=== PATIENT | male | born 1960 | race Caucasian/White ===

== ENCOUNTER 2016-06-03 12:21 | Inpatient (IN) | payer MEDICAID ==
[~2016-06-03] VITALS: Ht 144.8 cm; Wt 62.1 kg
[~2016-06-03 12:21] MED LIST: MIRALAX *UNIT DOSE* 17GM PACKET PO PRN; MOM 30ML SUSPENSION UDC PO PRN
[2016-06-03 13:00] VITALS: BP 161/86
[2016-06-03] MEDS ORDERED: ACET-654 PO (13:48)
[2016-06-03] MEDS ORDERED: TRAZ50TA4 PO (13:48)
[2016-06-03] MEDS ORDERED: ATOR1TAB18 PO (13:48)
[2016-06-03] MEDS ORDERED: [UNRECOGNIZED DRUG - CODE] IV (13:48)
[2016-06-03] MEDS ORDERED: PANT40TA2 PO (13:48)
[2016-06-03] MEDS ORDERED: LISI-538 PO (13:48)
[2016-06-03] MEDS ORDERED: CLOP75TA2 PO (13:48)
[2016-06-03] MEDS ORDERED: CEFE2INJ IV (13:48)
[2016-06-03] MEDS ORDERED: ASPI81CH PO (13:48)
[2016-06-03] MEDS ORDERED: THIA100T PO (13:48)
[2016-06-03] MEDS ORDERED: AMLO10TA2 PO (13:48)
--- NOTE | 2016-06-03 14:11 | HPEPDOC ---
Seed Specialist Note ADMISSION H&P + ELENA DATE OF ADMISSION: 06/03/2016 DATE OF SERVICE: 06/03/2016 IDENTIFICATION STATEMENT: Patient is a 55-year-old man cardioembolic stroke and left hemiparesis, left neglect, decreased cognition admitted for comprehensive integrated inpatient rehabilitation. HISTORY OF PRESENT ILLNESS: Patient is a 55-year-old right hand dominant man with a history of heavy tobacco use who was admitted to local hospital on 2016 with gait abnormality. Systolic blood pressure was noted to be over 200mmHg and CT of the head showed a hypodensity in the parietal occipital area. He was transferred to [facility] for higher level of care. He was diagnosed with acute infarct involving the right PICKLING TANK OPERATOR distribution. He was started on high dose of statin. While at [facility] he experienced a new embolic infarct in the right MCA territory. He was found to have filamentous structure in the mitral valve and a PFO for which infectious disease was consulted. He was empirically treated for endocarditis (vancomycin and cefepime) and evaluated by cardiothoracic surgery service. He was started on dual antiplatelet therapy. He also underwent a hypercoagulable workup where she was found to have an elevated factor VIII. Recommendation was for repeat factor VIII level in 6-8 weeks. Due to decline in the patients baseline functional status recommendation was for acute rehabilitation. On 06/03/2016 the patient was deemed stable for discharge to [facility] inpatient rehabilitation unit. PAST MEDICAL HISTORY: Hypertension Hyperlipidemia Tobacco use PAST SURGICAL HISTORY: Negative ALLERGIES: No known drug allergies MEDICATIONS: Vancomycins 750 mg every 12 hours Cefepime 2 g IV every 8 hours Amlodipine 10 mg by mouth daily Aspirin 81 mg by mouth daily Plavix 75 mg by mouth daily Lipitor 80 mg by mouth daily Lisinopril 20 mg by mouth daily Protonix 40 mg by mouth daily Thiamine 100 mg daily Trazodone 50 mg daily Acetaminophen 650 mg every 6 hours as needed FAMILY HISTORY: Patient unaware if family history of medical issues SOCIAL HISTORY: Patient states he lives with his girlfriend in a one-story home , there are no steps to manage. He reports smoking 1-2 packs a day for 40 years. He reports drinking daily siting a couple of beers. He denies any illicit drug use, past or present. Review of Systems: General: no chills, +fatigue, no weight changes. Eyes: denies change in vision. Ears, Nose & Throat: no sore throat, decreased hearing or nasal discharge. Cardiovascular: no chest pain, claudication, edema, syncopal episodes. Pul: no cough, SOB, orthopnea. GI: Cant remember when he had a bowel movement. No abdominal pain, GERD, N/V. Genitourinary: no dysuria. Musculoskeletal: no back/neck/joint pain, no muscle pain. Neurological: + numbness left side, + decreased memory; no tremors, seizures, BRIONES. Hematological: elevated Factor VIII. Skin: no rashes. Psychiatric: no depression, anxiety, behavioral issues. VITAL SIGNS: 161/86, heart rate 72, 100% saturation on room air, 97.5F PHYSICAL EXAMINATION: GENERAL: Thin, well developed, sitting up in bed, no acute distress. HEENT: Normocephalic, atraumatic. Mild left facial droop. No lymphadenopathy. No jugular venous distention (JVD). PERRL, EOMI, poor dentition/missing teeth CARDIOVASCULAR: S1, S2, regular rate. No lower limb edema or calf tenderness. LUNGS: Decreased breath sounds throughout, but no rhonchi, wheezing or rales appreciated ABDOMEN: Soft, nontender, nondistended. Positive normoactive bowel sounds throughout. NEUROLOGICAL: Alert and oriented to person only. Positive left neglect. Memory deficits. MMT: 5/5 strength right upper and lower limbs in all major muscle groups. (Note difficulty assessing left upper and lower limb secondary to neglect and comprehension deficits) approximately 4/5 strength left shoulder abduction and forward flexion and elbow flexion 3/5 elbow extension 5/5 left skin lap bonder, 3/5 left finger extension, 3-/5 left hip flexors and knee extension, 3/5 knee flexion, dorsiflexion. Sensation: Decreased on the left upper and lower limbs relative to right upper and lower. Deep tendon reflexes: 3+ bilateral patellar and biceps SKIN: +IV LABORATORY DATA: 06/02/2016: WBC count 9.3, hemoglobin 12.9, hematocrit 37.4, platelets 386, sodium 137, potassium 4.8, chloride 99, bicarbonate 20, BUN 15, creatinine 0.9, glucose 97, calcium 9.3 IMAGING: MRI of the brain 05/30/2016: New embolic infarcts in the right MCA territory. Right posterior cerebral artery territory acute infarct. Left anterior cerebral artery flows load/PICKLING TANK OPERATOR watershed acute infarct. MRI of the brain 05/24/2016: Acute infarct involving the right PICKLING TANK OPERATOR distribution and right centrum ovale. 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 Chronic infarct in the right genu of the internal capsule in the left caudate. Small area of encephalomalacia in the ian. CTA a of the head and neck 05/24/2016 acute infarct involving the right PICKLING TANK OPERATOR territory with edema and sulcal effacement and surrounding mass effect the right P2 segment is occluded. Right M2 becomes focally narrowed just distal to the bifurcation. Right vertebral artery becomes occluded at the PICA origin. Irregular basal artery with multifocal areas of narrowing. Left vertebral artery is occluded at the origin and reconstituted flow at the C5-6 level. Plaque is seen in the V4 segment of the left vertebral artery TU with bubble study 05/25/2016: Thin filamentous structure attached to the atrial side of the posterior leaf of the mitral valve. Positive intra-atrial shunt visualized by color Doppler and bubble study. CT of the thorax with contrast 05/25/2016: There is an ill-defined 9 mm nodular opacity in the right lower lobe. There are a couple of calcified granuloma in the right middle lobe. There is a 3.4 mm nodule in the right lower lobe. CT of the abdomen 05/25/2016: No evidence of primary or metastatic malignancy. Lateral and inferior infarcts of the left kidney with old and subacute components. These are most likely vascular in etiology due to severe associated atherosclerotic disease. ASSESSMENT AND PLAN: 1. Acute infarct involving right PICKLING TANK OPERATOR distribution, left parasagittal cortex, right MCA with resultant left hemiparesis, cognitive deficits, decreased mobility and dysfunctional ADLs: Will maintain patient on statin as well as dual antiplatelet therapy. Patient will undergo thorough physical, occupational , speech therapy evaluations followed by daily therapy. Rehabilitation nursing for bladder, bowel and medication management. 2. Hypertension: Patients admission blood pressure relatively high. Well monitor closely over the next 24 hours with medication adjustments as indicated. 3. Endocarditis: Continue IV vancomycin cefepime for 6 more weeks. 4. Elevated factor VIII: Continue dual antiplatelet therapy with repeat lab work in 6-8 weeks. If still elevated transition to Xarelto 20 milligrams daily and discontinue antiplatelets per discharge summary. 5. Lung nodule: Patient is status post pulmonary consult which recommends repeat chest CT in 6-8 weeks as an outpatient. 6. DVT prophylaxis: SCD and ELIZABETH hose. 7. Diet/nutrition: Well obtain a prealbumin with morning labs. Maintain patient on a mechanical soft (secondary to poor dentition) low-fat low- cholesterol diet with thin liquids. Nutritional supplements as indicated. POST ADMISSION PHYSICIAN EVALUATION: On evaluation of the patient today there' ve been no significant medical issues or functional changes as compared to those noted in the preadmission screening document. This patient's inpatient rehabilitation remains necessary in light of the above conditions. The patient' s medical condition requires specialized care with physicians specially trained in physical medicine rehabilitation. The patient is capable to participate in a minimum of 3 hours of therapy daily, 5 days minimum per week, and requires intensive inpatient rehabilitation to improve their functional status so that they can be safely to discharge back to their home. PROGNOSIS: Fair ESTIMATED LENGTH OF STAY: 21 days. Vital Signs Vital Sign - Last 24 Hours 06/03/16 13:00 Temp 97.5 Pulse 72 Resp 18 B/P 161/86 Pulse Ox 100 O2 Delivery Room Air Home Medications Scheduled (Aspirin) 81 Mg Chw 81 MG PO DAILY (Reported) Amlodipine Besylate (Amlodipine Besylate) 10 Mg Tab 10 MG PO DAILY (Reported) Atorvastatin Calcium (Atorvastatin Calcium) 80 Mg Tab 80 MG PO DAILY (Reported) Cefepime Hydrochloride (Cefepime) 2 Gm Inj 2 GM IV Q8H (Reported) Clopidogrel Bisulfate (Clopidogrel) 75 Mg Tab 75 MG PO DAILY (Reported) Lisinopril (Lisinopril) 20 Mg Tab 20 MG PO DAILY (Reported) Pantoprazole Sodium (Pantoprazole Sodium) 40 Mg Tab 40 MG PO DAILY (Reported) Thiamine HCl (Thiamine HCl) 100 Mg Tab 100 MG PO DAILY (Reported) Trazodone HCl (Trazodone HCl) 50 Mg Tab 50 MG PO QHS (Reported) Vancomycin HCl (Vancomycin HCl) 750 Mg Inj 750 MG IV Q12H (Reported) Scheduled PRN Acetaminophen (Acetaminophen) 325 Mg Tab 650 MG PO Q6H PRN PRN PAIN / FEVER ( Reported) Allergies Coded Allergies: No Known Allergies (Unverified , 06/03/16) JOSE LUIS LEOS MD Jun 03, 2016 14:11
[2016-06-03] MEDS: CEFEPIME HCL 2 GM in D5W MINI-BAG PLUS 50 ML IV SCH (16:55)
[2016-06-03] MEDS: VANCOMYCIN HCL 750 MG, VIAL MATE ADAPTER 1 EACH in D5W 250 ML IV SCH (17:49)
[2016-06-03] MEDS: SODIUM CHLORIDE 0.9% INJ 10 ML SYR IV SCH (19:12)
[2016-06-03 20:00] VITALS: BP 170/80
[2016-06-03] MEDS: DOCUSATE SODIUM 100 MG CAP PO SCH (20:17)
[2016-06-03] MEDS: traZODone 50 MG TAB PO SCH (20:17)
[2016-06-03] MEDS: SENNA 8.6 MG TAB (SENOKOT) PO SCH (20:17)
[2016-06-03] MEDS: ACETAMINOPHEN TAB 650MG DOSE (2X325MG) PO PRN (20:27)
[2016-06-03] MEDS: **hydrALAZINE** 10 MG TAB PO SCH (21:45)
[2016-06-04] MEDS: CEFEPIME HCL 2 GM in D5W MINI-BAG PLUS 50 ML IV SCH ×3 (00:40→17:00)
[2016-06-04] MEDS: SODIUM CHLORIDE 0.9% INJ 10 ML SYR IV PRN ×2 (01:34→09:36)
[2016-06-04 06:00] VITALS: BP 135/83
[2016-06-04] MEDS: **hydrALAZINE** 10 MG TAB PO SCH ×3 (06:00→21:24)
[2016-06-04] MEDS: VANCOMYCIN HCL 750 MG, VIAL MATE ADAPTER 1 EACH in D5W 250 ML IV SCH ×2 (06:29→18:27)
[2016-06-04] MEDS: SODIUM CHLORIDE 0.9% INJ 10 ML SYR IV SCH ×2 (06:29→18:27)
[2016-06-04 07:10] LABS: MEAN CORPUSCULAR HEMOGLOBIN 29.3 pg (27.0-33.0); MEAN CORPUSCULAR HGB CONC 34.1 g/dl (32.0-36.5); MEAN CORPUSCULAR VOLUME 85.7 fl (80.0-96.0); WHITE BLOOD COUNT 7.1 K/mm3 (4.0-10.0)
[2016-06-04 07:22] LABS: ANION GAP 8 MEQ/L (8-16); BLOOD UREA NITROGEN 19 MG/DL (7-18); CALCIUM LEVEL 8.8 MG/DL (8.5-10.1); CARBON DIOXIDE LEVEL 25 MEQ/L (21-32); CHLORIDE LEVEL 107 MEQ/L (98-107); CREATININE FOR GFR 1.05 MG/DL (0.70-1.30); GLOMERULAR FILTRATION RATE > 60.0 (>56); GLUCOSE, FASTING 94 MG/DL (70-105); POTASSIUM SERUM 4.4 MEQ/L (3.5-5.1); SODIUM LEVEL 140 MEQ/L (136-145)
[2016-06-04] MEDS: DOCUSATE SODIUM 100 MG CAP PO SCH ×2 (09:04→20:07)
[2016-06-04] MEDS: ATORVASTATIN 20 MG TAB PO SCH (09:04)
[2016-06-04] MEDS: CLOPIDOGREL 75 MG TAB PO SCH (09:05)
[2016-06-04] MEDS: THIAMINE 100 MG TAB PO SCH (09:05)
[2016-06-04] MEDS: PANTOPRAZOLE 40MG TAB (PROTONIX) PO SCH (09:06)
[2016-06-04] MEDS: ASPIRIN 81 MG CHEW TABLET PO SCH (09:06)
[2016-06-04] MEDS: amLODIPine 10 MG TAB PO SCH (09:09)
[2016-06-04] MEDS: LISINOPRIL 20 MG TAB PO SCH (09:09)
[2016-06-04 14:00] VITALS: BP 155/80
[2016-06-04 20:00] VITALS: BP 162/90
[2016-06-04] MEDS: ACETAMINOPHEN TAB 650MG DOSE (2X325MG) PO PRN (20:07)
[2016-06-04] MEDS: traZODone 50 MG TAB PO SCH (20:07)
[2016-06-04] MEDS: SENNA 8.6 MG TAB (SENOKOT) PO SCH (20:07)
[2016-06-05] MEDS: SODIUM CHLORIDE 0.9% INJ 10 ML SYR IV PRN (01:06)
[2016-06-05] MEDS: CEFEPIME HCL 2 GM in D5W MINI-BAG PLUS 50 ML IV SCH ×3 (01:06→17:16)
[2016-06-05 06:00] VITALS: BP 168/90
--- NOTE | 2016-06-05 06:00 | PHACANCOPD ---
PHARMACY VANCOMYCIN DOSING Pt Demographics Demographics Patient Age:55 , Weight:60.800 , Gender: male Adjusted Body Weight Date: 06/05/16, Adjusted Body Weight: Kg Events Past 24 Hours Events Past 24 Hours: NO: Change in CrCl, Dialysis, Diuretic Therapy, Elevation in WBC, Fever, Other, Pending Diagnostics, Pending Procedures Vancomycin Vancomycin Target Ranges: 10-20 mcg/ml Vancomycin Load Y/N: No Load Dose Date Time Vancomycin Load Dose: Date: Time: Vancomycin Dose Date: 06/05/16. Current Vancomycin Dose: [750MG Q12H] Intermittent Dosing?: No Labs Labs Item Value Date Time White Blood Count 7.1 K/mm3 06/04/16 0635 Creatinine 1.05 MG/DL 06/04/16 0635 Vancomycin Level Trough 19.7 UG/ML 06/05/16 0508 Vital Signs Label Value Date Time Patient Temperature 97.7 degrees F 06/04/161999 Temperature Source Tympanic 06/04/161999 Creatinine Clearance Date:06/05/16. Creatinine Clearance: [48]. Assessment and Plan Maintaining Current Dose?: Yes Reason for dose change: No Dose Change Pharmacist Note Pharmacist Note Date: 06/05/16. Pharmacist note:Trough of 19.7 is within target range. Will continue current dosing. Will continue to monitor and make adjustments as needed. JE WYLIE PHARMACY Jun 05, 2016 06:00
[2016-06-05] MEDS: VANCOMYCIN HCL 750 MG, VIAL MATE ADAPTER 1 EACH in D5W 250 ML IV SCH ×2 (06:16→17:54)
[2016-06-05] MEDS: SODIUM CHLORIDE 0.9% INJ 10 ML SYR IV SCH ×2 (06:19→19:46)
[2016-06-05] MEDS: **hydrALAZINE** 10 MG TAB PO SCH ×3 (06:34→23:02)
[2016-06-05] MEDS: PANTOPRAZOLE 40MG TAB (PROTONIX) PO SCH ×3 (09:00→09:32)
[2016-06-05] MEDS: THIAMINE 100 MG TAB PO SCH (09:23)
[2016-06-05] MEDS: ATORVASTATIN 20 MG TAB PO SCH (09:23)
[2016-06-05] MEDS: CLOPIDOGREL 75 MG TAB PO SCH (09:24)
[2016-06-05] MEDS: ASPIRIN 81 MG CHEW TABLET PO SCH (09:24)
[2016-06-05] MEDS: LISINOPRIL 20 MG TAB PO SCH (09:26)
[2016-06-05] MEDS: amLODIPine 10 MG TAB PO SCH (09:27)
[2016-06-05] MEDS: DOCUSATE SODIUM 100 MG CAP PO SCH ×2 (09:27→21:00)
--- NOTE | 2016-06-05 11:17 | PHACANCOPD ---
PHARMACY VANCOMYCIN DOSING Pt Demographics Demographics Patient Age:55 , Weight:58.500 , Gender: male Adjusted Body Weight Date: 06/05/16, Adjusted Body Weight: Kg Events Past 24 Hours Events Past 24 Hours: NO: Change in CrCl, Dialysis, Diuretic Therapy, Elevation in WBC, Fever, Other, Pending Diagnostics, Pending Procedures Vancomycin Vancomycin indication: endocarditis Vancomycin Target Ranges: 10-20 mcg/ml Vancomycin Load Y/N: No Load Dose Date Time Vancomycin Load Dose: Date: Time: Vancomycin Dose Date: 06/05/16. Current Vancomycin Dose: [750MG Q12H] Intermittent Dosing?: No Labs Labs Item Value Date Time White Blood Count 7.1 K/mm3 06/04/16 0635 Creatinine 1.05 MG/DL 06/04/16 0635 Vancomycin Level Trough 19.7 UG/ML 06/05/16 0508 Creatinine Clearance Date:06/05/16. Creatinine Clearance: [48]. Pending Labs Vanco trough 06/07 @05:00 Assessment and Plan Maintaining Current Dose?: Yes Reason for dose change: No Dose Change Pharmacist Note Pharmacist Note Date: 06/05/16. Pharmacist note: pt was transferred from [facility] on Monday and has been continued on Vanco and cefepime for empiric treatment of endocarditis. 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 Their recommendations were to treat for 6 weeks (started 05/30/16). He was on vanco 750mg q12h, trough on 06/01 came back at 20.3. When he was transferred Monday there was an interval of 18 hours before his dosing was resumed. Trough today was within range (19.7), I will repeat a trough in 2 days. Rambo Valadez Pharm.D. Jun 05, 2016 11:16
[2016-06-05 14:00] VITALS: BP 177/79
[2016-06-05 15:00] VITALS: BP 154/78
[2016-06-05 20:00] VITALS: BP 172/88
[2016-06-05] MEDS: SENNA 8.6 MG TAB (SENOKOT) PO SCH (21:00)
[2016-06-05] MEDS: traZODone 50 MG TAB PO SCH (21:00)
[2016-06-05 23:02] VITALS: BP 172/88
[2016-06-06] VITALS (7 sets, daily range): BP systolic 136–182; BP diastolic 75–90
[2016-06-06] MEDS: CEFEPIME HCL 2 GM in D5W MINI-BAG PLUS 50 ML IV SCH ×3 (00:48→16:42)
[2016-06-06] MEDS: SODIUM CHLORIDE 0.9% INJ 10 ML SYR IV PRN (01:30)
[2016-06-06] MEDS: VANCOMYCIN HCL 750 MG, VIAL MATE ADAPTER 1 EACH in D5W 250 ML IV SCH ×2 (06:49→17:53)
[2016-06-06] MEDS: SODIUM CHLORIDE 0.9% INJ 10 ML SYR IV SCH ×2 (06:55→17:54)
[2016-06-06] MEDS: **hydrALAZINE** 10 MG TAB PO SCH ×3 (06:57→21:17)
[2016-06-06] MEDS: THIAMINE 100 MG TAB PO SCH (08:50)
[2016-06-06] MEDS: amLODIPine 10 MG TAB PO SCH (08:51)
[2016-06-06] MEDS: PANTOPRAZOLE 40MG TAB (PROTONIX) PO SCH (08:51)
[2016-06-06] MEDS: ATORVASTATIN 20 MG TAB PO SCH (08:51)
[2016-06-06] MEDS: LISINOPRIL 20 MG TAB PO SCH (08:51)
[2016-06-06] MEDS: ASPIRIN 81 MG CHEW TABLET PO SCH (08:51)
[2016-06-06] MEDS: CLOPIDOGREL 75 MG TAB PO SCH (08:51)
[2016-06-06] MEDS: DOCUSATE SODIUM 100 MG CAP PO SCH ×2 (08:52→20:06)
[2016-06-06] MEDS: ACETAMINOPHEN TAB 650MG DOSE (2X325MG) PO PRN (08:54)
--- NOTE | 2016-06-06 12:24 | IPNPDOC ---
Local Sales Associate Progress Note PROGRESS NOTE DATE OF ADMISSION: 06/03/2016 DATE OF SERVICE: 06/06/2016 ID ALFIE: Dr. Chery Corine Robin, IDENTIFICATION STATEMENT: Patient is a 55-year-old man cardioembolic stroke and left hemiparesis, left neglect, decreased cognition admitted for comprehensive integrated inpatient rehabilitation. PAST MEDICAL HISTORY: Hypertension Hyperlipidemia Tobacco use PAST SURGICAL HISTORY: Negative ALLERGIES: No known drug allergies MEDICATIONS: Vancomycin 750 mg every 12 hours Cefepime 2 g IV every 8 hours Amlodipine 10 mg by mouth daily Aspirin 81 mg by mouth daily Plavix 75 mg by mouth daily Lipitor 80 mg by mouth daily Lisinopril 20 mg by mouth daily Hydralazine 10mg q8h Protonix 40 mg by mouth daily Thiamine 100 mg daily Trazodone 50 mg daily Acetaminophen 650 mg every 6 hours as needed SUBJECTIVE: Patient expresses that he has to have a BM. Denies any other complaints, including CP, SOB, N/V, difficulty urinating. States he thinks he remembers me from last week, but when further question, does not recall who I am. VITAL SIGNS: 140/80, rr 18, heart rate 69, 98% saturation on room air, 96.9F PHYSICAL EXAMINATION: GENERAL: Thin, well developed, sitting up in WC, no acute distress. HEENT: Normocephalic, atraumatic. Mild left facial droop. PERRL, EOMI, poor dentition/missing teeth CARDIOVASCULAR: S1, S2, regular rate. No lower limb edema or calf tenderness. LUNGS: Decreased breath sounds throughout, but no rhonchi, wheezing or rales appreciated ABDOMEN: Soft, nontender, nondistended. Normoactive bowel sounds throughout. NEUROLOGICAL: Alert and oriented to person only. Left neglect. Memory deficits. MMT: 5/5 strength right upper and lower limbs in all major muscle groups. (Note difficulty assessing secondary to neglect and comprehension deficits) approximately 4/5 strength left shoulder abduction and forward flexion and elbow flexion 3/5 elbow extension 5/5 left slasher tender helper, 3/5 left finger extension, 3-/ 5 left hip flexors and knee extension, 3/5 knee flexion, dorsiflexion. SKIN: +PICC LABORATORY DATA: 06/04/16: WBC 7.1, Hgb 11.4, Cr 1.05 06/05/16: vanco 19.7 06/02/2016: WBC count 9.3, hemoglobin 12.9, hematocrit 37.4, platelets 386, sodium 137, potassium 4.8, chloride 99, bicarbonate 20, BUN 15, creatinine 0.9, glucose 97, calcium 9.3 IMAGING: MRI of the brain 05/30/2016: New embolic infarcts in the right MCA territory. Right posterior cerebral artery territory acute infarct. Left anterior cerebral artery flows load/GROCERY STORE ASSOCIATE watershed acute infarct. MRI of the brain 05/24/2016: Acute infarct involving the right GROCERY STORE ASSOCIATE distribution and right centrum ovale. 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 Chronic infarct in the right genu of the internal capsule in the left caudate. Small area of encephalomalacia in the ian. CTA a of the head and neck 05/24/2016 acute infarct involving the right GROCERY STORE ASSOCIATE territory with edema and sulcal effacement and surrounding mass effect the right P2 segment is occluded. Right M2 becomes focally narrowed just distal to the bifurcation. Right vertebral artery becomes occluded at the PICA origin. Irregular basal artery with multifocal areas of narrowing. Left vertebral artery is occluded at the origin and reconstituted flow at the C5-6 level. Plaque is seen in the V4 segment of the left vertebral artery TU with bubble study 05/25/2016: Thin filamentous structure attached to the atrial side of the posterior leaf of the mitral valve. Positive intra-atrial shunt visualized by color Doppler and bubble study. CT of the thorax with contrast 05/25/2016: There is an ill-defined 9 mm nodular opacity in the right lower lobe. There are a couple of calcified granuloma in the right middle lobe. There is a 3.4 mm nodule in the right lower lobe. CT of the abdomen 05/25/2016: No evidence of primary or metastatic malignancy. Lateral and inferior infarcts of the left kidney with old and subacute components. These are most likely vascular in etiology due to severe associated atherosclerotic disease. ASSESSMENT AND PLAN: 1. Acute infarct involving right GROCERY STORE ASSOCIATE distribution, left parasagittal cortex, right MCA with resultant left hemiparesis, cognitive deficits, decreased mobility and dysfunctional ADLs: Continue statin as well as dual antiplatelet therapy. Continue daily therapies. Rehabilitation nursing for bladder, bowel and medication management. 2. Hypertension: Lisinopril, Norvasc, Hydralazine. 3. Endocarditis: Continue IV vancomycin & cefepime until ~ 07/15/16. Will need f/ u with ID (Dr. Miri Kelly was ID physician in [facility]) 4. Elevated factor VIII: Continue dual antiplatelet therapy with repeat lab work around 07/16/15. If still elevated transition to Xarelto 20 milligrams daily and discontinue antiplatelets per discharge summary. 5. Lung nodule: Patient is status post pulmonary consult which recommends repeat chest CT in around 07/15/16 as an outpatient. 6. DVT prophylaxis: SCD and ELIZABETH hose. 7. Diet/nutrition: Prealbumin w/I normal limits. Maintain patient on a mechanical soft (secondary to poor dentition) low-fat low-cholesterol diet with thin liquids. / Vital Signs Vital Sign - Last 24 Hours 06/05/16 06/05/16 06/05/16 06/05/16 14:00 14:34 15:00 19:57 Temp 97.4 Pulse 81 Resp 18 B/P 177/79 177/79 154/78 Pulse Ox 99 O2 Delivery Room Air Room Air 06/05/16 06/05/16 06/05/16 06/06/16 20:00 23:02 23:02 00:00 Temp 97.1 Pulse 86 Resp 18 B/P 172/88 172/88 172/88 144/82 Pulse Ox 100 O2 Delivery Room Air 06/06/16 06/06/16 06/06/16 06/06/16 06:00 06:57 07:45 08:51 Temp 96.9 Pulse 69 69 Resp 18 B/P 182/90 182/90 182/90 Pulse Ox 98 O2 Delivery Room Air Room Air 06/06/16 10:00 B/P 140/80 Allergies Allergies: Coded Allergies: No Known Allergies (Unverified , 06/03/16) Current Medications Current Medications Current Medications Acetaminophen (Tylenol Tab) 650 mg Q4HP PRN PO MILD PAIN (PS 1-4) Last administered on 06/06/16 08:54; Start 06/03/16 at 11:45; Stop 07/03/16 at 11:44 Amlodipine Besylate (Norvasc) 10 mg DAILY PO Last administered on 06/06/16 08: 51; Start 06/04/16 at 09:00; Stop 07/04/16 at 08:59 Aspirin (Aspirin Chewable) 81 mg DAILY PO Last administered on 06/06/16 08:51; Start 06/04/16 at 09:00; Stop 07/04/16 at 08:59 Atorvastatin Calcium (Lipitor) 80 mg DAILY PO Last administered on 06/06/16 08: 51; Start 06/04/16 at 09:00; Stop 07/04/16 at 08:59 Cefepime HCl/ Dextrose (Maxipime/ Dextrose 5% Mini-Bag Plus) 50 ml @ 100 mls/ hr Q8H IV Last administered on 06/06/16 08:50; Start 06/03/16 at 17:00; Stop 01/17 at 16:59 Clopidogrel Bisulfate (PLAVix) 75 mg DAILY PO Last administered on 06/06/16 08: 51; Start 06/04/16 at 09:00; Stop 07/04/16 at 08:59 Docusate Sodium (Colace) 100 mg BID PO Last administered on 06/06/16 08:52; Start 06/03/16 at 21:00; Stop 07/03/16 at 20:59 Heparin Sodium (Heparin (Flush)) 200 units ASDIRECTED PRN IV SEE LABEL COMMENTS Last administered on 06/06/16 09:53; Start 06/03/16 at 17:00; Stop at 16:59 Heparin Sodium (Heparin (Flush)) 200 units PICC IV Last administered on 06:55; Start 06/03/16 at 18:00; Stop 07/03/16 at 17:59 Home Med (Med Rec Complete!) ASDIRECTED XX ; Start 06/03/16 at 14:00; Stop at 14:44; Status DC Hydralazine HCl (Apresoline) 10 mg Q8H PO Last administered on 06/06/16 06:57; Start 06/03/16 at 22:00; Stop 07/03/16 at 21:59 Lisinopril (Prinivil) 20 mg DAILY PO Last administered on 06/06/16 08:51; Start 06/04/16 at 09:00; Stop 07/04/16 at 08:59 Magnesium Hydroxide (Milk Of Magnesia) 30 ml DAILYPRN PRN PO CONSTIPATION Last administered on 06/06/16 09:52; Start 06/03/16 at 11:45; Stop 07/03/16 at 11:44 Pantoprazole Sodium (Protonix) 40 mg DAILY PO Last administered on 06/06/16 08: 51; Start 06/04/16 at 09:00; Stop 07/04/16 at 08:59 Polyethylene Glycol (Miralax) 1 pkt DAILY PRN PO CONSTIPATION; Start 06/03/16 at 11:45; Stop 07/03/16 at 11:44 Senna (Senokot) 1 tab QHS PO Last administered on 06/05/16 21:00; Start at 21:00; Stop 07/03/16 at 20:59 Sodium Chloride (Saline Lock Flush) 10 ml ASDIRECTED PRN IV SEE LABEL COMMENTS Last administered on 06/06/16 01:30; Start 06/03/16 at 17:00; Stop 07/03/16 at 16: 59 Sodium Chloride (Saline Lock Flush) 10 ml PICC IV Last administered on 06:55; Start 06/03/16 at 18:00; Stop 07/03/16 at 17:59 Thiamine HCl (Thiamine HCl) 100 mg DAILY PO Last administered on 06/06/16 08:50 ; Start 06/04/16 at 09:00; Stop 07/04/16 at 08:59 Trazodone HCl 50 mg 50 mg QHS PO Last administered on 06/05/16 21:00; Start 06/03/16 at 21:00; Stop 07/03/16 at 20:59 Vancomycin HCl 750 mg/IV Miscellaneous Supplies 1 each/ Dextrose 275 ml @ 275 mls/hr Q12H IV Last administered on 06/06/16 06:49; Start 06/03/16 at 18:00; Stop 06/10/16 at 17:59 JOSE LUIS LEOS MD Jun 06, 2016 12:24
[2016-06-06] MEDS ORDERED: MAGNESIUM CITRATE 300 ML BTL PO ONE ×2 (16:45→17:15)
[2016-06-06] MEDS: traZODone 50 MG TAB PO SCH (20:06)
[2016-06-06] MEDS: SENNA 8.6 MG TAB (SENOKOT) PO SCH (20:06)
[2016-06-07] MEDS: CEFEPIME HCL 2 GM in D5W MINI-BAG PLUS 50 ML IV SCH ×3 (00:45→17:30)
[2016-06-07] MEDS: SODIUM CHLORIDE 0.9% INJ 10 ML SYR IV PRN ×2 (01:04→10:08)
[2016-06-07 06:00] VITALS: BP 169/83
[2016-06-07] MEDS: **hydrALAZINE** 10 MG TAB PO SCH ×3 (06:12→21:15)
[2016-06-07] MEDS: SODIUM CHLORIDE 0.9% INJ 10 ML SYR IV SCH ×2 (06:12→19:17)
[2016-06-07] MEDS: VANCOMYCIN HCL 750 MG, VIAL MATE ADAPTER 1 EACH in D5W 250 ML IV SCH ×2 (06:21→18:16)
[2016-06-07 06:26] LABS: BASO # 0.1 K/mm3 (0.0-0.2); BASO % 0.7 % (0.0-1.0); EOS # 0.2 K/mm3 (0.0-0.50); LARGE UNSTAINED CELL # 0.2 K/mm3 (0.0-0.4); LARGE UNSTAINED CELL % 1.8 % (0.0-4.0); LYMPH # 1.6 K/mm3 (1.5-4.5); LYMPH % 19.2 % (24.0-44.0); MEAN CORPUSCULAR HEMOGLOBIN 28.3 pg (27.0-33.0); MEAN CORPUSCULAR HGB CONC 33.4 g/dl (32.0-36.5); MEAN CORPUSCULAR VOLUME 84.7 fl (80.0-96.0); MONO # 0.4 K/mm3 (0.0-0.8); MONO % 4.6 % (0.0-5.0); NEUTROPHILS # 5.8 K/mm3 (1.8-7.7); NEUTROPHILS % 71.7 % (36.0-66.0); PLATELET COUNT, AUTOMATED 352 k/mm3 (150-450); RED CELL DISTRIBUTION WIDTH 13.8 % (11.5-14.5); WHITE BLOOD COUNT 8.1 K/mm3 (4.0-10.0)
[2016-06-07 06:43] LABS: ANION GAP 7 MEQ/L (8-16); BLOOD UREA NITROGEN 16 MG/DL (7-18); CARBON DIOXIDE LEVEL 26 MEQ/L (21-32); CHLORIDE LEVEL 106 MEQ/L (98-107); CREATININE FOR GFR 1.08 MG/DL (0.70-1.30); GLOMERULAR FILTRATION RATE > 60.0 (>56); GLUCOSE, FASTING 93 MG/DL (70-105); POTASSIUM SERUM 4.1 MEQ/L (3.5-5.1); SODIUM LEVEL 139 MEQ/L (136-145)
[2016-06-07 07:10] LABS: ERYTHROCYTE SEDIMENTATION RATE 40 mm/hr (0-20)
--- NOTE | 2016-06-07 07:10 | PHACANCOPD ---
PHARMACY VANCOMYCIN DOSING Pt Demographics Demographics Patient Age:55 , Weight:58.500 , Gender: male Adjusted Body Weight Date: 06/05/16, Adjusted Body Weight: Kg Events Past 24 Hours Events Past 24 Hours: NO: Change in CrCl, Dialysis, Diuretic Therapy, Elevation in WBC, Fever, Other, Pending Diagnostics, Pending Procedures Vancomycin Vancomycin indication: endocarditis Vancomycin Target Ranges: 10-20 mcg/ml Vancomycin Load Y/N: No Load Dose Date Time Vancomycin Load Dose: Date: Time: Vancomycin Dose Date: 06/07/16. Current Vancomycin Dose: [750MG IV Q12H] Date: 06/05/16. Current Vancomycin Dose: [750MG Q12H] Intermittent Dosing?: No Labs Labs Item Value Date Time White Blood Count 7.1 K/mm3 06/04/16 0635 White Blood Count 8.1 K/mm3 06/07/16 0609 Creatinine 1.05 MG/DL 06/04/16 0635 Creatinine 1.08 MG/DL 06/07/16 0609 Vancomycin Level Trough 19.7 UG/ML 06/05/16 0508 Vancomycin Level Trough 18.5 UG/ML 06/07/16 0609 Creatinine Clearance Date:06/05/16. Creatinine Clearance: [48]. Assessment and Plan Maintaining Current Dose?: Yes Reason for dose change: No Dose Change Pharmacist Note Pharmacist Note Date: 06/07/16. Pharmacist note:Patients trough was therapeutic (18.5). Continue current dosing and continue to monitor renal function. Adjust dose as needed. Date: 06/05/16. Pharmacist note: pt was transferred from [facility] on Monday and has been continued on Vanco and cefepime for empiric treatment of endocarditis. 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 Their recommendations were to treat for 6 weeks (started 05/30/16). He was on vanco 750mg q12h, trough on 06/01 came back at 20.3. When he was transferred Monday there was an interval of 18 hours before his dosing was resumed. Trough today was within range (19.7), I will repeat a trough in 2 days. SHEILA AMOR PHARMACY Jun 07, 2016 07:10
[2016-06-07] MEDS: DOCUSATE SODIUM 100 MG CAP PO SCH ×2 (09:10→21:14)
[2016-06-07] MEDS: THIAMINE 100 MG TAB PO SCH (09:10)
[2016-06-07] MEDS: amLODIPine 10 MG TAB PO SCH (09:11)
[2016-06-07] MEDS: LISINOPRIL 20 MG TAB PO SCH (09:11)
[2016-06-07] MEDS: PANTOPRAZOLE 40MG TAB (PROTONIX) PO SCH (09:11)
[2016-06-07] MEDS: ASPIRIN 81 MG CHEW TABLET PO SCH (09:11)
[2016-06-07] MEDS: ATORVASTATIN 20 MG TAB PO SCH (09:11)
[2016-06-07] MEDS: CLOPIDOGREL 75 MG TAB PO SCH (09:11)
--- NOTE | 2016-06-07 11:05 | IPNPDOC ---
Department Store Manager Progress Note PROGRESS NOTE DATE OF ADMISSION: 06/03/2016 DATE OF SERVICE: 06/07/2016 ID ALFIE: Dr. Chery Corine Robin, IDENTIFICATION STATEMENT: Patient is a 55-year-old man cardioembolic stroke and left hemiparesis, left neglect, decreased cognition admitted for comprehensive integrated inpatient rehabilitation. PAST MEDICAL HISTORY: Hypertension Hyperlipidemia Tobacco use PAST SURGICAL HISTORY: Negative ALLERGIES: No known drug allergies MEDICATIONS: Vancomycin 750 mg every 12 hours Cefepime 2 g IV every 8 hours Amlodipine 10 mg by mouth daily Aspirin 81 mg by mouth daily Plavix 75 mg by mouth daily Lipitor 80 mg by mouth daily Lisinopril 20 mg by mouth daily Hydralazine 10mg q8h Protonix 40 mg by mouth daily Bacid 1 tid Thiamine 100 mg daily Trazodone 50 mg daily Acetaminophen 650 mg every 6 hours as needed SUBJECTIVE: Patient has no complaints. Says that maybe I look familiar but doesnt know who I am or where he is or what hes doing here. Has had a BM. Denies any specific complaints, no CP, SOB, N/V, dysuria, lightheadedness. VITAL SIGNS: 169/83, rr 18, heart rate 74, 98% saturation on room air, 98.1F PHYSICAL EXAMINATION: GENERAL: Thin, well developed, sitting up in WC, no acute distress. HEENT: Normocephalic, atraumatic. Mild left facial droop. PERRL, EOMI, poor dentition/missing teeth CARDIOVASCULAR: S1, S2, regular rate. No lower limb edema or calf tenderness. LUNGS: Decreased breath sounds throughout, but no rhonchi, wheezing or rales appreciated ABDOMEN: Soft, nontender, nondistended. Normoactive bowel sounds throughout. NEUROLOGICAL: Alert and oriented to person only. Left neglect. Memory deficits ( unchanged). MMT: 5/5 strength right upper and lower limbs in all major muscle groups. 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 SKIN: +PICC r UL LABORATORY DATA: 06/07/16: reviewed, see below 06/07/16: vanco 18.5 06/02/2016: WBC count 9.3, hemoglobin 12.9, hematocrit 37.4, platelets 386, sodium 137, potassium 4.8, chloride 99, bicarbonate 20, BUN 15, creatinine 0.9, glucose 97, calcium 9.3 IMAGING: MRI of the brain 05/30/2016: New embolic infarcts in the right MCA territory. Right posterior cerebral artery territory acute infarct. Left anterior cerebral artery flows load/[employer] watershed acute infarct. MRI of the brain 05/24/2016: Acute infarct involving the right [employer] distribution and right centrum ovale. 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 Chronic infarct in the right genu of the internal capsule in the left caudate. Small area of encephalomalacia in the ian. CTA a of the head and neck 05/24/2016 acute infarct involving the right [employer] territory with edema and sulcal effacement and surrounding mass effect the right P2 segment is occluded. Right M2 becomes focally narrowed just distal to the bifurcation. Right vertebral artery becomes occluded at the PICA origin. Irregular basal artery with multifocal areas of narrowing. Left vertebral artery is occluded at the origin and reconstituted flow at the C5-6 level. Plaque is seen in the V4 segment of the left vertebral artery TU with bubble study 05/25/2016: Thin filamentous structure attached to the atrial side of the posterior leaf of the mitral valve. Positive intra-atrial shunt visualized by color Doppler and bubble study. CT of the thorax with contrast 05/25/2016: There is an ill-defined 9 mm nodular opacity in the right lower lobe. There are a couple of calcified granuloma in the right middle lobe. There is a 3.4 mm nodule in the right lower lobe. CT of the abdomen 05/25/2016: No evidence of primary or metastatic malignancy. Lateral and inferior infarcts of the left kidney with old and subacute components. These are most likely vascular in etiology due to severe associated atherosclerotic disease. ASSESSMENT AND PLAN: 1. Acute infarct involving right [employer] distribution, left parasagittal cortex, right MCA with resultant left hemiparesis, cognitive deficits, decreased mobility and dysfunctional ADLs: Continue statin and dual antiplatelet therapy. Continue daily therapies. Will reassess at team rounds on Th if patient has made any significant gains. Rehabilitation nursing for bladder, bowel and medication management. 2. Hypertension: Uncontrolled. Awaiting repeat reading. Will increase hydalazin q8h of remains elevated. Continue Lisinopril, Norvasc. 3. Endocarditis: Continue IV vancomycin & cefepime until ~ 07/15/16. Will need f/ u with ID [Note: Dr. Miri Kelly was ID physician in [facility]. Spoke with their nurse 06/06/16 and they want periodic labs to include ESR and CRP. ID physician will be pending disposition]. 4. Elevated factor VIII: Continue dual antiplatelet therapy with repeat lab work around 07/16/15. If still elevated transition to Xarelto 20 milligrams daily and discontinue antiplatelets per discharge summary. 5. Lung nodule: Patient is status post pulmonary consult which recommends repeat chest CT in around 07/15/16 as an outpatient. 6. DVT prophylaxis: SCD and ELIZABETH hose. 7. Constipation: Has BM s/p mag citrate. Continue Colace, senna scheduled. MOM, Miralax prn. 8. Diet/nutrition: Prealbumin w/I normal limits. Maintain patient on a mechanical soft (secondary to poor dentition) low-fat low-cholesterol diet with thin liquids. / Vital Signs Vital Sign - Last 24 Hours 06/06/16 06/06/16 06/06/16 06/06/16 14:00 14:34 20:00 20:00 Temp 97.4 96.3 Pulse 88 94 Resp 18 18 B/P 136/75 136/75 158/76 Pulse Ox 99 99 O2 Delivery Room Air Room Air Room Air 06/06/16 06/06/16 06/06/16 06/07/16 21:17 22:38 23:36 06:00 Temp 98.1 Pulse 74 Resp 18 B/P 185/86 182/76 178/90 169/83 Pulse Ox 99 O2 Delivery Room Air 06/07/16 06/07/16 06/07/16 06:12 09:11 09:11 Pulse 74 B/P 169/83 169/83 169/83 Laboratory Data CBC/BMP Laboratory Tests 06/07/16 06:09 Calcium Level 9.0, Red Blood Count 4.08 L, Mean Corpuscular Volume 84.7, Mean Corpuscular Hemoglobin 28.3, Mean Corpuscular Hemoglobin Concent 33.4, Red Cell Distribution Width 13.8, Neutrophils (%) (Auto) 71.7 H, Lymphocytes (%) (Auto) 19.2 L, Monocytes (%) (Auto) 4.6, Eosinophils (%) (Auto) 2.0, Basophils (%) ( Auto) 0.7, Neutrophils # (Auto) 5.8, Lymphocytes # (Auto) 1.6, Monocytes # (Auto ) 0.4, Eosinophils # (Auto) 0.2, Basophils # (Auto) 0.1 Labs 24H Laboratory Tests 2 06/07/16 06:09: Anion Gap 7L, White Blood Count 8.1, Red Blood Count 4.08L, Hemoglobin 11.5L, Hematocrit 34.6L, Mean Corpuscular Volume 84.7, Mean Corpuscular Hemoglobin 28.3 , Mean Corpuscular Hemoglobin Concent 33.4, Red Cell Distribution Width 13.8, Platelet Count 352, Neutrophils (%) (Auto) 71.7H, Lymphocytes (%) (Auto) 19.2L, Monocytes (%) (Auto) 4.6, Eosinophils (%) (Auto) 2.0, Basophils (%) (Auto) 0.7, Neutrophils # (Auto) 5.8, Lymphocytes # (Auto) 1.6, Monocytes # (Auto) 0.4, Eosinophils # (Auto) 0.2, Basophils # (Auto) 0.1, C-Reactive Protein, Quantitative 1.21H, Blood Urea Nitrogen 16, Creatinine 1.08, Sodium Level 139, Potassium Level 4.1, Chloride Level 106, Carbon Dioxide Level 26, Calcium Level 9.0, Erythrocyte Sedimentation Rate 40H, Glomerular Filtration Rate > 60.0, Large Unclassified Cells # 0.2, Large Unclassified Cells % 1.8, Vancomycin Level Trough 18.5 Allergies Allergies: Coded Allergies: No Known Allergies (Unverified , 06/03/16) Current Medications Current Medications Current Medications Acetaminophen (Tylenol Tab) 650 mg Q4HP PRN PO MILD PAIN (PS 1-4) Last administered on 06/06/16 08:54; Start 06/03/16 at 11:45; Stop 07/03/16 at 11:44 Amlodipine Besylate (Norvasc) 10 mg DAILY PO Last administered on 06/07/16 09: 11; Start 06/04/16 at 09:00; Stop 07/04/16 at 08:59 Aspirin (Aspirin Chewable) 81 mg DAILY PO Last administered on 06/07/16 09:11; Start 06/04/16 at 09:00; Stop 07/04/16 at 08:59 Atorvastatin Calcium (Lipitor) 80 mg DAILY PO Last administered on 06/07/16 09: 11; Start 06/04/16 at 09:00; Stop 07/04/16 at 08:59 Cefepime HCl/ Dextrose (Maxipime/ Dextrose 5% Mini-Bag Plus) 50 ml @ 100 mls/ hr Q8H IV Last administered on 06/07/16 09:12; Start 06/03/16 at 17:00; Stop 01/17 at 16:59 Clopidogrel Bisulfate (PLAVix) 75 mg DAILY PO Last administered on 06/07/16 09: 11; Start 06/04/16 at 09:00; Stop 07/04/16 at 08:59 Docusate Sodium (Colace) 100 mg BID PO Last administered on 06/07/16 09:10; Start 06/03/16 at 21:00; Stop 07/03/16 at 20:59 Heparin Sodium (Heparin (Flush)) 200 units ASDIRECTED PRN IV SEE LABEL COMMENTS Last administered on 06/07/16 10:08; Start 06/03/16 at 17:00; Stop at 16:59 Heparin Sodium (Heparin (Flush)) 200 units PICC IV Last administered on 06:12; Start 06/03/16 at 18:00; Stop 07/03/16 at 17:59 Home Med (Med Rec Complete!) ASDIRECTED XX ; Start 06/03/16 at 14:00; Stop at 14:44; Status DC Hydralazine HCl (Apresoline) 10 mg Q8H PO Last administered on 06/07/16 06:12; Start 06/03/16 at 22:00; Stop 07/03/16 at 21:59 Lisinopril (Prinivil) 20 mg DAILY PO Last administered on 06/07/16 09:11; Start 06/04/16 at 09:00; Stop 07/04/16 at 08:59 Magnesium Hydroxide (Milk Of Magnesia) 30 ml DAILYPRN PRN PO CONSTIPATION Last administered on 06/06/16 09:52; Start 06/03/16 at 11:45; Stop 07/03/16 at 11:44 Pantoprazole Sodium (Protonix) 40 mg DAILY PO Last administered on 06/07/16 09: 11; Start 06/04/16 at 09:00; Stop 07/04/16 at 08:59 Polyethylene Glycol (Miralax) 1 pkt DAILY PRN PO CONSTIPATION; Start 06/03/16 at 11:45; Stop 07/03/16 at 11:44 Senna (Senokot) 1 tab QHS PO Last administered on 06/06/16 20:06; Start at 21:00; Stop 07/03/16 at 20:59 Sodium Chloride (Saline Lock Flush) 10 ml ASDIRECTED PRN IV SEE LABEL COMMENTS Last administered on 06/07/16 10:08; Start 06/03/16 at 17:00; Stop 07/03/16 at 16: 59 Sodium Chloride (Saline Lock Flush) 10 ml PICC IV Last administered on 06:12; Start 06/03/16 at 18:00; Stop 07/03/16 at 17:59 Thiamine HCl (Thiamine HCl) 100 mg DAILY PO Last administered on 06/07/16 09:10 ; Start 06/04/16 at 09:00; Stop 07/04/16 at 08:59 Trazodone HCl 50 mg 50 mg QHS PO Last administered on 06/06/16 20:06; Start 06/03/16 at 21:00; Stop 07/03/16 at 20:59 Vancomycin HCl 750 mg/IV Miscellaneous Supplies 1 each/ Dextrose 275 ml @ 275 mls/hr Q12H IV Last administered on 06/07/16 06:21; Start 06/03/16 at 18:00; Stop 06/10/16 at 17:59 JOSE LUIS LEOS MD Jun 07, 2016 11:05
[2016-06-07 11:10] VITALS: BP 136/82
[2016-06-07 14:00] VITALS: BP 172/84
[2016-06-07 20:00] VITALS: BP 161/87
[2016-06-07] MEDS: SENNA 8.6 MG TAB (SENOKOT) PO SCH (21:14)
[2016-06-07] MEDS: traZODone 50 MG TAB PO SCH (21:14)
[2016-06-08] MEDS: CEFEPIME HCL 2 GM in D5W MINI-BAG PLUS 50 ML IV SCH ×3 (01:22→16:47)
[2016-06-08] MEDS: VANCOMYCIN HCL 750 MG, VIAL MATE ADAPTER 1 EACH in D5W 250 ML IV SCH ×2 (05:46→18:07)
[2016-06-08 05:56] VITALS: BP 176/102
[2016-06-08] MEDS: **hydrALAZINE** 10 MG TAB PO SCH ×3 (05:58→18:10)
[2016-06-08] MEDS: SODIUM CHLORIDE 0.9% INJ 10 ML SYR IV SCH ×2 (06:52→19:10)
[2016-06-08 07:17] VITALS: BP 184/80
[2016-06-08] MEDS: CLOPIDOGREL 75 MG TAB PO SCH (09:00)
[2016-06-08] MEDS: SODIUM CHLORIDE 0.9% INJ 10 ML SYR IV PRN (10:00)
[2016-06-08] MEDS: amLODIPine 10 MG TAB PO SCH (10:21)
[2016-06-08] MEDS: ATORVASTATIN 20 MG TAB PO SCH (10:22)
[2016-06-08] MEDS: LISINOPRIL 20 MG TAB PO SCH (10:25)
[2016-06-08] MEDS: DOCUSATE SODIUM 100 MG CAP PO SCH ×2 (10:25→21:56)
[2016-06-08] MEDS: PANTOPRAZOLE 40MG TAB (PROTONIX) PO SCH (10:26)
[2016-06-08] MEDS: THIAMINE 100 MG TAB PO SCH (10:26)
[2016-06-08] MEDS: ASPIRIN 81 MG CHEW TABLET PO SCH (10:28)
--- NOTE | 2016-06-08 10:48 | IPNPDOC ---
Material Engineer Progress Note PROGRESS NOTE DATE OF ADMISSION: 06/03/2016 DATE OF SERVICE: 06/08/2016 ID ALFIE: Dr. Chery Corine Robin, IDENTIFICATION STATEMENT: Patient is a 55-year-old man cardioembolic stroke and left hemiparesis, left neglect, decreased cognition admitted for comprehensive integrated inpatient rehabilitation. PAST MEDICAL HISTORY: Hypertension Hyperlipidemia Tobacco use PAST SURGICAL HISTORY: Negative ALLERGIES: No known drug allergies MEDICATIONS: Vancomycin 750 mg every 12 hours Cefepime 2 g IV every 8 hours Amlodipine 10 mg by mouth daily Aspirin 81 mg by mouth daily Plavix 75 mg by mouth daily Lipitor 80 mg by mouth daily Lisinopril 20 mg by mouth daily Hydralazine 10mg q8h Protonix 40 mg by mouth daily Bacid 1 tid Thiamine 100 mg daily Trazodone 50 mg daily Acetaminophen 650 mg every 6 hours as needed SUBJECTIVE: Patient has no complaints. Slept ok. He knows he is in hospital/ [facility] and remembers that Im the doctor. States cant feel left side and can t do anything with it. Denies any specific complaints, no CP, SOB, N/V, dysuria , lightheadedness. VITAL SIGNS: 130/76, rr 18, heart rate 61, 98% saturation on room air, 97.2F PHYSICAL EXAMINATION: GENERAL: Thin, well developed, sitting up in WC, no acute distress. HEENT: Normocephalic, atraumatic. Mild left facial droop. PERRL, EOMI, poor dentition/missing teeth CARDIOVASCULAR: S1, S2, regular rate. No lower limb edema or calf tenderness. LUNGS: Decreased breath sounds throughout, but no rhonchi, wheezing or rales appreciated ABDOMEN: Soft, nontender, nondistended. Normoactive bowel sounds throughout. NEUROLOGICAL: Alert and oriented to person and place. Left neglect (stable). Improved STM. MMT: 5/5 strength right upper and lower limbs in all major muscle groups. 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 SKIN: +PICC r UL LABORATORY DATA: 06/07/16: reviewed, see below 06/07/16: vanco 18.5 06/02/2016: WBC count 9.3, hemoglobin 12.9, hematocrit 37.4, platelets 386, sodium 137, potassium 4.8, chloride 99, bicarbonate 20, BUN 15, creatinine 0.9, glucose 97, calcium 9.3 IMAGING: MRI of the brain 05/30/2016: New embolic infarcts in the right MCA territory. Right posterior cerebral artery territory acute infarct. Left anterior cerebral artery flows load/[employer] watershed acute infarct. MRI of the brain 05/24/2016: Acute infarct involving the right [employer] distribution and right centrum ovale. 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 Chronic infarct in the right genu of the internal capsule in the left caudate. Small area of encephalomalacia in the ian. CTA a of the head and neck 05/24/2016 acute infarct involving the right [employer] territory with edema and sulcal effacement and surrounding mass effect the right P2 segment is occluded. Right M2 becomes focally narrowed just distal to the bifurcation. Right vertebral artery becomes occluded at the PICA origin. Irregular basal artery with multifocal areas of narrowing. Left vertebral artery is occluded at the origin and reconstituted flow at the C5-6 level. Plaque is seen in the V4 segment of the left vertebral artery TU with bubble study 05/25/2016: Thin filamentous structure attached to the atrial side of the posterior leaf of the mitral valve. Positive intra-atrial shunt visualized by color Doppler and bubble study. CT of the thorax with contrast 05/25/2016: There is an ill-defined 9 mm nodular opacity in the right lower lobe. There are a couple of calcified granuloma in the right middle lobe. There is a 3.4 mm nodule in the right lower lobe. CT of the abdomen 05/25/2016: No evidence of primary or metastatic malignancy. Lateral and inferior infarcts of the left kidney with old and subacute components. These are most likely vascular in etiology due to severe associated atherosclerotic disease. ASSESSMENT AND PLAN: 1. Acute infarct involving right [employer] distribution, left parasagittal cortex, right MCA with resultant left hemiparesis, cognitive deficits, decreased mobility and dysfunctional ADLs: Continue statin and dual antiplatelet therapy. Patients memory seems to be improving. Continue daily therapies. Reassess at team rounds on if patient has made any significant functional gains. Rehabilitation nursing for bladder, bowel and medication management. 2. Hypertension: Increased hydralazine to q6h. Continue Lisinopril, Norvasc. 3. Endocarditis: Continue IV vancomycin & cefepime until ~ 07/15/16. Will need f/ u with ID [Note: Dr. Miri Kelly was ID physician in [facility]. Spoke with their nurse 06/06/16 and they want periodic labs to include ESR and CRP. ID physician will be pending disposition SNF vs home]. 4. Elevated factor VIII: Continue dual antiplatelet therapy with repeat lab work around 07/16/15. If still elevated transition to Xarelto 20 milligrams daily and discontinue antiplatelets per discharge summary. 5. Lung nodule: Patient is status post pulmonary consult which recommends repeat chest CT in around 07/15/16 as an outpatient. 6. DVT prophylaxis: SCD and ELIZABETH hose. 7. Constipation: Resolved s/p mag citrate. Continue Colace, senna scheduled. MOM , Miralax prn. 8. Diet/nutrition: Prealbumin w/I normal limits. Maintain patient on a mechanical soft (secondary to poor dentition) low-fat, low-cholesterol diet with thin liquids. / Vital Signs Vital Sign - Last 24 Hours 06/07/16 06/07/16 06/07/16 06/07/16 11:10 14:00 14:34 20:00 Temp 96.7 Pulse 69 Resp 18 B/P 136/82 172/84 172/84 Pulse Ox 100 O2 Delivery Room Air Room Air 06/07/16 06/07/16 06/08/16 06/08/16 20:00 21:15 05:56 05:58 Temp 97.2 97.2 Pulse 77 61 Resp 18 18 B/P 161/87 161/87 176/102 176/102 Pulse Ox 99 98 O2 Delivery Room Air Room Air 06/08/16 06/08/16 07:17 10:21 Pulse 74 B/P 184/80 130/76 Allergies Allergies: Coded Allergies: No Known Allergies (Unverified , 06/03/16) Current Medications Current Medications Current Medications Acetaminophen (Tylenol Tab) 650 mg Q4HP PRN PO MILD PAIN (PS 1-4) Last administered on 06/06/16t 08:54; Start 06/03/16 at 11:45; Stop 4//17 at 11:44 Amlodipine Besylate (Norvasc) 10 mg DAILY PO Last administered on 06/08/16 10: 21; Start 06/04/16 at 09:00; Stop 07/04/16 at 08:59 Aspirin (Aspirin Chewable) 81 mg DAILY PO Last administered on 06/08/16 10:28; Start 06/04/16 at 09:00; Stop 07/04/16 at 08:59 Atorvastatin Calcium (Lipitor) 80 mg DAILY PO Last administered on 06/08/16 10: 22; Start 06/04/16 at 09:00; Stop 07/04/16 at 08:59 Cefepime HCl/ Dextrose (Maxipime/ Dextrose 5% Mini-Bag Plus) 50 ml @ 100 mls/ hr Q8H IV Last administered on 06/08/16 09:21; Start 06/03/16 at 17:00; Stop 01/17 at 16:59 Clopidogrel Bisulfate (PLAVix) 75 mg DAILY PO Last administered on 06/08/16 09: 00; Start 06/04/16 at 09:00; Stop 07/04/16 at 08:59 Docusate Sodium (Colace) 100 mg BID PO Last administered on 06/08/16 10:25; Start 06/03/16 at 21:00; Stop 07/03/16 at 20:59 Heparin Sodium (Heparin (Flush)) 200 units ASDIRECTED PRN IV SEE LABEL COMMENTS Last administered on 06/07/16 10:08; Start 06/03/16 at 17:00; Stop at 16:59 Heparin Sodium (Heparin (Flush)) 200 units PICC IV Last administered on 06:52; Start 06/03/16 at 18:00; Stop 07/03/16 at 17:59 Home Med (Med Rec Complete!) ASDIRECTED XX ; Start 06/03/16 at 14:00; Stop at 14:44; Status DC Hydralazine HCl (Apresoline) 10 mg Q6H PO ; Start 06/08/16 at 18:00; Stop at 17:59 Hydralazine HCl (Apresoline) 10 mg Q8H PO Last administered on 06/08/16 10:27; Start 06/03/16 at 22:00; Stop 06/08/16 at 10:40; Status DC Lisinopril (Prinivil) 20 mg DAILY PO Last administered on 06/08/16 10:25; Start 06/04/16 at 09:00; Stop 07/04/16 at 08:59 Magnesium Hydroxide (Milk Of Magnesia) 30 ml DAILYPRN PRN PO CONSTIPATION Last administered on 06/06/16 09:52; Start 06/03/16 at 11:45; Stop 07/03/16 at 11:44 Pantoprazole Sodium (Protonix) 40 mg DAILY PO Last administered on 06/08/16 10: 26; Start 06/04/16 at 09:00; Stop 07/04/16 at 08:59 Polyethylene Glycol (Miralax) 1 pkt DAILY PRN PO CONSTIPATION; Start 06/03/16 at 11:45; Stop 07/03/16 at 11:44 Senna (Senokot) 1 tab QHS PO Last administered on 06/07/16 21:14; Start at 21:00; Stop 07/03/16 at 20:59 Sodium Chloride (Saline Lock Flush) 10 ml ASDIRECTED PRN IV SEE LABEL COMMENTS Last administered on 06/07/16 10:08; Start 06/03/16 at 17:00; Stop 07/03/16 at 16: 59 Sodium Chloride (Saline Lock Flush) 10 ml PICC IV Last administered on 06:52; Start 06/03/16 at 18:00; Stop 07/03/16 at 17:59 Thiamine HCl (Thiamine HCl) 100 mg DAILY PO Last administered on 06/08/16 10:26 ; Start 06/04/16 at 09:00; Stop 07/04/16 at 08:59 Trazodone HCl 50 mg 50 mg QHS PO Last administered on 06/07/16 21:14; Start 06/03/16 at 21:00; Stop 07/03/16 at 20:59 Vancomycin HCl 750 mg/IV Miscellaneous Supplies 1 each/ Dextrose 275 ml @ 275 mls/hr Q12H IV Last administered on 06/08/16 05:46; Start 06/03/16 at 18:00; Stop 06/10/16 at 17:59 JOSE LUIS LEOS MD Jun 08, 2016 10:48
[2016-06-08 14:00] VITALS: BP 148/80
[2016-06-08 20:00] VITALS: BP 144/70
[2016-06-08] MEDS: SENNA 8.6 MG TAB (SENOKOT) PO SCH (21:56)
[2016-06-08] MEDS: ACETAMINOPHEN TAB 650MG DOSE (2X325MG) PO PRN (21:56)
[2016-06-08] MEDS: QUEtiapine FUMARATE 12.5 MG HALF-TAB PO SCH (21:56)
[2016-06-09] MEDS: **hydrALAZINE** 10 MG TAB PO SCH ×5 (00:41→23:12)
[2016-06-09] MEDS: CEFEPIME HCL 2 GM in D5W MINI-BAG PLUS 50 ML IV SCH ×3 (00:43→17:03)
[2016-06-09] MEDS: SODIUM CHLORIDE 0.9% INJ 10 ML SYR IV SCH ×2 (05:49→18:00)
[2016-06-09] MEDS: VANCOMYCIN HCL 750 MG, VIAL MATE ADAPTER 1 EACH in D5W 250 ML IV SCH ×2 (05:49→17:38)
[2016-06-09 06:00] VITALS: BP 152/81
[2016-06-09 06:46] LABS: BASO # 0.1 K/mm3 (0.0-0.2); BASO % 0.9 % (0.0-1.0); EOS # 0.2 K/mm3 (0.0-0.50); EOS % 3.2 % (0.0-3.0); LARGE UNSTAINED CELL # 0.1 K/mm3 (0.0-0.4); LARGE UNSTAINED CELL % 1.5 % (0.0-4.0); LYMPH # 1.5 K/mm3 (1.5-4.5); LYMPH % 20.4 % (24.0-44.0); MEAN CORPUSCULAR HEMOGLOBIN 28.4 pg (27.0-33.0); MEAN CORPUSCULAR HGB CONC 33.8 g/dl (32.0-36.5); MEAN CORPUSCULAR VOLUME 83.9 fl (80.0-96.0); MONO # 0.3 K/mm3 (0.0-0.8); MONO % 4.3 % (0.0-5.0); NEUTROPHILS # 4.7 K/mm3 (1.8-7.7); NEUTROPHILS % 69.7 % (36.0-66.0); PLATELET COUNT, AUTOMATED 312 k/mm3 (150-450); RED CELL DISTRIBUTION WIDTH 13.9 % (11.5-14.5); WHITE BLOOD COUNT 6.7 K/mm3 (4.0-10.0)
[2016-06-09 07:05] LABS: ANION GAP 8 MEQ/L (8-16); BLOOD UREA NITROGEN 18 MG/DL (7-18); CALCIUM LEVEL 8.6 MG/DL (8.5-10.1); CARBON DIOXIDE LEVEL 25 MEQ/L (21-32); CHLORIDE LEVEL 105 MEQ/L (98-107); CREATININE FOR GFR 1.17 MG/DL (0.70-1.30); GLOMERULAR FILTRATION RATE > 60.0 (>56); GLUCOSE, FASTING 115 MG/DL (70-105); POTASSIUM SERUM 3.8 MEQ/L (3.5-5.1); SODIUM LEVEL 138 MEQ/L (136-145)
[2016-06-09 08:27] LABS: ERYTHROCYTE SEDIMENTATION RATE 34 mm/hr (0-20)
[2016-06-09] MEDS: LISINOPRIL 20 MG TAB PO SCH (09:23)
[2016-06-09] MEDS: ATORVASTATIN 20 MG TAB PO SCH (09:24)
[2016-06-09] MEDS: PANTOPRAZOLE 40MG TAB (PROTONIX) PO SCH (09:25)
[2016-06-09] MEDS: ASPIRIN 81 MG CHEW TABLET PO SCH (09:25)
[2016-06-09] MEDS: amLODIPine 10 MG TAB PO SCH (09:26)
[2016-06-09] MEDS: DOCUSATE SODIUM 100 MG CAP PO SCH ×2 (09:32→22:01)
[2016-06-09] MEDS: THIAMINE 100 MG TAB PO SCH (09:32)
[2016-06-09] MEDS: CLOPIDOGREL 75 MG TAB PO SCH (09:32)
--- NOTE | 2016-06-09 10:21 | IPNPDOC ---
Data Warehouse Specialist Progress Note PROGRESS NOTE DATE OF ADMISSION: 06/03/2016 DATE OF SERVICE: 06/09/2016 ID ALFIE: Dr. Chery Corine Robin, IDENTIFICATION STATEMENT: Patient is a 55-year-old man cardioembolic stroke and left hemiparesis, left neglect, decreased cognition admitted for comprehensive integrated inpatient rehabilitation. PAST MEDICAL HISTORY: Hypertension Hyperlipidemia Tobacco use PAST SURGICAL HISTORY: Negative ALLERGIES: No known drug allergies MEDICATIONS: Vancomycin 750 mg every 12 hours Cefepime 2 g IV every 8 hours Amlodipine 10 mg by mouth daily Aspirin 81 mg by mouth daily Plavix 75 mg by mouth daily Lipitor 80 mg by mouth daily Lisinopril 20 mg by mouth daily Hydralazine 10mg q8h Protonix 40 mg by mouth daily Bacid 1 tid Thiamine 100 mg daily Seroquel 12.5mg qhs Acetaminophen 650 mg every 6 hours as needed SUBJECTIVE: Patient has no complaints. Doesnt remember who I am. He pulled his PICC line out last night, but has no recollection of doing it and doesnt know why he did it. Per RN last evening, he was somewhat agitated. States slept ok. Denies any specific complaints, no CP, SOB, N/V, dysuria, lightheadedness. VITAL SIGNS: 138/80, rr 18, heart rate 64, 97% saturation on room air, 97.0F PHYSICAL EXAMINATION: GENERAL: Thin, well developed, sitting up in chair, no acute distress. HEENT: Normocephalic, atraumatic. Mild left facial droop (stable). PERRL, EOMI, poor dentition/missing teeth (stable) CARDIOVASCULAR: S1, S2, regular rate. No lower limb edema or calf tenderness. LUNGS: Decreased breath sounds throughout, but no rhonchi, wheezing or rales appreciated ABDOMEN: Soft, nontender, nondistended. Normoactive bowel sounds throughout. NEUROLOGICAL: Alert and oriented to person and place. Left neglect (stable). Memory deficits about same as upon admission. MMT: 5/5 strength right upper and lower limbs in all major muscle groups. Approximately 4/5 strength left shoulder abduction and forward flexion and elbow flexion, 3/5 elbow extension 5/ 5 left space and missile operations spacelift, 3/5 left finger extension, 3-/5 left hip flexors and knee extension , 3/5 knee flexion, dorsiflexion. SKIN: IV left wrist LABORATORY DATA: 06/09/16: reviewed, see below 06/07/16: vanco 18.5 06/02/2016: WBC count 9.3, hemoglobin 12.9, hematocrit 37.4, platelets 386, sodium 137, potassium 4.8, chloride 99, bicarbonate 20, BUN 15, creatinine 0.9, glucose 97, calcium 9.3 IMAGING: MRI of the brain 05/30/2016: New embolic infarcts in the right MCA territory. Right posterior cerebral artery territory acute infarct. Left anterior cerebral artery flows load/LUMBER PRESS OPERATOR watershed acute infarct. MRI of the brain 05/24/2016: Acute infarct involving the right LUMBER PRESS OPERATOR distribution and right centrum ovale. 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 Chronic infarct in the right genu of the internal capsule in the left caudate. Small area of encephalomalacia in the ian. CTA a of the head and neck 05/24/2016 acute infarct involving the right LUMBER PRESS OPERATOR territory with edema and sulcal effacement and surrounding mass effect the right P2 segment is occluded. Right M2 becomes focally narrowed just distal to the bifurcation. Right vertebral artery becomes occluded at the PICA origin. Irregular basal artery with multifocal areas of narrowing. Left vertebral artery is occluded at the origin and reconstituted flow at the C5-6 level. Plaque is seen in the V4 segment of the left vertebral artery TU with bubble study 05/25/2016: Thin filamentous structure attached to the atrial side of the posterior leaf of the mitral valve. Positive intra-atrial shunt visualized by color Doppler and bubble study. CT of the thorax with contrast 05/25/2016: There is an ill-defined 9 mm nodular opacity in the right lower lobe. There are a couple of calcified granuloma in the right middle lobe. There is a 3.4 mm nodule in the right lower lobe. CT of the abdomen 05/25/2016: No evidence of primary or metastatic malignancy. Lateral and inferior infarcts of the left kidney with old and subacute components. These are most likely vascular in etiology due to severe associated atherosclerotic disease. ASSESSMENT AND PLAN: 1. Acute infarct involving right LUMBER PRESS OPERATOR distribution, left parasagittal cortex, right MCA with resultant left neglect/mild hemiparesis, cognitive deficits, decreased mobility and dysfunctional ADLs: Continue statin and dual antiplatelet therapy. While he appeared to have made some gains cognitively yesterday, he is now back to level upon admission. Continue daily therapies. Reassess at team rounds today if patient has made any significant functional gains. I have spoken with his brother who informed me he has DOA and I was informed that neither he nor the brother that lives with him will be able to provide any assistance upon discharge. Rehabilitation nursing for bladder, bowel and medication management. 2. Hypertension: Improved s/p increased hydralazine to q6h. Continue Lisinopril , Norvasc. 3. Endocarditis: Continue IV vancomycin & cefepime until ~ 07/15/16. Will need f/ u with ID [Note: Dr. Miri Kelly was ID physician in [facility]. Spoke with their nurse 06/06/16 and they want periodic labs to include ESR and CRP. ID physician will be pending disposition SNF vs home]. Will need PICC line reinserted today. 4. Agitation: Periodic possibly . I started him on Seroquel last evening (d/c trazadone). 5. Elevated factor VIII: Continue dual antiplatelet therapy with repeat lab work around 07/16/15. If still elevated transition to Xarelto 20 milligrams daily and discontinue antiplatelets per discharge summary. 6. Lung nodule: Patient is status post pulmonary consult which recommends repeat chest CT in around 07/15/16 as an outpatient. 7. DVT prophylaxis: SCD and ELIZABETH hose. 8. Constipation: Resolved s/p mag citrate. Continue Colace, senna scheduled. MOM , Miralax prn. 9. Diet/nutrition: Prealbumin w/I normal limits. Maintain patient on a mechanical soft (secondary to poor dentition) low-fat, low-cholesterol diet with thin liquids. / Vital Signs Vital Sign - Last 24 Hours 06/08/16 06/08/16 06/08/16 06/09/16 14:00 18:10 20:00 00:41 Temp 97.3 97.8 Pulse 84 78 Resp 18 18 B/P 148/80 172/74 144/70 164/81 Pulse Ox 98 99 O2 Delivery Room Air Room Air 06/09/16 06/09/16 06/09/16 06/09/16 05:49 06:00 09:23 09:26 Temp 97.0 Pulse 74 64 Resp 18 B/P 152/81 152/81 138/80 Pulse Ox 97 O2 Delivery Room Air Laboratory Data CBC/BMP Laboratory Tests 06/09/16 06:33 Calcium Level 8.6, Red Blood Count 4.36, Mean Corpuscular Volume 83.9, Mean Corpuscular Hemoglobin 28.4, Mean Corpuscular Hemoglobin Concent 33.8, Red Cell Distribution Width 13.9, Neutrophils (%) (Auto) 69.7 H, Lymphocytes (%) (Auto) 20.4 L, Monocytes (%) (Auto) 4.3, Eosinophils (%) (Auto) 3.2 H, Basophils (%) ( Auto) 0.9, Neutrophils # (Auto) 4.7, Lymphocytes # (Auto) 1.5, Monocytes # (Auto ) 0.3, Eosinophils # (Auto) 0.2, Basophils # (Auto) 0.1 Labs 24H Laboratory Tests 2 06/09/16 06:33: Anion Gap 8, White Blood Count 6.7, Red Blood Count 4.36, Hemoglobin 12.4L, Hematocrit 36.6L, Mean Corpuscular Volume 83.9, Mean Corpuscular Hemoglobin 28.4 , Mean Corpuscular Hemoglobin Concent 33.8, Red Cell Distribution Width 13.9, Platelet Count 312, Neutrophils (%) (Auto) 69.7H, Lymphocytes (%) (Auto) 20.4L, Monocytes (%) (Auto) 4.3, Eosinophils (%) (Auto) 3.2H, Basophils (%) (Auto) 0.9 , Neutrophils # (Auto) 4.7, Lymphocytes # (Auto) 1.5, Monocytes # (Auto) 0.3, Eosinophils # (Auto) 0.2, Basophils # (Auto) 0.1, C-Reactive Protein, Quantitative 0.58H, Blood Urea Nitrogen 18, Creatinine 1.17, Sodium Level 138, Potassium Level 3.8, Chloride Level 105, Carbon Dioxide Level 25, Calcium Level 8.6, Erythrocyte Sedimentation Rate 34H, Glomerular Filtration Rate > 60.0, Large Unclassified Cells # 0.1, Large Unclassified Cells % 1.5 Allergies Allergies: Coded Allergies: No Known Allergies (Unverified , 06/03/16) Current Medications Current Medications Current Medications Acetaminophen (Tylenol Tab) 650 mg Q4HP PRN PO MILD PAIN (PS 1-4) Last administered on 06/08/16 21:56; Start 06/03/16 at 11:45; Stop 07/03/16 at 11:44 Amlodipine Besylate (Norvasc) 10 mg DAILY PO Last administered on 06/09/16 09: 26; Start 06/04/16 at 09:00; Stop 07/04/16 at 08:59 Aspirin (Aspirin Chewable) 81 mg DAILY PO Last administered on 06/09/16 09:25; Start 06/04/16 at 09:00; Stop 07/04/16 at 08:59 Atorvastatin Calcium (Lipitor) 80 mg DAILY PO Last administered on 06/09/16 09: 24; Start 06/04/16 at 09:00; Stop 07/04/16 at 08:59 Cefepime HCl/ Dextrose (Maxipime/ Dextrose 5% Mini-Bag Plus) 50 ml @ 100 mls/ hr Q8H IV Last administered on 06/09/16 09:16; Start 06/03/16 at 17:00; Stop 01/17 at 16:59 Clopidogrel Bisulfate (PLAVix) 75 mg DAILY PO Last administered on 06/09/16 09: 32; Start 06/04/16 at 09:00; Stop 07/04/16 at 08:59 Docusate Sodium (Colace) 100 mg BID PO Last administered on 06/09/16 09:32; Start 06/03/16 at 21:00; Stop 07/03/16 at 20:59 Heparin Sodium (Heparin (Flush)) 200 units ASDIRECTED PRN IV SEE LABEL COMMENTS Last administered on 06/08/16 10:00; Start 06/03/16 at 17:00; Stop at 16:59 Heparin Sodium (Heparin (Flush)) 200 units PICC IV Last administered on 19:10; Start 06/03/16 at 18:00; Stop 07/03/16 at 17:59 Home Med (Med Rec Complete!) ASDIRECTED XX ; Start 06/03/16 at 14:00; Stop at 14:44; Status DC Hydralazine HCl (Apresoline) 10 mg Q6H PO Last administered on 06/09/16 05:49; Start 06/08/16 at 18:00; Stop 07/08/16 at 17:59 Hydralazine HCl (Apresoline) 10 mg Q8H PO Last administered on 06/08/16 10:27; Start 06/03/16 at 22:00; Stop 06/08/16 at 10:40; Status DC Lisinopril (Prinivil) 20 mg DAILY PO Last administered on 06/09/16 09:23; Start 06/04/16 at 09:00; Stop 07/04/16 at 08:59 Magnesium Hydroxide (Milk Of Magnesia) 30 ml DAILYPRN PRN PO CONSTIPATION Last administered on 06/06/16 09:52; Start 06/03/16 at 11:45; Stop 07/03/16 at 11:44 Pantoprazole Sodium (Protonix) 40 mg DAILY PO Last administered on 06/09/16 09: 25; Start 06/04/16 at 09:00; Stop 07/04/16 at 08:59 Polyethylene Glycol (Miralax) 1 pkt DAILY PRN PO CONSTIPATION; Start 06/03/16 at 11:45; Stop 07/03/16 at 11:44 Quetiapine Fumarate (SEROquel) 12.5 mg QHS PO Last administered on 06/08/16 21: 56; Start 06/08/16 at 21:00; Stop 07/08/16 at 20:59 Senna (Senokot) 1 tab QHS PO Last administered on 06/08/16 21:56; Start at 21:00; Stop 07/03/16 at 20:59 Sodium Chloride (Saline Lock Flush) 10 ml ASDIRECTED PRN IV SEE LABEL COMMENTS Last administered on 06/08/16 10:00; Start 06/03/16 at 17:00; Stop 07/03/16 at 16: 59 Sodium Chloride (Saline Lock Flush) 10 ml PICC IV Last administered on 19:10; Start 06/03/16 at 18:00; Stop 07/03/16 at 17:59 Thiamine HCl (Thiamine HCl) 100 mg DAILY PO Last administered on 06/09/16 09:32 ; Start 06/04/16 at 09:00; Stop 07/04/16 at 08:59 Trazodone HCl 50 mg 50 mg QHS PO Last administered on 06/07/16 21:14; Start 06/03/16 at 21:00; Stop 06/08/16 at 21:29; Status DC Vancomycin HCl 750 mg/IV Miscellaneous Supplies 1 each/ Dextrose 275 ml @ 275 mls/hr Q12H IV Last administered on 06/09/16 05:49; Start 06/03/16 at 18:00; Stop 06/10/16 at 17:59 JOSE LUIS LEOS MD Jun 09, 2016 10:21
--- NOTE | 2016-06-09 17:04 | REP ---
Procedure: PICC line insertion with Adrian The procedure was performed under the direct supervision of Dr. Sandhu. The risks and benefits of the procedure were explained and informed consent was obtained by the health care proxy. The left basilic vein was localized using ultrasound guidance. The skin was prepped and draped in a sterile fashion. 2% lidocaine was used as a local anesthetic. Using ultrasound guidance the basilic vein was cannulated and a 0.018 guidewire was inserted and advanced to the SVC using fluoroscopic guidance. The needle was removed and a 4.5 Norwegian dilator and peel-away sheath was inserted over the guide wire. A 4.5 Norwegian single lumen catheter was cut to length of 40 cm. The dilator was removed and the catheter was inserted over the guide wire with the tip ending in the SVC. The peel-away sheath was removed and the catheter was flushed with heparinized saline as per Hospital protocol. The catheter was affixed to the skin and a sterile dressing was applied. The the patient tolerated the procedure well and there were no immediate complications. 0.2 minutes of fluoro time was utilized for this procedure. Reviewed by GOKUL Álvarez 06/09/2016 04:19 PSigned by Jac Sanhdu MD 06/09/2016 04:56 P
[2016-06-09] MEDS: SODIUM CHLORIDE 0.9% INJ 10 ML SYR IV PRN (17:37)
[2016-06-09 20:00] VITALS: BP 136/89
[2016-06-09] MEDS: SENNA 8.6 MG TAB (SENOKOT) PO SCH (22:01)
[2016-06-09] MEDS: QUEtiapine FUMARATE 12.5 MG HALF-TAB PO SCH (22:01)
[2016-06-09] MEDS: ACETAMINOPHEN TAB 650MG DOSE (2X325MG) PO PRN (23:12)
[2016-06-10] MEDS: CEFEPIME HCL 2 GM in D5W MINI-BAG PLUS 50 ML IV SCH ×3 (01:25→16:37)
[2016-06-10] MEDS: SODIUM CHLORIDE 0.9% INJ 10 ML SYR IV PRN ×2 (01:26→11:24)
[2016-06-10 06:00] VITALS: BP 188/92
[2016-06-10] MEDS: VANCOMYCIN HCL 750 MG, VIAL MATE ADAPTER 1 EACH in D5W 250 ML IV SCH ×2 (06:21→17:31)
[2016-06-10] MEDS: SODIUM CHLORIDE 0.9% INJ 10 ML SYR IV SCH ×2 (06:28→17:31)
[2016-06-10] MEDS: **hydrALAZINE** 10 MG TAB PO SCH (06:28)
[2016-06-10 09:23] VITALS: BP 178/98
[2016-06-10] MEDS: amLODIPine 10 MG TAB PO SCH (09:26)
[2016-06-10] MEDS: LISINOPRIL 20 MG TAB PO SCH (09:26)
[2016-06-10] MEDS: CLOPIDOGREL 75 MG TAB PO SCH (09:26)
[2016-06-10] MEDS: THIAMINE 100 MG TAB PO SCH (09:26)
[2016-06-10] MEDS: ATORVASTATIN 20 MG TAB PO SCH (09:26)
[2016-06-10] MEDS: DOCUSATE SODIUM 100 MG CAP PO SCH ×2 (09:26→21:25)
[2016-06-10] MEDS: ASPIRIN 81 MG CHEW TABLET PO SCH (09:26)
[2016-06-10] MEDS: PANTOPRAZOLE 40MG TAB (PROTONIX) PO SCH (09:26)
[2016-06-10] MEDS: ACETAMINOPHEN TAB 650MG DOSE (2X325MG) PO PRN (09:28)
--- NOTE | 2016-06-10 11:41 | IPNPDOC ---
Hvac Sales Engineer Progress Note PROGRESS NOTE DATE OF ADMISSION: 06/03/2016 DATE OF SERVICE: 06/10/2016 ID ALFIE: Dr. Chery Corine Robin, IDENTIFICATION STATEMENT: Patient is a 55-year-old man cardioembolic stroke and left hemiparesis, left neglect, decreased cognition admitted for comprehensive integrated inpatient rehabilitation. PAST MEDICAL HISTORY: Hypertension Hyperlipidemia Tobacco use PAST SURGICAL HISTORY: Negative ALLERGIES: No known drug allergies MEDICATIONS: Vancomycin 750 mg every 12 hours Cefepime 2 g IV every 8 hours Amlodipine 10 mg by mouth daily Aspirin 81 mg by mouth daily Plavix 75 mg by mouth daily Lipitor 80 mg by mouth daily Lisinopril 20 mg by mouth daily Hydralazine 10mg q6h Protonix 40 mg by mouth daily Bacid 1 tid Thiamine 100 mg daily Seroquel 12.5mg qhs Acetaminophen 650 mg every 6 hours as needed SUBJECTIVE: Patient has no complaints. Remembers who I am this morning. No specific complaints. Slept ok. Denies CP, SOB, N/V, dysuria, lightheadedness. PICC reinserted yesterday. VITAL SIGNS: 178/98, rr 18, heart rate 62, 99% saturation on room air, 97.0F PHYSICAL EXAMINATION: GENERAL: Thin, well developed, sitting up in chair, no acute distress. HEENT: Normocephalic, atraumatic. Mild left facial droop (stable). PERRL, EOMI, poor dentition/missing teeth (stable) CARDIOVASCULAR: S1, S2, regular rate. No lower limb edema or calf tenderness. LUNGS: Decreased breath sounds throughout, but no rhonchi, wheezing or rales ABDOMEN: Soft, nontender, nondistended. Normoactive bowel sounds throughout. NEUROLOGICAL: Alert and oriented to person and place. Left neglect (~stable). MMT: 5/5 strength right upper and lower limbs in all major muscle groups. Approximately 4/5 strength left shoulder abduction and forward flexion and elbow flexion, 3/5 elbow extension 5/5 left desk clerk, 3/5 left finger extension, 3-/ 5 left hip flexors and knee extension, 3/5 knee flexion, dorsiflexion. SKIN: +PICC LABORATORY DATA: 06/09/16: re-reviewed, see below 06/07/16: vanco 18.5 06/02/2016: WBC count 9.3, hemoglobin 12.9, hematocrit 37.4, platelets 386, sodium 137, potassium 4.8, chloride 99, bicarbonate 20, BUN 15, creatinine 0.9, glucose 97, calcium 9.3 IMAGING: MRI of the brain 05/30/2016: New embolic infarcts in the right MCA territory. Right posterior cerebral artery territory acute infarct. Left anterior cerebral artery flows load/FIRE EXTINGUISHER SPRINKLER INSPECTOR watershed acute infarct. MRI of the brain 05/24/2016: Acute infarct involving the right FIRE EXTINGUISHER SPRINKLER INSPECTOR distribution and right centrum ovale. 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 Chronic infarct in the right genu of the internal capsule in the left caudate. Small area of encephalomalacia in the ian. CTA a of the head and neck 05/24/2016 acute infarct involving the right FIRE EXTINGUISHER SPRINKLER INSPECTOR territory with edema and sulcal effacement and surrounding mass effect the right P2 segment is occluded. Right M2 becomes focally narrowed just distal to the bifurcation. Right vertebral artery becomes occluded at the PICA origin. Irregular basal artery with multifocal areas of narrowing. Left vertebral artery is occluded at the origin and reconstituted flow at the C5-6 level. Plaque is seen in the V4 segment of the left vertebral artery TU with bubble study 05/25/2016: Thin filamentous structure attached to the atrial side of the posterior leaf of the mitral valve. Positive intra-atrial shunt visualized by color Doppler and bubble study. CT of the thorax with contrast 05/25/2016: There is an ill-defined 9 mm nodular opacity in the right lower lobe. There are a couple of calcified granuloma in the right middle lobe. There is a 3.4 mm nodule in the right lower lobe. CT of the abdomen 05/25/2016: No evidence of primary or metastatic malignancy. Lateral and inferior infarcts of the left kidney with old and subacute components. These are most likely vascular in etiology due to severe associated atherosclerotic disease. ASSESSMENT AND PLAN: 1. Acute infarct involving right FIRE EXTINGUISHER SPRINKLER INSPECTOR distribution, left parasagittal cortex, right MCA with resultant left neglect/mild hemiparesis, cognitive deficits, decreased mobility and dysfunctional ADLs: Continue statin and dual antiplatelet therapy. Memory waxes and wanes. Since family cannot provided any assistance, determined patient will need to go to sub-acute. Paper work in process. Continue daily therapies. Rehabilitation nursing for bladder, bowel and medication management. 2. Hypertension: Elevated. Increased hydralazine to 25mg. Continue Lisinopril, Norvasc. 3. Endocarditis: Continue IV vancomycin & cefepime until ~ 07/15/16. Will need f/ u with ID [Note: Dr. Miri Kelly was ID physician in [facility]. Spoke with their nurse 06/06/16 and they want periodic labs to include ESR and CRP. ID physician will be pending disposition SNF vs home]. Will need PICC line reinserted today. 4. Agitation: Periodic, possibly ing. No reported episode since started on Seroquel 06/08/16 (d/cd trazadone). 5. Elevated factor VIII: Continue dual antiplatelet therapy with repeat lab work around 07/16/15. If still elevated transition to Xarelto 20 milligrams daily and discontinue antiplatelets per discharge summary. 6. Lung nodule: Patient is status post pulmonary consult which recommends repeat chest CT in around 07/15/16 as an outpatient. 7. DVT prophylaxis: SCD and ELIZABETH hose. 8. Constipation: Resolved s/p mag citrate. Continue Colace, senna scheduled. MOM , Miralax prn. 9. Diet/nutrition: Prealbumin w/i normal limits. Maintain patient on a mechanical soft (secondary to poor dentition) low-fat, low-cholesterol diet with thin liquids. / Vital Signs Vital Sign - Last 24 Hours 06/09/16 06/09/16 06/09/16 06/09/16 12:29 17:41 20:00 23:12 Temp 98.6 Pulse 78 Resp 18 B/P 158/80 144/84 136/89 170/94 Pulse Ox 98 O2 Delivery Room Air 06/10/16 06/10/16 06/10/16 06/10/16 06:00 06:28 09:23 09:26 Temp 97.0 Pulse 68 62 62 Resp 18 B/P 188/92 188/92 178/98 178/98 Pulse Ox 99 O2 Delivery Room Air 06/10/16 09:26 B/P 178/98 Allergies Allergies: Coded Allergies: No Known Allergies (Unverified , 06/03/16) Current Medications Current Medications Current Medications Acetaminophen (Tylenol Tab) 650 mg Q4HP PRN PO MILD PAIN (PS 1-4) Last administered on 06/10/16 09:28; Start 06/03/16 at 11:45; Stop 07/03/16 at 11:44 Amlodipine Besylate (Norvasc) 10 mg DAILY PO Last administered on 06/10/16 09: 26; Start 06/04/16 at 09:00; Stop 07/04/16 at 08:59 Aspirin (Aspirin Chewable) 81 mg DAILY PO Last administered on 06/10/16 09:26 ; Start 06/04/16 at 09:00; Stop 07/04/16 at 08:59 Atorvastatin Calcium (Lipitor) 80 mg DAILY PO Last administered on 06/10/16 09 :26; Start 06/04/16 at 09:00; Stop 07/04/16 at 08:59 Cefepime HCl/ Dextrose (Maxipime/ Dextrose 5% Mini-Bag Plus) 50 ml @ 100 mls/ hr Q8H IV Last administered on 06/10/16 09:26; Start 06/03/16 at 17:00; Stop at 16:59 Clopidogrel Bisulfate (PLAVix) 75 mg DAILY PO Last administered on 06/10/16 09 :; Start 06/04/16 at 09:00; Stop 07/04/16 at 08:59 Docusate Sodium (Colace) 100 mg BID PO Last administered on 06/10/16 09:26; Start 06/03/16 at 21:00; Stop 07/03/16 at 20:59 Heparin Sodium (Heparin (Flush)) 200 units ASDIRECTED PRN IV SEE LABEL COMMENTS Last administered on 06/10/16 11:24; Start 06/03/16 at 17:00; Stop 07/03 at 16:59 Heparin Sodium (Heparin (Flush)) 200 units PICC IV Last administered on 06:28; Start 06/03/16 at 18:00; Stop 07/03/16 at 17:59 Home Med (Med Rec Complete!) ASDIRECTED XX ; Start 06/03/16 at 14:00; Stop at 14:44; Status DC Hydralazine HCl (Apresoline) 10 mg Q6H PO Last administered on 06/10/16 06:28 ; Start 06/08/16 at 18:00; Stop 06/10/16 at 11:34; Status DC Hydralazine HCl (Apresoline) 10 mg Q8H PO Last administered on 06/08/16 10:27; Start 06/03/16 at 22:00; Stop 06/08/16 at 10:40; Status DC Hydralazine HCl (Apresoline) 25 mg Q6H PO ; Start 06/10/16 at 12:00; Stop at 11:59 Lisinopril (Prinivil) 20 mg DAILY PO Last administered on 06/10/16 09:26; Start 06/04/16 at 09:00; Stop 07/04/16 at 08:59 Magnesium Hydroxide (Milk Of Magnesia) 30 ml DAILYPRN PRN PO CONSTIPATION Last administered on 06/06/16 09:52; Start 06/03/16 at 11:45; Stop 07/03/16 at 11:44 Pantoprazole Sodium (Protonix) 40 mg DAILY PO Last administered on 06/10/16 09 :26; Start 06/04/16 at 09:00; Stop 07/04/16 at 08:59 Polyethylene Glycol (Miralax) 1 pkt DAILY PRN PO CONSTIPATION; Start 06/03/16 at 11:45; Stop 07/03/16 at 11:44 Quetiapine Fumarate (SEROquel) 12.5 mg QHS PO Last administered on 06/09/16 22: 01; Start 06/08/16 at 21:00; Stop 07/08/16 at 20:59 Senna (Senokot) 1 tab QHS PO Last administered on 06/09/16 22:01; Start at 21:00; Stop 07/03/16 at 20:59 Sodium Chloride (Saline Lock Flush) 10 ml ASDIRECTED PRN IV SEE LABEL COMMENTS Last administered on 06/10/16 11:24; Start 06/03/16 at 17:00; Stop 07/03/16 at 16 :59 Sodium Chloride (Saline Lock Flush) 10 ml PICC IV Last administered on 06:28; Start 06/03/16 at 18:00; Stop 07/03/16 at 17:59 Thiamine HCl (Thiamine HCl) 100 mg DAILY PO Last administered on 06/10/16 09: 26; Start 06/04/16 at 09:00; Stop 07/04/16 at 08:59 Trazodone HCl 50 mg 50 mg QHS PO Last administered on 06/07/16 21:14; Start 06/03/16 at 21:00; Stop 06/08/16 at 21:29; Status DC Vancomycin HCl 750 mg/IV Miscellaneous Supplies 1 each/ Dextrose 275 ml @ 275 mls/hr Q12H IV Last administered on 06/10/16 06:21; Start 06/03/16 at 18:00; Stop 06/16/16 at 17:59 JOSE LUIS LEOS MD Jun 10, 2016 11:41
[2016-06-10 12:29] VITALS: BP 183/89
[2016-06-10] MEDS: **hydrALAZINE HCL** 25 MG TAB PO SCH ×2 (12:30→17:31)
[2016-06-10 14:00] VITALS: BP 168/78
[2016-06-10 17:20] VITALS: BP 142/83
[2016-06-10 20:00] VITALS: BP 190/93
[2016-06-10] MEDS: SENNA 8.6 MG TAB (SENOKOT) PO SCH (21:25)
[2016-06-10] MEDS: QUEtiapine FUMARATE 12.5 MG HALF-TAB PO SCH (21:26)
[2016-06-11] MEDS: **hydrALAZINE HCL** 25 MG TAB PO SCH ×4 (00:13→17:01)
[2016-06-11] MEDS: CEFEPIME HCL 2 GM in D5W MINI-BAG PLUS 50 ML IV SCH ×3 (00:14→17:01)
[2016-06-11] MEDS: SODIUM CHLORIDE 0.9% INJ 10 ML SYR IV PRN ×2 (00:14→06:32)
[2016-06-11 06:00] VITALS: BP 189/83
[2016-06-11] MEDS: VANCOMYCIN HCL 750 MG, VIAL MATE ADAPTER 1 EACH in D5W 250 ML IV SCH (06:33)
[2016-06-11 06:36] LABS: BASO # 0.1 K/mm3 (0.0-0.2); BASO % 0.7 % (0.0-1.0); EOS # 0.2 K/mm3 (0.0-0.50); EOS % 2.1 % (0.0-3.0); LARGE UNSTAINED CELL # 0.2 K/mm3 (0.0-0.4); LYMPH # 1.5 K/mm3 (1.5-4.5); LYMPH % 18.5 % (24.0-44.0); MEAN CORPUSCULAR HEMOGLOBIN 27.7 pg (27.0-33.0); MEAN CORPUSCULAR HGB CONC 32.9 g/dl (32.0-36.5); MEAN CORPUSCULAR VOLUME 84.1 fl (80.0-96.0); MONO # 0.4 K/mm3 (0.0-0.8); MONO % 4.8 % (0.0-5.0); PLATELET COUNT, AUTOMATED 314 k/mm3 (150-450); WHITE BLOOD COUNT 8.3 K/mm3 (4.0-10.0)
[2016-06-11 06:57] LABS: ANION GAP 7 MEQ/L (8-16); BLOOD UREA NITROGEN 23 MG/DL (7-18); CALCIUM LEVEL 9.1 MG/DL (8.5-10.1); CARBON DIOXIDE LEVEL 27 MEQ/L (21-32); CHLORIDE LEVEL 106 MEQ/L (98-107); CREATININE FOR GFR 1.31 MG/DL (0.70-1.30); GLOMERULAR FILTRATION RATE > 60.0 (>56); GLUCOSE, FASTING 96 MG/DL (70-105); POTASSIUM SERUM 4.1 MEQ/L (3.5-5.1); SODIUM LEVEL 140 MEQ/L (136-145)
[2016-06-11 07:08] LABS: ERYTHROCYTE SEDIMENTATION RATE 32 mm/hr (0-20)
[2016-06-11] MEDS: LISINOPRIL 20 MG TAB PO SCH (08:52)
[2016-06-11] MEDS: CLOPIDOGREL 75 MG TAB PO SCH (08:52)
[2016-06-11] MEDS: PANTOPRAZOLE 40MG TAB (PROTONIX) PO SCH (08:52)
[2016-06-11] MEDS: THIAMINE 100 MG TAB PO SCH (08:52)
[2016-06-11] MEDS: ASPIRIN 81 MG CHEW TABLET PO SCH (08:52)
[2016-06-11] MEDS: DOCUSATE SODIUM 100 MG CAP PO SCH ×2 (08:52→20:06)
[2016-06-11] MEDS: ATORVASTATIN 20 MG TAB PO SCH (08:52)
[2016-06-11] MEDS: amLODIPine 10 MG TAB PO SCH (08:52)
[2016-06-11] MEDS: SODIUM CHLORIDE 0.9% INJ 10 ML SYR IV SCH ×2 (08:53→17:02)
[2016-06-11] MEDS: ACETAMINOPHEN TAB 650MG DOSE (2X325MG) PO PRN (10:23)
[2016-06-11 10:30] VITALS: BP 138/69
[2016-06-11 14:00] VITALS: BP 162/78
[2016-06-11] MEDS: QUEtiapine FUMARATE 25 MG TAB PO SCH (19:02)
[2016-06-11] MEDS: SENNA 8.6 MG TAB (SENOKOT) PO SCH (20:07)
[2016-06-11] MEDS ORDERED: QUEtiapine FUMARATE 25 MG TAB PO SCH (21:00)
[2016-06-12] MEDS: CEFEPIME HCL 2 GM in D5W MINI-BAG PLUS 50 ML IV SCH ×3 (00:03→16:33)
[2016-06-12] MEDS: **hydrALAZINE HCL** 25 MG TAB PO SCH ×5 (00:03→23:20)
[2016-06-12] MEDS: SODIUM CHLORIDE 0.9% INJ 10 ML SYR IV PRN ×2 (00:03→00:52)
[2016-06-12 01:42] VITALS: BP 169/77
[2016-06-12 06:00] VITALS: BP 184/83
[2016-06-12] MEDS: VANCOMYCIN HCL 750 MG, VIAL MATE ADAPTER 1 EACH in D5W 250 ML IV SCH ×2 (06:56→17:25)
[2016-06-12 07:30] VITALS: BP 141/93
[2016-06-12] MEDS: CLOPIDOGREL 75 MG TAB PO SCH (08:42)
[2016-06-12] MEDS: DOCUSATE SODIUM 100 MG CAP PO SCH ×2 (08:42→20:24)
[2016-06-12] MEDS: amLODIPine 10 MG TAB PO SCH (08:42)
[2016-06-12] MEDS: ATORVASTATIN 20 MG TAB PO SCH (08:42)
[2016-06-12] MEDS: THIAMINE 100 MG TAB PO SCH (08:42)
[2016-06-12] MEDS: ASPIRIN 81 MG CHEW TABLET PO SCH (08:42)
[2016-06-12] MEDS: PANTOPRAZOLE 40MG TAB (PROTONIX) PO SCH (08:44)
[2016-06-12] MEDS: LISINOPRIL 20 MG TAB PO SCH (08:44)
[2016-06-12] MEDS: SODIUM CHLORIDE 0.9% INJ 10 ML SYR IV SCH ×2 (08:45→18:32)
[2016-06-12 14:00] VITALS: BP 141/85
[2016-06-12] MEDS: QUEtiapine FUMARATE 25 MG TAB PO SCH (18:32)
[2016-06-12 20:00] VITALS: BP 178/92
[2016-06-12] MEDS: SENNA 8.6 MG TAB (SENOKOT) PO SCH (20:23)
[2016-06-12 23:20] VITALS: BP 168/86
[2016-06-13] MEDS: CEFEPIME HCL 2 GM in D5W MINI-BAG PLUS 50 ML IV SCH ×3 (01:08→16:29)
[2016-06-13] MEDS: SODIUM CHLORIDE 0.9% INJ 10 ML SYR IV PRN ×5 (01:09→16:34)
[2016-06-13] MEDS: SODIUM CHLORIDE 0.9% INJ 10 ML SYR IV SCH ×2 (05:14→17:15)
[2016-06-13] MEDS: **hydrALAZINE HCL** 25 MG TAB PO SCH ×3 (05:18→17:13)
[2016-06-13 05:24] VITALS: BP 148/80
[2016-06-13 05:39] LABS: BASO % 0.7 % (0.0-1.0); EOS # 0.1 K/mm3 (0.0-0.50); LARGE UNSTAINED CELL # 0.1 K/mm3 (0.0-0.4); LYMPH # 1.5 K/mm3 (1.5-4.5); LYMPH % 22.3 % (24.0-44.0); MEAN CORPUSCULAR HGB CONC 33.2 g/dl (32.0-36.5); MEAN CORPUSCULAR VOLUME 84.3 fl (80.0-96.0); MONO # 0.4 K/mm3 (0.0-0.8); MONO % 5.3 % (0.0-5.0); NEUTROPHILS # 4.5 K/mm3 (1.8-7.7); NEUTROPHILS % 67.8 % (36.0-66.0); PLATELET COUNT, AUTOMATED 283 k/mm3 (150-450); RED CELL DISTRIBUTION WIDTH 14.2 % (11.5-14.5); WHITE BLOOD COUNT 6.6 K/mm3 (4.0-10.0)
[2016-06-13 05:52] LABS: ANION GAP 9 MEQ/L (8-16); BLOOD UREA NITROGEN 23 MG/DL (7-18); CALCIUM LEVEL 8.4 MG/DL (8.5-10.1); CARBON DIOXIDE LEVEL 25 MEQ/L (21-32); CHLORIDE LEVEL 107 MEQ/L (98-107); CREATININE FOR GFR 1.32 MG/DL (0.70-1.30); GLOMERULAR FILTRATION RATE 59.9 (>56); GLUCOSE, FASTING 90 MG/DL (70-105); SODIUM LEVEL 141 MEQ/L (136-145)
[2016-06-13 06:00] VITALS: BP 148/80
--- NOTE | 2016-06-13 06:48 | PHACANCOPD ---
PHARMACY VANCOMYCIN DOSING Pt Demographics Demographics Patient Age:55 , Weight:60.500 , Gender: male Adjusted Body Weight Date: 06/05/16, Adjusted Body Weight: Kg Vancomycin Vancomycin indication: endocarditis Vancomycin Target Ranges: 10-20 mcg/ml Vancomycin Load Y/N: No Load Dose Date Time Vancomycin Load Dose: Date: Time: Vancomycin Dose Date: 06/07/16. Current Vancomycin Dose: [750MG IV Q12H] Date: 06/05/16. Current Vancomycin Dose: [750MG Q12H] Intermittent Dosing?: No Labs Creatinine Clearance Date:06/05/16. Creatinine Clearance: [48]. Assessment and Plan Maintaining Current Dose?: No Reason for dose change: Trough too high Pharmacist Note Pharmacist Note Date: 06/13/16. Pharmacist note:TROUGH REPORTED THIS MORNING 20.4- aCCUMULATION WILL CONTINUE TO INCREASE TROUGH SO WILL ADJUAT VANCOMYCIN TO 1 GRAM IV Q24 HOURS BEGINNING AT 12 NOON-SCR=1.32 CRCL=38.5...WILL CONTINUE TO MONITOR RENAL FUNCTION/LEVELS Date: 06/07/16. Pharmacist note:Patients trough was therapeutic (18.5). Continue current dosing and continue to monitor renal function. Adjust dose as needed. Date: 06/05/16. Pharmacist note: pt was transferred from [facility] on Monday and has been continued on Vanco and cefepime for empiric treatment of endocarditis. 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 Their recommendations were to treat for 6 weeks (started 05/30/16). He was on vanco 750mg q12h, trough on 06/01 came back at 20.3. When he was transferred Monday there was an interval of 18 hours before his dosing was resumed. Trough today was within range (19.7), I will repeat a trough in 2 days. LAUREN [facility]ST[facility] Jun 13, 2016 06:48
[2016-06-13 06:58] LABS: ERYTHROCYTE SEDIMENTATION RATE 33 mm/hr (0-20)
[2016-06-13] MEDS: amLODIPine 10 MG TAB PO SCH (08:45)
[2016-06-13] MEDS: ATORVASTATIN 20 MG TAB PO SCH (08:45)
[2016-06-13] MEDS: CLOPIDOGREL 75 MG TAB PO SCH (08:46)
[2016-06-13] MEDS: LISINOPRIL 20 MG TAB PO SCH (08:46)
[2016-06-13] MEDS: DOCUSATE SODIUM 100 MG CAP PO SCH ×2 (08:46→21:19)
[2016-06-13] MEDS: ASPIRIN 81 MG CHEW TABLET PO SCH (08:46)
[2016-06-13] MEDS: THIAMINE 100 MG TAB PO SCH (08:46)
[2016-06-13] MEDS: PANTOPRAZOLE 40MG TAB (PROTONIX) PO SCH (08:46)
[2016-06-13] MEDS: VANCOMYCIN HCL 1,000 MG, VIAL MATE ADAPTER 1 EACH in D5W 250 ML IV SCH (11:40)
[2016-06-13 14:00] VITALS: BP 145/76
--- NOTE | 2016-06-13 14:26 | IPNPDOC ---
Nutrition Worker Progress Note PROGRESS NOTE DATE OF ADMISSION: 06/03/2016 DATE OF SERVICE: 06/13/2016 ID ALFIE: Dr. Chery Corine Robin, IDENTIFICATION STATEMENT: Patient is a 55-year-old man cardioembolic stroke and left hemiparesis, left neglect, decreased cognition admitted for comprehensive integrated inpatient rehabilitation. PAST MEDICAL HISTORY: Hypertension Hyperlipidemia Tobacco use PAST SURGICAL HISTORY: Negative ALLERGIES: No known drug allergies MEDICATIONS: Vancomycin 750 mg every 12 hours Cefepime 2 g IV every 8 hours Amlodipine 10 mg by mouth daily Aspirin 81 mg by mouth daily Plavix 75 mg by mouth daily Lipitor 80 mg by mouth daily Lisinopril 20 mg by mouth daily Hydralazine 10mg q8h Protonix 40 mg by mouth daily Bacid 1 tid Thiamine 100 mg daily Seroquel 12.5mg qhs Acetaminophen 650 mg every 6 hours as needed SUBJECTIVE: Patient has no complaints. This morning he remembers me and that he s in the hospital. No specific complaints. Slept ok. Denies CP, SOB, N/V, dysuria, lightheadedness. VITAL SIGNS: 132/72, rr 20, heart rate 62, 99% saturation on room air, 97.3F PHYSICAL EXAMINATION: GENERAL: Thin, well developed, sitting up in chair, no acute distress. HEENT: Normocephalic, atraumatic. Mild left facial droop (stable). PERRL, EOMI, poor dentition/missing teeth (stable) CARDIOVASCULAR: S1, S2, regular rate. No lower limb edema or calf tenderness. LUNGS: Decreased breath sounds throughout, but no rhonchi, wheezing or rales ABDOMEN: Soft, nontender, nondistended. Normoactive bowel sounds throughout. NEUROLOGICAL: Alert and oriented to person and place. Left neglect (~stable). MMT: 5/5 strength right upper and lower limbs in all major muscle groups. 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 SKIN: +PICC LABORATORY DATA: 06/13/16: reviewed, see below 06/13/16: vanco 20.4 06/02/2016: WBC count 9.3, hemoglobin 12.9, hematocrit 37.4, platelets 386, sodium 137, potassium 4.8, chloride 99, bicarbonate 20, BUN 15, creatinine 0.9, glucose 97, calcium 9.3 IMAGING: MRI of the brain 05/30/2016: New embolic infarcts in the right MCA territory. Right posterior cerebral artery territory acute infarct. Left anterior cerebral artery flows load/BACTERIOLOGY RESEARCH ASSISTANT watershed acute infarct. MRI of the brain 05/24/2016: Acute infarct involving the right BACTERIOLOGY RESEARCH ASSISTANT distribution and right centrum ovale. 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 Chronic infarct in the right genu of the internal capsule in the left caudate. Small area of encephalomalacia in the ian. CTA a of the head and neck 05/24/2016 acute infarct involving the right BACTERIOLOGY RESEARCH ASSISTANT territory with edema and sulcal effacement and surrounding mass effect the right P2 segment is occluded. Right M2 becomes focally narrowed just distal to the bifurcation. Right vertebral artery becomes occluded at the PICA origin. Irregular basal artery with multifocal areas of narrowing. Left vertebral artery is occluded at the origin and reconstituted flow at the C5-6 level. Plaque is seen in the V4 segment of the left vertebral artery TU with bubble study 05/25/2016: Thin filamentous structure attached to the atrial side of the posterior leaf of the mitral valve. Positive intra-atrial shunt visualized by color Doppler and bubble study. CT of the thorax with contrast 05/25/2016: There is an ill-defined 9 mm nodular opacity in the right lower lobe. There are a couple of calcified granuloma in the right middle lobe. There is a 3.4 mm nodule in the right lower lobe. CT of the abdomen 05/25/2016: No evidence of primary or metastatic malignancy. Lateral and inferior infarcts of the left kidney with old and subacute components. These are most likely vascular in etiology due to severe associated atherosclerotic disease. ASSESSMENT AND PLAN: 1. Acute infarct involving right BACTERIOLOGY RESEARCH ASSISTANT distribution, left parasagittal cortex, right MCA with resultant left neglect/mild hemiparesis, cognitive deficits, decreased mobility and dysfunctional ADLs: Continue statin and dual antiplatelet therapy. Memory waxes and wanes. Family cannot provided any assistance so patient will need to go to sub-acute. Paper work in process. Continue daily therapies. Rehabilitation nursing for bladder, bowel and medication management. 2. Hypertension: Improved s/p increased hydralazine to 25mg. Continue Lisinopril, Norvasc. 3. Endocarditis: Continue IV vancomycin & cefepime until ~ 07/15/16. Will need f/ u with ID [Note: Dr. Miri Kelly was ID physician in [facility]. Spoke with their nurse 06/06/16 and they want periodic labs to include ESR and CRP. ID physician will be pending disposition SNF vs home]. 4. Agitation: Decreased episode s/p starting Seroquel 06/08/16 (d/cd trazadone). 5. Elevated factor VIII: Continue dual antiplatelet therapy with repeat lab work around 07/16/15. If still elevated transition to Xarelto 20 milligrams daily and discontinue antiplatelets per discharge summary. 6. Lung nodule: Patient is status post pulmonary consult which recommends repeat chest CT in around 07/15/16 as an outpatient. 7. DVT prophylaxis: SCD and ELIZABETH hose. 8. Constipation: Resolved s/p mag citrate. Continue Colace, senna scheduled. MOM , Miralax prn. 9. Diet/nutrition: Prealbumin w/i normal limits. Maintain patient on a mechanical soft (secondary to poor dentition) low-fat, low-cholesterol diet with thin liquids. / Vital Signs Vital Sign - Last 24 Hours 06/12/16 06/12/16 06/12/16 06/12/16 18:31 20:00 23:20 23:20 Temp 98.0 Pulse 81 74 Resp 18 B/P 209/93 178/92 168/86 168/86 Pulse Ox 100 O2 Delivery Room Air 06/13/16 06/13/16 06/13/16 06/13/16 05:18 05:24 06:00 08:45 Temp 97.3 97.3 Pulse 68 68 72 Resp 20 20 B/P 148/80 148/80 148/80 154/80 Pulse Ox 99 99 O2 Delivery Room Air Room Air 06/13/16 11:39 B/P 132/72 Laboratory Data CBC/BMP Laboratory Tests 06/13/16 04:59 Calcium Level 8.4 L, Red Blood Count 3.97 L, Mean Corpuscular Volume 84.3, Mean Corpuscular Hemoglobin 28.0, Mean Corpuscular Hemoglobin Concent 33.2, Red Cell Distribution Width 14.2, Neutrophils (%) (Auto) 67.8 H, Lymphocytes (%) (Auto) 22.3 L, Monocytes (%) (Auto) 5.3 H, Eosinophils (%) (Auto) 2.0, Basophils (%) ( Auto) 0.7, Neutrophils # (Auto) 4.5, Lymphocytes # (Auto) 1.5, Monocytes # (Auto ) 0.4, Eosinophils # (Auto) 0.1, Basophils # (Auto) 0.0 Labs 24H Laboratory Tests 2 06/13/16 04:59: Anion Gap 9, White Blood Count 6.6, Red Blood Count 3.97L, Hemoglobin 11.1L, Hematocrit 33.4L, Mean Corpuscular Volume 84.3, Mean Corpuscular Hemoglobin 28.0 , Mean Corpuscular Hemoglobin Concent 33.2, Red Cell Distribution Width 14.2, Platelet Count 283, Neutrophils (%) (Auto) 67.8H, Lymphocytes (%) (Auto) 22.3L, Monocytes (%) (Auto) 5.3H, Eosinophils (%) (Auto) 2.0, Basophils (%) (Auto) 0.7 , Neutrophils # (Auto) 4.5, Lymphocytes # (Auto) 1.5, Monocytes # (Auto) 0.4, Eosinophils # (Auto) 0.1, Basophils # (Auto) 0.0, C-Reactive Protein, Quantitative < 0.30, Blood Urea Nitrogen 23H, Creatinine 1.32H, Sodium Level 141 , Potassium Level 4.0, Chloride Level 107, Carbon Dioxide Level 25, Calcium Level 8.4L, Erythrocyte Sedimentation Rate 33H, Glomerular Filtration Rate 59.9 , Large Unclassified Cells # 0.1, Large Unclassified Cells % 2.0, Vancomycin Level Trough 20.4H Allergies Allergies: Coded Allergies: No Known Allergies (Unverified , 06/03/16) Current Medications Current Medications Current Medications Acetaminophen (Tylenol Tab) 650 mg Q4HP PRN PO MILD PAIN (PS 1-4) Last administered on 06/11/16 10:23; Start 06/03/16 at 11:45; Stop 07/03/16 at 11:44 Amlodipine Besylate (Norvasc) 10 mg DAILY PO Last administered on 06/13/16 08: 45; Start 06/04/16 at 09:00; Stop 07/04/16 at 08:59 Aspirin (Aspirin Chewable) 81 mg DAILY PO Last administered on 06/13/16 08:46 ; Start 06/04/16 at 09:00; Stop 07/04/16 at 08:59 Atorvastatin Calcium (Lipitor) 80 mg DAILY PO Last administered on 06/13/16 08 :45; Start 06/04/16 at 09:00; Stop 07/04/16 at 08:59 Cefepime HCl/ Dextrose (Maxipime/ Dextrose 5% Mini-Bag Plus) 50 ml @ 100 mls/ hr Q8H IV Last administered on 06/13/16 08:44; Start 06/03/16 at 17:00; Stop at 16:59 Clopidogrel Bisulfate (PLAVix) 75 mg DAILY PO Last administered on 06/13/16 08 :46; Start 06/04/16 at 09:00; Stop 07/04/16 at 08:59 Docusate Sodium (Colace) 100 mg BID PO Last administered on 06/13/16 08:46; Start 06/03/16 at 21:00; Stop 07/03/16 at 20:59 Heparin Sodium (Heparin (Flush)) 200 units ASDIRECTED PRN IV SEE LABEL COMMENTS Last administered on 06/13/16 12:54; Start 06/03/16 at 17:00; Stop 07/03 at 16:59 Heparin Sodium (Heparin (Flush)) 200 units PICC IV Last administered on 05:14; Start 06/03/16 at 18:00; Stop 07/03/16 at 17:59 Home Med (Med Rec Complete!) ASDIRECTED XX ; Start 06/03/16 at 14:00; Stop at 14:44; Status DC Hydralazine HCl (Apresoline) 10 mg Q6H PO Last administered on 06/10/16 06:28 ; Start 06/08/16 at 18:00; Stop 06/10/16 at 11:34; Status DC Hydralazine HCl (Apresoline) 10 mg Q8H PO Last administered on 06/08/16 10:27; Start 06/03/16 at 22:00; Stop 06/08/16 at 10:40; Status DC Hydralazine HCl (Apresoline) 25 mg Q6H PO Last administered on 06/13/16 05:18 ; Start 06/10/16 at 12:00; Stop 07/10/16 at 11:59 Lisinopril (Prinivil) 20 mg DAILY PO Last administered on 06/13/16 08:46; Start 06/04/16 at 09:00; Stop 07/04/16 at 08:59 Magnesium Hydroxide (Milk Of Magnesia) 30 ml DAILYPRN PRN PO CONSTIPATION Last administered on 06/06/16 09:52; Start 06/03/16 at 11:45; Stop 07/03/16 at 11:44 Pantoprazole Sodium (Protonix) 40 mg DAILY PO Last administered on 06/13/16 08 :46; Start 06/04/16 at 09:00; Stop 07/04/16 at 08:59 Polyethylene Glycol (Miralax) 1 pkt DAILY PRN PO CONSTIPATION; Start 06/03/16 at 11:45; Stop 07/03/16 at 11:44 Quetiapine Fumarate (SEROquel) 12.5 mg QHS PO Last administered on 06/10/16 21 :26; Start 06/08/16 at 21:00; Stop 06/11/16 at 10:26; Status DC Quetiapine Fumarate (SEROquel) 25 mg QPM PO ; Start 06/11/16 at 21:00; Stop 02/17 at 21:00; Status DC Quetiapine Fumarate 25 mg 25 mg QPM@19 PO Last administered on 06/12/16 18:32 ; Start 06/11/16 at 19:00; Stop 07/11/16 at 18:59 Senna (Senokot) 1 tab QHS PO Last administered on 06/09/16 22:01; Start at 21:00; Stop 07/03/16 at 20:59 Sodium Chloride (Saline Lock Flush) 10 ml ASDIRECTED PRN IV SEE LABEL COMMENTS Last administered on 06/13/16 12:54; Start 06/03/16 at 17:00; Stop 07/03/16 at 16 :59 Sodium Chloride (Saline Lock Flush) 10 ml PICC IV Last administered on 05:14; Start 06/03/16 at 18:00; Stop 07/03/16 at 17:59 Thiamine HCl (Thiamine HCl) 100 mg DAILY PO Last administered on 06/13/16 08: 46; Start 06/04/16 at 09:00; Stop 07/04/16 at 08:59 Trazodone HCl 50 mg 50 mg QHS PO Last administered on 06/07/16 21:14; Start 06/03/16 at 21:00; Stop 06/08/16 at 21:29; Status DC Vancomycin HCl 750 mg/IV Miscellaneous Supplies 1 each/ Dextrose 275 ml @ 275 mls/hr Q12H IV Last administered on 06/12/16 17:25; Start 06/03/16 at 18:00; Stop 06/13/16 at 06:04; Status DC Vancomycin HCl/IV Miscellaneous Supplies/Dextrose (Vancomycin HCl/ Adapter-Vial Mate/ Dextrose 5%) 270 ml @ 270 mls/hr Q24H IV Last administered on 06/13/16 11:40; Start 06/13/16 at 12:00; Stop 06/20/16 at 11:59 JOSE LUIS LEOS MD Jun 13, 2016 14:26 JOSE LUIS LEOS MD Jun 13, 2016 14:26
[2016-06-13] MEDS: QUEtiapine FUMARATE 25 MG TAB PO SCH (18:57)
[2016-06-13 20:00] VITALS: BP 152/80
[2016-06-13] MEDS: SENNA 8.6 MG TAB (SENOKOT) PO SCH (21:13)
[2016-06-13] MEDS: ACETAMINOPHEN TAB 650MG DOSE (2X325MG) PO PRN (22:50)
[2016-06-14] MEDS: CEFEPIME HCL 2 GM in D5W MINI-BAG PLUS 50 ML IV SCH ×3 (00:47→16:14)
[2016-06-14] MEDS: **hydrALAZINE HCL** 25 MG TAB PO SCH ×5 (00:47→23:03)
[2016-06-14] MEDS: SODIUM CHLORIDE 0.9% INJ 10 ML SYR IV PRN ×3 (00:47→13:10)
[2016-06-14 06:00] VITALS: BP 172/84
[2016-06-14] MEDS: SODIUM CHLORIDE 0.9% INJ 10 ML SYR IV SCH ×2 (06:34→16:50)
[2016-06-14] MEDS: CLOPIDOGREL 75 MG TAB PO SCH (08:46)
[2016-06-14] MEDS: DOCUSATE SODIUM 100 MG CAP PO SCH ×2 (08:46→21:50)
[2016-06-14] MEDS: ASPIRIN 81 MG CHEW TABLET PO SCH (08:46)
[2016-06-14] MEDS: ATORVASTATIN 20 MG TAB PO SCH (08:47)
[2016-06-14] MEDS: LISINOPRIL 20 MG TAB PO SCH (08:47)
[2016-06-14] MEDS: amLODIPine 10 MG TAB PO SCH (08:47)
[2016-06-14] MEDS: THIAMINE 100 MG TAB PO SCH (08:47)
[2016-06-14] MEDS: PANTOPRAZOLE 40MG TAB (PROTONIX) PO SCH (08:47)
[2016-06-14 12:09] VITALS: BP 140/71
[2016-06-14] MEDS: VANCOMYCIN HCL 1,000 MG, VIAL MATE ADAPTER 1 EACH in D5W 250 ML IV SCH (12:10)
--- NOTE | 2016-06-14 12:55 | IPNPDOC ---
Licensed Bondsman Progress Note PROGRESS NOTE DATE OF ADMISSION: 06/03/2016 DATE OF SERVICE: 06/14/2016 ID ALFIE: Dr. Chery Corine Robin, IDENTIFICATION STATEMENT: Patient is a 55-year-old man cardioembolic stroke and left hemiparesis, left neglect, decreased cognition admitted for comprehensive integrated inpatient rehabilitation. PAST MEDICAL HISTORY: Hypertension Hyperlipidemia Tobacco use PAST SURGICAL HISTORY: Negative ALLERGIES: No known drug allergies MEDICATIONS: Vancomycin 750 mg every 12 hours Cefepime 2 g IV every 8 hours Amlodipine 10 mg by mouth daily Aspirin 81 mg by mouth daily Plavix 75 mg by mouth daily Lipitor 80 mg by mouth daily Lisinopril 20 mg by mouth daily Hydralazine 10mg q8h Protonix 40 mg by mouth daily Bacid 1 tid Thiamine 100 mg daily Seroquel 12.5mg qhs Acetaminophen 650 mg every 6 hours as needed SUBJECTIVE: Patient has no complaints. Slept ok. Denies CP, SOB, N/V, dysuria, lightheadedness. VITAL SIGNS: 140/71, rr 18, heart rate 75, 100% saturation on room air, 98.7F PHYSICAL EXAMINATION: GENERAL: Thin, well developed, sitting up in chair, no acute distress. HEENT: Normocephalic, atraumatic. PERRL, EOMI, poor dentition/missing teeth ( stable) CARDIOVASCULAR: S1, S2, regular rate. No lower limb edema or calf tenderness. LUNGS: Decreased breath sounds throughout, but no rhonchi, wheezing or rales ABDOMEN: Soft, nontender, nondistended. Normoactive bowel sounds throughout. NEUROLOGICAL: Alert and oriented to person and place. Left neglect (~stable). MMT: 5/5 strength right upper and lower limbs in all major muscle groups. Approximately 4/5 strength left shoulder abduction and forward flexion and elbow flexion, 3/5 elbow extension 5/5 left mold release worker, 3/5 left finger extension, 3-/ 5 left hip flexors and knee extension, 3/5 knee flexion, dorsiflexion. SKIN: +PICC LABORATORY DATA: 06/13/16: reviewed, see below 06/13/16: vanco 20.4 06/02/2016: WBC count 9.3, hemoglobin 12.9, hematocrit 37.4, platelets 386, sodium 137, potassium 4.8, chloride 99, bicarbonate 20, BUN 15, creatinine 0.9, glucose 97, calcium 9.3 IMAGING: MRI of the brain 05/30/2016: New embolic infarcts in the right MCA territory. Right posterior cerebral artery territory acute infarct. Left anterior cerebral artery flows load/FILM PROCESSING UTILITY WORKER watershed acute infarct. MRI of the brain 05/24/2016: Acute infarct involving the right FILM PROCESSING UTILITY WORKER distribution and right centrum ovale. 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 Chronic infarct in the right genu of the internal capsule in the left caudate. Small area of encephalomalacia in the ian. CTA a of the head and neck 05/24/2016 acute infarct involving the right FILM PROCESSING UTILITY WORKER territory with edema and sulcal effacement and surrounding mass effect the right P2 segment is occluded. Right M2 becomes focally narrowed just distal to the bifurcation. Right vertebral artery becomes occluded at the PICA origin. Irregular basal artery with multifocal areas of narrowing. Left vertebral artery is occluded at the origin and reconstituted flow at the C5-6 level. Plaque is seen in the V4 segment of the left vertebral artery TU with bubble study 05/25/2016: Thin filamentous structure attached to the atrial side of the posterior leaf of the mitral valve. Positive intra-atrial shunt visualized by color Doppler and bubble study. CT of the thorax with contrast 05/25/2016: There is an ill-defined 9 mm nodular opacity in the right lower lobe. There are a couple of calcified granuloma in the right middle lobe. There is a 3.4 mm nodule in the right lower lobe. CT of the abdomen 05/25/2016: No evidence of primary or metastatic malignancy. Lateral and inferior infarcts of the left kidney with old and subacute components. These are most likely vascular in etiology due to severe associated atherosclerotic disease. ASSESSMENT AND PLAN: 1. Acute infarct involving right FILM PROCESSING UTILITY WORKER distribution, left parasagittal cortex, right MCA with resultant left neglect/mild hemiparesis, cognitive deficits, decreased mobility and dysfunctional ADLs: Continue statin and dual antiplatelet therapy. Memory about same as yesterday. Family cannot provided any assistance so patient will need to go to sub-acute. Paper work in process. Continue daily therapies. Rehabilitation nursing for bladder, bowel and medication management. 2. Hypertension: Improved s/p increased hydralazine to 25mg. Continue Lisinopril, Norvasc. 3. Endocarditis: Continue IV vancomycin & cefepime until ~ 07/15/16. Will need f/ u with ID [Note: Dr. Miri Kelly was ID physician in [facility]. Spoke with their nurse 06/06/16 and they want periodic labs to include ESR and CRP. ID physician will be pending disposition SNF vs home]. 4. Agitation: Decreased episodes s/p starting Seroquel 06/08/16 (d/cd trazadone) . 5. Elevated factor VIII: Continue dual antiplatelet therapy with repeat lab work around 07/16/15. If still elevated transition to Xarelto 20 milligrams daily and discontinue antiplatelets per discharge summary. 6. Lung nodule: Patient is status post pulmonary consult which recommends repeat chest CT in around 07/15/16 as an outpatient. 7. DVT prophylaxis: SCD and ELIZABETH hose. 8. Constipation: Resolved s/p mag citrate. Continue Colace, senna scheduled. MOM , Miralax prn. 9. Diet/nutrition: Prealbumin w/i normal limits. Maintain patient on a mechanical soft (secondary to poor dentition) low-fat, low-cholesterol diet with thin liquids. / Vital Signs Vital Sign - Last 24 Hours 06/13/16 06/13/16 06/13/16 06/14/16 14:00 17:13 20:00 00:47 Temp 97.9 99.4 Pulse 78 78 Resp 18 18 B/P 145/76 144/88 152/80 171/74 Pulse Ox 99 96 O2 Delivery Room Air Room Air 06/14/16 06/14/16 06/14/16 06/14/16 06:00 06:34 08:47 08:47 Temp 98.7 Pulse 71 71 Resp 18 B/P 172/84 172/84 172/84 172/84 Pulse Ox 100 06/14/16 06/14/16 12:09 12:10 Pulse 75 B/P 140/71 140/71 Allergies Allergies: Coded Allergies: No Known Allergies (Unverified , 06/03/16) Current Medications Current Medications Current Medications Acetaminophen (Tylenol Tab) 650 mg Q4HP PRN PO MILD PAIN (PS 1-4) Last administered on 06/13/16t 22:50; Start 06/03/16 at 11:45; Stop 07/03/16 at 11:44 Amlodipine Besylate (Norvasc) 10 mg DAILY PO Last administered on 06/14/16 08: 47; Start 06/04/16 at 09:00; Stop 07/04/16 at 08:59 Aspirin (Aspirin Chewable) 81 mg DAILY PO Last administered on 06/14/16 08:46 ; Start 06/04/16 at 09:00; Stop 07/04/16 at 08:59 Atorvastatin Calcium (Lipitor) 80 mg DAILY PO Last administered on 06/14/16 08 :47; Start 06/04/16 at 09:00; Stop 07/04/16 at 08:59 Cefepime HCl/ Dextrose (Maxipime/ Dextrose 5% Mini-Bag Plus) 50 ml @ 100 mls/ hr Q8H IV Last administered on 06/14/16 08:46; Start 06/03/16 at 17:00; Stop at 16:59 Clopidogrel Bisulfate (PLAVix) 75 mg DAILY PO Last administered on 06/14/16 08 :46; Start 06/04/16 at 09:00; Stop 07/04/16 at 08:59 Docusate Sodium (Colace) 100 mg BID PO Last administered on 06/14/16 08:46; Start 06/03/16 at 21:00; Stop 07/03/16 at 20:59 Heparin Sodium (Heparin (Flush)) 200 units ASDIRECTED PRN IV SEE LABEL COMMENTS Last administered on 06/14/16 09:27; Start 06/03/16 at 17:00; Stop 07/03 at 16:59 Heparin Sodium (Heparin (Flush)) 200 units PICC IV Last administered on 06:34; Start 06/03/16 at 18:00; Stop 07/03/16 at 17:59 Home Med (Med Rec Complete!) ASDIRECTED XX ; Start 06/03/16 at 14:00; Stop at 14:44; Status DC Hydralazine HCl (Apresoline) 10 mg Q6H PO Last administered on 06/10/16 06:28 ; Start 06/08/16 at 18:00; Stop 06/10/16 at 11:34; Status DC Hydralazine HCl (Apresoline) 10 mg Q8H PO Last administered on 06/08/16 10:27; Start 06/03/16 at 22:00; Stop 06/08/16 at 10:40; Status DC Hydralazine HCl (Apresoline) 25 mg Q6H PO Last administered on 06/14/16 12:10 ; Start 06/10/16 at 12:00; Stop 07/10/16 at 11:59 Lisinopril (Prinivil) 20 mg DAILY PO Last administered on 06/14/16 08:47; Start 06/04/16 at 09:00; Stop 07/04/16 at 08:59 Magnesium Hydroxide (Milk Of Magnesia) 30 ml DAILYPRN PRN PO CONSTIPATION Last administered on 06/06/16 09:52; Start 06/03/16 at 11:45; Stop 07/03/16 at 11:44 Pantoprazole Sodium (Protonix) 40 mg DAILY PO Last administered on 06/14/16 08 :47; Start 06/04/16 at 09:00; Stop 07/04/16 at 08:59 Polyethylene Glycol (Miralax) 1 pkt DAILY PRN PO CONSTIPATION; Start 06/03/16 at 11:45; Stop 07/03/16 at 11:44 Quetiapine Fumarate (SEROquel) 12.5 mg QHS PO Last administered on 06/10/16 21 :26; Start 06/08/16 at 21:00; Stop 06/11/16 at 10:26; Status DC Quetiapine Fumarate (SEROquel) 25 mg QPM PO ; Start 06/11/16 at 21:00; Stop 02/17 at 21:00; Status DC Quetiapine Fumarate 25 mg 25 mg QPM@19 PO Last administered on 06/13/16 18:57 ; Start 06/11/16 at 19:00; Stop 07/11/16 at 18:59 Senna (Senokot) 1 tab QHS PO Last administered on 06/13/16 21:13; Start at 21:00; Stop 07/03/16 at 20:59 Sodium Chloride (Saline Lock Flush) 10 ml ASDIRECTED PRN IV SEE LABEL COMMENTS Last administered on 06/14/16 09:27; Start 06/03/16 at 17:00; Stop 07/03/16 at 16 :59 Sodium Chloride (Saline Lock Flush) 10 ml PICC IV Last administered on 06:34; Start 06/03/16 at 18:00; Stop 07/03/16 at 17:59 Thiamine HCl (Thiamine HCl) 100 mg DAILY PO Last administered on 06/14/16 08: 47; Start 06/04/16 at 09:00; Stop 07/04/16 at 08:59 Trazodone HCl 50 mg 50 mg QHS PO Last administered on 06/07/16 21:14; Start 06/03/16 at 21:00; Stop 06/08/16 at 21:29; Status DC Vancomycin HCl 750 mg/IV Miscellaneous Supplies 1 each/ Dextrose 275 ml @ 275 mls/hr Q12H IV Last administered on 06/12/16 17:25; Start 06/03/16 at 18:00; Stop 06/13/16 at 06:04; Status DC Vancomycin HCl/IV Miscellaneous Supplies/Dextrose (Vancomycin HCl/ Adapter-Vial Mate/ Dextrose 5%) 270 ml @ 270 mls/hr Q24H IV Last administered on 06/14/16 12:10; Start 06/13/16 at 12:00; Stop 06/20/16 at 11:59 JOSE LUIS LEOS MD Jun 14, 2016 12:55
[2016-06-14 14:00] VITALS: BP 145/65
[2016-06-14 16:57] VITALS: BP 173/78
[2016-06-14] MEDS: QUEtiapine FUMARATE 25 MG TAB PO SCH (18:10)
[2016-06-14 20:00] VITALS: BP 148/76
[2016-06-14] MEDS: SENNA 8.6 MG TAB (SENOKOT) PO SCH (21:50)
[2016-06-14] MEDS: ACETAMINOPHEN TAB 650MG DOSE (2X325MG) PO PRN (23:02)
[2016-06-15] MEDS: SODIUM CHLORIDE 0.9% INJ 10 ML SYR IV PRN (01:50)
[2016-06-15] MEDS: CEFEPIME HCL 2 GM in D5W MINI-BAG PLUS 50 ML IV SCH ×3 (01:50→16:58)
[2016-06-15] MEDS: SODIUM CHLORIDE 0.9% INJ 10 ML SYR IV SCH ×2 (05:12→17:00)
[2016-06-15] MEDS: **hydrALAZINE HCL** 25 MG TAB PO SCH ×3 (05:12→17:00)
[2016-06-15 06:00] VITALS: BP 180/90
[2016-06-15 06:01] LABS: BASO # 0.1 K/mm3 (0.0-0.2); EOS # 0.2 K/mm3 (0.0-0.50); EOS % 2.4 % (0.0-3.0); LARGE UNSTAINED CELL # 0.1 K/mm3 (0.0-0.4); LARGE UNSTAINED CELL % 1.1 % (0.0-4.0); LYMPH # 1.6 K/mm3 (1.5-4.5); LYMPH % 22.5 % (24.0-44.0); MEAN CORPUSCULAR HEMOGLOBIN 28.9 pg (27.0-33.0); MEAN CORPUSCULAR HGB CONC 34.2 g/dl (32.0-36.5); MEAN CORPUSCULAR VOLUME 84.5 fl (80.0-96.0); MONO # 0.4 K/mm3 (0.0-0.8); MONO % 6.2 % (0.0-5.0); NEUTROPHILS # 4.5 K/mm3 (1.8-7.7); NEUTROPHILS % 66.9 % (36.0-66.0); PLATELET COUNT, AUTOMATED 272 k/mm3 (150-450); RED CELL DISTRIBUTION WIDTH 14.1 % (11.5-14.5); WHITE BLOOD COUNT 6.7 K/mm3 (4.0-10.0)
[2016-06-15 06:10] LABS: CALCIUM LEVEL 8.7 MG/DL (8.5-10.1); CREATININE FOR GFR 1.77 MG/DL (0.70-1.30); GLOMERULAR FILTRATION RATE 42.7 (>56); POTASSIUM SERUM 4.1 MEQ/L (3.5-5.1)
[2016-06-15 06:29] VITALS: BP 170/90
[2016-06-15] MEDS: NS 1,000 ML IV SCH ×2 (06:56→16:58)
[2016-06-15 07:07] LABS: ERYTHROCYTE SEDIMENTATION RATE 39 mm/hr (0-20)
[2016-06-15] MEDS: ATORVASTATIN 20 MG TAB PO SCH (08:24)
[2016-06-15] MEDS: DOCUSATE SODIUM 100 MG CAP PO SCH ×2 (08:24→21:00)
[2016-06-15] MEDS: PANTOPRAZOLE 40MG TAB (PROTONIX) PO SCH (08:24)
[2016-06-15] MEDS: CLOPIDOGREL 75 MG TAB PO SCH (08:24)
[2016-06-15] MEDS: ASPIRIN 81 MG CHEW TABLET PO SCH (08:24)
[2016-06-15] MEDS: THIAMINE 100 MG TAB PO SCH (08:24)
[2016-06-15] MEDS: LISINOPRIL 20 MG TAB PO SCH (08:24)
[2016-06-15] MEDS: amLODIPine 10 MG TAB PO SCH (08:24)
[2016-06-15 12:16] VITALS: BP 180/92
--- NOTE | 2016-06-15 12:23 | IPNPDOC ---
[employer] Professional Progress Note PROGRESS NOTE DATE OF SERVICE: 06/15/2016 ID ALFIE: Dr. Chery [facility], IDENTIFICATION STATEMENT: Patient is a 55-year-old man cardioembolic stroke and left hemiparesis, left neglect, decreased cognition admitted for comprehensive integrated inpatient rehabilitation. PAST MEDICAL HISTORY: Hypertension Hyperlipidemia Tobacco use PAST SURGICAL HISTORY: Negative ALLERGIES: No known drug allergies MEDICATIONS: Vancomycin 750 mg every 12 hours Cefepime 2 g IV every 8 hours Amlodipine 10 mg by mouth daily Aspirin 81 mg by mouth daily Plavix 75 mg by mouth daily Lipitor 80 mg by mouth daily Lisinopril 20 mg by mouth daily Hydralazine 25mg q6h Protonix 40 mg by mouth daily Bacid 1 tid Thiamine 100 mg daily Seroquel 12.5mg qhs Acetaminophen 650 mg every 6 hours as needed SUBJECTIVE: Patient has no complaints. Slept ok. Denies CP, SOB, N/V, dysuria, lightheadedness. VITAL SIGNS: 170/90, rr 17, heart rate 70, 99% saturation on room air, 98.1F PHYSICAL EXAMINATION: GENERAL: Thin, well developed, sitting up in chair, no acute distress. HEENT: Normocephalic, atraumatic. PERRL, EOMI, poor dentition/missing teeth ( stable) CARDIOVASCULAR: S1, S2, regular rate. No lower limb edema or calf tenderness. LUNGS: Decreased breath sounds throughout, but no rhonchi, wheezing or rales ABDOMEN: Soft, nontender, nondistended. Normoactive bowel sounds throughout. NEUROLOGICAL: Alert and oriented to person and place. Left neglect (~same). MMT : 5/5 strength right upper and lower limbs in all major muscle groups. Approximately 4/5 strength left shoulder abduction and forward flexion and elbow flexion, 3/5 elbow extension 5/5 left trackman, 3/5 left finger extension, 3-/ 5 left hip flexors and knee extension, 3/5 knee flexion, dorsiflexion. SKIN: +PICC LABORATORY DATA: 06/15/16: reviewed, see below 06/15/16: vanco pending 06/02/2016: WBC count 9.3, hemoglobin 12.9, hematocrit 37.4, platelets 386, sodium 137, potassium 4.8, chloride 99, bicarbonate 20, BUN 15, creatinine 0.9, glucose 97, calcium 9.3 IMAGING: MRI of the brain 05/30/2016: New embolic infarcts in the right MCA territory. Right posterior cerebral artery territory acute infarct. Left anterior cerebral artery flows load/SLICING MACHINE OPERATOR/TENDER watershed acute infarct. MRI of the brain 05/24/2016: Acute infarct involving the right SLICING MACHINE OPERATOR/TENDER distribution and right centrum ovale. 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 Chronic infarct in the right genu of the internal capsule in the left caudate. Small area of encephalomalacia in the ian. CTA a of the head and neck 05/24/2016 acute infarct involving the right SLICING MACHINE OPERATOR/TENDER territory with edema and sulcal effacement and surrounding mass effect the right P2 segment is occluded. Right M2 becomes focally narrowed just distal to the bifurcation. Right vertebral artery becomes occluded at the PICA origin. Irregular basal artery with multifocal areas of narrowing. Left vertebral artery is occluded at the origin and reconstituted flow at the C5-6 level. Plaque is seen in the V4 segment of the left vertebral artery TU with bubble study 05/25/2016: Thin filamentous structure attached to the atrial side of the posterior leaf of the mitral valve. Positive intra-atrial shunt visualized by color Doppler and bubble study. CT of the thorax with contrast 05/25/2016: There is an ill-defined 9 mm nodular opacity in the right lower lobe. There are a couple of calcified granuloma in the right middle lobe. There is a 3.4 mm nodule in the right lower lobe. CT of the abdomen 05/25/2016: No evidence of primary or metastatic malignancy. Lateral and inferior infarcts of the left kidney with old and subacute components. These are most likely vascular in etiology due to severe associated atherosclerotic disease. ASSESSMENT AND PLAN: 1. Acute infarct involving right SLICING MACHINE OPERATOR/TENDER distribution, left parasagittal cortex, right MCA with resultant left neglect/mild hemiparesis, cognitive deficits, decreased mobility and dysfunctional ADLs: Continue statin and dual antiplatelet therapy. Memory about same. Family/brothers cannot provided any assistance so patient will need to go to sub-acute. Paper work in process. Continue daily therapies. Rehabilitation nursing for bladder, bowel and medication management. 2. Hypertension: Remains high. S/p increased hydralazine to 25mg. Continue Lisinopril, Norvasc. Awaiting recheck 3. Endocarditis (suspected): Continue IV vancomycin & cefepime until ~ 07/15/16. Will need f/u with ID [Note: Dr. Miri Kelly was ID physician in [facility]. Spoke with their nurse 06/06/16 and they want periodic labs to include ESR and CRP. ID physician will be pending disposition SNF vs home]. 4. Agitation: Decreased episodes s/p starting Seroquel 06/08/16 (d/cd trazadone). 5. Elevated factor VIII: Continue dual antiplatelet therapy with repeat lab work around 07/16/15. If still elevated transition to Xarelto 20 milligrams daily and discontinue antiplatelets per discharge summary. 6. Lung nodule: Patient is status post pulmonary consult which recommends repeat chest CT in around 07/15/16 as an outpatient. 7. DVT prophylaxis: SCD and ELIZABETH hose. 8. Constipation: Resolved s/p mag citrate. Continue Colace, senna scheduled. MOM , Miralax prn. 9. Diet/nutrition: Prealbumin w/i normal limits. Maintain patient on a mechanical soft (secondary to poor dentition) low-fat, low-cholesterol diet with thin liquids. 10. PETER: Possibly prerenal +/- vanco. [note: I&Os inaccurate]. UA negative. BS w /o significant retention. Started IVFs. Will obtain daily weights to help monitor fluid status. If doesnt resolve may obtain ID c/s to comment on vanco and/or nephrology c/s. / Vital Signs Vital Sign - Last 24 Hours 06/14/16 06/14/16 06/14/16 06/14/16 14:00 16:57 17:00 20:00 Temp 98.5 99.4 Pulse 81 89 80 Resp 18 18 B/P 145/65 173/78 173/78 148/76 Pulse Ox 99 98 O2 Delivery Room Air Room Air 06/14/16 06/15/16 06/15/16 06/15/16 23:03 05:12 06:00 06:29 Temp 98.1 Pulse 70 Resp 17 B/P 166/97 180/90 180/90 170/90 Pulse Ox 99 O2 Delivery Room Air 06/15/16 06/15/16 06/15/16 08:24 08:24 12:16 Pulse 70 81 B/P 170/90 170/90 180/92 Laboratory Data CBC/BMP Laboratory Tests 06/15/16 05:24 Calcium Level 8.7, Red Blood Count 3.76 L, Mean Corpuscular Volume 84.5, Mean Corpuscular Hemoglobin 28.9, Mean Corpuscular Hemoglobin Concent 34.2, Red Cell Distribution Width 14.1, Neutrophils (%) (Auto) 66.9 H, Lymphocytes (%) (Auto) 22.5 L, Monocytes (%) (Auto) 6.2 H, Eosinophils (%) (Auto) 2.4, Basophils (%) ( Auto) 1.0, Neutrophils # (Auto) 4.5, Lymphocytes # (Auto) 1.6, Monocytes # (Auto ) 0.4, Eosinophils # (Auto) 0.2, Basophils # (Auto) 0.1 Labs 24H Laboratory Tests 2 06/15/16 05:24: Anion Gap 12, White Blood Count 6.7, Red Blood Count 3.76L, Hemoglobin 10.9L, Hematocrit 31.8L, Mean Corpuscular Volume 84.5, Mean Corpuscular Hemoglobin 28.9 , Mean Corpuscular Hemoglobin Concent 34.2, Red Cell Distribution Width 14.1, Platelet Count 272, Neutrophils (%) (Auto) 66.9H, Lymphocytes (%) (Auto) 22.5L, Monocytes (%) (Auto) 6.2H, Eosinophils (%) (Auto) 2.4, Basophils (%) (Auto) 1.0 , Neutrophils # (Auto) 4.5, Lymphocytes # (Auto) 1.6, Monocytes # (Auto) 0.4, Eosinophils # (Auto) 0.2, Basophils # (Auto) 0.1, C-Reactive Protein, Quantitative 0.32H, Blood Urea Nitrogen 29H, Creatinine 1.77H, Sodium Level 142 , Potassium Level 4.1, Chloride Level 108H, Carbon Dioxide Level 22, Calcium Level 8.7, Erythrocyte Sedimentation Rate 39H, Glomerular Filtration Rate 42.7L , Large Unclassified Cells # 0.1, Large Unclassified Cells % 1.1 06/15/16 09:26: Urine Amorphous Sediment , Urine Appearance CLEAR, Urine Color YELLOW, Urine pH 5.0, Urine Specific Pratt 1.014, Urine Protein 1+H, Urine Glucose (UA) NEGATIVE, Urine Ketones NEGATIVE, Urine Urobilinogen 0.2, Urine Bilirubin NEGATIVE, Urine Leukocyte Esterase NEGATIVE, Urine Bacteria (Auto) NEGATIVE, Urine Blood 1+H, Urine Calcium Carbonate Cryst(Auto) , Urine Calcium Oxalate Cryst (Auto) , Urine Calcium Phosphate Perla (Auto) , Urine Cellular Casts , Urine Cystine Crystals , Urine Granular Casts (Auto) , Urine Hyaline Casts (Auto ) 0, Urine Leucine Crystals , Urine Mucus (Auto) SMALL, Urine Nitrite NEGATIVE, Urine Oval Fat Bodies (Auto) , Urine RBC (Auto) 2, Urine Renal Epithelial Cells , Urine Sperm (Auto) MODERATEH, Urine Squamous Epithelial Cells 0, Urine Transitional Epithelial Cells , Urine Trichomonas (Auto) , Urine Triple Phosphate Cryst (Auto) , Urine Tyrosine Crystals , Urine Uric Acid Crystals ( Auto) , Urine WBC (Auto) 2, Urine Waxy Casts (Auto) , Urine Yeast-Like Cells ( Auto) 06/15/16 11:03: Microbiology Microbiology 06/15/16 Urine Culture, Received Pending Allergies Allergies: Coded Allergies: No Known Allergies (Unverified , 06/03/16) Current Medications Current Medications Current Medications Acetaminophen (Tylenol Tab) 650 mg Q4HP PRN PO MILD PAIN (PS 1-4) Last administered on 06/14/16 23:02; Start 06/03/16 at 11:45; Stop 07/03/16 at 11:44 Amlodipine Besylate (Norvasc) 10 mg DAILY PO Last administered on 06/15/16 08: 24; Start 06/04/16 at 09:00; Stop 07/04/16 at 08:59 Aspirin (Aspirin Chewable) 81 mg DAILY PO Last administered on 06/15/16 08:24 ; Start 06/04/16 at 09:00; Stop 07/04/16 at 08:59 Atorvastatin Calcium (Lipitor) 80 mg DAILY PO Last administered on 06/15/16 08 :24; Start 06/04/16 at 09:00; Stop 07/04/16 at 08:59 Cefepime HCl/ Dextrose (Maxipime/ Dextrose 5% Mini-Bag Plus) 50 ml @ 100 mls/ hr Q8H IV Last administered on 06/15/16 08:24; Start 06/03/16 at 17:00; Stop at 16:59 Clopidogrel Bisulfate (PLAVix) 75 mg DAILY PO Last administered on 06/15/16 08 :24; Start 06/04/16 at 09:00; Stop 07/04/16 at 08:59 Docusate Sodium (Colace) 100 mg BID PO Last administered on 06/15/16 08:24; Start 06/03/16 at 21:00; Stop 07/03/16 at 20:59 Heparin Sodium (Heparin (Flush)) 200 units ASDIRECTED PRN IV SEE LABEL COMMENTS Last administered on 06/15/16 01:50; Start 06/03/16 at 17:00; Stop 07/03 at 16:59 Heparin Sodium (Heparin (Flush)) 200 units PICC IV Last administered on 05:12; Start 06/03/16 at 18:00; Stop 07/03/16 at 17:59 Home Med (Med Rec Complete!) ASDIRECTED XX ; Start 06/03/16 at 14:00; Stop at 14:44; Status DC Hydralazine HCl (Apresoline) 10 mg Q6H PO Last administered on 06/10/16 06:28 ; Start 06/08/16 at 18:00; Stop 06/10/16 at 11:34; Status DC Hydralazine HCl (Apresoline) 10 mg Q8H PO Last administered on 06/08/16 10:27; Start 06/03/16 at 22:00; Stop 06/08/16 at 10:40; Status DC Hydralazine HCl (Apresoline) 25 mg Q6H PO Last administered on 06/15/16 05:12 ; Start 06/10/16 at 12:00; Stop 07/10/16 at 11:59 Lisinopril (Prinivil) 20 mg DAILY PO Last administered on 06/15/16 08:24; Start 06/04/16 at 09:00; Stop 07/04/16 at 08:59 Magnesium Hydroxide (Milk Of Magnesia) 30 ml DAILYPRN PRN PO CONSTIPATION Last administered on 06/06/16 09:52; Start 06/03/16 at 11:45; Stop 07/03/16 at 11:44 Pantoprazole Sodium (Protonix) 40 mg DAILY PO Last administered on 06/15/16 08 :24; Start 06/04/16 at 09:00; Stop 07/04/16 at 08:59 Polyethylene Glycol (Miralax) 1 pkt DAILY PRN PO CONSTIPATION; Start 06/03/16 at 11:45; Stop 07/03/16 at 11:44 Quetiapine Fumarate (SEROquel) 12.5 mg QHS PO Last administered on 06/10/16 21 :26; Start 06/08/16 at 21:00; Stop 06/11/16 at 10:26; Status DC Quetiapine Fumarate (SEROquel) 25 mg QPM PO ; Start 06/11/16 at 21:00; Stop 02/17 at 21:00; Status DC Quetiapine Fumarate 25 mg 25 mg QPM@19 PO Last administered on 06/14/16 18:10 ; Start 06/11/16 at 19:00; Stop 07/11/16 at 18:59 Senna (Senokot) 1 tab QHS PO Last administered on 06/14/16 21:50; Start at 21:00; Stop 07/03/16 at 20:59 Sodium Chloride (Nacl 0.9%) 1,000 ml @ 100 mls/hr Q10H IV Last administered on 06/15/16 06:56; Start 06/15/16 at 06:45; Stop 07/15/16 at 06:44 Sodium Chloride (Saline Lock Flush) 10 ml ASDIRECTED PRN IV SEE LABEL COMMENTS Last administered on 06/15/16 01:50; Start 06/03/16 at 17:00; Stop 07/03/16 at 16 :59 Sodium Chloride (Saline Lock Flush) 10 ml PICC IV Last administered on 05:12; Start 06/03/16 at 18:00; Stop 07/03/16 at 17:59 Thiamine HCl (Thiamine HCl) 100 mg DAILY PO Last administered on 06/15/16 08: 24; Start 06/04/16 at 09:00; Stop 07/04/16 at 08:59 Trazodone HCl 50 mg 50 mg QHS PO Last administered on 06/07/16 21:14; Start 06/03/16 at 21:00; Stop 06/08/16 at 21:29; Status DC Vancomycin HCl 750 mg/IV Miscellaneous Supplies 1 each/ Dextrose 275 ml @ 275 mls/hr Q12H IV Last administered on 06/12/16 17:25; Start 06/03/16 at 18:00; Stop 06/13/16 at 06:04; Status DC Vancomycin HCl 1000 mg/IV Miscellaneous Supplies 1 each/ Dextrose 270 ml @ 270 mls/hr Q24H IV Last administered on 06/14/16 12:10; Start 06/13/16 at 12:00; Stop 06/20/16 at 11:59 JOSE LUIS LEOS MD Jun 15, 2016 12:23
[2016-06-15] MEDS: VANCOMYCIN HCL 1,000 MG, VIAL MATE ADAPTER 1 EACH in D5W 250 ML IV SCH (12:35)
[2016-06-15 12:52] VITALS: BP 150/70
[2016-06-15 14:00] VITALS: BP 150/70
[2016-06-15] MEDS ORDERED: HYDR25TA PO (14:39)
[2016-06-15] MEDS ORDERED: QUET1TAB7 PO (14:39)
[2016-06-15] MEDS: ACETAMINOPHEN TAB 650MG DOSE (2X325MG) PO PRN (16:58)
[2016-06-15 17:00] VITALS: BP 175/83
[2016-06-15] MEDS: QUEtiapine FUMARATE 25 MG TAB PO SCH (18:03)
[2016-06-15] MEDS: SENNA 8.6 MG TAB (SENOKOT) PO SCH (21:00)
[2016-06-16] MEDS: **hydrALAZINE HCL** 25 MG TAB PO SCH ×3 (00:45→08:34)
[2016-06-16] MEDS: CEFEPIME HCL 2 GM in D5W MINI-BAG PLUS 50 ML IV SCH ×2 (01:00→08:28)
[2016-06-16] MEDS: NS 1,000 ML IV SCH (04:47)
[2016-06-16] MEDS: SODIUM CHLORIDE 0.9% INJ 10 ML SYR IV SCH (05:49)
[2016-06-16 08:03] LABS: BASO % 0.6 % (0.0-1.0); EOS # 0.2 K/mm3 (0.0-0.50); EOS % 2.3 % (0.0-3.0); LARGE UNSTAINED CELL # 0.1 K/mm3 (0.0-0.4); LARGE UNSTAINED CELL % 1.1 % (0.0-4.0); LYMPH # 1.3 K/mm3 (1.5-4.5); LYMPH % 15.7 % (24.0-44.0); MEAN CORPUSCULAR HEMOGLOBIN 28.6 pg (27.0-33.0); MEAN CORPUSCULAR HGB CONC 33.9 g/dl (32.0-36.5); MEAN CORPUSCULAR VOLUME 84.6 fl (80.0-96.0); MONO # 0.2 K/mm3 (0.0-0.8); MONO % 3.3 % (0.0-5.0); NEUTROPHILS # 5.7 K/mm3 (1.8-7.7); PLATELET COUNT, AUTOMATED 281 k/mm3 (150-450); RED CELL DISTRIBUTION WIDTH 14.2 % (11.5-14.5); WHITE BLOOD COUNT 7.4 K/mm3 (4.0-10.0)
[2016-06-16 08:12] LABS: CALCIUM LEVEL 8.8 MG/DL (8.5-10.1); CREATININE FOR GFR 1.6 MG/DL (0.70-1.30); POTASSIUM SERUM 3.9 MEQ/L (3.5-5.1)
[2016-06-16 08:34] VITALS: BP 172/83
[2016-06-16] MEDS: THIAMINE 100 MG TAB PO SCH (08:34)
[2016-06-16] MEDS: CLOPIDOGREL 75 MG TAB PO SCH (08:34)
[2016-06-16] MEDS: PANTOPRAZOLE 40MG TAB (PROTONIX) PO SCH (08:34)
[2016-06-16] MEDS: DOCUSATE SODIUM 100 MG CAP PO SCH (08:34)
[2016-06-16] MEDS: amLODIPine 10 MG TAB PO SCH (08:34)
[2016-06-16] MEDS: LISINOPRIL 20 MG TAB PO SCH (08:35)
[2016-06-16] MEDS: ASPIRIN 81 MG CHEW TABLET PO SCH (08:35)
[2016-06-16] MEDS: ATORVASTATIN 20 MG TAB PO SCH (08:35)
[2016-06-16] MEDS ORDERED: VANC10005 INJ (09:03)
[2016-06-16] MEDS: SODIUM CHLORIDE 0.9% INJ 10 ML SYR IV PRN (09:37)
[2016-06-16 09:49] LABS: ERYTHROCYTE SEDIMENTATION RATE 37 mm/hr (0-20)
[2016-06-16 10:00] VITALS: BP_SYST 154; BP_DIAS 8; BP_DIAS 82
--- NOTE | 2016-06-16 11:02 | DS.PDOC ---
Director Of Accounts Receivable Discharge Note DISCHARGE SUMMARY DATE OF ADMISSION: 06/03/2016 DATE OF DISCHARGE: 06/16/2016 ID ([facility]): Dr. Miri Kelly, DISCHARGE DIAGNOSES 1. Acute infarct involving right BROOM BUILDER distribution, left parasagittal cortex, right MCA with resultant left neglect/mild hemiparesis, cognitive deficits, decreased mobility and dysfunctional ADLs 2. Hypertension 3. Endocarditis (suspected 4. Constipation, resolved 5. PETER IDENTIFICATION STATEMENT: Patient is a 55-year-old man cardioembolic stroke and left hemiparesis, left neglect, decreased cognition admitted for comprehensive integrated inpatient rehabilitation. PAST MEDICAL HISTORY: Hypertension Hyperlipidemia Tobacco use PAST SURGICAL HISTORY: Negative HOSPITAL COURSE The patient underwent daily therapies. He tolerated his therapy sessions well. He made some funtional gains; however, cognitive deficits and neglect remained significant obstacle to independent/modified independent functioning. Meeting was held with the brother and I was informed that that neither he nor the other brother that lived with the patient would be able to provide any level of assistance. As such, recommendation for alternate level of care. Brother was in agreement with SNF. On 06/16/16 patient was accepted to [facility] and arranegments were made for discharge. Other issues addressed while on the rehabilitation unit are outlined as follows: 1. Hypertension: Multiple adjustments made in medications including adding hydralazine which was titrated up to 25mg q6h. He was maintained on Lisinopril and Norvasc. Goal SBP < 140mmHg. Further adjustments as needed. 2. Endocarditis (suspected): Continue IV vancomycin & cefepime until ~ 07/15/16 per [facility]. Will need f/u with ID [Note: Dr. Miri Kelly was ID physician in [facility]. Spoke with their nurse 06/06/16 and they want periodic labs to include ESR and CRP]. 3. PETER: Possibly multifactorial-prerenal, vanco. [note: I&Os inaccurate 2nd incontinence]. UA negative. BS w/o significant retention. On IVFs. Monitored daily weights to help monitor fluid status. If doesnt resolve recommend obtaining ID c/s to comment on vanco and/or nephrology c/s. 4. Agitation: Decreased episodes s/p starting Seroquel 06/08/16 (d/cd trazadone). 5. Elevated factor VIII: Continue dual antiplatelet therapy with repeat lab work around 07/16/15. If still elevated transition to Xarelto 20 milligrams daily and discontinue antiplatelets per discharge summary. 6. Lung nodule: Patient is status post pulmonary consult at [facility] which recommends repeat chest CT in around 07/15/16 as an outpatient. 7. DVT prophylaxis: SCD and ELIZABETH hose. 8. Constipation: Resolved s/p mag citrate. Continue Colace, senna scheduled. MOM , Miralax prn. 9. Diet/nutrition: Prealbumin w/i normal limits. Maintain patient on a mechanical soft (secondary to poor dentition) low-fat, low-cholesterol diet with thin liquids. VITAL SIGNS: 154/82, rr 18, heart rate 81, 100% saturation on room air, 98.5F PHYSICAL EXAMINATION: GENERAL: Thin, well developed, sitting up WC, no acute distress. HEENT: Normocephalic, atraumatic. PERRL, EOMI, poor dentition/missing teeth ( unchanged) CARDIOVASCULAR: S1, S2, regular rate. No lower limb edema or calf tenderness. LUNGS: Decreased breath sounds throughout, but no rhonchi, wheezing or rales ABDOMEN: Soft, nontender, nondistended. Normoactive bowel sounds throughout. NEUROLOGICAL: Alert and oriented to person and place. Left neglect (~same). MMT [note: difficult to assess accurately 2nd to neglect and difficulty following commands]: 5/5 strength right upper and lower limbs in all major muscle groups. Approximately 4/5 strength left shoulder abduction and forward flexion and elbow flexion, 3/5 elbow extension 5/5 left billet heater, 3/5 left finger extension, 3-/ 5 left hip flexors and knee extension, 3/5 knee flexion, dorsiflexion. SKIN: +PICC left LABORATORY DATA: 06/16/16: reviewed, see below UCx 06/15/16: no growth 06/15/16: vanco 15.6 Bladder scans: no significant retention 06/02/2016 (from [facility]): WBC count 9.3, hemoglobin 12.9, hematocrit 37.4, platelets 386, sodium 137, potassium 4.8, chloride 99, bicarbonate 20, BUN 15, creatinine 0.9, glucose 97, calcium 9.3 IMAGING: MRI of the brain 05/30/2016: New embolic infarcts in the right MCA territory. Right posterior cerebral artery territory acute infarct. Left anterior cerebral artery flows load/BROOM BUILDER watershed acute infarct. MRI of the brain 05/24/2016: Acute infarct involving the right BROOM BUILDER distribution and right centrum ovale. 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 Chronic infarct in the right genu of the internal capsule in the left caudate. Small area of encephalomalacia in the ian. CTA a of the head and neck 05/24/2016 acute infarct involving the right BROOM BUILDER territory with edema and sulcal effacement and surrounding mass effect the right P2 segment is occluded. Right M2 becomes focally narrowed just distal to the bifurcation. Right vertebral artery becomes occluded at the PICA origin. Irregular basal artery with multifocal areas of narrowing. Left vertebral artery is occluded at the origin and reconstituted flow at the C5-6 level. Plaque is seen in the V4 segment of the left vertebral artery TU with bubble study 05/25/2016: Thin filamentous structure attached to the atrial side of the posterior leaf of the mitral valve. Positive intra-atrial shunt visualized by color Doppler and bubble study. CT of the thorax with contrast 05/25/2016: There is an ill-defined 9 mm nodular opacity in the right lower lobe. There are a couple of calcified granuloma in the right middle lobe. There is a 3.4 mm nodule in the right lower lobe. CT of the abdomen 05/25/2016: No evidence of primary or metastatic malignancy. Lateral and inferior infarcts of the left kidney with old and subacute components. These are most likely vascular in etiology due to severe associated atherosclerotic disease. ALLERGIES: No known drug allergies MEDICATIONS: Vancomycin 1000 mg every 24 hours (pharmacy dosing) Cefepime 2 g IV every 8 hours IV NS @75 cc/h Amlodipine 10 mg by mouth daily Hydralazine 25mg q6h Lisinopril 20 mg by mouth daily Aspirin 81 mg by mouth daily Plavix 75 mg by mouth daily Lipitor 80 mg by mouth daily Protonix 40 mg by mouth daily Bacid 1 tid Thiamine 100 mg daily Seroquel 12.5mg qhs Acetaminophen 650 mg every 6 hours as needed DISCHARGE DISPOSITION: 1. The patient discharge to [facility] 2. The patient discharged in stable condition 3. Discharged recommendations for continued RN, PT, OT, SHIP SUPERINTENDENT. 4. Post discharge follow-up medical appointments: PCP, ID. / Vital Signs/I&O Vital Sign - Last 24 Hours 06/15/16 06/15/16 06/15/16 06/15/16 12:16 12:35 12:52 14:00 Temp 98.5 Pulse 81 81 Resp 18 B/P 180/92 180/92 150/70 150/70 Pulse Ox 100 O2 Delivery Room Air 06/15/16 06/15/16 06/16/16 06/16/16 17:00 17:00 00:45 08:34 B/P 175/83 175/83 180/90 172/83 06/16/16 10:00 B/P 154/8 I&O- Last 24 Hours up to 6 AM 06/16/16 06:00 Intake Total 2730 ml Output Total 350 ml Balance 2380 ml Laboratory Data CBC/BMP Laboratory Tests 06/15/16 05:24 Calcium Level 8.7, Red Blood Count 3.76 L, Mean Corpuscular Volume 84.5, Mean Corpuscular Hemoglobin 28.9, Mean Corpuscular Hemoglobin Concent 34.2, Red Cell Distribution Width 14.1, Neutrophils (%) (Auto) 66.9 H, Lymphocytes (%) (Auto) 22.5 L, Monocytes (%) (Auto) 6.2 H, Eosinophils (%) (Auto) 2.4, Basophils (%) ( Auto) 1.0, Neutrophils # (Auto) 4.5, Lymphocytes # (Auto) 1.6, Monocytes # (Auto ) 0.4, Eosinophils # (Auto) 0.2, Basophils # (Auto) 0.1 06/16/16 07:48 Calcium Level 8.8, Red Blood Count 4.24 L, Mean Corpuscular Volume 84.6, Mean Corpuscular Hemoglobin 28.6, Mean Corpuscular Hemoglobin Concent 33.9, Red Cell Distribution Width 14.2, Neutrophils (%) (Auto) 77.0 H, Lymphocytes (%) (Auto) 15.7 L, Monocytes (%) (Auto) 3.3, Eosinophils (%) (Auto) 2.3, Basophils (%) ( Auto) 0.6, Neutrophils # (Auto) 5.7, Lymphocytes # (Auto) 1.3 L, Monocytes # ( Auto) 0.2, Eosinophils # (Auto) 0.2, Basophils # (Auto) 0.[address] Laboratory Tests 06/15/16 05:24: Anion Gap 12, White Blood Count 6.7, Red Blood Count 3.76L, Hemoglobin 10.9L, Hematocrit 31.8L, Mean Corpuscular Volume 84.5, Mean Corpuscular Hemoglobin 28.9 , Mean Corpuscular Hemoglobin Concent 34.2, Red Cell Distribution Width 14.1, Platelet Count 272, Neutrophils (%) (Auto) 66.9H, Lymphocytes (%) (Auto) 22.5L, Monocytes (%) (Auto) 6.2H, Eosinophils (%) (Auto) 2.4, Basophils (%) (Auto) 1.0 , Neutrophils # (Auto) 4.5, Lymphocytes # (Auto) 1.6, Monocytes # (Auto) 0.4, Eosinophils # (Auto) 0.2, Basophils # (Auto) 0.1, Blood Urea Nitrogen 29H, Creatinine 1.77H, Sodium Level 142, Potassium Level 4.1, Chloride Level 108H, Carbon Dioxide Level 22, Calcium Level 8.7, C-Reactive Protein, Quantitative 0.32H, Erythrocyte Sedimentation Rate 39H, Fasting Glucose 87, Glomerular Filtration Rate 42.7L, Large Unclassified Cells # 0.1, Large Unclassified Cells % 1.1 06/15/16 09:26: Urine Amorphous Sediment , Urine Appearance CLEAR, Urine Color YELLOW, Urine pH 5.0, Urine Specific [place] 1.014, Urine Protein 1+H, Urine Glucose (UA) NEGATIVE, Urine Ketones NEGATIVE, Urine Urobilinogen 0.2, Urine Bilirubin NEGATIVE, Urine Leukocyte Esterase NEGATIVE, Urine Bacteria (Auto) NEGATIVE, Urine Blood 1+H, Urine Calcium Carbonate Cryst(Auto) , Urine Calcium Oxalate Cryst (Auto) , Urine Calcium Phosphate Perla (Auto) , Urine Cellular Casts , Urine Cystine Crystals , Urine Granular Casts (Auto) , Urine Hyaline Casts (Auto ) 0, Urine Leucine Crystals , Urine Mucus (Auto) SMALL, Urine Nitrite NEGATIVE, Urine Oval Fat Bodies (Auto) , Urine RBC (Auto) 2, Urine Renal Epithelial Cells , Urine Sperm (Auto) MODERATEH, Urine Squamous Epithelial Cells 0, Urine Transitional Epithelial Cells , Urine Trichomonas (Auto) , Urine Triple Phosphate Cryst (Auto) , Urine Tyrosine Crystals , Urine Uric Acid Crystals ( Auto) , Urine WBC (Auto) 2, Urine Waxy Casts (Auto) , Urine Yeast-Like Cells ( Auto) 06/15/16 11:03: Vancomycin Level Trough 15.6 06/16/16 07:48: Anion Gap 9, White Blood Count 7.4, Red Blood Count 4.24L, Hemoglobin 12.1L, Hematocrit 35.9L, Mean Corpuscular Volume 84.6, Mean Corpuscular Hemoglobin 28.6 , Mean Corpuscular Hemoglobin Concent 33.9, Red Cell Distribution Width 14.2, Platelet Count 281, Neutrophils (%) (Auto) 77.0H, Lymphocytes (%) (Auto) 15.7L, Monocytes (%) (Auto) 3.3, Eosinophils (%) (Auto) 2.3, Basophils (%) (Auto) 0.6, Neutrophils # (Auto) 5.7, Lymphocytes # (Auto) 1.3L, Monocytes # (Auto) 0.2, Eosinophils # (Auto) 0.2, Basophils # (Auto) 0.0, Blood Urea Nitrogen 31H, Creatinine 1.60H, Sodium Level 140, Potassium Level 3.9, Chloride Level 108H, Carbon Dioxide Level 23, Calcium Level 8.8, C-Reactive Protein, Quantitative 0.33H, Erythrocyte Sedimentation Rate 37H, Fasting Glucose 128H, Glomerular Filtration Rate 48.0L, Large Unclassified Cells # 0.1, Large Unclassified Cells % 1.1 Microbiology Microbiology 06/15/16 Urine Culture - Final, Complete Medications Medications Current Medications Acetaminophen (Tylenol Tab) 650 mg Q4HP PRN PO MILD PAIN (PS 1-4) Last administered on 06/15/16 16:58; Start 06/03/16 at 11:45; Stop 06/16/16 at 10:39 ; Status DC Amlodipine Besylate (Norvasc) 10 mg DAILY PO Last administered on 06/16/16 08: 34; Start 06/04/16 at 09:00; Stop 06/16/16 at 10:39; Status DC Aspirin (Aspirin Chewable) 81 mg DAILY PO Last administered on 06/16/16 08:35 ; Start 06/04/16 at 09:00; Stop 06/16/16 at 10:39; Status DC Atorvastatin Calcium (Lipitor) 80 mg DAILY PO Last administered on 06/16/16 08 :35; Start 06/04/16 at 09:00; Stop 06/16/16 at 10:39; Status DC Cefepime HCl/ Dextrose (Maxipime/ Dextrose 5% Mini-Bag Plus) 50 ml @ 100 mls/ hr Q8H IV Last administered on 06/16/16 08:28; Start 06/03/16 at 17:00; Stop at 10:39; Status DC Clopidogrel Bisulfate (PLAVix) 75 mg DAILY PO Last administered on 06/16/16 08 :34; Start 06/04/16 at 09:00; Stop 06/16/16 at 10:39; Status DC Docusate Sodium (Colace) 100 mg BID PO Last administered on 06/16/16 08:34; Start 06/03/16 at 21:00; Stop 06/16/16 at 10:39; Status DC Heparin Sodium (Heparin (Flush)) 200 units ASDIRECTED PRN IV SEE LABEL COMMENTS Last administered on 06/16/16 09:37; Start 06/03/16 at 17:00; Stop at 10:39; Status DC Heparin Sodium (Heparin (Flush)) 200 units PICC IV Last administered on 05:12; Start 06/03/16 at 18:00; Stop 06/16/16 at 10:39; Status DC Home Med (Med Rec Complete!) ASDIRECTED XX ; Start 06/03/16 at 14:00; Stop at 14:44; Status DC Hydralazine HCl (Apresoline) 10 mg Q6H PO Last administered on 06/10/16 06:28 ; Start 06/08/16 at 18:00; Stop 06/10/16 at 11:34; Status DC Hydralazine HCl (Apresoline) 10 mg Q8H PO Last administered on 06/08/16 10:27; Start 06/03/16 at 22:00; Stop 06/08/16 at 10:40; Status DC Hydralazine HCl (Apresoline) 25 mg Q6H PO Last administered on 06/16/16 08:34 ; Start 06/10/16 at 12:00; Stop 06/16/16 at 10:39; Status DC Lisinopril (Prinivil) 20 mg DAILY PO Last administered on 06/16/16 08:35; Start 06/04/16 at 09:00; Stop 06/16/16 at 10:39; Status DC Magnesium Hydroxide (Milk Of Magnesia) 30 ml DAILYPRN PRN PO CONSTIPATION Last administered on 06/06/16 09:52; Start 06/03/16 at 11:45; Stop 06/16/16 at 10:39; Status DC Pantoprazole Sodium (Protonix) 40 mg DAILY PO Last administered on 06/16/16 08 :34; Start 06/04/16 at 09:00; Stop 06/16/16 at 10:39; Status DC Polyethylene Glycol (Miralax) 1 pkt DAILY PRN PO CONSTIPATION; Start 06/03/16 at 11:45; Stop 06/16/16 at 10:39; Status DC Quetiapine Fumarate (SEROquel) 12.5 mg QHS PO Last administered on 06/10/16 21 :26; Start 06/08/16 at 21:00; Stop 06/11/16 at 10:26; Status DC Quetiapine Fumarate (SEROquel) 25 mg QPM PO ; Start 06/11/16 at 21:00; Stop 02/17 at 21:00; Status DC Quetiapine Fumarate 25 mg 25 mg QPM@19 PO Last administered on 06/15/16 18:03 ; Start 06/11/16 at 19:00; Stop 06/16/16 at 10:39; Status DC Senna (Senokot) 1 tab QHS PO Last administered on 06/14/16 21:50; Start at 21:00; Stop 06/16/16 at 10:39; Status DC Sodium Chloride (Nacl 0.9%) 1,000 ml @ 100 mls/hr Q10H IV Last administered on 06/16/16 04:47; Start 06/15/16 at 06:45; Stop 06/16/16 at 10:39; Status DC Sodium Chloride (Saline Lock Flush) 10 ml ASDIRECTED PRN IV SEE LABEL COMMENTS Last administered on 06/16/16 09:37; Start 06/03/16 at 17:00; Stop 06/16/16 at 10:39; Status DC Sodium Chloride (Saline Lock Flush) 10 ml PICC IV Last administered on 05:12; Start 06/03/16 at 18:00; Stop 06/16/16 at 10:39; Status DC Thiamine HCl (Thiamine HCl) 100 mg DAILY PO Last administered on 06/16/16 08: 34; Start 06/04/16 at 09:00; Stop 06/16/16 at 10:39; Status DC Trazodone HCl 50 mg 50 mg QHS PO Last administered on 06/07/16 21:14; Start 06/03/16 at 21:00; Stop 06/08/16 at 21:29; Status DC Vancomycin HCl 750 mg/IV Miscellaneous Supplies 1 each/ Dextrose 275 ml @ 275 mls/hr Q12H IV Last administered on 06/12/16 17:25; Start 06/03/16 at 18:00; Stop 06/13/16 at 06:04; Status DC Vancomycin HCl 1000 mg/IV Miscellaneous Supplies 1 each/ Dextrose 270 ml @ 270 mls/hr Q24H IV Last administered on 06/15/16 12:35; Start 06/13/16 at 12:00; Stop 06/16/16 at 10:39; Status DC Scheduled (Aspirin) 81 Mg Chw 81 MG PO DAILY (Reported) Amlodipine Besylate (Amlodipine Besylate) 10 Mg Tab 10 MG PO DAILY (Reported) Atorvastatin Calcium (Atorvastatin Calcium) 80 Mg Tab 80 MG PO DAILY (Reported ) Cefepime Hydrochloride (Cefepime) 2 Gm Inj 2 GM IV Q8H (Reported) Clopidogrel Bisulfate (Clopidogrel) 75 Mg Tab 75 MG PO DAILY (Reported) Hydralazine HCl (Hydralazine HCl) 25 Mg Tab 25 MG PO Q6H Lisinopril (Lisinopril) 20 Mg Tab 20 MG PO DAILY (Reported) Pantoprazole Sodium (Pantoprazole Sodium) 40 Mg Tab 40 MG PO DAILY (Reported) Quetiapine Fumerate (Quetiapine Fumarate) 25 Mg Tab 25 MG PO QPM@19 Thiamine HCl (Thiamine HCl) 100 Mg Tab 100 MG PO DAILY (Reported) Vancomycin/Dextrose (Vancomycin HCl) 1,000 Mg Soln 1,000 MG INJ Q24H Scheduled PRN Acetaminophen (Acetaminophen) 325 Mg Tab 650 MG PO Q6H PRN PRN PAIN / FEVER ( Reported) Allergies Coded Allergies: No Known Allergies (Unverified , 06/03/16) JOSE LUIS LEOS MD Jun 16, 2016 11:02
== END 2016-06-16 10:38 | DRG 58 ==
LOC: M PM&R 12:21
PROVIDERS: ADMIT Physical Medicine & Rehabilitation; ATTEND Physical Medicine & Rehabilitation
PROC: 05HC33Z Insertion of Infusion Device into Left Basilic Vein, Percutaneous Approach (ICD-10-PCS; principal; 2016-06-09)
DX: I69.354 Hemiplegia and hemiparesis following cerebral infarction affecting left non-dominant side (principal); I69.318 Other symptoms and signs involving cognitive functions following cerebral infarction; R26.9 Unspecified abnormalities of gait and mobility; K59.00 Constipation, unspecified; F17.210 Nicotine dependence, cigarettes, uncomplicated; R91.1 Solitary pulmonary nodule; I33.9 Acute and subacute endocarditis, unspecified; D66 Hereditary factor VIII deficiency; R45.1 Restlessness and agitation; N17.9 Acute kidney failure, unspecified; I10 Essential (primary) hypertension; E78.5 Hyperlipidemia, unspecified; Z79.82 Long term (current) use of aspirin; Z79.899 Other long term (current) drug therapy

== ENCOUNTER → 2016-06-17 | Outpatient (REF) ==
[~2016-06-17] MED LIST changes: +ACET-654 PO; +AMLO10TA2 PO; +ASPI81CH PO; +ATOR1TAB18 PO; +CEFE2INJ IV; +CLOP75TA2 PO; +HYDR25TA PO; +LISI-538 PO; -MIRALAX *UNIT DOSE* 17GM PACKET PO PRN; -MOM 30ML SUSPENSION UDC PO PRN; +PANT40TA2 PO; +QUET1TAB7 PO; +THIA100T PO; +TRAZ50TA4 PO; +VANC10005 INJ; +[UNRECOGNIZED DRUG - CODE] IV
== END ==
LOC: SKLAB2 07:11
PROVIDERS: ATTEND Family Medicine
DX: I33.9 Acute and subacute endocarditis, unspecified (principal)

== ENCOUNTER → 2016-06-18 | Outpatient (REF) ==
[2016-06-18 08:05] LABS: CREATININE FOR GFR 1.81 MG/DL (0.70-1.30); GLOMERULAR FILTRATION RATE 41.6 (>56); POTASSIUM SERUM 4.3 MEQ/L (3.5-5.1)
== END ==
LOC: SKLAB2 08:30
PROVIDERS: ATTEND Family Medicine
DX: I30.0 Acute nonspecific idiopathic pericarditis (principal)

== ENCOUNTER → 2016-06-20 | Outpatient (REF) | LOC: SKLAB2 08:30 | PROVIDERS: ATTEND Family Medicine | DX: Z79.899 Other long term (current) drug therapy (principal) ==

== ENCOUNTER → 2016-06-21 | Outpatient (REF) ==
[~2016-06-21] MED LIST changes: +ASPI81TA13 PO; +DULC10SU2 PR; +ENEMENE3 PR; +FEVE650S3 PR; +HYDR-4266 PO; +MILKSUS PO; +MULT1TAB20 PO; +SENN8.6C PO; +TUBE5INJ9 ID; +VITMTA PO
[2016-06-21 07:50] LABS: CALCIUM LEVEL 9.3 MG/DL (8.5-10.1); CREATININE FOR GFR 3.13 MG/DL (0.70-1.30); GLOMERULAR FILTRATION RATE 22.1 (>56); POTASSIUM SERUM 4.2 MEQ/L (3.5-5.1)
== END ==
LOC: SKLAB2 07:16
PROVIDERS: ATTEND Family Medicine
DX: I33.0 Acute and subacute infective endocarditis (principal)

== ENCOUNTER → 2016-06-22 | Outpatient (REF) ==
[2016-06-22 09:19] LABS: CREATININE FOR GFR 4.21 MG/DL (0.70-1.30); GLOMERULAR FILTRATION RATE 15.7 (>56)
== END ==
LOC: SKLAB2 07:45
PROVIDERS: ATTEND Family Medicine
DX: Z79.01 Long term (current) use of anticoagulants (principal); I38 Endocarditis, valve unspecified

== ENCOUNTER → 2016-06-23 | Outpatient (REF) ==
[2016-06-23 10:28] LABS: CALCIUM LEVEL 8.6 MG/DL (8.5-10.1); CREATININE FOR GFR 4.93 MG/DL (0.70-1.30); GLOMERULAR FILTRATION RATE 13.1 (>56); POTASSIUM SERUM 4.4 MEQ/L (3.5-5.1)
== END ==
LOC: SKLAB2 08:36
PROVIDERS: ATTEND Family Medicine
DX: Z79.899 Other long term (current) drug therapy (principal); I50.31 Acute diastolic (congestive) heart failure

== ENCOUNTER 2016-06-24 14:25 | Inpatient (IN) | payer MEDICAID ==
[~2016-06-24] VITALS: Ht 170.2 cm; Wt 58.0 kg
[~2016-06-24 14:25] MED LIST changes: -ASPI81TA13 PO; -DULC10SU2 PR; -ENEMENE3 PR; -FEVE650S3 PR; -HYDR-4266 PO; -MILKSUS PO; -MULT1TAB20 PO; -SENN8.6C PO; -TUBE5INJ9 ID; -VITMTA PO
[2016-06-24] MEDS ORDERED: SODIUM CHLORIDE 0.9% 1000 ML IV ONE (14:45)
[2016-06-24] MEDS ORDERED: CEFE2INJ IV (14:56)
[2016-06-24] MEDS ORDERED: SENN8.6C PO (15:08)
[2016-06-24] MEDS ORDERED: MULT1TAB20 PO (15:08)
[2016-06-24 15:10] LABS: VENOUS BASE EXCESS -10.5 (-2.0-2.0); VENOUS O2 SATURATION 86.8 % (60.0-80.0); VENOUS PARTIAL PRESSURE CO2 34.9 mmHg (38.0-50.0); VENOUS STANDARD HCO3 15.9 MEQ/L; VENOUS TOTAL CO2 16.6 MEQ/L (24.0-28.0)
[2016-06-24 15:13] LABS: BASO % 0.6 % (0.0-1.0); EOS # 0.1 K/mm3 (0.0-0.50); EOS % 2.5 % (0.0-3.0); LARGE UNSTAINED CELL # 0.1 K/mm3 (0.0-0.4); LARGE UNSTAINED CELL % 1.8 % (0.0-4.0); LYMPH # 1.1 K/mm3 (1.5-4.5); LYMPH % 18.4 % (24.0-44.0); MEAN CORPUSCULAR HEMOGLOBIN 28.8 pg (27.0-33.0); MEAN CORPUSCULAR VOLUME 84.7 fl (80.0-96.0); MONO # 0.3 K/mm3 (0.0-0.8); NEUTROPHILS # 3.9 K/mm3 (1.8-7.7); NEUTROPHILS % 70.8 % (36.0-66.0); PLATELET COUNT, AUTOMATED 217 k/mm3 (150-450); RED CELL DISTRIBUTION WIDTH 14.5 % (11.5-14.5); WHITE BLOOD COUNT 5.5 K/mm3 (4.0-10.0)
[2016-06-24 15:30] LABS: ALBUMIN 3.2 GM/DL (3.2-5.2); BILIRUBIN,DIRECT 0.1 MG/DL (0.0-0.2); BILIRUBIN,TOTAL 0.2 MG/DL (0.2-1.0); CALCIUM LEVEL 8.2 MG/DL (8.5-10.1); CREATININE FOR GFR 5.24 MG/DL (0.70-1.30); GLOMERULAR FILTRATION RATE 12.2 (>56); MAGNESIUM LEVEL 2.3 MG/DL (1.8-2.4); PHOSPHORUS LEVEL 5.2 MG/DL (2.5-4.9); POTASSIUM SERUM 4.9 MEQ/L (3.5-5.1); TOTAL PROTEIN 6.4 GM/DL (6.4-8.2)
--- NOTE | 2016-06-24 15:34 | REP ---
PORTABLE CHEST, ONE VIEW: HISTORY: Dyspnea. COMPARISON: 05/23/2016 An increase in interstitial markings is present in the lungs. The heart is normal in size. The pulmonary vasculature is prominent. Calcified lymph nodes are present in the right hilum. IMPRESSION: There is an increase in interstitial markings in the lungs. This may represent interstitial pneumonitis or edema. Signed by Sachin Serra MD 06/24/2016 03:38 P
--- NOTE | 2016-06-24 15:50 | REP ---
Clinical: Renal failure. Findings: Bilateral kidneys are mildly echogenic, but normal in contour and reniform shape without hydronephrosis, nephrolithiasis, cystic or renal mass lesion. Right kidney measures 11.8 x 5.5 x 5.7 cm. Left kidney measures 10.0 x 5.0 x 4.3 cm. Bladder is grossly unremarkable. Impression: Echogenic kidneys suggests medical renal disease. No hydronephrosis. Signed by Vidal Zamorano MD 06/24/2016 03:41 P
[2016-06-24] MEDS ORDERED: NS 1,000 ML IV SCH (15:52)
[2016-06-24] MEDS ORDERED: ONDANSETRON 4MG/2ML VIAL (J2405) IV PRN (16:00)
[2016-06-24] MEDS ORDERED: ACETAMINOPHEN TAB 650MG DOSE (2X325MG) PO PRN (16:00)
[2016-06-24] MEDS ORDERED: ENEMENE3 PR (16:26)
[2016-06-24] MEDS ORDERED: TUBE5INJ9 ID (16:26)
[2016-06-24] MEDS ORDERED: FEVE650S3 PR (16:26)
[2016-06-24] MEDS ORDERED: MILKSUS PO (16:26)
[2016-06-24] MEDS ORDERED: DULC10SU2 PR (16:26)
[2016-06-24] MEDS ORDERED: ASPI81TA13 PO (16:30)
[2016-06-24] MEDS ORDERED: HYDR-4266 PO (16:30)
[2016-06-24] MEDS ORDERED: VITMTA PO (16:30)
[2016-06-24] MEDS ORDERED: **hydrALAZINE HCL** 25 MG TAB PO ONE (17:00)
[2016-06-24 17:30] VITALS: BP 192/94
--- NOTE | 2016-06-24 17:39 | ECGEPIP ---
Stationary ECG Study [facility] - ED Test Date: 2016-06-24 Pat Name: PATRICK MCCORMICK Department: Room: - Gender: M [employer] C[employer] Maker: ct : 1960 Requested By: Laura Carvalho Order Number: [id number] Reading MD: William Coleman Measurements Intervals [place] Rate: 71 P: 59 WI: 183 QRS: 28 QRSD: 84 T: 24 QT: 388 QTc: 424 Interpretive Statements SINUS RHYTHM NONSPECIFIC T-WAVE ABNORMALITY NO PRIORS Electronically Signed On 06-24-2016 17:39:16 EDT by William Coleman
[2016-06-24 18:30] VITALS: BP 192/90
[2016-06-24] MEDS ORDERED: BISACODYL 10 MG SUPP PR PRN (18:45)
[2016-06-24] MEDS: **hydrALAZINE HCL** 25 MG TAB PO SCH (19:07)
[2016-06-24 20:00] VITALS: BP 176/68
--- NOTE | 2016-06-24 20:08 | HPEPDOC ---
General Date of Admission Jun 24, 2016 at 15:52 Chief Complaint The patient is a 55-year-old male admitted with a reason for visit of Renal Failure. Exam Limitations: Mild cognitive slowing History of Present Illness 55-year-old male with past medical history of hypertension, dyslipidemia, and tobacco abuse who was recently found to have multifocal acute infarcts which was thought to be secondary from an embolic phenomenon on MRI at [facility] after he initially presented with left-sided weakness. A follow-up transesophageal echocardiogram revealed a thin filamentous structure on the mitral valve which was concerning for a possible vegetation. 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 The patient was subsequently treated for presumptive infective endocarditis for 6 weeks with vancomycin and cefepime starting on 05/29. He was discharged to the physical medicine and rehabilitation facility at [facility] on 06/03, and then subsequently transferred to [facility] rehabilitation on 06/17 for subacute rehabilitation given his cognitive problems. Since his initial admission on 06/03, it was noted that the patient's serum creatinine has been progressively increasing. His initial serum creatinine was noted to be 1.05 on 06/03, however it has steadily crept up from 1.81 on 06/18 to 5.24 today. The patient was sent to the emergency room for further evaluation and management of acute renal failure. At this time, the patient's history is limited given his baseline cognitive status. His brother is at bedside, who states that this is the patient's baseline since his CVA in May. The patient denies any complaints of fevers, chills, cough, shortness of breath, chest pain, palpitations, abdominal pain, or any nausea/vomiting/ diarrhea. Home Medications Scheduled (Tubersol) 5 Unit/0.1 Ml Inj 5 UNIT ID ASDIRECTED (Reported) DUE 07/11/16 Amlodipine Besylate (Amlodipine Besylate) 10 Mg Tab 10 MG PO DAILY (Reported) Aspirin (Aspirin EC) 81 Mg Tab 81 MG PO DAILY (Reported) Atorvastatin Calcium (Atorvastatin Calcium) 80 Mg Tab 80 MG PO QHS (Reported) Cefepime Hydrochloride (Cefepime) 2 Gm Inj 2 GM IV QHS (Reported) Clopidogrel Bisulfate (Clopidogrel) 75 Mg Tab 75 MG PO DAILY (Reported) Hydralazine HCl (Hydralazine HCl) 25 Mg Tab 25 MG PO Q6H (Reported) Multivitamins *[facility] STOCKED* (Thera M Plus *[facility] STOCKED*) 1 Tab Tab 1 TAB PO DAILY (Reported) Pantoprazole Sodium (Pantoprazole Sodium) 40 Mg Tab 40 MG PO DAILY (Reported) Senna (Senna) 8.6 Mg Cap 1 CAP PO DAILY (Reported) Thiamine HCl (Thiamine HCl) 100 Mg Tab 100 MG PO DAILY (Reported) Scheduled PRN Acetaminophen (Acetaminophen) 325 Mg Tab 650 MG PO Q4H PRN PRN PAIN / FEVER ( Reported) Acetaminophen (Feverall Adults) 650 Mg Sup 650 MG ME Q4H PRN PRN PAIN / FEVER ( Reported) Bisacodyl (Dulcolax) 10 Mg Sup 10 MG ME DAILY PRN PRN CONSTIPATION (Reported) Milk Of Magnesia (Milk of Magnesia) 1,200 Mg/15 Ml Brandi 30 ML PO DAILY PRN PRN CONSTIPATION (Reported) Sodium Phosphate/Biphosphate (Enema 7-19 gm/118Ml) 1 Sarai Sarai 1 SARAI ME DAILY PRN PRN CONSTIPATION (Reported) Allergies Coded Allergies: No Known Allergies (Unverified , 06/03/16) Past Medical History Medical History As noted in HPI. Social History * Smoker: other (unable to obtain given clinical condition) Alcohol: other (unable to obtain given clinical condition) unable to obtain given clinical condition Review of Symptoms Other systems unable to reliably obtain given clinical condition Physical Examination General Exam: Positive: Alert, Cooperative, Other (oriented only to person, but not place, time, or situation) ENT Exam: Positive: Atraumatic, Other ENT (dry mucous membranes) Neck Exam: Negative: JVD Chest Exam: Positive: Clear to auscultation, Normal air movement Heart Exam: Positive: Normal S1, Normal S2, Rate Normal Abdomen Exam: Positive: Soft, Negative: Tenderness Extremity Exam: Negative: Swelling, Tenderness Neuro Exam: Positive: Other (decreased strength on the left upper and left lower extremities) Vital Signs As noted in EMR Laboratory Data Labs 24H Laboratory Tests 2 06/24/16 14:56: B-Type Natriuretic Peptide 399H, White Blood Count 5.5, Red Blood Count 3.49L, Hemoglobin 10.1L, Hematocrit 29.6L, Mean Corpuscular Volume 84.7, Mean Corpuscular Hemoglobin 28.8, Mean Corpuscular Hemoglobin Concent 34.0, Red Cell Distribution Width 14.5, Platelet Count 217, Neutrophils (%) (Auto) 70.8H, Lymphocytes (%) (Auto) 18.4L, Monocytes (%) (Auto) 6.0H, Eosinophils (%) (Auto) 2.5, Basophils (%) (Auto) 0.6, Neutrophils # (Auto) 3.9, Lymphocytes # (Auto) 1.1L, Monocytes # (Auto) 0.3, Eosinophils # (Auto) 0.1, Basophils # (Auto) 0.0, Blood Gas Bicarbonate Standard 15.9, Large Unclassified Cells # 0.1, Large Unclassified Cells % 1.8, Venous Blood Base Excess -10.5L, Venous Blood pH 7.266L, Venous Blood Partial Pressure CO2 34.9L, Venous Blood Partial Pressure O2 60.0H, Venous Blood Total Carbon Dioxide 16.6L, Venous Blood HCO3 15.5L, Venous Blood Oxygen Saturation 86.8H 06/24/16 14:57: Aspartate Amino Transf (AST/SGOT) 14L, Alanine Aminotransferase (ALT/SGPT) 21, Alkaline Phosphatase 82, Total Bilirubin 0.2, Direct Bilirubin 0.1, Albumin 3.2 , Albumin/Globulin Ratio 1.00, Anion Gap 10, Calcium Level 8.2L, Glomerular Filtration Rate 12.2L, Magnesium Level 2.3, Phosphorus Level 5.2H, Total Protein 6.4 CBC/BMP Laboratory Tests 06/24/16 14:56 Red Blood Count 3.49 L, Mean Corpuscular Volume 84.7, Mean Corpuscular Hemoglobin 28.8, Mean Corpuscular Hemoglobin Concent 34.0, Red Cell Distribution Width 14.5, Neutrophils (%) (Auto) 70.8 H, Lymphocytes (%) (Auto) 18.4 L, Monocytes (%) (Auto) 6.0 H, Eosinophils (%) (Auto) 2.5, Basophils (%) ( Auto) 0.6, Neutrophils # (Auto) 3.9, Lymphocytes # (Auto) 1.1 L, Monocytes # ( Auto) 0.3, Eosinophils # (Auto) 0.1, Basophils # (Auto) 0.0 06/24/16 14:57 Plan / VTE VTE Prophylaxis Ordered?: Yes Plan Plan Acute renal failure, possibly multifactorial in etiology We will admit the patient to PCU Serum creatinine noted to be 5.24 today (baseline close to 1.0) Possible causes include dehydration/volume depletion, vancomycin nephrotoxicity , and continued use of Roshan inhibitor therapy Could also be from possible thrombo-embolic phenomenon Urinalysis pending, however UA from 06/15/16 with only 1+ protein noted Renal ultrasound with medical renal disease noted, no hydronephrosis Urine electrolytes studies pending Patient serum K stable, and is currently making urine--no need for dialysis at this time Nephrology consulted Presumptive infective endocarditis Patient started on vancomycin and cefepime on 05/29/16 at [facility] for a 6- week course which was to conclude on 07/10. The patient has been followed by of Infectious Diseases at [facility] We will withhold Vanco therapy for now given the patient's Renal Failure Vanco levels are noted to be elevated today at 21 Continue renally dosed Cefepime for now Blood Cultures ordered Patient is afebrile, WBC wnl here ID consulted Hx of CVA with Left Sided Weakness Cont ASA, Plavix, Statin Hypertension Will Hold Lisinopril 2/2 Above Cont Norvasc, Hydralazine Labetalol prn Constipation Bowel Regimen ordered History of alcohol abuse Continue thiamine, folic acid, multivitamin GERD Continue PPI History of tobacco abuse DVT prophylaxis heparin subcutaneous The patient will be admitted under the service of Dr. Cantu, who will begin to follow the patient on 06/25 RITIKA HOUSER MD Jun 24, 2016 20:08
[2016-06-24] MEDS: LABETALOL HCL 100 MG/20 ML VIAL IV SCH (20:42)
[2016-06-24] MEDS: HEPARIN SOD (PORCINE) 5000 UNITS/ML VIAL SC SCH (20:42)
[2016-06-24] MEDS: CEFEPIME HCL 1 GM in D5W MINI-BAG PLUS 50 ML IV SCH (20:43)
[2016-06-24] MEDS: FOLIC ACID 1 MG TAB PO SCH (20:43)
[2016-06-24] MEDS: ATORVASTATIN 20 MG TAB PO SCH (20:46)
[2016-06-25] VITALS (7 sets, daily range): BP systolic 156–180; BP diastolic 76–100
[2016-06-25] MEDS: **hydrALAZINE HCL** 25 MG TAB PO SCH ×4 (00:21→17:19)
[2016-06-25] MEDS: LABETALOL HCL 100 MG/20 ML VIAL IV SCH ×2 (02:26→08:00)
[2016-06-25 05:32] LABS: MEAN CORPUSCULAR HEMOGLOBIN 29.1 pg (27.0-33.0); MEAN CORPUSCULAR HGB CONC 33.8 g/dl (32.0-36.5); RED CELL DISTRIBUTION WIDTH 14.9 % (11.5-14.5)
[2016-06-25] MEDS: HEPARIN SOD (PORCINE) 5000 UNITS/ML VIAL SC SCH (05:54)
[2016-06-25 05:55] LABS: CREATININE FOR GFR 5.33 MG/DL (0.70-1.30); PHOSPHORUS LEVEL 5.8 MG/DL (2.5-4.9); POTASSIUM SERUM 4.6 MEQ/L (3.5-5.1)
[2016-06-25 07:11] LABS: RETIC HEMOGLOBIN CONTENT CHr 31.6 PG (24-36); RETICULOCYTE % ADVIA2120 2.5 % (0.5-1.5)
[2016-06-25 07:19] LABS: PERCENT SATURATION 21.6 % (19.7-37.4)
[2016-06-25] MEDS ORDERED: PANTOPRAZOLE 40MG TAB (PROTONIX) PO SCH (09:00)
[2016-06-25] MEDS: FOLIC ACID 1 MG TAB PO SCH (09:58)
[2016-06-25] MEDS: SENNA 8.6 MG TAB (SENOKOT) PO SCH (09:58)
[2016-06-25] MEDS: ASPIRIN 81 MG ENTERIC TAB PO SCH (09:58)
[2016-06-25] MEDS: amLODIPine 10 MG TAB PO SCH (09:58)
[2016-06-25] MEDS: FAMOTIDINE 20 MG TAB PO SCH ×2 (09:58→20:56)
[2016-06-25] MEDS: CLOPIDOGREL 75 MG TAB PO SCH (09:58)
[2016-06-25] MEDS: MULTIVITAMINS/MINERALS THERAP 1 TAB PO SCH (09:58)
[2016-06-25] MEDS: THIAMINE 100 MG TAB PO SCH (09:58)
--- NOTE | 2016-06-25 11:44 | IPN ---
DATE: 06/25/2016 SUBJECTIVE: This morning, the patient does not answer questions regarding orientation. However, when asked if he feels well, he says, "feels alright." He answers yes or no questions. He denies any complaints when asked specifically about chest pain, shortness of breath, fevers, chills, nausea, vomiting or diarrhea. OBJECTIVE: VITAL SIGNS: Temperature 98, pulse 78, respiratory rate 20, blood pressure 160/76, oxygen saturation 100% on room air. GENERAL: He is a middle-aged man who is lying in bed, leaning to his left side. He is spontaneously moving all four extremities. He does not appear to be in any acute distress. HEENT: He does appear to have a facial droop. He has moist mucous membranes. No elevation of central venous pressure (CVP). CARDIOVASCULAR EXAM: S1, S2, regular. RESPIRATORY EXAM: Fairly clear. ABDOMINAL EXAM: Benign. EXTREMITIES: He does have trace edema bilaterally. LABORATORY STUDIES: WBC 5.0, hemoglobin 9.7, hematocrit 28.6, platelet count 221. Chemistry panel: Sodium 144, potassium 4.6, chloride 117, bicarbonate 17, BUN 55 , creatinine 5.3. Blood cultures are thus far negative. IMAGING: The patient has a renal ultrasound that does not reveal any hydronephrosis. The patient also had a chest x-ray which reveals increased interstitial markings. May represent pneumonitis versus edema. ASSESSMENT AND PLAN: This is a 55-year-old man with recent embolic cerebrovascular accident, currently completing empiric treatment for endocarditis at the [facility], admitted now for acute renal failure. Problems: 1. Acute renal failure. At the present time, the etiology is not immediately clear. The patient has been on an angiotensin-converting enzyme (ANETTE) inhibitor. He has also been on vancomycin, which could have been contributing factors to his acute renal failure. However, given the fact that there was no clear etiology determined for his thromboembolic event, it is unclear if there is an underlying rheumatologic condition creating a hypercoagulable state and renal disease and glomerulonephritis. A consult has been placed with Dr. Forbes; his help is greatly appreciated. At this time, a UA, urine culture have yet to be obtained. Will straight catheterize (cath) to obtain samples as the patient is incontinent at his baseline. 2. Presumptive infective endocarditis. The patient has been on vancomycin and cefepime since 05/29/2016 and was to continue until 07/10/2016; however, at this time, he is in acute renal failure. Dr. Santiago was contacted yesterday evening and had been previously seeing the patient at the [facility] earlier this week. At this time we decided to discontinue vancomycin, continue with cefepime. Blood cultures have been ordered. The patient is afebrile. WBC is within normal limits. Dr. Santiago's help will be greatly appreciated. I will, at this time, recheck an echocardiogram and recheck his inflammatory markers. As per review of the documentation available here, it does not appear that providers were convinced that this was all secondary to culture negative endocarditis. It may be secondary to another process. 3. Embolic cerebrovascular accident with left-sided weakness. The patient is on aspirin and Plavix at this time. 4. Anemia. Unclear etiology. Will send iron studies and check an occult stool for blood. Again, may be explained by glomerulonephritis and immunological condition. 5. Hypertension. Lisinopril is on hold. The patient is on Norvasc and hydralazine. He has been receiving labetalol IV as needed overnight. I will transition him to oral with holding parameters. 6. Constipation. Continue his bowel regimen. 7. History of alcohol abuse. He on thiamine, folic acid, multivitamin. 8. History of tobacco abuse. No longer using. He is at his baseline respiratory distress. 9. Gastroesophageal reflux disease. The patient is on a proton pump inhibitor (PPI). 10. Deep vein thrombosis (DVT) prophylaxis. The patient is on subcutaneous heparin. DISPOSITION: The patient's renal function remains guarded. Continue to monitor the patient closely. [facility]
[2016-06-25] MEDS: LABETALOL 100 MG TAB PO SCH ×2 (12:16→20:57)
[2016-06-25] MEDS: SODIUM BICARBONATE 325 MG TAB PO SCH ×3 (13:00→20:55)
--- NOTE | 2016-06-25 15:14 | ECHO ---
DATE OF STUDY: 06/25/2016 REFERRING PHYSICIAN: Dr. Rich Cantu INDICATION: Acute stroke. HEIGHT: 65 inches. WEIGHT: 144 pounds. MEASUREMENTS: Aortic root 3.1 cm Proximal ascending aorta 2.9 cm Left atrium 3.9 cm Ventricular septum 1.01 cm Posterior wall 1.09 cm Left ventricle diastole 4.7 cm Left ventricle systole 3.3 cm Right ventricle 3.37 cm IVC 1.97 cm Doppler measurements: Aortic valve velocity 125 cm/s LVOT velocity 120 cm/s LVOT VTI 25.4 cm Mild mitral regurgitation Mitral E velocity (PW) 163 cm/s Mitral A velocity (PW) 125 cm/s Primary artery systolic pressure 14 mmHg (via pulmonary exhalation time) Mitral annular tissue Doppler: E prime lateral 8.8 cm/s E prime septal 7.2 cm/s DESCRIPTION: Rhythm was sinus. Image quality was fair. No pericardial effusion. This was a 2-D, M-mode, color-flow Doppler, and mitral annular tissue Doppler examination. CONCLUSIONS: 1. Normal echocardiogram Doppler. 2. Normal LV internal dimensions, wall thickness, systolic and diastolic function. LVEF 60% by visual estimate. Jeyson Norton M.D., [facility], [facility] Dictated 06/25/2016 [facility]ICAL CENTERBlanca
--- NOTE | 2016-06-25 20:46 | CR ---
DATE OF CONSULTATION: 06/25/2016 CONSULTATION FOR: Dr. London Smith MD REASON FOR CONSULTATION: Acute renal failure. HISTORY OF PRESENT ILLNESS: Mr. Mack is a 55-year-old gentleman who was admitted to [facility] last evening due to worsening acute renal failure. He has known history of hypertension, dyslipidemia, and tobacco abuse. He was recently admitted with multiple cerebral infarcts, which were thought to be secondary to an embolic phenomenon per MRI done at [facility], where he was admitted. The patient has left-sided weakness. He underwent a transesophageal echocardiogram, which raised the suspicion for possible vegetations. He has also been diagnosed with patent forearm ovale. The patient underwent a 6-week antibiotic therapy for possible infective endocarditis, and antibiotics included vancomycin and cefepime. He has been transferred to [facility] for subacute rehabilitation. His baseline creatinine is known to be 1.0, according to admission history and physical, and has gradually increased to 5.24 yesterday, due to which he was admitted to [facility]. The patient does have cognitive deficit due to recent stroke and is not able to provide much information himself. MEDICATIONS PRIOR TO ADMISSION: His medications included: - amlodipine 10 mg daily - aspirin 81 mg daily - atorvastatin 80 mg daily - cefepime 2 grams every day - Plavix 75 mg daily - hydralazine 25 mg every 6 hours - multivitamin one tablet daily - Protonix 40 mg daily - Senokot 8.6 mg capsule daily - thiamine 100 mg daily. ALLERGIES: The patient has no known drug allergies. PAST MEDICAL AND SURGICAL HISTORY: Significant for: 1. Hypertension. 2. Hyperlipidemia. 3. Recent strokes. PERSONAL AND SOCIAL HISTORY: The patient is not able to provide any reliable information at this point. FAMILY HISTORY: Negative for any kidney problems. REVIEW OF SYSTEMS: The patient is unable to provide reliable information. He does answer yes or no to simple questions; however, on questioning in depth he seems to have no comprehension. PHYSICAL EXAMINATION: The patient is awake without any acute distress. Temperature 98.0 degrees Fahrenheit, heart rate 78 per minute, respiratory rate 20 per minute, blood pressure 160/76 mm of mercury, and oxygen saturation 100% on room air. Head is atraumatic. Neck is supple and without any jugular venous distention (JVD) or thyroid enlargement. Pupils equal and reactive to light and sclerae are anicteric. Ears, nose, and throat are unremarkable. Heart exam reveals regular S1 and S2. Lungs are clear to auscultation. Abdomen is soft and nontender and without palpable organomegaly. Bowel sounds are normal. Extremities without any cyanosis or clubbing. Skin without any rash or ulcers. Neurologically, he is awake, somewhat confused, disoriented, and has some left-sided weakness. LABORATORY DATA: Today WBC count is 5.0, hemoglobin 9.7, hematocrit 28.6, platelets 221. Sodium 144, potassium 4.6, BUN 55 and creatinine 5.33. Calcium level 8.0, phosphorus 5.8. His C-reactive protein is 0.38. Albumin level 3.0 and total protein 64. A BNP level was 399 last evening. Yesterday his BUN was 53 and creatinine 5.24. Urinalysis showed 1+ protein and 1+ blood. His 10 WBC and 4 RBC. Blood cultures are pending. PROBLEMS: 1. Acute renal failure. Urinalysis did not show any evidence for acute glomerulonephritis, as he has only 1+ protein and 1+ blood with only 4 red blood cells. Renal ultrasound done in the emergency room has been reviewed independently. There was no hydronephrosis, and bilateral echogenic kidneys were noted. Clinically he does not look dehydrated and has received intravenous (IV) fluids since yesterday. Most likely his acute renal failure is related to nephrotoxicity caused by antibiotics. Other possibility could be related to thromboembolic phenomenon; however, he does not have any other clinical evidence to support it. We will get serum antiphospholipid workup and monitor his kidney function closely. Antibiotics have already been stopped. At present there is no emergent indication for dialysis today, and his kidney function will be monitored on a daily basis. I will discuss with the patient's family when they are available about his situation and potential need for dialysis should his kidney function not improve. 2. Hypertension. Blood pressure control seems to be reasonable. He is not a suitable candidate for angiotensin-converting enzyme (ANETTE) inhibitor or angiotensin receptor anand (ARB). I would suggest to increase the dose of hydralazine as needed and continue with amlodipine and labetalol as previously. 3. Metabolic acidosis. The patient does have moderate metabolic acidosis related to acute renal failure. We will start him on oral sodium bicarbonate supplement and continue to monitor on daily basis. I thank you for involving me in the care of Mr. Mack. I will follow him along with you. ANGÉLICA
[2016-06-25] MEDS: CEFEPIME HCL 1 GM in D5W MINI-BAG PLUS 50 ML IV SCH (20:55)
[2016-06-25] MEDS: ATORVASTATIN 20 MG TAB PO SCH (20:56)
[2016-06-26] VITALS: BP 160/80
[2016-06-26] MEDS: **hydrALAZINE HCL** 25 MG TAB PO SCH ×4 (00:58→18:18)
[2016-06-26 04:00] VITALS: BP 152/70
[2016-06-26 05:21] LABS: MEAN CORPUSCULAR HEMOGLOBIN 28.8 pg (27.0-33.0); MEAN CORPUSCULAR HGB CONC 33.3 g/dl (32.0-36.5); MEAN CORPUSCULAR VOLUME 86.6 fl (80.0-96.0); RED CELL DISTRIBUTION WIDTH 14.9 % (11.5-14.5); WHITE BLOOD COUNT 4.7 K/mm3 (4.0-10.0)
[2016-06-26 05:37] LABS: ALBUMIN 2.9 GM/DL (3.2-5.2); CALCIUM LEVEL 8.4 MG/DL (8.5-10.1); CREATININE FOR GFR 5.81 MG/DL (0.70-1.30); GLOMERULAR FILTRATION RATE 10.8 (>56); PHOSPHORUS LEVEL 5.7 MG/DL (2.5-4.9)
[2016-06-26 07:20] VITALS: BP 170/80
[2016-06-26] MEDS: FERROUS GLUCONATE 324 MG TAB PO SCH (09:00)
[2016-06-26] MEDS: FOLIC ACID 1 MG TAB PO SCH (09:00)
[2016-06-26] MEDS: FAMOTIDINE 20 MG TAB PO SCH ×2 (09:00→20:33)
[2016-06-26] MEDS: MULTIVITAMINS/MINERALS THERAP 1 TAB PO SCH (09:00)
[2016-06-26] MEDS: SENNA 8.6 MG TAB (SENOKOT) PO SCH ×2 (09:00→12:22)
[2016-06-26] MEDS: THIAMINE 100 MG TAB PO SCH (09:00)
[2016-06-26] MEDS: SODIUM BICARBONATE 325 MG TAB PO SCH ×4 (09:00→20:32)
--- NOTE | 2016-06-26 10:19 | IPN ---
DATE: 06/26/2016 SUBJECTIVE: Today, the patient tells me that he is feeling quite well. He denies any complaints. He can tell me his name, but he does not get the year or the month correct. He does not know what city he is in. He thinks he is in [place], and he does not know why he is in the hospital, but he does answer all questions and speak quite fluently. Denies any complaints when asked specifically about chest pain, shortness of breath, fevers, chills, nausea, vomiting or diarrhea. OBJECTIVE: VITAL SIGNS: Temperature 98, pulse 80, respiratory rate 18, blood pressure 152/70, oxygen saturation 93% on room air. GENERAL: He is a pleasant, elderly, man laying in bed, leaning to his left side. He does not appear to be in acute distress. HEENT: He has moist mucous membranes. No elevation of jugular venous pressure (JVP). CARDIOVASCULAR EXAM: S1, S2, regular. RESPIRATORY EXAM: Clear. ABDOMINAL EXAM: Benign. EXTREMITIES: No clubbing, cyanosis or edema. LABORATORY STUDIES: WBC 4.7, hemoglobin 9.4, hematocrit 28.2, platelet count 241. Chemistry panel: Sodium 145, potassium 5.0, chloride 117, bicarbonate 19, BUN 58, creatinine 5.8, continues to trend up. Phosphorus 5.7. Iron is 50, TIBC is 231, transferrin is 21.6. CRP and ESR is effectively unchanged from last draws several days earlier. Urinalysis reveals 1+ protein, 1+ blood, 10 WBCs, 1 urine bacteria. No leukocyte esterase. MADALYN, double-strand DNA, anticardiolipin are all currently pending. Stool occult for blood is positive. Blood cultures are negative. No new imaging. Echocardiogram revealed normal echocardiogram, normal left ventricular (LV) internal dimensions, wall thickness, systolic and diastolic function. Ejection fraction (EF) was 60%. ASSESSMENT AND PLAN: This is a 55-year-old man with recent embolic cerebrovascular accident, currently completing treatment for endocarditis, admitted now with renal failure. Problems: 1. Acute renal failure. Dr. Forbes's help is greatly appreciated. There is less concern for glomerular nephritis but hypercoagulable state potentially causing thrombotic disease is under consideration and a workup is pending. It is also possible that it is secondary to nephrotoxicity. For the time being, there is no acute indication for hemodialysis; however, we are monitoring his renal function very closely with labs daily. The patient is incontinent of urine at baseline. He continues to be incontinent. 2. Presumptive endocarditis. For the time being, the patient is on cefepime. An infectious disease consult will be placed to Dr. Santiago who will hopefully see the patient tomorrow. Blood cultures have been ordered. At the present time, he is afebrile. WBC is within normal limits. A repeat echocardiogram did not show any evidence of endocarditis. 3. Embolic cerebrovascular accident with left-sided weakness. The patient is on aspirin and Plavix at this time. The etiology does not appear to have ever been definitively determined. 4. Anemia. Likely iron deficiency anemia. An occult stool for blood is positive. I will start him on iron supplementation and suspect he would benefit from outpatient colonoscopy. 5. Constipation. He is on a bowel regimen. 6. History of alcohol abuse. He is on thiamine, folic acid and a multivitamin. 7. History of tobacco use. In the past, he did not have any respiratory distress. He is at his baseline. 8. Gastroesophageal reflux disease. The patient is on Pepcid. 9. Deep vein thrombosis (DVT) prophylaxis. The patient is on sequentials and thromboembolism deterrents (TEDs). No pharmacological agents secondary to an occult stool for blood being positive, which we will recheck. DISPOSITION: The patient's renal function remains guarded. We will continue to follow him closely. I did have a family conference with the patient's brother yesterday, who has been directing his care for the last several months at multiple institutions. I have placed a consult with patient and family services (PFS) as his brother does not have any health care proxy paperwork.
[2016-06-26] MEDS: CLOPIDOGREL 75 MG TAB PO SCH (10:35)
[2016-06-26] MEDS: LABETALOL 100 MG TAB PO SCH ×2 (10:35→20:33)
[2016-06-26] MEDS: amLODIPine 10 MG TAB PO SCH (10:35)
[2016-06-26] MEDS: ASPIRIN 81 MG ENTERIC TAB PO SCH (10:35)
--- NOTE | 2016-06-26 11:30 | IPN ---
DATE: 06/26/2016 Mr. Mack is seen this morning on his bedside. He is still sleepy but without any agitation. He does have a sitter due to his altered mentation. The patient himself is not able to provide much reliable information. PHYSICAL EXAMINATION: Temperature 98 degrees Fahrenheit, heart rate 72 per minute and respiratory rate 18 per minute. Blood pressure 170/80 mmHg and oxygen saturation 100% on room air. Head is atraumatic. Ears, nose and throat are unremarkable. Heart sounds are regular and lungs with good bilateral air entry. Neck is supple and without jugular venous distention (JVD) or thyroid enlargement. Head is atraumatic. Pupils are equal and reactive to light and sclera is anicteric. Abdomen is soft and nontender and without a palpable organomegaly. Bowel sounds are normal. Extremities have no cyanosis or clubbing. Skin has no rash or ulcers. Neurologically, he remains somewhat confused and disoriented. LABORATORY DATA: Today's laboratories show WBC count 4.7, hemoglobin 9.4 and hematocrit 28.2. Platelets 241. Sodium 145, potassium 5.0. CO2 is 19, BUN 58 and creatinine 5.81. Calcium level 8.4 and phosphorus 5.7. Protein level was 6.4 on 06/24/2016. Today his albumin is 2.9. PROBLEMS: 1. Acute renal failure. Etiology remains uncertain. All his immunology is still pending. Most likely, his acute renal failure is related to nephrotoxicity caused by the antibiotics. 2. Hypertension. Blood pressure control is suboptimal at this point. I suggest to increase the dose of labetalol to 200 mg twice a day. He remains on amlodipine 10 mg daily and hydralazine 25 mg every six hours. He is not a suitable candidate for diuretic. DISPOSITION: At this point, there is no emergent indication for dialysis. I will discuss with his family and have left a message with a sitter and the patient's nurse that they will call me when his family comes. He is likely to require dialysis in the next couple of days if his kidney function does not improve.
[2016-06-26 12:00] VITALS: BP 160/80
[2016-06-26] MEDS: MOM 30ML SUSPENSION UDC PO PRN (12:23)
[2016-06-26 16:00] VITALS: BP 166/72
[2016-06-26] MEDS ORDERED: SODIUM CHLORIDE 0.9% INJ 10 ML SYR IV PRN (19:30)
[2016-06-26 20:13] VITALS: BP 172/86
[2016-06-26] MEDS: CEFEPIME HCL 1 GM in D5W MINI-BAG PLUS 50 ML IV SCH (20:31)
[2016-06-26] MEDS: ATORVASTATIN 20 MG TAB PO SCH (20:32)
[2016-06-27 00:03] VITALS: BP 172/86
[2016-06-27] MEDS: **hydrALAZINE HCL** 25 MG TAB PO SCH ×4 (00:21→17:38)
[2016-06-27 04:30] VITALS: BP 162/80
[2016-06-27 05:28] LABS: MEAN CORPUSCULAR HEMOGLOBIN 28.6 pg (27.0-33.0); MEAN CORPUSCULAR HGB CONC 33.9 g/dl (32.0-36.5); MEAN CORPUSCULAR VOLUME 84.3 fl (80.0-96.0); RED CELL DISTRIBUTION WIDTH 14.8 % (11.5-14.5); WHITE BLOOD COUNT 5.3 K/mm3 (4.0-10.0)
[2016-06-27 05:43] LABS: ALBUMIN 2.9 GM/DL (3.2-5.2); CALCIUM LEVEL 8.4 MG/DL (8.5-10.1); CREATININE FOR GFR 5.76 MG/DL (0.70-1.30); GLOMERULAR FILTRATION RATE 10.9 (>56); POTASSIUM SERUM 5.1 MEQ/L (3.5-5.1)
[2016-06-27] MEDS: SODIUM CHLORIDE 0.9% INJ 10 ML SYR IV SCH ×2 (05:50→17:37)
[2016-06-27 07:54] VITALS: BP 150/84
--- NOTE | 2016-06-27 09:29 | IPN ---
DATE OF EXAM: 06/27/2016 SUBJECTIVE: Today, the patient is oriented to person. He knows he is in the hospital. He knows it is 2016. He does not know the month. He does not know which city he is in or why he is in the hospital though. He complains of feeling cold, but otherwise he denies chest pain, shortness of breath, fevers, chills, lightheadedness or dizziness. OBJECTIVE: VITAL SIGNS: Temperature 99.8, pulse 72, respiratory rate 18, blood pressure 150/84, oxygen saturation 97% on room air. GENERAL: He is a pleasant man laying in bed. He does not appear to be in any acute distress. HEENT: He has moist mucous membranes. No elevation of CVP. CARDIOVASCULAR EXAM: S1 and S2, regular. RESPIRATORY EXAM: Fairly clear. ABDOMINAL EXAM: Benign. EXTREMITIES: He is spontaneously moving all four extremities. LABORATORY STUDIES: WBC 5.3, hemoglobin 9.2, hematocrit 27.2, platelet count 237. Chemistry panel: Sodium 144, potassium 5.1, chloride 113, bicarbonate 18, BUN 60, creatinine 5.8, creatinine 5.7, relatively stable from 5.8 yesterday. Phosphorus 5.0. Immunology workup is pending. No new imaging. ASSESSMENT/PLAN: This is a 55-year-old man with recent embolic cerebrovascular accident, currently completing treatment for endocarditis, admitted now with renal failure. PROBLEMS: 1. Acute renal failure. Dr. Forbes's help is greatly appreciated. Currently the suspicion is that this is secondary to nephrotoxic medication. A hypercoagulable workup is pending. At the present time there is indication for hemodialysis. In fact, his renal function is actually holding stable today, which is a positive sign. Will continue to monitor closely and hope that his renal function recovers. Dr. Forbes's helps is greatly appreciated. The patient is incontinent of urine at his baseline. He continues to be incontinent. 2. Presumptive endocarditis. The patient is currently being treated with cefepime. His vancomycin was discontinued at the time of admission. Blood cultures have been ordered, which remain negative. He is afebrile. WBC is within normal limits. A repeat echocardiogram did not show any evidence of endocarditis. Will continue to monitor closely. Infectious disease consult is appreciated. 3. Embolic cerebrovascular accident with left-sided weakness. The patient is on aspirin and Plavix at this time. We are titrating up on his labetalol to improve control of hypertension. It does not appear that the etiology was clearly determined during his extensive previous hospitalization. 4. Anemia. Likely iron deficiency anemia. An occult stool for blood is positive. He has been started on iron supplementation. He would likely benefit from outpatient colonoscopy. 5. Constipation. He is on a bowel regimen. 6. History of alcohol abuse. He is on thiamine, folic acid and a multivitamin. 7. Tobacco use in the distant past and alcohol abuse. The patient is not in any respiratory distress. He is at his baseline. Comfortable on room air. 8. Gastroesophageal reflux disease. The patient is on Pepcid. 9. Deep vein thrombosis (DVT) prophylaxis. Sequentials and thromboembolism deterrents (TEDS). DISPOSITION: We will continue to watch his renal function closely. I have placed a patient and family services (PFS) consult to help with determination of a healthcare proxy. The patient's brothers filled out a Medical Order for Life-Sustaining Treatment (MOLST) form him previously and have been making healthcare decisions for him, however, it does not appear as though healthcare proxy was ever clearly determined. No paperwork is available.
--- NOTE | 2016-06-27 10:27 | IPN ---
DATE OF VISIT: 06/27/2016 Mr. Mack is seen this morning on his bedside. He remains confused and disoriented, though he is awake. He has a mitten on his right hand due to confusion and pulling on things. He is unable to provide any accurate information, though he does answer questions, but mostly they are vague or ambiguous. On physical examination, temperature 99.8 degrees Fahrenheit, heart rate 72 per minute, and respiratory rate 18 per minute. Blood pressure 150/84 mmHg and oxygen saturation 97% on room air. Neck veins are mildly distended. Head is atraumatic. Ears, nose, and throat are unremarkable. He has no oral thrush or ulcers. Neck is supple and without any thyroid enlargement. Trachea is midline. Heart sounds are regular. Lungs clear to auscultation. Abdomen: Soft and nontender. Bowel sounds are normal, and there is no palpable organomegaly. Extremities: Have no cyanosis or clubbing. Skin has no rash or ulcers. Neurologically, he is awake, disoriented, and confused. Today's laboratories show WBC count 5.3, hemoglobin 9.2, and hematocrit 27.2. Platelets 237. Sodium 144 and potassium 5.1. CO2 is 18, BUN 60, and creatinine 5.76. Calcium 8.4 and phosphorus 5.0. PROBLEMS: 1. Acute kidney injury. The patient has slight improvement in kidney function, which is encouraging. At this point, we will not consider any discussion about dialysis, as his kidney function seems to have started improving. The patient does not have any overt uremic symptoms or significant electrolyte problems. He does have mild metabolic acidosis, which is manageable with medications. 2. Anemia. Anemia is related to acute renal failure. We will give him a dose of Aranesp 100 mcg tomorrow. We will continue to monitor on daily basis. There is no indication for a transfusion. 3. Metabolic acidosis. Mild and stable. The patient remains on oral sodium bicarbonate supplement, which will be continued. At this point, there is no indication for urgent dialysis. 4. Hyperphosphatemia. Phosphorus level has also improved slightly since yesterday, which is encouraging. He is not on phosphate binders at this point. We will continue to monitor it without any intervention. 5. History of multiple strokes with possible emboli. The patient has been treated for possible endocarditis. We have sent serology for anticardiolipin antibodies and anti double-stranded deoxyribonucleic acid (DNA). Those laboratories are still pending.
[2016-06-27] MEDS: FERROUS GLUCONATE 324 MG TAB PO SCH (10:28)
[2016-06-27] MEDS: SODIUM BICARBONATE 325 MG TAB PO SCH ×4 (10:28→21:39)
[2016-06-27] MEDS: ASPIRIN 81 MG ENTERIC TAB PO SCH (10:28)
[2016-06-27] MEDS: FAMOTIDINE 20 MG TAB PO SCH ×2 (10:29→21:39)
[2016-06-27] MEDS: CLOPIDOGREL 75 MG TAB PO SCH (10:29)
[2016-06-27] MEDS: amLODIPine 10 MG TAB PO SCH (10:29)
[2016-06-27] MEDS: THIAMINE 100 MG TAB PO SCH (10:29)
[2016-06-27] MEDS: FOLIC ACID 1 MG TAB PO SCH (10:29)
[2016-06-27] MEDS: LABETALOL 100 MG TAB PO SCH ×2 (10:29→21:39)
[2016-06-27] MEDS: SENNA 8.6 MG TAB (SENOKOT) PO SCH (10:30)
[2016-06-27] MEDS: MULTIVITAMINS/MINERALS THERAP 1 TAB PO SCH (10:30)
[2016-06-27 12:00] VITALS: BP 152/86
[2016-06-27 15:55] LABS: VANCOMYCIN RANDOM 16.9 UG/ML
[2016-06-27 16:00] VITALS: BP 110/78
[2016-06-27] MEDS: MOM 30ML SUSPENSION UDC PO PRN (17:37)
[2016-06-27 19:30] VITALS: BP 150/82
[2016-06-27] MEDS: ATORVASTATIN 20 MG TAB PO SCH (21:39)
[2016-06-28] VITALS (7 sets, daily range): BP systolic 104–160; BP diastolic 61–87
[2016-06-28] MEDS: **hydrALAZINE HCL** 25 MG TAB PO SCH ×4 (00:22→17:06)
[2016-06-28 04:17] LABS: MEAN CORPUSCULAR HEMOGLOBIN 28.5 pg (27.0-33.0); MEAN CORPUSCULAR HGB CONC 33.4 g/dl (32.0-36.5); MEAN CORPUSCULAR VOLUME 85.5 fl (80.0-96.0); WHITE BLOOD COUNT 5.5 K/mm3 (4.0-10.0)
[2016-06-28 04:35] LABS: CALCIUM LEVEL 8.4 MG/DL (8.5-10.1); CREATININE FOR GFR 6.13 MG/DL (0.70-1.30); GLOMERULAR FILTRATION RATE 10.2 (>56); PHOSPHORUS LEVEL 5.2 MG/DL (2.5-4.9)
[2016-06-28 04:39] LABS: POTASSIUM SERUM 5.3 MEQ/L (3.5-5.1)
[2016-06-28] MEDS: SODIUM CHLORIDE 0.9% INJ 10 ML SYR IV SCH ×2 (06:07→17:07)
[2016-06-28] MEDS: SOD POLYSTYRENE SULFONATE SUSP 15 GM/60 ML UD PO ONE ×2 (08:00→09:34)
[2016-06-28] MEDS ORDERED: DARBEPOETIN 100 MCG/0.5 ML *NON-DIALYSIS* SYRINGE (J0881) SC SCH (09:00)
[2016-06-28] MEDS: LABETALOL 100 MG TAB PO SCH ×2 (09:00→21:38)
[2016-06-28] MEDS: CLOPIDOGREL 75 MG TAB PO SCH (09:32)
[2016-06-28] MEDS: THIAMINE 100 MG TAB PO SCH (09:32)
[2016-06-28] MEDS: ASPIRIN 81 MG ENTERIC TAB PO SCH (09:32)
[2016-06-28] MEDS: SODIUM BICARBONATE 325 MG TAB PO SCH ×4 (09:32→21:39)
[2016-06-28] MEDS: SENNA 8.6 MG TAB (SENOKOT) PO SCH (09:32)
[2016-06-28] MEDS: FERROUS GLUCONATE 324 MG TAB PO SCH (09:32)
[2016-06-28] MEDS: FOLIC ACID 1 MG TAB PO SCH (09:32)
[2016-06-28] MEDS: FAMOTIDINE 20 MG TAB PO SCH ×2 (09:32→21:39)
[2016-06-28] MEDS: amLODIPine 10 MG TAB PO SCH (09:33)
[2016-06-28] MEDS: MULTIVITAMINS/MINERALS THERAP 1 TAB PO SCH (09:33)
[2016-06-28] MEDS ORDERED: LIDOCAINE W/EPINEPHRINE 1% 20ML VIAL As Ordered ONE (09:58)
[2016-06-28] MEDS ORDERED: SODIUM BICARBONATE 8.4% INJ 50MEQ 50 ML VIAL As Ordered ONE (09:58)
[2016-06-28] MEDS ORDERED: HEPARIN 1,000 UNITS/ML 10ML VIAL (FOR RADIOLOGY& DIALYSIS ONLY) As Ordered ONE (09:58)
[2016-06-28] MEDS ORDERED: LIDOCAINE 2% MDV 20 ML VIAL As Ordered ONE (09:58)
[2016-06-28] MEDS ORDERED: LACTULOSE 20 GM/30 ML SYRUP UD PO PRN (10:15)
--- NOTE | 2016-06-28 10:15 | IPNPDOC ---
Text Note Date of Service The patient was seen on 06/28/16. NOTE Subjective: Patient is a 55 year old male with a PMHx of HTN, DLP, tobacco abuse and recent history of multifocal acute infarcts 2/2 possible embolic phenomenon (ECHO at [facility]; reveals thin filamentous structure on mitral valve - possible vegetation, with patent bautista ovale). Patient was started on Vancomycin and Cefepime for suspected endocarditis for 6 weeks (Starting 05/29/16 ). Since that point his serum creatinine has been progressively increasing and he was subsequently admitted for acute renal failure. Patient was seen and examined at the bedside. He denies any problems at this time. Objective: Vitals (See below) General: Lying in bed, no acute distress, comfortable, Awake and alert, Oriented to person HEENT: NC, AT CVS: RRR, +S1S2 Lungs: Fair air entry b/l, -w/r/r Abdomen: Soft, ND, NT, +BSx4 Extremities: +PPx4, - Edema, - Calf tenderness Assessment and plan: 1. Acute renal failure - likely 2/2 intra-renal etiology - 2/2 nephrotoxic medications (Vancomycin), possibly embolic phenomenon - Presented with worsening Creatinine; continues to increase - Patient has no signs of fluid overload and continues to make urine - His non-anion gap acidosis has been improving with sodium bicarbonate - He has hyperphosphatemia and also has hyperkalemia that developed today - Discussed case with Dr. Forbes (on consult) - will go for PermCath placement today and will receive first round of dialysis today - s/p Kayexylate 15g PO today 2. Possible endocarditis - 2/2 multi-infarct stroke - Remains afebrile without leukocytosis - ECHO 06/25: no vegetations noted - Blood cultures 06/24 - remain negative after 72 hours - c/w Cefepime; s/p Vancomycin (re: Acute renal failure) 3. CVA - possibly 2/2 embolic phenomenon; with left sided weakness - c/w ASA and Plavix 4. Normocytic anemia - possibly 2/2 CLEO and kidney disease - FOBT positive - c/w Ferrous sulfate and Darbepoetin (qT) - Will need to have outpatient colonoscopy 5. Hx of Alcohol abuse - c/w thiamine, folate and multivitamins 6. Constipation - c/w bowel regimen - Will switch Milk of magnesium to lactulose 7. GERD - c/w famotidine 8. DVT prophylaxis - c/w SCDs VS,Fishbone, I+O VS, Fishbone, I+O Laboratory Tests 06/28/16 03:52 Anion Gap 10, Red Blood Count 3.20 L, Mean Corpuscular Volume 85.5, Mean Corpuscular Hemoglobin 28.5, Mean Corpuscular Hemoglobin Concent 33.4, Red Cell Distribution Width 15.0 H Vital Signs Date Time Temp Pulse Resp B/P Pulse Ox O2 Delivery O2 Flow Rate FiO2 06/28/16 09:33 71 104/61 06/28/16 08:00 98.4 18 97 Room Air I&O- Last 24 Hours up to 6 AM 06/28/16 06:00 Intake Total 900 ml Output Total 0 ml Balance 900 ml TOMAS BURNS MD Jun 28, 2016 10:15
[2016-06-28] MEDS ORDERED: HEPARIN 1,000 UNITS/ML 10ML VIAL (FOR RADIOLOGY& DIALYSIS ONLY) IV ONE (11:15)
[2016-06-28] MEDS ORDERED: LORazepam 2 MG/ML VIAL (J2060) IV STA (13:09)
[2016-06-28] MEDS: LORazepam 2 MG/ML VIAL (J2060) IV PRN (13:39)
--- NOTE | 2016-06-28 13:42 | REPKIM ---
CLINICAL HISTORY: Endocarditis, worsening renal function and renal failure and hx of CVA. The referring nephrology service has requested a tunneled dialysis catheter placement for hemodialysis. PROCEDURE PERFORMED: Right IJ Tunneled Hemodialysis Catheter Placement INTERVENTIONALIST: Xu Mathis MD CONSENT: The risks, benefits and alternatives to the procedure were explained to the patients brother and informed phone consent was obtained and witnessed. MEDICATIONS: Local Lidocaine EBL: 10 mL DEVICE USED: 14.5-Grenadian 19-cm tip to cuff Palindrome Catheter Lot#[id number] FLUORO TIME: 0.3 minutes PROCEDURE/FINDINGS: The patient was brought to the interventional radiology suite where a timeout procedure was performed. The patient was placed in the supine position. The right neck and upper chest were prepped and draped in the usual sterile fashion. Real time ultrasound was used and permanent image stored. Using ultrasound guidance the internal jugular vein was punctured with a micropunture needle, after infiltration of the skin and deep tissues with local anesthetic. A 19-cm tip to cuff length, 14.5-Grenadian dual lumen Palindrome hemodialysis catheter was inserted. The catheter was placed through a subcutaneous tunnel requiring a second incision. The incision at the base of the neck was closed with 4-0 Vicryl suture and covered with steristrips. The catheter was secured at the skin exit site with 2-0 Prolene suture. The ports of the catheter were locked with heparin (1000 units/mL). A sterile dressing was then applied. Post procedure chest fluoroscopy showed the tip of the catheter at the cavoatrial junction. The patient tolerated the procedure well with no immediate complications. This procedure was performed using ultrasound and fluoroscopy. Dr. Mathis was present. IMPRESSION: 1. Ultrasound of the neck demonstrates patent right IJ vein and compressible. 2. Successful right IJ tunneled hemodialysis catheter placement as discussed above. There is free aspiration of blood from all ports of the catheter. The catheter is ready for immediate use. cc: Ting Forbes MD [facility]
--- NOTE | 2016-06-28 15:39 | IPN ---
INFECTIOUS DISEASE PROGRESS NOTE: DATE: 06/27/2016 Mr. Mack was transferred to [facility] 3 days ago because of acute kidney injury. His creatinine was up to 5.2. The patient was also acidotic. He had been encephalopathic, but today is doing a little better. The acute kidney injury was felt to be from vancomycin toxicity. He had been on vancomycin and cefepime for about 4 weeks for presumptive endocarditis. The patient had negative cultures while he was at [facility]. He was transferred from [facility] to for rehabilitation, but since he is not completely improved he went to [facility] jail. On physical examination, temperature is 99.8, pulse 72, respirations 18, blood pressure 150/84, O2 sat 97% on room air. Heart: Normal S1, S2. No murmurs appreciated. Lungs are clear. No wheezes, rales or rhonchi. Abdomen: Soft, nontender. No hepatosplenomegaly. Extremities: No edema. He has right-sided hemiparesis. He is awake. He is disoriented and confused, but he is able to answer some questions appropriately. That he lives with his brother. He moved from [place] recently. LABORATORY DATA: White count is 5.3, hemoglobin 9.2, hematocrit 27.2, platelets 237. Sodium 144, potassium 5.1, chloride 113, bicarb 18, BUN 60, creatinine 5.76, glucose 92, calcium 8.4, phosphorus 5, albumin 2.9. Vancomycin level was still today 16.9 even though his last dose was on 06/21. IMPRESSION: 1. Presumptive endocarditis treated at [facility] for multiple embolic phenomenon and transesophageal echocardiogram had showed questionable vegetation on the mitral valve while the blood cultures had all remained negative and the patient did not have significant elevation of ESR and CRP. Her repeat echocardiogram done at [facility] on 06/[address] Norton showed normal echocardiogram with normal LV systolic and diastolic function. 2. Acute kidney injury from vancomycin toxicity. The patient had been off vancomycin for 6 days and still has significant vancomycin in his system. PLAN: Since there has never been real evidence of bacteremia and questionable vegetation on previous transesophageal echocardiogram (TU), the patient has been treated with a total of 4 weeks of IV antibiotic and I will discontinue all antibiotics at this point. Discontinue (DC) cefepime, vancomycin. Last dose was already on 06/21. Please also review my consultation that was done at [facility].
--- NOTE | 2016-06-28 20:19 | IPN ---
DATE: 06/28/2016 Time: 10:00 a.m. SUBJECTIVE: This is a 55-year-old male who is seen both in PCU room and later in dialysis. Denies any chest pain, shortness of breath, nausea, vomiting. He has a sitter in the room. Dr. Santiago's consultation note from [facility] reviewed, there was a discussion between Dr. Santiago and infectious disease specialist in [place] and at this time, infectious disease team in [place] did not believe that the patient has bacterial endocarditis, but more of an embolic phenomenon causing his stroke. OBJECTIVE: VITAL SIGNS: Blood pressure 104/61, heart rate 71, temperature 98.4, respiration rate 18, pulse oximetry 97% on room air. T-max 99.8 at 7:30 last night. Intake and output last 24 hours 870 and 0 output. Weight is 63.3 kg. GENERAL: The patient is lying in bed, comfortable, in no acute distress. Answers questions appropriately, though at times it is difficult to understand him due to being vague and mumbling. HEENT: Normocephalic, atraumatic. Moist oral mucosa. NECK: Supple. Trachea midline. No jugular venous distention (JVD). CHEST: Symmetric chest rise. No accessory muscle use. Breath sounds were clear to auscultation bilaterally. HEART: Regular rate and rhythm, normal S1, S2. Could not appreciate murmurs, rubs or gallops. ABDOMEN: Soft, nontender, nondistended. Bowel sounds present. No guarding. No rebound. Could not appreciate organomegaly. EXTREMITIES: No pedal edema. Pedal pulses present bilaterally. NEUROLOGICAL: He is awake, alert, but disoriented. LABORATORY DATA: WBC 5.5, hemoglobin 9.1, hematocrit 27.4, platelets 269. Sodium 146, potassium 5.3, chloride 115, carbon dioxide 21, BUN 64, creatinine 6.13. Fasting glucose 98. Phosphorous 5.2, calcium 8.4. Echocardiogram from June 25, 2016 showed normal echocardiogram. Normal left ventricle (LV) internal dimensions, wall thickness, systolic and diastolic function, left ventricular ejection fraction (LVEF) of 60% by visual estimate. He is on aspirin, Plavix. IMPRESSION/PLAN: Mr. Mack is a 55-year-old male with past medical history of hypertension, hyperlipidemia, multiple cerebral infarcts, believed to be secondary to embolic phenomenon diagnosed with patent foramen ovale as the cause of his possible emboli, was previously undergoing a 6-week course of antibiotics for possible infective endocarditis including vancomycin and cefepime at [facility] who is currently admitted for acute renal failure. PLAN: 1. Acute renal failure. His renal function is worse today compared to yesterday and he continues to have electrolyte abnormality. Therefore, we have planned for dialysis. The patient underwent right IJ dialysis catheter placement with Dr. Mathis without any issues and upon reevaluation he was tolerating dialysis well. 2. Anemia. No significant change compared to yesterday. He did receive a one time dose of Aranesp today with dialysis. Will continue to monitor blood work tomorrow. He is on ferrous gluconate 324 mg daily. 3. Metabolic acidosis. Resolved. He is on sodium bicarbonate 325 mg four times a day. 4. Hyperphosphatemia. His phosphorous level continues to increase today compared to yesterday. He is undergoing dialysis as mentioned above. 5. Multiple CVA. Reportedly was diagnosed in [place]. Previously was receiving vancomycin and cefepime for 6 weeks with plan for a total of 6 weeks with stop day of July 10, 2016. Dr. Santiago's consultation report reviewed. The patient is now off all antibiotics as there has been no confirmed evidence of bacteremia. He also had echocardiogram this admission that showed normal echocardiogram. Currently his anticardiolipin antibody is pending. Double stranded DNA is negative. MADALYN is negative. 6. Hypertension. Currently is on labetalol 200 mg by mouth twice a day, Norvasc 5 mg by mouth daily, hydralazine 25 mg every 6 hours. My preceptor for this patient encounter was Dr. Forbes. The preceptor was physically present in the building during the encounter and was fully available. As needed, all aspects of the patient interview, examination, medical decision making process, and medical care plan development were reviewed and approved by the preceptor. The preceptor is aware and concurs with the plan as stated in the body of this note and will attest to such by his/her cosignature. ANGÉLICA
[2016-06-28] MEDS: ATORVASTATIN 20 MG TAB PO SCH (21:39)
[2016-06-29] MEDS: **hydrALAZINE HCL** 25 MG TAB PO SCH ×2 (00:06→05:34)
[2016-06-29 04:45] VITALS: BP 112/55
[2016-06-29] MEDS: SODIUM CHLORIDE 0.9% INJ 10 ML SYR IV SCH ×2 (05:35→17:40)
[2016-06-29 05:48] LABS: MEAN CORPUSCULAR HEMOGLOBIN 28.7 pg (27.0-33.0); MEAN CORPUSCULAR HGB CONC 34.1 g/dl (32.0-36.5); MEAN CORPUSCULAR VOLUME 84.1 fl (80.0-96.0); WHITE BLOOD COUNT 5.5 K/mm3 (4.0-10.0)
[2016-06-29 05:55] LABS: CALCIUM LEVEL 8.9 MG/DL (8.5-10.1); CREATININE FOR GFR 3.98 MG/DL (0.70-1.30); GLOMERULAR FILTRATION RATE 16.8 (>56); PHOSPHORUS LEVEL 4.6 MG/DL (2.5-4.9); POTASSIUM SERUM 4.7 MEQ/L (3.5-5.1)
[2016-06-29 08:00] VITALS: BP 98/58
[2016-06-29] MEDS: SODIUM BICARBONATE 325 MG TAB PO SCH ×2 (08:57→12:01)
[2016-06-29] MEDS: CLOPIDOGREL 75 MG TAB PO SCH (08:58)
[2016-06-29] MEDS: FOLIC ACID 1 MG TAB PO SCH (08:58)
[2016-06-29] MEDS: ASPIRIN 81 MG ENTERIC TAB PO SCH (08:58)
[2016-06-29] MEDS: FERROUS GLUCONATE 324 MG TAB PO SCH (08:58)
[2016-06-29] MEDS: LABETALOL 100 MG TAB PO SCH ×2 (08:59→20:30)
[2016-06-29] MEDS: MULTIVITAMINS/MINERALS THERAP 1 TAB PO SCH (08:59)
[2016-06-29] MEDS: SENNA 8.6 MG TAB (SENOKOT) PO SCH (08:59)
[2016-06-29] MEDS: FAMOTIDINE 20 MG TAB PO SCH ×2 (08:59→20:37)
[2016-06-29] MEDS: THIAMINE 100 MG TAB PO SCH (08:59)
[2016-06-29] MEDS ORDERED: amLODIPine 5 MG TAB PO SCH (09:00)
[2016-06-29] MEDS ORDERED: NS 500 ML IV ONE (10:00)
--- NOTE | 2016-06-29 11:43 | IPNPDOC ---
Text Note Date of Service The patient was seen on 06/29/16. NOTE Subjective: Patient is a 55 year old male with a PMHx of HTN, DLP, tobacco abuse and recent history of multifocal acute infarcts 2/2 possible embolic phenomenon (ECHO at [facility]; reveals thin filamentous structure on mitral valve - possible vegetation, with patent bautista ovale). Patient was started on Vancomycin and Cefepime for suspected endocarditis for 6 weeks (Starting 05/29/16 ). Since that point his serum creatinine has been progressively increasing and he was subsequently admitted for acute renal failure. Patient was seen and examined at the bedside. Again he denies any issues. Objective: Vitals (See below) General: Lying in bed, no acute distress, comfortable, Awake and alert, Oriented to person HEENT: NC, AT CVS: RRR, +S1S2 Lungs: Fair air entry b/l, -w/r/r Abdomen: Soft, ND, NT, +BSx4 Extremities: +PPx4, - Edema, - Calf tenderness Assessment and plan: 1. Acute renal failure - likely 2/2 intra-renal etiology - 2/2 nephrotoxic medications (Vancomycin), possibly embolic phenomenon - Presented with worsening Creatinine; has shown improvement after Dialysis - Patient has no signs of fluid overload and continues to make urine - s/p Non-anion gap acidosis - s/p hyperphosphatemia and hyperkalemia - s/p PermCath placement and one round of dialysis 06/28 - Dr. Forbes (on consult) - appreciate their input - Currently still on Bicarbonate 2. Suspected endocarditis history - 2/2 multi-infarct stroke - Remains afebrile without leukocytosis - ECHO 06/25: no vegetations noted - Blood cultures 06/24 - negative - Off antibiotics - s/p Cefepime and Vancomycin 3. Hypertension - BP on lower limits of normal - On large dose of labetalol BID - Will discontinue amlodipine - Hydralazine discontinued 4. CVA - possibly 2/2 embolic phenomenon; with left sided weakness - c/w ASA and Plavix 5. Normocytic anemia - possibly 2/2 CLEO and kidney disease - FOBT positive - c/w Ferrous sulfate and Darbepoetin (qT) - Will need to have outpatient colonoscopy 6. Hx of Alcohol abuse - c/w thiamine, folate and multivitamins 7. Constipation - c/w bowel regimen - Will switch Milk of magnesium to lactulose 8. GERD - c/w famotidine 9. DVT prophylaxis - c/w SCDs VS,Fishbone, I+O VS, Fishbone, I+O Laboratory Tests 06/29/16 05:12 Anion Gap 5 L, Red Blood Count 3.19 L, Mean Corpuscular Volume 84.1, Mean Corpuscular Hemoglobin 28.7, Mean Corpuscular Hemoglobin Concent 34.1, Red Cell Distribution Width 15.0 H Vital Signs Date Time Temp Pulse Resp B/P Pulse Ox O2 Delivery O2 Flow Rate FiO2 06/29/16 09:00 75 98/58 06/29/16 08:00 98.5 18 99 Room Air I&O- Last 24 Hours up to 6 AM 06/29/16 06:00 Intake Total 1680 ml Output Total 500 ml Balance 1180 ml TOMAS BURNS MD Jun 29, 2016 11:43
[2016-06-29 12:00] VITALS: BP 108/52
[2016-06-29 12:53] LABS: HEPATITIS B SURFACE ANTIBODY NEGATIVE (POSITIVE)
--- NOTE | 2016-06-29 12:58 | IPN ---
DATE: 06/29/2016 SUBJECTIVE: This is a 55-year-old male who is seen and examined at bedside. Yesterday, he underwent hemodialysis without any issues. Had 500 mL fluid removed. He did not have any hypotensive episode post dialysis. However, this morning, he was hypotensive with systolic in the 90s. Per sitter, the patient had a restful night,he slept well. However, even after 7 o'clock this morning, he continues to be very sleepy. Review of systems is unable to be obtained as the patient is currently sleeping, though arousable to verbal and tactile stimuli. OBJECTIVE: VITAL SIGNS: Blood pressure 98/58, heart rate 75, temperature 98.5, respiration rate 18, pulse oximetry 99% on room air. Intake and output the last 24 hours 1710 and 500. One bowel movement yesterday documented. Weight is 73.6 kg. GENERAL: Patient is lying in bed, sleeping, comfortable, no acute distress. HEENT: Normocephalic, atraumatic. NECK: Supple. Trachea midline. No jugular venous distention (JVD). CHEST: Symmetric chest rise. No accessory muscle use. Breath sounds clear to auscultation bilaterally. Right chest with internal jugular (IJ) catheter in place with dry blood. HEART: Regular rate and rhythm. Normal S1, S2. No murmurs, rubs or gallops. ABDOMEN: Soft, nontender, nondistended. Bowel sounds present. No guarding. No rebound. EXTREMITIES: No pedal edema. Pedal pulses present bilaterally. NEUROLOGICAL: He is lethargic as mentioned above. LABORATORY DATA: WBC 5.5, hemoglobin 9.2, hematocrit 26.8, platelets 281. Sodium 141, potassium 4.7, chloride 105, carbon dioxide 31, BUN 27, creatinine 3.98, glucose 100, calcium 8.9, phosphorous 4.6, albumin 3. MADALYN negative. Double stranded MADALYN negative. Cardiolipin negative. IMPRESSION AND PLAN: Mr. 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 PLAN: 1. Acute renal failure. It remains unclear why his renal function is very slow to improve without dialysis. He underwent hemodialysis yesterday and tolerated that well. This could be due to Vancomycin because his level was still high from despite being off antibiotic 06/21/16. 2. Hypotension. He is on multiple antihypertensive agents including Norvasc, labetalol, hydralazine. We have discontinued hydralazine this morning. Primary team has also discontinued Norvasc. We have also given him a bolus of 500 mL. He did have 500 mL removed with dialysis yesterday. 3. Anemia. Hemoglobin is stable compared to yesterday. Did receive a one time dose of Aranesp with dialysis yesterday. Continue to monitor for now. He is also on ferrous gluconate. 4. Metabolic acidosis. Due to renal failure. Resolved after dialysis. Therefore , we will discontinue sodium bicarbonate. 5. Hyperphosphatemia. Level is now normal after dialysis. 6. Multiple CVA. Believed to be embolic phenomenon. He is on aspirin and Plavix. Previously believed to have endocarditis and had completed a 4-week course of antibiotics of Vancomycin and Cefepime. My preceptor for this patient encounter was Ting Forbes MD. The preceptor was physically present in the building during the encounter and was fully available. As needed, all aspects of the patient interview, examination, medical decision making process, and medical care plan development were reviewed and approved by the preceptor. The preceptor is aware and concurs with the plan as stated in the body of this note and will attest to such by his/her co-signature. ANGÉLICA
[2016-06-29 16:00] VITALS: BP 128/76
[2016-06-29] MEDS: LORazepam 2 MG/ML VIAL (J2060) IV PRN (17:40)
[2016-06-29] MEDS: ATORVASTATIN 20 MG TAB PO SCH (20:37)
[2016-06-29 22:00] VITALS: BP 114/59
[2016-06-30 02:00] VITALS: BP 104/53
[2016-06-30] MEDS: SODIUM CHLORIDE 0.9% INJ 10 ML SYR IV SCH ×2 (05:38→18:17)
[2016-06-30 06:00] VITALS: BP_SYST 111; BP_SYST 98; BP_DIAS 62; BP_DIAS 73
[2016-06-30 06:53] LABS: MEAN CORPUSCULAR HEMOGLOBIN 28.3 pg (27.0-33.0); MEAN CORPUSCULAR HGB CONC 33.4 g/dl (32.0-36.5); MEAN CORPUSCULAR VOLUME 84.7 fl (80.0-96.0); RED CELL DISTRIBUTION WIDTH 14.9 % (11.5-14.5); WHITE BLOOD COUNT 6.2 K/mm3 (4.0-10.0)
[2016-06-30 07:03] LABS: CALCIUM LEVEL 8.3 MG/DL (8.5-10.1); CREATININE FOR GFR 5.08 MG/DL (0.70-1.30); GLOMERULAR FILTRATION RATE 12.7 (>56); PHOSPHORUS LEVEL 5.2 MG/DL (2.5-4.9); POTASSIUM SERUM 4.5 MEQ/L (3.5-5.1)
[2016-06-30] MEDS: MULTIVITAMINS/MINERALS THERAP 1 TAB PO SCH (09:12)
[2016-06-30] MEDS: FERROUS GLUCONATE 324 MG TAB PO SCH (09:12)
[2016-06-30] MEDS: FAMOTIDINE 20 MG TAB PO SCH ×2 (09:12→20:20)
[2016-06-30] MEDS: CLOPIDOGREL 75 MG TAB PO SCH (09:12)
[2016-06-30] MEDS: THIAMINE 100 MG TAB PO SCH (09:12)
[2016-06-30] MEDS: ASPIRIN 81 MG ENTERIC TAB PO SCH (09:12)
[2016-06-30] MEDS: FOLIC ACID 1 MG TAB PO SCH (09:13)
[2016-06-30] MEDS: SENNA 8.6 MG TAB (SENOKOT) PO SCH (09:13)
[2016-06-30] MEDS: LABETALOL 100 MG TAB PO SCH ×2 (09:15→20:20)
[2016-06-30] MEDS ORDERED: HEPARIN 1,000 UNITS/ML 10ML VIAL (FOR RADIOLOGY& DIALYSIS ONLY) IV ONE (10:30)
--- NOTE | 2016-06-30 11:11 | IPNPDOC ---
Text Note Date of Service The patient was seen on 06/30/16. NOTE Subjective: Patient is a 55 year old male with a PMHx of HTN, DLP, tobacco abuse and recent history of multifocal acute infarcts 2/2 possible embolic phenomenon (ECHO at [facility]; reveals thin filamentous structure on mitral valve - possible vegetation, with patent bautista ovale). Patient was started on Vancomycin and Cefepime for suspected endocarditis for 6 weeks (Starting 05/29/16 ). Since that point his serum creatinine has been progressively increasing and he was subsequently admitted for acute renal failure. Patient was seen and examined at the bedside. He has been downgraded to med/ surg. He has no acute events overnight. No complaints today. Objective: Vitals (See below) General: Lying in bed, no acute distress, comfortable, Awake and alert, Oriented to person HEENT: NC, AT CVS: RRR, +S1S2 Lungs: Fair air entry b/l, -w/r/r Abdomen: Soft, ND, NT, +BSx4 Extremities: +PPx4, - Edema, - Calf tenderness Assessment and plan: 1. Acute renal failure - likely 2/2 intra-renal etiology - 2/2 nephrotoxic medications (Vancomycin), possibly embolic phenomenon - Presented with worsening Creatinine; patient is still unable to have adaquate creatinine clearance without dialysis - Patient has no signs of fluid overload and continues to make urine - s/p Non-anion gap acidosis - s/p hyperkalemia - s/p PermCath placement and one round of dialysis 06/28; will go for dialysis again tomorrow - Dr. Forbes (on consult) - appreciate their input - s/p Bicarbonate 2. Possible endocarditis - 2/2 multi-infarct stroke - Remains afebrile without leukocytosis - ECHO 06/25: no vegetations noted - Blood cultures 06/24 - remain negative after 72 hours - c/w Cefepime; s/p Vancomycin (re: Acute renal failure) 3. Hypertension - BP well controlled - On labetalol 200 BID - s/p Hydralazine and Amlodipine 4. CVA - possibly 2/2 embolic phenomenon; with left sided weakness - c/w ASA and Plavix 5. Normocytic anemia - possibly 2/2 CLEO and kidney disease - FOBT positive - c/w Ferrous sulfate and Darbepoetin (qT) - Will need to have outpatient colonoscopy 6. Hx of Alcohol abuse - c/w thiamine, folate and multivitamins 7. Constipation - c/w bowel regimen 8. GERD - c/w famotidine 9. DVT prophylaxis - c/w SCDs VS,Fishbone, I+O VS, Fishbone, I+O Laboratory Tests 06/30/16 06:18 Anion Gap 9, Red Blood Count 3.23 L, Mean Corpuscular Volume 84.7, Mean Corpuscular Hemoglobin 28.3, Mean Corpuscular Hemoglobin Concent 33.4, Red Cell Distribution Width 14.9 H Vital Signs Date Time Temp Pulse Resp B/P Pulse Ox O2 Delivery O2 Flow Rate FiO2 06/30/16 09:15 80 158/70 06/30/16 06:00 98.2 17 92 Room Air I&O- Last 24 Hours up to 6 AM 06/30/16 06:00 Intake Total 300 ml Output Total 100 ml Balance 200 ml TOMAS BURNS MD Jun 30, 2016 11:11
--- NOTE | 2016-06-30 13:36 | IPN ---
DATE: 06/30/2016 SUBJECTIVE: This is a 55-year-old male who is seen and examined both in medical/surgical floor and also in dialysis room. Yesterday, he was hypotensive and somewhat lethargic and we did give him a one-time dose of 500 bolus, which immediately improved his blood pressure and also improved his lethargy. Overnight, no reported acute events. His Norvasc and hydralazine were discontinued yesterday and he remains on beta anand. The patient is more talkative today, feels well. Denies any chest pain, shortness of breath. He has been confused since his CVA and therefore answers are somewhat unreliable. OBJECTIVE: VITAL SIGNS: Blood pressure 111/73, heart rate 74, temperature 98.3, respiration rate 17, pulse oximetry 92% on room air. Intake and output the last 24 hours 240 and 100. Weight is 63.6 kg. GENERAL: Patient is lying in bed, comfortable, no acute distress. He is alert, awake, oriented to person only. He is more appropriate and responsive to verbal commands. HEENT: Normocephalic, atraumatic. Moist oral mucosa. Eyes: Extraocular movement intact. NECK: Supple. Trachea midline. No jugular venous distention (JVD). CHEST: Symmetric chest rise. No accessory muscle use. Breath sounds are clear to auscultation bilaterally. Right IJ dialysis catheter is in place with dried old blood. HEART: Regular rate and rhythm. S1, S2 present and normal. ABDOMEN: Soft, nontender, nondistended. Bowel sounds present. No guarding. No rebound. EXTREMITIES: No pedal edema. Pedal pulses present bilaterally. NEUROLOGICAL: He is alert, awake, oriented to person only. PSYCHIATRIC: Pleasant, cooperative. LABORATORY DATA: WBC 6.2, hemoglobin 9.1, hematocrit 27.4, platelets 288. Sodium 142, potassium 4.5, chloride 106, carbon dioxide 27, BUN 37, creatinine 5.08. Unfortunately, his renal function has not improved compared to yesterday. Glucose 94, calcium 8.3, phosphorous 5.2, albumin 3. Hepatitis panel for dialysis has been negative. Current anticardiolipin double stranded MADALYN negative. IMPRESSION: Mr. Mack is a 55-year-old male with past medical history of hypertension, hyperlipidemia, multiple CVA likely secondary to embolic event admitted for acute renal failure. Initially, his renal failure was believed to be secondary to antibiotic use; however, it has been greater than one week that he has been off antibiotics. PLAN: 1. Acute renal failure. Reason remains unclear. Possibly secondary to Vancomycin. Because of his worsening renal function, he will require dialysis again today. Our hope is that he will not require long-term dialysis , though it is discouraging that he is not improved on his own after the first trial of dialysis two days ago. 2. Hypotension. This is resolved after bolus administration. We will plan for dialysis without fluid removal today. Continue holding hydralazine and Norvasc. The patient can continue with his labetalol. 3. Anemia. Hemoglobin is not significantly changed compared to yesterday. Continue Aranesp on Monday. He is on iron supplementation. 4. Metabolic acidosis. Resolved after dialysis. We discontinued his sodium bicarbonate yesterday. 5. Hyperphosphatemia. This again worsened today with worsening renal function. Hopefully this will better after dialysis. 6. Multiple CVA secondary to embolic phenomenon. He is on aspirin and Plavix. My preceptor for this patient encounter was Dr. Forbes. The preceptor was physically present in the building during the encounter and was fully available. As needed, all aspects of the patient interview, examination, medical decision making process, and medical care plan development were reviewed and approved by the preceptor. The preceptor is aware and concurs with the plan as stated in the body of this note and will attest to such by his/her cosignature. ANGÉLICA
[2016-06-30 14:00] VITALS: BP 135/60
[2016-06-30] MEDS: LORazepam 2 MG/ML VIAL (J2060) IV PRN (14:28)
[2016-06-30 18:00] VITALS: BP 140/70
[2016-06-30 20:15] VITALS: BP 186/90
[2016-06-30] MEDS: ATORVASTATIN 20 MG TAB PO SCH (20:20)
[2016-06-30 21:56] VITALS: BP 124/80
[2016-07-01 02:00] VITALS: BP 142/80
[2016-07-01] MEDS: SODIUM CHLORIDE 0.9% INJ 10 ML SYR IV SCH ×2 (05:16→18:11)
[2016-07-01 05:54] LABS: MEAN CORPUSCULAR HEMOGLOBIN 29.1 pg (27.0-33.0); WHITE BLOOD COUNT 5.6 K/mm3 (4.0-10.0)
[2016-07-01 06:00] VITALS: BP 130/80
[2016-07-01 06:04] LABS: ALBUMIN 3.1 GM/DL (3.2-5.2); CALCIUM LEVEL 8.6 MG/DL (8.5-10.1); CREATININE FOR GFR 3.47 MG/DL (0.70-1.30); GLOMERULAR FILTRATION RATE 19.7 (>56); PHOSPHORUS LEVEL 4.2 MG/DL (2.5-4.9); POTASSIUM SERUM 4.2 MEQ/L (3.5-5.1)
--- NOTE | 2016-07-01 10:09 | IPNPDOC ---
Text Note Date of Service The patient was seen on 07/01/16. NOTE Subjective: Patient is a 55 year old male with a PMHx of HTN, DLP, tobacco abuse and recent history of multifocal acute infarcts 2/2 possible embolic phenomenon (ECHO at [facility]; reveals thin filamentous structure on mitral valve - possible vegetation, with patent bautista ovale). Patient was started on Vancomycin and Cefepime for suspected endocarditis for 6 weeks (Starting 05/29/16 ). Since that point his serum creatinine has been progressively increasing and he was subsequently admitted for acute renal failure. Patient was seen at the bedside today and examined. He was noted to have some oozing around the hemodialysis catheter. Upon questioning the patient he was very sleepy and answered questions infrequently. Objective: Vitals (See below) General: Lying in bed, no acute distress, comfortable, Drowsy HEENT: NC, AT CVS: RRR, +S1S2 Lungs: Fair air entry b/l, -w/r/r Abdomen: Soft, ND, NT, +BSx4 Extremities: +PPx4, - Edema, - Calf tenderness Assessment and plan: 1. Acute renal failure - likely 2/2 intra-renal etiology - 2/2 nephrotoxic medications (Vancomycin), possibly embolic phenomenon - Presented with worsening Creatinine; patient is still unable to have adequate creatinine clearance without dialysis - Physical reveal no signs of fluid overload; he continues to produce urine ( incontinent) - s/p Non-anion gap acidosis; s/p hyperkalemia; s/p hyperphosphatemia - s/p PermCath placement, Has been getting regular dialysis (First session 06/28) - Dr. Forbes (on consult) - appreciate their input - s/p Bicarbonate 2. Suspected endocarditis history - 2/2 multi-infarct stroke - Remains afebrile without leukocytosis - ECHO 06/25: no vegetations noted - Blood cultures 06/24 - negative - Off antibiotics - s/p Cefepime and Vancomycin 3. Hypertension - BP well controlled - On labetalol 200 BID - s/p Hydralazine and Amlodipine 4. CVA - possibly 2/2 embolic phenomenon; with left sided weakness - c/w ASA and Plavix 5. Normocytic anemia - possibly 2/2 CLEO and kidney disease - Has some oozing around PermCath site; however no significant change in Hg - FOBT positive - c/w Ferrous sulfate and Darbepoetin (qT) - Will need to have outpatient colonoscopy 6. Hx of Alcohol abuse - c/w thiamine, folate and multivitamins 7. Constipation - c/w bowel regimen 8. GERD - c/w famotidine 9. DVT prophylaxis - c/w SCDs Disposition: - Will look into outpatient dialysis setup - Will plan on sending back to [facility] once established with follow up with Nephrology [facility] I+O [facility] I+O Laboratory Tests 07/01/16 05:43 Anion Gap 9, Red Blood Count 3.09 L, Mean Corpuscular Volume 83.0, Mean Corpuscular Hemoglobin 29.1, Mean Corpuscular Hemoglobin Concent 35.0, Red Cell Distribution Width 15.0 H Vital Signs Date Time Temp Pulse Resp B/P Pulse Ox O2 Delivery O2 Flow Rate FiO2 07/01/16 06:00 99.3 67 16 130/80 95 Room Air I&O- Last 24 Hours up to 6 AM 07/01/16 06:00 Intake Total 360 ml Output Total 550 ml Balance -190 ml TOMAS BURNS MD Jul 01, 2016 10:08
[2016-07-01 10:20] VITALS: BP 136/82
[2016-07-01] MEDS: ASPIRIN 81 MG ENTERIC TAB PO SCH (11:08)
[2016-07-01] MEDS: FAMOTIDINE 20 MG TAB PO SCH ×2 (11:09→21:12)
[2016-07-01] MEDS: CLOPIDOGREL 75 MG TAB PO SCH (11:09)
[2016-07-01] MEDS: FOLIC ACID 1 MG TAB PO SCH (11:09)
[2016-07-01] MEDS: THIAMINE 100 MG TAB PO SCH (11:09)
[2016-07-01] MEDS: FERROUS GLUCONATE 324 MG TAB PO SCH (11:10)
[2016-07-01] MEDS: SENNA 8.6 MG TAB (SENOKOT) PO SCH (11:10)
[2016-07-01] MEDS: MULTIVITAMINS/MINERALS THERAP 1 TAB PO SCH (11:10)
[2016-07-01] MEDS: LABETALOL 100 MG TAB PO SCH ×2 (11:11→21:12)
[2016-07-01 14:00] VITALS: BP 158/76
--- NOTE | 2016-07-01 15:02 | IPN ---
DATE OF VISIT: 07/01/2016 SUBJECTIVE: This is a 55-year-old male who is seen and examined on medical/surgical. Overnight the patient was reportedly restless and required placement of mittens. He underwent hemodialysis well and a total of 550 mL fluid removed. He has not had his breakfast yet, but nurses tell me he has had poor appetite. He denies any chest pain, shortness of breath, nausea, vomiting, diarrhea though the patient is somewhat confused and this is somewhat reliable. He initially had problems with bleeding with his dialysis catheter, but that has improved after pressure was placed. OBJECTIVE: VITAL SIGNS: Blood pressure 136/82, heart rate 86, temperature 98.5, respiration rate 16, pulse oximetry 97% on room air. Intake and output the last 24 hours 420 and 550, net negative of 130. Two bowel movements documented. Weight has not been documented in the last 2 days. Last check was 63.6 kg, 2 days ago. GENERAL: Patient is lying in bed, comfortable, no acute distress. He is alert, and oriented to person only. HEENT: Normocephalic, atraumatic. Moist oral mucosa. Eyes: Extraocular movement intact. NECK: Supple. Trachea midline. No jugular venous distention (JVD). CHEST: Symmetric chest rise. No accessory muscle use. Breath sounds were diminished, but clear bilaterally. Right IJ catheter is in place with soaked dried blood from dialysis yesterday. HEART: Regular rate and rhythm. Normal S1, S2. ABDOMEN: Soft, nontender, nondistended. Bowel sounds present. No guarding. No rebound. EXTREMITIES: No pedal edema. Pedal pulses present bilaterally. NEUROLOGICAL: Mentation is not significantly changed compared to yesterday. He is only oriented at 2+ and at times answers questions appropriately. PSYCHIATRIC: Pleasant, cooperative. LABORATORY DATA: WBC 5.6, hemoglobin 9, hematocrit 25.7, platelets 294. Sodium 139, potassium 4.2, chloride 102, carbon dioxide 28, BUN 20, creatinine 3.47, glucose 95, albumin 3.1. MEDICATIONS: Reviewed and show no changes have been made to his list in the last 2 days. IMPRESSION: Mr. Mack is a 55-year-old male with past medical history of hypertension, hyperlipidemia, multiple CVA likely secondary to embolic event admitted for acute kidney injury (PETER). PLAN: 1. Acute renal failure. Reason for his renal failure remains unclear. Could be due to effect of antibiotic which have been discontinued. Could also be due to dehydration due to his poor by mouth intake that is very slow to improving. He underwent hemodialysis for the second time yesterday. 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 2. Hypertension. Blood pressure is within reasonable range. He is on labetalol. If it becomes elevated, it might be reasonable to restarted either Norvasc or hydralazine. 3. Anemia. Hemoglobin and hematocrit is not significantly changed compared to yesterday. Continue Aranesp on Monday and iron supplementation. 4. Hyperphosphatemia. Resolved after dialysis. My preceptor for this patient encounter was Dr. Forbes. The preceptor was physically present in the building during the encounter and was fully available. As needed, all aspects of the patient interview, examination, medical decision making process, and medical care plan development were reviewed and approved by the preceptor. The preceptor is aware and concurs with the plan as stated in the body of this note and will attest to such by his/her cosignature. ANGÉLICA
[2016-07-01] MEDS: LORazepam 2 MG/ML VIAL (J2060) IV PRN (18:34)
[2016-07-01] MEDS: ATORVASTATIN 20 MG TAB PO SCH (21:12)
[2016-07-01 22:00] VITALS: BP 124/72
[2016-07-02 02:00] VITALS: BP 121/58
[2016-07-02] MEDS: SODIUM CHLORIDE 0.9% INJ 10 ML SYR IV SCH ×2 (05:45→17:23)
[2016-07-02 06:00] VITALS: BP 114/68
[2016-07-02 06:18] LABS: BASO % 0.6 % (0.0-1.0); EOS # 0.2 K/mm3 (0.0-0.50); EOS % 2.8 % (0.0-3.0); LARGE UNSTAINED CELL # 0.2 K/mm3 (0.0-0.4); LARGE UNSTAINED CELL % 2.5 % (0.0-4.0); LYMPH # 1.4 K/mm3 (1.5-4.5); LYMPH % 23.8 % (24.0-44.0); MEAN CORPUSCULAR HEMOGLOBIN 29.2 pg (27.0-33.0); MEAN CORPUSCULAR HGB CONC 34.7 g/dl (32.0-36.5); MEAN CORPUSCULAR VOLUME 84.1 fl (80.0-96.0); MONO # 0.4 K/mm3 (0.0-0.8); MONO % 6.2 % (0.0-5.0); NEUTROPHILS # 3.8 K/mm3 (1.8-7.7); NEUTROPHILS % 64.1 % (36.0-66.0); PLATELET COUNT, AUTOMATED 320 k/mm3 (150-450); RED CELL DISTRIBUTION WIDTH 15.2 % (11.5-14.5)
[2016-07-02 06:22] LABS: CALCIUM LEVEL 8.4 MG/DL (8.5-10.1); CREATININE FOR GFR 4.49 MG/DL (0.70-1.30); GLOMERULAR FILTRATION RATE 14.6 (>56); MAGNESIUM LEVEL 2.3 MG/DL (1.8-2.4); POTASSIUM SERUM 4.2 MEQ/L (3.5-5.1)
[2016-07-02] MEDS: FAMOTIDINE 20 MG TAB PO SCH ×2 (09:02→21:54)
[2016-07-02] MEDS: FERROUS GLUCONATE 324 MG TAB PO SCH (09:02)
[2016-07-02] MEDS: MULTIVITAMINS/MINERALS THERAP 1 TAB PO SCH (09:02)
[2016-07-02] MEDS: SENNA 8.6 MG TAB (SENOKOT) PO SCH (09:02)
[2016-07-02] MEDS: FOLIC ACID 1 MG TAB PO SCH (09:02)
[2016-07-02] MEDS: THIAMINE 100 MG TAB PO SCH (09:02)
[2016-07-02] MEDS: ASPIRIN 81 MG ENTERIC TAB PO SCH (09:02)
[2016-07-02] MEDS: CLOPIDOGREL 75 MG TAB PO SCH (09:03)
[2016-07-02] MEDS: LABETALOL 100 MG TAB PO SCH ×2 (09:05→21:00)
[2016-07-02 09:35] LABS: ALBUMIN 3.2 GM/DL (3.2-5.2); PHOSPHORUS LEVEL 5.2 MG/DL (2.5-4.9)
[2016-07-02] MEDS ORDERED: HEPARIN 1,000 UNITS/ML 10ML VIAL (FOR RADIOLOGY& DIALYSIS ONLY) IV ONE (10:45)
[2016-07-02] MEDS ORDERED: HEPARIN 1,000 UNITS/ML 10ML VIAL (FOR RADIOLOGY& DIALYSIS ONLY) XX ONE (10:45)
--- NOTE | 2016-07-02 10:54 | IPNPDOC ---
Text Note Date of Service The patient was seen on 07/02/16. NOTE Subjective: Patient is a 55 year old male with a PMHx of HTN, DLP, tobacco abuse and recent history of multifocal acute infarcts 2/2 possible embolic phenomenon (ECHO at [facility]; reveals thin filamentous structure on mitral valve - possible vegetation, with patent bautista ovale). Patient was started on Vancomycin and Cefepime for suspected endocarditis for 6 weeks (Starting 05/29/16 ). Since that point his serum creatinine has been progressively increasing and he was subsequently admitted for acute renal failure. Patient was seen at the bedside today and examined. He was more conversive today. He did not report having any problems. I advised him that we will continue to monitor his kidney function but will still look at setting up dialysis as an outpatient. Objective: Vitals (See below) General: Lying in bed, no acute distress, comfortable, Awake and Alert HEENT: NC, AT CVS: RRR, +S1S2 Lungs: Fair air entry b/l, -w/r/r Abdomen: Soft, ND, NT, +BSx4 Extremities: +PPx4, - Edema, - Calf tenderness Assessment and plan: 1. Acute renal failure - likely 2/2 intra-renal etiology - 2/2 nephrotoxic medications (Vancomycin), possibly embolic phenomenon - Presented with worsening Creatinine; patient is still unable to have adequate creatinine clearance without dialysis - Physical reveal no signs of fluid overload; he continues to produce urine ( incontinent) - s/p Non-anion gap acidosis; s/p hyperkalemia; s/p hyperphosphatemia - s/p PermCath placement, c/w regular dialysis (First session started on 06/28) - Dr. Forbes (on consult) - appreciate their input - s/p Bicarbonate - Will discuss with case management about setting up dialysis outpatient 2. 2. Suspected endocarditis history - 2/2 multi-infarct stroke - Remains afebrile without leukocytosis - ECHO 06/25: no vegetations noted - Blood cultures 06/24 - negative - Off antibiotics - s/p Cefepime and Vancomycin 3. Hypertension - BP well controlled - s/p Hydralazine and Amlodipine - c/w labetalol 200 BID 4. CVA - possibly 2/2 embolic phenomenon; with left sided weakness - c/w ASA and Plavix 5. Normocytic anemia - possibly 2/2 CLEO and kidney disease - Has some oozing around PermCath site; however no significant change in Hg - FOBT positive - c/w Ferrous sulfate and Darbepoetin (qT) - Will need to have outpatient colonoscopy 6. Hx of Alcohol abuse - c/w thiamine, folate and multivitamins 7. Constipation - c/w bowel regimen 8. GERD - c/w famotidine 9. DVT prophylaxis - c/w SCDs Disposition: - Will look into outpatient dialysis setup - Will plan on sending back to shelter once established with follow up with Nephrology [facility], I+O [facility] I+O Laboratory Tests 07/02/16 05:55 Calcium Level 8.4 L, Red Blood Count 3.05 L, Mean Corpuscular Volume 84.1, Mean Corpuscular Hemoglobin 29.2, Mean Corpuscular Hemoglobin Concent 34.7, Red Cell Distribution Width 15.2 H, Neutrophils (%) (Auto) 64.1, Lymphocytes (%) (Auto) 23.8 L, Monocytes (%) (Auto) 6.2 H, Eosinophils (%) (Auto) 2.8, Basophils (%) ( Auto) 0.6, Neutrophils # (Auto) 3.8, Lymphocytes # (Auto) 1.4 L, Monocytes # ( Auto) 0.4, Eosinophils # (Auto) 0.2, Basophils # (Auto) 0.0 Vital Signs Date Time Temp Pulse Resp B/P Pulse Ox O2 Delivery O2 Flow Rate FiO2 07/02/16 09:05 138/90 07/02/16 06:00 98.0 68 17 96 Room Air I&O- Last 24 Hours up to 6 AM 07/02/16 06:00 Intake Total 720 ml Balance 720 ml TOMAS BURNS MD Jul 02, 2016 10:53
[2016-07-02 14:00] VITALS: BP 180/82
--- NOTE | 2016-07-02 14:12 | IPN ---
DATE: 07/02/2016 SUBJECTIVE: This is a 55-year-old male who was seen and examined in dialysis room. Overnight no reported events recorded. His sitter was no longer required. This morning requests to urinate, but otherwise no complaints. REVIEW OF SYSTEMS: Again is difficult as the patient's baseline is confused, but denies any chest pain, shortness of breath, nausea, vomiting, fevers. OBJECTIVE: VITAL SIGNS: Blood pressure 138/90, heart rate 68, temperature 98, respiration rate 17, pulse oximetry 96% on room air. Intake and output the last 24 hours 720 in and output is 0. He had seven incontinent voids and one bowel movements documented. Weight is 63.6 kg from three days ago. GENERAL: Patient is lying in dialysis bed, comfortable, no acute distress. He is alert, awake and oriented to person only. HEENT: Normocephalic, atraumatic. Moist oral mucosa. NECK: Supple. No jugular venous distention (JVD). CHEST: Right IJ dialysis catheter is in place and functioning well. HEART: Regular rate and rhythm. S1 and S2 present. LUNGS: Diminished due to patient not cooperating, but clear bilaterally. ABDOMEN: Soft, nontender, nondistended. Bowel sounds present. No guarding. No rebound. EXTREMITIES: No pedal edema. Pedal pulses present bilaterally. PSYCHIATRIC: Pleasant, at times cooperative. NEUROLOGICAL: Alert, awake, oriented to person only. LABORATORY DATA: WBC 6, hemoglobin 8.9, hematocrit 25.7, platelets 320. Sodium 140, potassium 4.2, chloride 103, carbon dioxide 28, BUN 26, creatinine 4.49, increased from yesterday at 3.47, glucose 91, calcium 8.4, phosphorous 5.2. Magnesium 2.3, albumin 3.2. MEDICATIONS: Reviewed. No changes have been made to his medication list since his last visit. IMPRESSION: Mr. Mack is a 55-year-old male with past medical history of hypertension, hyperlipidemia, multiple CVA believed to be secondary to embolic event admitted for acute kidney injury (PETER). 1. Acute renal failure. Unfortunately, his renal function has not significantly responded or improved on its own after undergoing dialysis twice. Because of his worsening renal function, the patient is currently undergoing dialysis again today. Hopefully, his renal function will slowly improve so that he will not require residential dialysis. His renal failure is likely secondary to nephrotoxic medications and/or dehydration. There is report of multiple incontinent voids. It is unclear whether or not he is retaining urine, which could also contribute to his worsening renal failure. We have ordered for bladder scan, frequency every 8 hours and to notify provider if greater than 250 mL. If he shows to be retaining urine, he might require catheterization. 2. Hypertension. Blood pressure is within reasonable range. He is on labetalol. Previously had Norvasc or hydralazine, which can be restarted if his blood pressure worsens. 3. Anemia. Hemoglobin and hematocrit have not significantly changed compared to yesterday. He receives Aranesp on Monday and is also on iron supplementation. 4. Hyperphosphatemia. He will be undergoing dialysis today which will hopefully improve his level. My preceptor for this patient encounter was Dr. Vishal Frank. The preceptor was physically present in the building during the encounter and was fully available. As needed, all aspects of the patient interview, examination, medical decision making process, and medical care plan development were reviewed and approved by the preceptor. The preceptor is aware and concurs with the plan as stated in the body of this note and will attest to such by his/her cosignature. ANGÉLICA
[2016-07-02] MEDS ORDERED: amLODIPine 5 MG TAB PO ONE ×2 (15:00→18:15)
[2016-07-02 18:00] VITALS: BP 192/84
[2016-07-02] MEDS: ATORVASTATIN 20 MG TAB PO SCH (21:54)
[2016-07-02 22:00] VITALS: BP 116/65
[2016-07-03 02:00] VITALS: BP 113/66
[2016-07-03] MEDS: SODIUM CHLORIDE 0.9% INJ 10 ML SYR IV SCH ×2 (05:23→18:39)
[2016-07-03 05:50] LABS: BASO % 0.6 % (0.0-1.0); EOS # 0.2 K/mm3 (0.0-0.50); EOS % 2.5 % (0.0-3.0); LARGE UNSTAINED CELL # 0.1 K/mm3 (0.0-0.4); LARGE UNSTAINED CELL % 1.7 % (0.0-4.0); LYMPH # 1.5 K/mm3 (1.5-4.5); LYMPH % 22.2 % (24.0-44.0); MEAN CORPUSCULAR HEMOGLOBIN 28.3 pg (27.0-33.0); MEAN CORPUSCULAR HGB CONC 33.4 g/dl (32.0-36.5); MEAN CORPUSCULAR VOLUME 84.7 fl (80.0-96.0); MONO # 0.5 K/mm3 (0.0-0.8); MONO % 8.1 % (0.0-5.0); NEUTROPHILS # 4.1 K/mm3 (1.8-7.7); PLATELET COUNT, AUTOMATED 360 k/mm3 (150-450); RED CELL DISTRIBUTION WIDTH 15.5 % (11.5-14.5); WHITE BLOOD COUNT 6.3 K/mm3 (4.0-10.0)
[2016-07-03 06:00] VITALS: BP 113/62
[2016-07-03 06:01] LABS: CALCIUM LEVEL 8.8 MG/DL (8.5-10.1); CREATININE FOR GFR 3.17 MG/DL (0.70-1.30); GLOMERULAR FILTRATION RATE 21.8 (>56); MAGNESIUM LEVEL 2.1 MG/DL (1.8-2.4)
[2016-07-03] MEDS: THIAMINE 100 MG TAB PO SCH (08:41)
[2016-07-03] MEDS: FERROUS GLUCONATE 324 MG TAB PO SCH (08:41)
[2016-07-03] MEDS: FOLIC ACID 1 MG TAB PO SCH (08:41)
[2016-07-03] MEDS: CLOPIDOGREL 75 MG TAB PO SCH (08:42)
[2016-07-03] MEDS: ASPIRIN 81 MG ENTERIC TAB PO SCH (08:42)
[2016-07-03] MEDS: MULTIVITAMINS/MINERALS THERAP 1 TAB PO SCH (08:42)
[2016-07-03] MEDS: FAMOTIDINE 20 MG TAB PO SCH ×2 (08:43→20:19)
[2016-07-03] MEDS: SENNA 8.6 MG TAB (SENOKOT) PO SCH (08:43)
[2016-07-03] MEDS: LABETALOL 100 MG TAB PO SCH ×2 (08:43→18:39)
[2016-07-03] MEDS: amLODIPine 5 MG TAB PO SCH (09:45)
[2016-07-03 10:00] VITALS: BP 114/56
--- NOTE | 2016-07-03 10:14 | IPNPDOC ---
Text Note Date of Service The patient was seen on 07/03/16. NOTE Subjective: Patient is a 55 year old male with a PMHx of HTN, DLP, tobacco abuse and recent history of multifocal acute infarcts 2/2 possible embolic phenomenon (ECHO at [facility]; reveals thin filamentous structure on mitral valve - possible vegetation, with patent bautista ovale). Patient was started on Vancomycin and Cefepime for suspected endocarditis for 6 weeks (Starting 05/29/16 ). Since that point his serum creatinine has been progressively increasing and he was subsequently admitted for acute renal failure. Patient was seen at the bedside today and examined. He did not have any complaints today. Objective: Vitals (See below) General: Lying in bed, no acute distress, comfortable, Awake and Alert HEENT: NC, AT CVS: RRR, +S1S2 Lungs: Fair air entry b/l, -w/r/r Abdomen: Soft, ND, NT, +BSx4 Extremities: +PPx4, - Edema, - Calf tenderness Assessment and plan: 1. Acute renal failure - likely 2/2 intra-renal etiology - 2/2 nephrotoxic medications (Vancomycin), possibly embolic phenomenon - Presented with worsening Creatinine; patient is still unable to have adequate creatinine clearance without dialysis - Physical reveal no signs of fluid overload; he continues to produce urine ( incontinent) - s/p Non-anion gap acidosis; s/p hyperkalemia; s/p hyperphosphatemia - s/p PermCath placement, c/w regular dialysis (First session started on 06/28) - Dr. Forbes / Zac (on consult) - appreciate their input - Will establish outpatient hemodialysis 2. Suspected endocarditis history - 2/2 multi-infarct stroke - Remains afebrile without leukocytosis - ECHO 06/25: no vegetations noted - Blood cultures 06/24 - negative - Off antibiotics - s/p Cefepime and Vancomycin 3. Hypertension - BP was elevated yesterday - has received 10mg of Amlodipine yesterday afternoon - s/p Hydralazine - Restarted Amlodipine 5mg daily today - Will change timing of Labetalol evening dose for 7PM - c/w labetalol 200 BID 4. CVA - possibly 2/2 embolic phenomenon; with left sided weakness - c/w ASA and Plavix 5. Normocytic anemia - possibly 2/2 CLEO and kidney disease - FOBT positive - Slow decline in Hg; No evidence of overt bleeding - c/w Ferrous sulfate and Darbepoetin () - Will need to have outpatient colonoscopy 6. Hx of Alcohol abuse - c/w thiamine, folate and multivitamins 7. Constipation - c/w bowel regimen 8. GERD - c/w famotidine 9. DVT prophylaxis - c/w SCDs Disposition: - Case management to establish Dialysis as an outpatient on Monday; will follow with Nephrology when returned to detention [facility], I+O VS, Kem, I+O Laboratory Tests 07/03/16 05:25 Calcium Level 8.8, Red Blood Count 3.08 L, Mean Corpuscular Volume 84.7, Mean Corpuscular Hemoglobin 28.3, Mean Corpuscular Hemoglobin Concent 33.4, Red Cell Distribution Width 15.5 H, Neutrophils (%) (Auto) 65.0, Lymphocytes (%) (Auto) 22.2 L, Monocytes (%) (Auto) 8.1 H, Eosinophils (%) (Auto) 2.5, Basophils (%) ( Auto) 0.6, Neutrophils # (Auto) 4.1, Lymphocytes # (Auto) 1.5, Monocytes # (Auto ) 0.5, Eosinophils # (Auto) 0.2, Basophils # (Auto) 0.0 Vital Signs Date Time Temp Pulse Resp B/P Pulse Ox O2 Delivery O2 Flow Rate FiO2 07/03/16 09:45 136/80 07/03/16 08:43 86 07/03/16 06:00 99.5 17 96 Room Air I&O- Last 24 Hours up to 6 AM 07/03/16 06:00 Intake Total 440 ml Output Total 600 ml Balance -160 ml TOMAS BURNS MD Jul 03, 2016 10:14
[2016-07-03] MEDS ORDERED: LABETALOL 100 MG TAB PO SCH (10:17)
--- NOTE | 2016-07-03 11:54 | IPN ---
DATE OF SERVICE: 07/03/2016 SUBJECTIVE: The patient was seen and examined at the bedside today. He is alert and calm at this time. He was dialyzed yesterday. About 600 mL of fluid was removed. I talked to the patient's nurses. The patient is having wet diapers almost five or six times a day, although the exact urine output is not recorded. The patient is afebrile, hemodynamically stable, and his electrolytes and creatinine are better as compared with yesterday after hemodialysis. REVIEW OF SYSTEMS: The patient denies any fever, chills, rigors, headache, nausea, vomiting, chest pain, shortness of breath, pain abdomen, constipation, or diarrhea. Rest of review of systems is negative. OBJECTIVE: VITAL SIGNS: Temperature is 99.8 degrees Fahrenheit, blood pressure is 114/56, pulse is 69, respiratory rate of 16, saturating 96% on room air. INTAKE AND OUTPUT: There is no urine output recorded. The patient had five incontinent voids yesterday and two incontinent voids so far today since overnight. Ultrafiltration with hemodialysis was 600 mL yesterday. Weight on the bed scale is not available today. PHYSICAL EXAMINATION: GENERAL: The patient is awake, alert, and oriented to himself only, lying in bed, in no apparent distress. HEAD AND NECK EXAMINATION: Atraumatic, normocephalic. Extraocular muscles intact. Mucous membranes are moist. Neck is supple. There is no jugular venous distention (JVD). He has tunneled hemodialysis catheter in the right internal jugular (vein) (IJ). CARDIOVASCULAR: S1, S2, regular rate. No murmur, rub, and gallop. RESPIRATORY: Chest is clear to auscultation bilaterally. Bilateral equal air entry. ABDOMEN: Soft. Positive bowel sounds. Nontender. No ascites. No organomegaly. EXTREMITIES: No clubbing or cyanosis. Pulses are 2+. CENTRAL NERVOUS SYSTEM (ASSISTANT PASTRY CHEF): The patient is alert and oriented to himself only , and he moves extremities on commands. PSYCHIATRIC: The patient is calm and cooperative at this time. LABORATORY REVIEW: CBC showed WBC 6.3, hemoglobin 8.7 which is worse than yesterday (it was 8.9 yesterday), platelets of 360. BMP showed sodium 139, potassium is 4, chloride 101, bicarbonate is 29, BUN is 15, creatinine is 3.1 (it was 4.4 yesterday), calcium is 8.8, magnesium is 2.1. CURRENT MEDICATIONS: The patient's medications were all reviewed by me. He was given two doses of amlodipine 5 mg by mouth because of hypertension. I have changed his Aranesp dose to 300 mcg intravenous (IV) with hemodialysis. There is no other change in the medications today as compared with yesterday. ASSESSMENT: Mr. Mack is a 55-year-old male with past medical history of hypertension, hyperlipidemia, multiple cerebrovascular accidents (CVAs) believed to be secondary to thromboembolic event. He was admitted to [facility] at this time because of acute kidney injury. Nephrology service following the patient for management of acute kidney injury. 1. Acute renal failure. The patient needed another session of dialysis yesterday. I would monitor his creatinine in between dialysis sessions. If needed, the patient might get another session of hemodialysis on Monday. Continue to monitor daily weight for now. Avoid nephrotoxic medications. Bladder scan was also ordered every 8 hours, and bladder scan done yesterday showed no urine in the bladder. 2. Hypertension. The patient's blood pressure was high yesterday. He needed two doses of amlodipine. I am starting the patient on amlodipine 5 mg by mouth daily. Continue current dose of labetalol 200 mg by mouth twice a day. Avoid angiotensin-converting enzyme (ANETTE) inhibitors or angiotensin receptor blockers at this time. 3. Anemia in end-stage renal disease. The patient's hemoglobin continues to trend down. I have increased his Aranesp dose to 300 mcg IV with hemodialysis. Continue the iron supplement, as well. MTDD
[2016-07-03 14:00] VITALS: BP 95/61
[2016-07-03] MEDS: ATORVASTATIN 20 MG TAB PO SCH (20:19)
[2016-07-03 22:00] VITALS: BP 100/66
[2016-07-04 02:00] VITALS: BP 115/72
[2016-07-04] MEDS: SODIUM CHLORIDE 0.9% INJ 10 ML SYR IV SCH ×2 (05:08→18:24)
[2016-07-04 05:43] LABS: BASO % 0.7 % (0.0-1.0); EOS # 0.1 K/mm3 (0.0-0.50); EOS % 2.2 % (0.0-3.0); LARGE UNSTAINED CELL # 0.1 K/mm3 (0.0-0.4); LARGE UNSTAINED CELL % 2.2 % (0.0-4.0); LYMPH # 1.5 K/mm3 (1.5-4.5); LYMPH % 21.9 % (24.0-44.0); MEAN CORPUSCULAR HGB CONC 32.9 g/dl (32.0-36.5); MEAN CORPUSCULAR VOLUME 85.1 fl (80.0-96.0); MONO # 0.5 K/mm3 (0.0-0.8); MONO % 8.1 % (0.0-5.0); NEUTROPHILS % 64.9 % (36.0-66.0); PLATELET COUNT, AUTOMATED 393 k/mm3 (150-450); RED CELL DISTRIBUTION WIDTH 15.7 % (11.5-14.5); WHITE BLOOD COUNT 6.2 K/mm3 (4.0-10.0)
[2016-07-04 05:44] LABS: CALCIUM LEVEL 8.6 MG/DL (8.5-10.1); CREATININE FOR GFR 4.3 MG/DL (0.70-1.30); GLOMERULAR FILTRATION RATE 15.3 (>56); MAGNESIUM LEVEL 2.2 MG/DL (1.8-2.4); POTASSIUM SERUM 4.1 MEQ/L (3.5-5.1)
[2016-07-04 06:00] VITALS: BP 120/68
[2016-07-04] MEDS: CLOPIDOGREL 75 MG TAB PO SCH (09:20)
[2016-07-04] MEDS: FOLIC ACID 1 MG TAB PO SCH (09:20)
[2016-07-04] MEDS: THIAMINE 100 MG TAB PO SCH (09:20)
[2016-07-04] MEDS: SENNA 8.6 MG TAB (SENOKOT) PO SCH (09:21)
[2016-07-04] MEDS: FAMOTIDINE 20 MG TAB PO SCH ×2 (09:21→20:05)
[2016-07-04] MEDS: amLODIPine 5 MG TAB PO SCH (09:21)
[2016-07-04] MEDS: MULTIVITAMINS/MINERALS THERAP 1 TAB PO SCH (09:21)
[2016-07-04] MEDS: FERROUS GLUCONATE 324 MG TAB PO SCH (09:21)
[2016-07-04] MEDS: LABETALOL 100 MG TAB PO SCH ×2 (09:21→18:23)
[2016-07-04] MEDS: ASPIRIN 81 MG ENTERIC TAB PO SCH (09:21)
[2016-07-04 10:00] VITALS: BP 141/77
--- NOTE | 2016-07-04 10:14 | IPNPDOC ---
Text Note Date of Service The patient was seen on 07/04/16. NOTE Subjective: Patient is a 55 year old male with a PMHx of HTN, DLP, tobacco abuse and recent history of multifocal acute infarcts 2/2 possible embolic phenomenon (ECHO at [facility]; reveals thin filamentous structure on mitral valve - possible vegetation, with patent bautista ovale). Patient was started on Vancomycin and Cefepime for suspected endocarditis for 6 weeks (Starting 05/29/16 ). Since that point his serum creatinine has been progressively increasing and he was subsequently admitted for acute renal failure. Patient was seen at the bedside today and examined. Did not have any complaints today. Was noted to have twitching of his left arm and some confusion earlier this morning. Objective: Vitals (See below) General: Lying in bed, no acute distress, comfortable, Awake and Alert HEENT: NC, AT CVS: RRR, +S1S2 Lungs: Fair air entry b/l, -w/r/r Abdomen: Soft, ND, NT, +BSx4 Extremities: +PPx4, - Edema, - Calf tenderness Assessment and plan: 1. Acute renal failure - likely 2/2 intra-renal etiology - 2/2 nephrotoxic medications (Vancomycin), possibly embolic phenomenon - Presented with worsening Creatinine; patient is still unable to have adequate creatinine clearance without dialysis - Physical reveal no signs of fluid overload; he continues to produce urine although incontinent - s/p Non-anion gap acidosis; s/p hyperkalemia; s/p hyperphosphatemia - s/p PermCath placement, c/w regular dialysis (First session started on 06/28; now on TTS schedule) - Dr. Forbes / Zac (on consult) - appreciate their input - Will establish outpatient hemodialysis - again discussing with case management 2. Twitching of left arm - possibly 2/2 partial seizure - Hx of multifocal infarcts on right side - Had twiching and confusion this morning - Will get EEG - Will start Keppra 500 mg BID after EEG - Discussed case with Neurology (Dr. Kaufman) - will be on consult 3. Suspected endocarditis history - 2/2 multi-infarct stroke - Remains afebrile without leukocytosis - ECHO 06/25: no vegetations noted - Blood cultures 06/24 - negative - Off antibiotics for 7 days - s/p Cefepime and Vancomycin 4. Hypertension - s/p Hydralazine - c/w Labetalol 200 BID and Amlodipine 5mg QD 5. CVA - possibly 2/2 embolic phenomenon; with left sided weakness - c/w ASA and Plavix 6. Normocytic anemia - possibly 2/2 CLEO and kidney disease - FOBT positive - Slow decline in Hg; No evidence of overt bleeding - c/w Ferrous sulfate and Darbepoetin (qTuesday) - Will need to have outpatient colonoscopy 7. Hx of Alcohol abuse - c/w thiamine, folate and multivitamins 8. Constipation - c/w bowel regimen 9. GERD - c/w famotidine 10. DVT prophylaxis - c/w SCDs Disposition: - Awaiting results of EEG / Neuro consult - Case management to establish Dialysis as an outpatient; will follow with Nephrology when returned to [facility] VS,Kem, I+O VS, Kem, I+O Laboratory Tests 07/04/16 05:09 Calcium Level 8.6, Red Blood Count 3.12 L, Mean Corpuscular Volume 85.1, Mean Corpuscular Hemoglobin 28.0, Mean Corpuscular Hemoglobin Concent 32.9, Red Cell Distribution Width 15.7 H, Neutrophils (%) (Auto) 64.9, Lymphocytes (%) (Auto) 21.9 L, Monocytes (%) (Auto) 8.1 H, Eosinophils (%) (Auto) 2.2, Basophils (%) ( Auto) 0.7, Neutrophils # (Auto) 4.0, Lymphocytes # (Auto) 1.5, Monocytes # (Auto ) 0.5, Eosinophils # (Auto) 0.1, Basophils # (Auto) 0.0 Vital Signs Date Time Temp Pulse Resp B/P Pulse Ox O2 Delivery O2 Flow Rate FiO2 07/04/16 09:21 70 146/87 07/04/16 06:00 99.5 16 96 Room Air I&O- Last 24 Hours up to 6 AM 07/04/16 06:00 Intake Total 1050 ml Output Total 0 ml Balance 1050 ml TOMAS BURNS MD Jul 04, 2016 10:14
--- NOTE | 2016-07-04 13:12 | IPN ---
DATE: 07/04/2016 SUBJECTIVE: Patient was seen and examined at the bedside today in the morning. He was actually sitting in the sofa. The patient was drooling from his mouth and he was having involuntary jerking movement of the left upper arm when I examined the patient. He was not able to communicate. Otherwise, he was not in any distress. REVIEW OF SYSTEMS: The patient is unable to provide any reliable review of systems to me at this time. OBJECTIVE: VITAL SIGNS: Temperature 99.5 degrees Fahrenheit. Blood pressure 146/87. Pulse 70. Respiratory rate 16. Saturating 96% on room air. INTAKE AND OUTPUT: Urine output is not recorded. Patient had four incontinent voids yesterday, one incontinent void so far today since overnight. Bed scale weight is not available. PHYSICAL EXAM: GENERAL: Patient is awake and alert. Oriented to himself only. Sitting in the sofa. Drooling from his mouth and having involuntary twitching movement of the left upper arm. HEAD AND NECK EXAM: Atraumatic. Normocephalic. Pupils are equally round and reactive to light. Mucous membranes are moist. Patient has involuntary drooling from the mouth, but otherwise he can answer a few questions and move his facial muscles. NECK: There is no jugular venous distention. Patient has a tunneled hemodialysis catheter in the right internal jugular (IJ). CARDIOVASCULAR: S1, S2, regular rate. No murmur, rub or gallop. RESPIRATORY: Chest is clear to auscultation bilaterally. Bilaterally good air entry. ABDOMEN: Soft. Positive bowel sounds. Nontender. No ascites. No organomegaly. EXTREMITIES: No clubbing or cyanosis. Pulses are 2+. CENTRAL NERVOUS SYSTEM: Patient is oriented to himself only. Patient is having involuntary jerking and twitching movements of the left upper arm which are episodic. PSYCHIATRIC: Patient is otherwise calm and cooperative. LAB REVIEW: CBC showed WBC 6.2, hemoglobin 8.7, and platelets are 393. BMP shows sodium 138, potassium 4.1, chloride 102, bicarbonate 27, BUN 27, creatinine 4.3 and it was 3.1 yesterday. Magnesium 2.2. CURRENT MEDICATIONS: Patient's medications were all reviewed by me. He has been started on Keppra 500 mg by mouth twice a day. No change in the medications today as compared with yesterday. ASSESSMENT: Mr. Mack is a 55-year-old male with past medical history of hypertension and hyperlipidemia, who recently had multiple CVAs believed to be secondary to thromboembolic events. He was admitted to [facility] because of acute kidney injury. The patient had to be started on hemodialysis during this admission. PLAN: 1. Acute renal failure. Patient continues to be on hemodialysis. His creatinine continues to climb in between hemodialysis sessions. We don't have an accurate urine output, but he does have incontinent voids. We would need to continue hemodialysis at this moment until his creatinine plateaus or improves between hemodialysis sessions. 2. Hypertension. Blood pressure is acceptable at this time. He was started on amlodipine 5 mg by mouth daily. Continue current dose of labetalol 200 mg by mouth twice a day as well. Avoid angiotensin-converting enzyme (ANETTE) inhibitors at this time. 3. Anemia in end-stage renal disease. The patient's hemoglobin is stable at this time at 8.7. However, it is suboptimal. The patient will get a dose of Aranesp 300 mcg IV with hemodialysis tomorrow. 4. Multiple CVAs and involuntary left upper arm jerking movements. Given the history of multiple CVAs and possibility of seizure, the patient has been started on Keppra 500 mg by mouth twice a day. Electroencephalogram (EEG) has been ordered and the patient will be evaluated by neurology as well. The case was discussed with the hospitalist team, Dr. Reji Hwang as well.
[2016-07-04 14:00] VITALS: BP 165/76
[2016-07-04] MEDS: levETIRAcetam 250MG TABLET (KEPPRA) PO SCH ×2 (15:39→20:05)
[2016-07-04 18:00] VITALS: BP 137/90
[2016-07-04] MEDS: ATORVASTATIN 20 MG TAB PO SCH (20:05)
--- NOTE | 2016-07-04 20:37 | CR ---
DATE OF CONSULTATION: 07/04/2016 REFERRING PHYSICIAN: Dr. Reji Hwang REASON FOR CONSULTATION: Episodes of confusion and left arm shaking. HISTORY OF PRESENT ILLNESS: Jose F Mack is a 55-year-old man with history of multifocal right parietal and occipital ischemic strokes who was admitted at [facility]. He was found to have possible vegetation thought to be due to bacterial endocarditis and a PFO on transesophageal echocardiogram. He was given 6 weeks of antibiotics. He was on vancomycin and cefepime. He was transferred to physical medicine and rehabilitation facility at [facility] on 06/03/2016. He was later sent to [facility] for subacute rehabilitation given his cognitive problems. The patient was noted to have progressively increasing creatinine which was 1.05 on 06/03/2016, which increased progressively to 5.24 on 06/18/2016. His creatinine has decreased slightly since then. The patient is unable to provide his history. Nurse who was taking care of him has not seen his spells. According to Dr. Reji Hwang, he had shaking of his left arm and episodes of confusion. Duration of these episodes is unknown. Most of information was obtained from electronic medical records. The patient is unable to provide any meaningful history. He denies any headaches, neck or back pain. He seems to have left-sided neglect and left-sided cortical sensory loss and visual field deficit on left side. PAST MEDICAL HISTORY: Recent right parietal and occipital multifocal ischemic embolic strokes which were thought to be related to PFO or bacterial endocarditis. Hypertension, dyslipidemia, acid reflux, acute renal failure. ALLERGIES: No known drug allergies. SOCIAL HISTORY: He smoked two packs per day. He drinks one beer a day at home. I cannot corroborate this information. FAMILY HISTORY: The patient states that his brother had a stroke. REVIEW OF SYSTEMS: Could not be obtained reliably. CURRENT MEDICATIONS: - aspirin 81 mg by mouth daily - Plavix 75 mg by mouth daily - Lipitor 80 mg by mouth daily - hydralazine 25 mg by mouth every 6 hours - Protonix 40 mg by mouth daily - thiamine 100 mg by mouth daily - amlodipine 10 mg by mouth daily PHYSICAL EXAMINATION: VITAL SIGNS: As per electronic medical records. He has been afebrile. HEART: Regular rate and rhythm. LUNGS: Lungs clear to auscultation. ABDOMEN: Soft, nontender, nondistended. NEUROLOGIC EXAMINATION: The patient is awake, alert, but oriented to self mostly. He knows that he is at [facility]. He is unable to tell me the month, year, date. He is unable to tell me the name of president. He does seem to have difficulty following two-steps and sometimes even one-step commands. Extraocular muscles are intact. No facial weakness. Tongue and uvula are midline. 4+/5 strength on left side. Right-sided strength is 5/5. He has left-sided neglect. He has left-sided visual field deficit. His left plantar is upgoing. He has left-sided dysmetria. Gait could not be tested. ASSESSMENT: 1. Suspected partial and complex partial seizures related to his recent multifocal right parietal and occipital ischemic strokes. 2. Patent foramen ovale. 3. Acute renal failure which is improving. 4. History of possible bacterial endocarditis. PLAN: 1. EEG. 2. Continue thiamine 100 mg by mouth daily. 3. Keppra 500 mg by mouth twice a day and its dose can be increased as his renal failure improves. Keppra is almost exclusively cleared through kidneys. Once his GFR improves, we may increase the dose of his Keppra. 4. CT scan of brain without contrast to see the degree and signs of his ischemic strokes. 5. Follow with our office in 2 weeks after hospital discharge.
[2016-07-04 22:00] VITALS: BP 162/76
[2016-07-05 00:06] LABS: APTT 26.3 sec (.); Anticardiolipin Ab, IgA <10 APL (.)
[2016-07-05 02:00] VITALS: BP 158/77
[2016-07-05 06:00] VITALS: BP 162/84
[2016-07-05] MEDS: SODIUM CHLORIDE 0.9% INJ 10 ML SYR IV SCH ×2 (06:43→18:00)
[2016-07-05 07:02] LABS: BASO % 0.5 % (0.0-1.0); EOS # 0.2 K/mm3 (0.0-0.50); EOS % 2.5 % (0.0-3.0); LARGE UNSTAINED CELL # 0.1 K/mm3 (0.0-0.4); LYMPH # 1.3 K/mm3 (1.5-4.5); LYMPH % 17.2 % (24.0-44.0); MEAN CORPUSCULAR HEMOGLOBIN 28.5 pg (27.0-33.0); MEAN CORPUSCULAR HGB CONC 33.3 g/dl (32.0-36.5); MEAN CORPUSCULAR VOLUME 85.5 fl (80.0-96.0); MONO # 0.6 K/mm3 (0.0-0.8); MONO % 8.2 % (0.0-5.0); NEUTROPHILS # 4.8 K/mm3 (1.8-7.7); NEUTROPHILS % 69.6 % (36.0-66.0); PLATELET COUNT, AUTOMATED 388 k/mm3 (150-450); RED CELL DISTRIBUTION WIDTH 15.9 % (11.5-14.5); WHITE BLOOD COUNT 6.9 K/mm3 (4.0-10.0)
[2016-07-05] MEDS: FAMOTIDINE 20 MG TAB PO SCH ×2 (07:22→20:53)
[2016-07-05] MEDS: levETIRAcetam 250MG TABLET (KEPPRA) PO SCH ×2 (07:22→20:53)
[2016-07-05] MEDS: FOLIC ACID 1 MG TAB PO SCH (07:22)
[2016-07-05] MEDS: SENNA 8.6 MG TAB (SENOKOT) PO SCH (07:22)
[2016-07-05] MEDS: THIAMINE 100 MG TAB PO SCH (07:22)
[2016-07-05] MEDS: CLOPIDOGREL 75 MG TAB PO SCH (07:22)
[2016-07-05] MEDS: ASPIRIN 81 MG ENTERIC TAB PO SCH (07:22)
[2016-07-05] MEDS: FERROUS GLUCONATE 324 MG TAB PO SCH (07:22)
[2016-07-05] MEDS: MULTIVITAMINS/MINERALS THERAP 1 TAB PO SCH (07:23)
[2016-07-05] MEDS: LABETALOL 100 MG TAB PO SCH ×2 (07:23→18:03)
[2016-07-05] MEDS: amLODIPine 5 MG TAB PO SCH (07:23)
[2016-07-05 07:27] LABS: GLOMERULAR FILTRATION RATE 12.9 (>56); MAGNESIUM LEVEL 2.4 MG/DL (1.8-2.4)
--- NOTE | 2016-07-05 09:02 | REP ---
CT HEAD WITHOUT CONTRAST: HISTORY: Infarction. COMPARISON: 05/23/2016. An area of decreased attentuation is present in the posterior right temporal and parietal lobes. Several punctate areas of hemorrhage are present. There is dilatation of the atrium of the right lateral ventricle. This represents a chronic infarction. Areas of decreased attenuation are present in the basal ganglia and internal capsules. These represent old lacunar infarctions. Areas of decreased attentuation are present in the periventricular and subcortical white matter. This represents small vessel ischemic disease. There is no intraparenchymal mass or midline shift. The ventricular system and cortical sulci as well as subarachnoid space in the posterior fossa are dilated consistent with moderate volume loss. There is no extracerebral collection. The visualized sinuses are clear. IMPRESSION: 1. Chronic right temporoparietal lobe infarction. 2. Old bilateral basal ganglia and internal capsule lacunar infarctions. 3. Small vessel ischemic disease. 4. Moderate volume loss. Signed by Sachin Serra MD 07/05/2016 09:47 A
[2016-07-05] MEDS ORDERED: DARBEPOETIN 100 MCG/0.5 ML *DIALYSIS* SYRINGE (J0882) IV SCH (10:30)
[2016-07-05] MEDS ORDERED: HEPARIN 1,000 UNITS/ML 10ML VIAL (FOR RADIOLOGY& DIALYSIS ONLY) XX ONE (11:00)
[2016-07-05] MEDS ORDERED: HEPARIN 1,000 UNITS/ML 10ML VIAL (FOR RADIOLOGY& DIALYSIS ONLY) IV ONE (11:00)
--- NOTE | 2016-07-05 13:41 | IPNPDOC ---
Subjective Date Seen The patient was seen on 07/05/16. Subjective Chief Complaint/HPI The patient is a 55-year-old male admitted with a reason for visit of Renal Failure. Other systems Unable to fully obtain 2/2 clinical condition Objective Physical Examination General Exam: Positive: Alert, Cooperative, Other (oriented only to person, but not place, time, or situation) ENT Exam: Positive: Atraumatic, Other ENT (dry mucous membranes) Neck Exam: Negative: JVD Chest Exam: Positive: Clear to auscultation, Normal air movement Heart Exam: Positive: Normal S1, Normal S2, Rate Normal Abdomen Exam: Positive: Soft, Negative: Tenderness Extremity Exam: Negative: Swelling, Tenderness Neuro Exam: Positive: Other (decreased strength on the left upper and left lower extremities) Assessment /Plan Plan/VTE VTE Prophylaxis Ordered?: Yes Plan/Urinary Catheter Reason for insertion/continuin: Critical Pt monitoring Plan Acute renal failure - Multifactorial in etiology; intra-renal etiology, nephrotoxic medication, Volume depletion s/p PermCath placement Nephrology on board Will continue to work with PFS/CM to establish O/P Dialysis Twitching of LUE possibly 2/[address] Head with no acute findings EEG results pending Cont Keppra 500 mg BID Neurology input appreciated--patient to follow up in office in 2 weeks Presumptive Endocarditis ECHO from previous hospitalization in [place] notable for a thin filamentous structure on the mitral valve which was concerning for a possible vegetation Treated with Vanco and Cefepime for 4 weeks Remains afebrile without leukocytosis ECHO 06/25: no vegetations noted Blood cultures negative here ID on board, input appreciated Hypertension Continue Labetalol 200 BID and Amlodipine 5mg QD CVA - possibly 2/2 embolic phenomenon; with left sided weakness Continue ASA and Plavix Normocytic anemia, possibly 2/2 CLEO and kidney disease FOBT noted to be positive However, patient remains hemodynamically stable Cont Ferrous sulfate and Darbepoetin Will need to have outpatient colonoscopy Hx of Alcohol abuse Cont thiamine, folate and multivitamins Constipation Cont bowel regimen GERD Cont famotidine DVT prophylaxis SCDs Dispo: Will continue to monitor for now, and follow up with EEG results and CM regarding O/P Dialysis arrangement VS, I&O, 24H, Fishbone Vital Signs/I&O Vital Signs Date Time Temp Pulse Resp B/P Pulse Ox O2 Delivery O2 Flow Rate FiO2 07/05/16 07:23 76 162/84 07/05/16 06:00 99.0 17 97 Room Air I&O- Last 24 Hours up to 6 AM 07/05/16 06:00 Intake Total 260 ml Output Total 0 ml Balance 260 ml Laboratory Data 24H LABS Laboratory Tests 2 07/05/16 06:33: Anion Gap 8, White Blood Count 6.9, Red Blood Count 3.23L, Hemoglobin 9.2L, Hematocrit 27.6L, Mean Corpuscular Volume 85.5, Mean Corpuscular Hemoglobin 28.5 , Mean Corpuscular Hemoglobin Concent 33.3, Red Cell Distribution Width 15.9H, Platelet Count 388, Neutrophils (%) (Auto) 69.6H, Lymphocytes (%) (Auto) 17.2L, Monocytes (%) (Auto) 8.2H, Eosinophils (%) (Auto) 2.5, Basophils (%) (Auto) 0.5 , Neutrophils # (Auto) 4.8, Lymphocytes # (Auto) 1.3L, Monocytes # (Auto) 0.6, Eosinophils # (Auto) 0.2, Basophils # (Auto) 0.0, Blood Urea Nitrogen 41#H, Creatinine 5.00H, Sodium Level 140, Potassium Level 4.0, Chloride Level 105, Carbon Dioxide Level 27, Calcium Level 9.0, Glomerular Filtration Rate 12.9L, Large Unclassified Cells # 0.1, Large Unclassified Cells % 2.0, Magnesium Level 2.4 CBC/BMP Laboratory Tests 07/05/16 06:33 Calcium Level 9.0, Red Blood Count 3.23 L, Mean Corpuscular Volume 85.5, Mean Corpuscular Hemoglobin 28.5, Mean Corpuscular Hemoglobin Concent 33.3, Red Cell Distribution Width 15.9 H, Neutrophils (%) (Auto) 69.6 H, Lymphocytes (%) (Auto ) 17.2 L, Monocytes (%) (Auto) 8.2 H, Eosinophils (%) (Auto) 2.5, Basophils (%) (Auto) 0.5, Neutrophils # (Auto) 4.8, Lymphocytes # (Auto) 1.3 L, Monocytes # ( Auto) 0.6, Eosinophils # (Auto) 0.2, Basophils # (Auto) 0.0 Microbiology Microbiology 06/26/16 Stool Occult Blood (MATTEO) - Final, Complete 06/25/16 Stool Occult Blood (MATTEO) - Final, Complete RITIKA HOUSER MD Jul 05, 2016 13:41
[2016-07-05 14:00] VITALS: BP 134/87
[2016-07-05 18:00] VITALS: BP 140/60
--- NOTE | 2016-07-05 20:25 | IPN ---
DATE: 07/05/2016 SUBJECTIVE: Patient was seen and examined at the bedside today in the morning during hemodialysis procedure. Patient was tolerating the hemodialysis procedure well. Last 24 hour events are noted. Patient was seen by neurology for partial seizures. He was started on Keppra 500 mg by mouth twice a day. REVIEW OF SYSTEMS: The patient denies any fevers, chills, rigors, headache, nausea, vomiting, chest pain, shortness of breath. Rest of review of systems is negative. OBJECTIVE: VITAL SIGNS: Temperature 99 degrees Fahrenheit. Blood pressure 162/84. Pulse 76. Respiratory rate 17. Saturating 97% on room air. INTAKE AND OUTPUT: Urine output is not recorded. Patient has incontinent voids. Weight in the bed scale weight is 59.1 kg today. PHYSICAL EXAM: GENERAL: Patient is awake and alert, oriented times two laying im the bed getting hemodialysis done in no apparent distress. HEAD AND NECK EXAM: Extraocular muscles intact. Pupils are equally round and reactive to light. Mucous membranes are moist. Neck is supple. There is no jugular venous distention. CARDIOVASCULAR: S1, S2, regular rate. No murmur, rub or gallop. RESPIRATORY: Chest is clear to auscultation bilaterally. Bilaterally good air entry. No rales or rhonchi. ABDOMEN: Soft. Positive bowel sounds. Nontender. No ascites. No organomegaly. EXTREMITIES: No clubbing or cyanosis. Pulses are 2+. CENTRAL NERVOUS SYSTEM: Patient is oriented times two. Much more alert and awake today. Following commands. PSYCHIATRIC: Patient is calm and cooperative. SKIN: No rashes or ulcers. LAB REVIEW: CBC showed WBC 6.29 hemoglobin 9.2, and platelets are 388. BMP shows sodium 140, potassium 4, chloride 105, bicarbonate 27, BUN 41, creatinine 5 and creatinine still continues to climb in between hemodialysis session. Magnesium 2.4, calcium 9. IMAGING: A CAT scan of the head done yesterday showed chronic temporal parietal lobe infarction, old bilateral basal ganglia and internal capsule lacunar infarct. CURRENT MEDICATIONS: Patient's current medications were all reviewed by me. He was started on Keppra 500 mg by mouth twice a day yesterday. He is going to get Aranesp 200 cg IV with hemodialysis. Otherwise there is no change in the medications today as compared with yesterday. ASSESSMENT: Mr. 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 He was admitted to [facility] because of acute kidney injury. The patient had to be started on hemodialysis during this admission. PLAN: 1. Acute renal failure. Patient is still dialysis dependent. His creatinine still continues to climb in between hemodialysis sessions. He is currently getting dialysis every Monday, , Monday schedule. Continue to monitor for improvement of the renal function. 2. Hypertension. Blood pressure is acceptable at this time. Continue current dose of labetalol and amlodipine. 3. Anemia in end-stage renal disease. The patient's hemoglobin is suboptimal. He will get a dose of Aranesp 200 mcg IV with hemodialysis today. 4. Possible partial seizures. EEG is still pending. CAT scan did not show any acute changes. Patient has been started on Keppra 500 mg by mouth twice a day, dose to be adjusted if renal function improves. MTDD
[2016-07-05] MEDS: ATORVASTATIN 20 MG TAB PO SCH (20:53)
[2016-07-05 22:00] VITALS: BP 168/84
[2016-07-06 02:00] VITALS: BP 159/80
[2016-07-06] MEDS: SODIUM CHLORIDE 0.9% INJ 10 ML SYR IV SCH ×2 (05:55→18:00)
[2016-07-06 06:00] VITALS: BP 142/86
[2016-07-06 08:28] LABS: BASO % 0.8 % (0.0-1.0); EOS # 0.2 K/mm3 (0.0-0.50); EOS % 2.8 % (0.0-3.0); LARGE UNSTAINED CELL # 0.1 K/mm3 (0.0-0.4); LARGE UNSTAINED CELL % 2.2 % (0.0-4.0); LYMPH # 1.5 K/mm3 (1.5-4.5); LYMPH % 21.3 % (24.0-44.0); MEAN CORPUSCULAR HEMOGLOBIN 28.4 pg (27.0-33.0); MEAN CORPUSCULAR HGB CONC 33.3 g/dl (32.0-36.5); MEAN CORPUSCULAR VOLUME 85.4 fl (80.0-96.0); MONO # 0.4 K/mm3 (0.0-0.8); MONO % 6.7 % (0.0-5.0); NEUTROPHILS # 4.2 K/mm3 (1.8-7.7); NEUTROPHILS % 66.1 % (36.0-66.0); PLATELET COUNT, AUTOMATED 401 k/mm3 (150-450); RED CELL DISTRIBUTION WIDTH 15.9 % (11.5-14.5); WHITE BLOOD COUNT 6.3 K/mm3 (4.0-10.0)
[2016-07-06 08:57] LABS: CALCIUM LEVEL 9.1 MG/DL (8.5-10.1); CREATININE FOR GFR 3.57 MG/DL (0.70-1.30); MAGNESIUM LEVEL 2.1 MG/DL (1.8-2.4); POTASSIUM SERUM 3.9 MEQ/L (3.5-5.1)
[2016-07-06] MEDS: levETIRAcetam 250MG TABLET (KEPPRA) PO SCH ×2 (09:39→20:09)
[2016-07-06] MEDS: FAMOTIDINE 20 MG TAB PO SCH ×2 (09:39→20:09)
[2016-07-06] MEDS: FOLIC ACID 1 MG TAB PO SCH (09:39)
[2016-07-06] MEDS: FERROUS GLUCONATE 324 MG TAB PO SCH (09:39)
[2016-07-06] MEDS: SENNA 8.6 MG TAB (SENOKOT) PO SCH (09:40)
[2016-07-06] MEDS: CLOPIDOGREL 75 MG TAB PO SCH (09:40)
[2016-07-06] MEDS: ASPIRIN 81 MG ENTERIC TAB PO SCH (09:40)
[2016-07-06] MEDS: amLODIPine 5 MG TAB PO SCH (09:40)
[2016-07-06] MEDS: THIAMINE 100 MG TAB PO SCH (09:40)
[2016-07-06] MEDS: MULTIVITAMINS/MINERALS THERAP 1 TAB PO SCH (09:40)
[2016-07-06] MEDS: LABETALOL 100 MG TAB PO SCH ×2 (09:41→18:53)
[2016-07-06 10:00] VITALS: BP 155/82
--- NOTE | 2016-07-06 12:16 | IPN ---
DATE: 07/06/2016 SUBJECTIVE: Patient was seen and examined at the bedside today in the morning. He was sleepy today. No acute events in the last 24 hours. REVIEW OF SYSTEMS: The patient is sleeping, unable to provide any review of systems at this time. OBJECTIVE: VITAL SIGNS: Temperature 99.3 degrees Fahrenheit. Blood pressure 155/82. Pulse 69. Respiratory rate 18. Saturating 98% on room air. INTAKE AND OUTPUT: Urine output is not recorded. Patient got hemodialysis yesterday. Ultrafiltration with hemodialysis was 600 mL. The patient had 5 voids yesterday and 2 incontinent voids so far today since overnight. PHYSICAL EXAM: GENERAL: Patient is sleepy, but arousable, laying in the bed in no apparent distress. HEAD AND NECK EXAM: Atraumatic, normocephalic. Mucous membranes are moist. Neck is supple. There is no jugular venous distention. CARDIOVASCULAR: S1, S2, regular rate. No murmur, rub or gallop. RESPIRATORY: Chest is clear to auscultation bilaterally. Bilaterally good air entry. No rales or rhonchi. ABDOMEN: Soft. Positive bowel sounds. Nontender. No ascites. No organomegaly. EXTREMITIES: No clubbing or cyanosis. Pulses are 2+. CENTRAL NERVOUS SYSTEM: No focal deficit. Patient moves extremities on commands. PSYCHIATRIC: Patient is calm and cooperative. LAB REVIEW: CBC showed a WBC 6.3, hemoglobin 9.7. BMP showed sodium 139, potassium 3.9, chloride 103, bicarbonate 28, BUN 24, creatinine 3.5, which is better than yesterday since patient was dialyzed. CURRENT MEDICATIONS: Patient's current medications were all reviewed by me. There is no change in the medications today as compared with yesterday. ASSESSMENT: Mr. 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 He was admitted to [facility] because of acute kidney injury. The patient is currently on hemodialysis. PLAN: 1. Acute renal failure. Patient is still dialysis dependent at this time. His creatinine still continues to climb in between hemodialysis. He needs to continue three times a week hemodialysis. His hemodialysis schedule over her is Monday, , Monday. His outpatient spot is Monday, Monday, Monday. However, patient is having good urine output. There are no signs of uremia. If needed, patient can be discharged tomorrow and start dialysis as outpatient on Monday morning. 2. Hypertension. Blood pressure is acceptable at this time. Continue current dose of labetalol and amlodipine. 3. Anemia and end-stage renal disease. It is still suboptimal; however, is responding well. He got a dose of Aranesp 200 mcg IV with hemodialysis yesterday. 4. Partial seizures. The patient was started on Keppra 500 mg by mouth twice a day. The rest of dose and management is as per neurology service. DISCHARGE PLANNING: It is okay to discharge the patient from a nephrology standpoint whenever he has a bed available. Outpatient scheduled will be Monday, Monday, Monday. Plan of care was discussed with the hospitalist team and with the patient's RN at the bedside.
--- NOTE | 2016-07-06 13:13 | IPNPDOC ---
Subjective Date Seen The patient was seen on 07/06/16. Subjective Chief Complaint/HPI The patient is a 55-year-old male admitted with a reason for visit of Renal Failure. Other systems Unable to reliably obtain given the patient's baseline dementia Objective Physical Examination General Exam: Positive: Alert, Cooperative, Other (oriented only to person, but not place, time, or situation) ENT Exam: Positive: Atraumatic, Other ENT (dry mucous membranes) Neck Exam: Negative: JVD Chest Exam: Positive: Clear to auscultation, Normal air movement Heart Exam: Positive: Normal S1, Normal S2, Rate Normal Abdomen Exam: Positive: Soft, Negative: Tenderness Extremity Exam: Negative: Swelling, Tenderness Neuro Exam: Positive: Other (decreased strength on the left upper and left lower extremities) Assessment /Plan Plan/VTE VTE Prophylaxis Ordered?: Yes Plan/Urinary Catheter Reason for insertion/continuin: Critical Pt monitoring Plan Acute renal failure - Multifactorial in etiology; intra-renal etiology, nephrotoxic medication, Volume depletion s/p PermCath placement Nephrology on board Patient has outpatient dialysis established for Mondays, Wednesdays, Fridays Twitching of LUE possibly 2/[address] Head with no acute findings EEG results pending Cont Keppra 500 mg BID Neurology input appreciated--I contacted Dr. Kaufman and the patient can follow-up with neurology in office in 2 weeks for follow-up of EEG results Presumptive Endocarditis ECHO from previous hospitalization in [place] notable for a thin filamentous structure on the mitral valve which was concerning for a possible vegetation Treated with Vanco and Cefepime for 4 weeks Remains afebrile without leukocytosis ECHO 06/25: no vegetations noted Blood cultures negative here ID on board, input appreciated Hypertension Continue Labetalol 200 BID and Amlodipine 5mg QD CVA - possibly 2/2 embolic phenomenon; with left sided weakness Continue ASA and Plavix Normocytic anemia, possibly 2/2 CLEO and kidney disease FOBT noted to be positive However, patient remains hemodynamically stable Cont Ferrous sulfate and Darbepoetin Will need to have outpatient colonoscopy Hx of Alcohol abuse Cont thiamine, folate and multivitamins Constipation Cont bowel regimen GERD Cont famotidine DVT prophylaxis SCDs Dispo: Patient has dialysis established as an outpatient for Mondays, Wednesdays , Fridays. We will prepare the patient for possible discharge in the a.m. VS, I&O, 24H, Fishbone Vital Signs/I&O Vital Signs Date Time Temp Pulse Resp B/P Pulse Ox O2 Delivery O2 Flow Rate FiO2 07/06/16 10:00 99.3 69 18 155/82 98 Room Air I&O- Last 24 Hours up to 6 AM 07/06/16 06:00 Intake Total 100 ml Output Total 600 ml Balance -500 ml Laboratory Data 24H LABS Laboratory Tests 2 07/06/16 08:06: Anion Gap 8, White Blood Count 6.3, Red Blood Count 3.42L, Hemoglobin 9.7L, Hematocrit 29.2L, Mean Corpuscular Volume 85.4, Mean Corpuscular Hemoglobin 28.4 , Mean Corpuscular Hemoglobin Concent 33.3, Red Cell Distribution Width 15.9H, Platelet Count 401, Neutrophils (%) (Auto) 66.1H, Lymphocytes (%) (Auto) 21.3L, Monocytes (%) (Auto) 6.7H, Eosinophils (%) (Auto) 2.8, Basophils (%) (Auto) 0.8 , Neutrophils # (Auto) 4.2, Lymphocytes # (Auto) 1.5, Monocytes # (Auto) 0.4, Eosinophils # (Auto) 0.2, Basophils # (Auto) 0.0, Blood Urea Nitrogen 24H, Creatinine 3.57H, Sodium Level 139, Potassium Level 3.9, Chloride Level 103, Carbon Dioxide Level 28, Calcium Level 9.1, Glomerular Filtration Rate 19.0L, Large Unclassified Cells # 0.1, Large Unclassified Cells % 2.2, Magnesium Level 2.1 CBC/BMP Laboratory Tests 07/06/16 08:06 Calcium Level 9.1, Red Blood Count 3.42 L, Mean Corpuscular Volume 85.4, Mean Corpuscular Hemoglobin 28.4, Mean Corpuscular Hemoglobin Concent 33.3, Red Cell Distribution Width 15.9 H, Neutrophils (%) (Auto) 66.1 H, Lymphocytes (%) (Auto ) 21.3 L, Monocytes (%) (Auto) 6.7 H, Eosinophils (%) (Auto) 2.8, Basophils (%) (Auto) 0.8, Neutrophils # (Auto) 4.2, Lymphocytes # (Auto) 1.5, Monocytes # ( Auto) 0.4, Eosinophils # (Auto) 0.2, Basophils # (Auto) 0.0 Microbiology Microbiology 06/26/16 Stool Occult Blood ([facility]TEO) - Final, Complete RITIKA HOUSER MD Jul 06, 2016 13:13
[2016-07-06 14:00] VITALS: BP 150/78
[2016-07-06 18:00] VITALS: BP 156/80
[2016-07-06] MEDS: ATORVASTATIN 20 MG TAB PO SCH (20:09)
[2016-07-06 22:00] VITALS: BP 146/80
[2016-07-07 02:00] VITALS: BP 158/88
[2016-07-07] MEDS: SODIUM CHLORIDE 0.9% INJ 10 ML SYR IV SCH (05:10)
[2016-07-07 06:00] VITALS: BP 144/84
[2016-07-07 06:36] LABS: MEAN CORPUSCULAR HEMOGLOBIN 28.4 pg (27.0-33.0); MEAN CORPUSCULAR HGB CONC 33.3 g/dl (32.0-36.5); MEAN CORPUSCULAR VOLUME 85.4 fl (80.0-96.0); RED CELL DISTRIBUTION WIDTH 15.8 % (11.5-14.5); WHITE BLOOD COUNT 7.5 K/mm3 (4.0-10.0)
[2016-07-07 06:48] LABS: ALBUMIN 3.6 GM/DL (3.2-5.2); CREATININE FOR GFR 4.16 MG/DL (0.70-1.30); GLOMERULAR FILTRATION RATE 15.9 (>56); PHOSPHORUS LEVEL 5.1 MG/DL (2.5-4.9)
--- NOTE | 2016-07-07 07:03 | EEG ---
DATE OF PROCEDURE: 07/05/2016 REFERRING PHYSICIAN: Rich Cantu MD DIAGNOSIS: Twitching of left arm and episodes of confusion. EEG NUMBER: [id number]. HISTORY: Patient is a 55-year-old man who was admitted at [facility] after right parietal and occipital multiple ischemic strokes. He has questionable history of bacterial endocarditis for which he was on 6 weeks of antibiotics. He was also found to have patent foramen ovale (PFO) and had episodes of left arm shaking and confusion lasting for a few minutes. He is on hemodialysis. This EEG was done to rule out epileptic potential. He is currently on Keppra, labetalol, amlodipine, thiamine, etc. TECHNICAL DESCRIPTION: This digital EEG was recorded by 21 scalp, ear and two EKG electrodes and was reviewed in bipolar and referential montages following reformatting in 10-20 international electrode placement system. INTERPRETATION: Patient was noted to be in awake state during this EEG. He appears confused. Resting awake background rhythm consisted of 6-7 Hz theta activity measuring 15-40 microvolts in amplitude. Right occipital attenuation of background rhythm was noted. Right parietal and temporal focal polymorphic delta slowing was also noted. No sleep was achieved. Hyperventilation could not be performed. Photic stimulation remained unremarkable. No clear epileptiform abnormalities were seen. CONCLUSION: This EEG in mostly awake state is abnormal due to presence of right parietal, temporal and occipital slowing and voltage attenuation consistent with focal cortical structural or functional abnormality. No clear epileptiform discharges were seen. In some patients with focal onset seizures focal slowing may be the only abnormality seen on EEG. Clinical correlation is recommended.
[2016-07-07] MEDS: FOLIC ACID 1 MG TAB PO SCH (08:13)
[2016-07-07 08:15] VITALS: BP 144/84
[2016-07-07] MEDS: LABETALOL 100 MG TAB PO SCH (08:15)
[2016-07-07] MEDS: FERROUS GLUCONATE 324 MG TAB PO SCH (08:16)
[2016-07-07] MEDS: FAMOTIDINE 20 MG TAB PO SCH (08:16)
[2016-07-07] MEDS: THIAMINE 100 MG TAB PO SCH (08:16)
[2016-07-07] MEDS: levETIRAcetam 250MG TABLET (KEPPRA) PO SCH (08:16)
[2016-07-07] MEDS: ASPIRIN 81 MG ENTERIC TAB PO SCH (08:16)
[2016-07-07] MEDS: MULTIVITAMINS/MINERALS THERAP 1 TAB PO SCH (08:16)
[2016-07-07] MEDS: SENNA 8.6 MG TAB (SENOKOT) PO SCH (08:17)
[2016-07-07] MEDS: amLODIPine 5 MG TAB PO SCH (08:17)
[2016-07-07] MEDS: CLOPIDOGREL 75 MG TAB PO SCH (08:17)
[2016-07-07 10:00] VITALS: BP 138/84
[2016-07-07] MEDS ORDERED: KEPP250T5 PO (10:02)
[2016-07-07] MEDS ORDERED: FERR32TA PO (10:02)
--- NOTE | 2016-07-07 11:16 | IPN ---
DATE: 07/07/2016 SUBJECTIVE: Patient was seen and examined at the bedside today in the morning. He was laying in the bed in no apparent distress. He is awake. He follows some commands and answers some questions. Creatinine continues to rise in between hemodialysis sessions. The patient has an outpatient dialysis port and according to outpatient schedule his dialysis would blood work Monday, Monday, and Monday. REVIEW OF SYSTEMS: Patient denies any chest pain, shortness of breath, pain in the abdomen. He is otherwise not able to provide any reliable review of systems at this time. OBJECTIVE: VITAL SIGNS: Temperature 96.8 degrees Fahrenheit. Blood pressure 144/84. Pulse is 63. Respiratory rate of 16. Saturating 98% on room air. INTAKE AND OUTPUT: Urine output is not recorded. He had four incontinent voids yesterday. Weight on the bed scale is stable at 58 kg. PHYSICAL EXAM: GENERAL: Patient is awake and alert, oriented times one laying in the bed in no apparent distress. HEAD AND NECK EXAM: Extraocular muscles intact. Pupils equally round and reactive to light. Mucous membranes are moist. Neck is supple. There is no jugular venous distention. CARDIOVASCULAR: S1 and S2, regular rate. No murmur, rub or gallop. RESPIRATORY: Chest is clear to auscultation bilaterally. Bilaterally equal air entry. No rales or rhonchi. ABDOMEN: Soft. Positive bowel sounds. Nontender. No ascites. No organomegaly. EXTREMITIES: No clubbing or cyanosis. Pulses are 2+. CENTRAL NERVOUS SYSTEM: Patient moves all four extremities. Slight weakness in the left upper arm. He is oriented to himself only. PSYCHIATRIC: Patient is calm and cooperative. LAB REVIEW: CBC showed WBC 7.5, hemoglobin 10, platelets are 409. BMP shows sodium 140, potassium 4, chloride 104, bicarbonate 27, BUN 29, creatinine 4.1, it was 3.4 yesterday. Phosphorous is 5.1. CURRENT MEDICATIONS: Patient's current medications were all reviewed by me. There is no change in the medications today as compared with yesterday. ASSESSMENT: Mr. Mack is a 55-year-old male with past medical history of hypertension and hyperlipidemia, recently he had multiple CVAs secondary to thromboembolic events. He was admitted to [facility] because of acute kidney injury. The patient is currently hemodialysis dependent. PLAN: 1. Acute renal failure. Patient is hemodialysis dependent at this time. He was getting hemodialysis Monday, , Monday, however is outpatient schedule is going to Monday, Monday, and Monday. I am going to hold off on dialysis today. The patient will be dialyzed tomorrow, on Monday, as per his regular schedule. 2. Hypertension. Blood pressure is acceptable at this time. Continue current dose of amlodipine and labetalol. 3. Anemia and end-stage renal disease. The patient's hemoglobin came up to 10. Continue current dose of Aranesp 200 mcg IV with hemodialysis. DISCHARGE PLANNING: It is okay to discharge the patient from a nephrology standpoint whenever the bed is available. Outpatient schedule will be Monday, Monday, and Monday.
--- NOTE | 2016-07-07 14:10 | DS.PDOC ---
Discharge Summary General Date of Admission Jun 24, 2016 at 15:52 Date of Discharge Jul 07, 2016 at 12:20 Primary Care Physician: Daniel Valencia MD Specialist/Consultants Involve Dr. Forbes of Nephrology, Dr. Santiago of Infectious Diseases, Dr. Kaufman of Neurology Discharge Summary PROCEDURES PERFORMED DURING STAY: Right IJ hemodialysis catheter placed on 06/27 ADMITTING DIAGNOSES: 1. . Acute renal failure 2. . Possible seizure-like activity 3. . History of CVA DISCHARGE DIAGNOSES: 1. . Acute renal failure 2. . Possible seizure-like activity 3. . History of CVA COMPLICATIONS/CHIEF COMPLAINT: Renal Failure. HISTORY OF PRESENT ILLNESS: 55-year-old male with past medical history of hypertension, dyslipidemia, and tobacco abuse who was recently found to have multifocal acute infarcts which was thought to be secondary from an embolic phenomenon on MRI at [facility] after he initially presented with left-sided weakness. A follow-up transesophageal echocardiogram revealed a thin filamentous structure on the mitral valve which was concerning for a possible vegetation. 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 The patient was subsequently treated for presumptive infective endocarditis for 6 weeks with vancomycin and cefepime starting on 05/29. He was discharged to the physical medicine and rehabilitation facility at [facility] on 06/03, and then subsequently transferred to [facility] rehabilitation on 06/17 for subacute rehabilitation given his cognitive problems. Since his initial admission on 06/03, it was noted that the patient's serum creatinine has been progressively increasing. His initial serum creatinine was noted to be 1.05 on 06/03, however it has steadily crept up from 1.81 on 06/18 to 5.24 today. The patient was sent to the emergency room for further evaluation and management of acute renal failure. At this time, the patient's history is limited given his baseline cognitive status. His brother is at bedside, who states that this is the patient's baseline since his CVA in May. The patient denies any complaints of fevers, chills, cough, shortness of breath, chest pain, palpitations, abdominal pain, or any nausea/vomiting/ diarrhea. HOSPITAL COURSE: . During the patient's hospitalization here nephrology was consulted to evaluate the patient's acute renal failure. Unfortunately, the patient did end up requiring dialysis. A right IJ tunneled hemodialysis catheter was placed on and the patient received his first session of dialysis on 06/29. In addition, infectious diseases did see the patient here and the patient's cefepime and vancomycin was stopped after a total of 4 weeks of IV antibiotic therapy for questionable vegetation noted on TU and presumptive treatment of infected endocarditis. Of note, the patient's blood cultures have been negative here, as well as his white blood cell count which has been within normal limits, and the patient has also been afebrile here. The patient's course in the hospital was complicated on 07/04 when he was noted to have twitching of his left upper extremity which was concerning for possible seizure-like activity. A CT scan of the head was obtained which revealed no acute findings, and an EEG was also ordered which revealed no clear epileptiform discharges but there was focal slowing in the right parietal, temporal, and occipital regions. The patient was started on Keppra 500 mg twice a day, and advised to follow-up with neurology in the outpatient office in 2 weeks. The patient had no more further episodes of any seizure-like activity aside from that isolated episode. At this time, the patient appears to be back to his baseline health according to his brother. We will discharge the patient back to [facility], with instructions to follow-up with regularly scheduled dialysis sessions on Mondays, Wednesdays, and Fridays which were established by our case management team, a PCP, and the neurology team as indicated. DISCHARGE MEDICATIONS: Please see below. ALLERGIES: Please see below. PHYSICAL EXAMINATION ON DISCHARGE: VITAL SIGNS: Please see below. General Exam: Positive: Alert, Cooperative, Other (oriented only to person, but not place, time, or situation) ENT Exam: Positive: Atraumatic, Other ENT (dry mucous membranes) Neck Exam: Negative: JVD Chest Exam: Positive: Clear to auscultation, Normal air movement Heart Exam: Positive: Normal S1, Normal S2, Rate Normal Abdomen Exam: Positive: Soft, Negative: Tenderness Extremity Exam: Negative: Swelling, Tenderness Neuro Exam: Positive: Other (decreased strength 4/5 on the left upper and left lower extremities) LABORATORY DATA: Please see below. IMAGING: DATE OF PROCEDURE: 07/05/2016 REFERRING PHYSICIAN: Rich Cantu MD DIAGNOSIS: Twitching of left arm and episodes of confusion. EEG NUMBER: [id number]. HISTORY: Patient is a 55-year-old man who was admitted at [facility] after right parietal and occipital multiple ischemic strokes. He has questionable history of bacterial endocarditis for which he was on 6 weeks of antibiotics. He was also found to have patent foramen ovale (PFO) and had episodes of left arm shaking and confusion lasting for a few minutes. He is on hemodialysis. This EEG was done to rule out epileptic potential. He is currently on Keppra, labetalol, amlodipine, thiamine, etc. TECHNICAL DESCRIPTION: This digital EEG was recorded by 21 scalp, ear and two EKG electrodes and was reviewed in bipolar and referential montages following reformatting in 10-20 international electrode placement system. INTERPRETATION: Patient was noted to be in awake state during this EEG. He appears confused. Resting awake background rhythm consisted of 6-7 Hz theta activity measuring 15-40 microvolts in amplitude. Right occipital attenuation of background rhythm was noted. Right parietal and temporal focal polymorphic delta slowing was also noted. No sleep was achieved. Hyperventilation could not be performed. Photic stimulation remained unremarkable. No clear epileptiform abnormalities were seen. CONCLUSION: This EEG in mostly awake state is abnormal due to presence of right parietal, temporal and occipital slowing and voltage attenuation consistent with focal cortical structural or functional abnormality. No clear epileptiform discharges were seen. In some patients with focal onset seizures focal slowing may be the only abnormality seen on EEG. Clinical correlation is recommended. PROGNOSIS: Medically stable at this time, poor terminal worker prognosis ACTIVITY: As tolerated. DIET: .As Previously tolerated DISCHARGE PLAN: DISPOSITION: [facility]. DISCHARGE INSTRUCTIONS: 1. . Follow-up with PCP as [facility] ITEMS TO FOLLOWUP ON ON OUTPATIENT: 1. . Follow-up with regularly scheduled dialysis appointments on Mondays, Wednesdays, and Fridays 2. . Follow-up with outpatient neurology visit in [address] Kaufman DISCHARGE CONDITION: Stable. TIME SPENT ON DISCHARGE: Greater than 30 minutes. Vital Signs/I&Os Vital Signs Date Time Temp Pulse Resp B/P Pulse Ox O2 Delivery O2 Flow Rate FiO2 07/07/16 08:15 64 144/84 07/07/16 06:00 96.8 16 98 Room Air I&O- Last 24 Hours up to 6 AM 07/07/16 06:00 Intake Total 170 ml Output Total 0 ml Balance 170 ml Laboratory Data Labs 24H Laboratory Tests 2 07/07/16 06:14: Albumin 3.6, Blood Urea Nitrogen 29H, Creatinine 4.16H, Sodium Level 140, Potassium Level 4.0, Chloride Level 104, Carbon Dioxide Level 27, Anion Gap 9, Calcium Level 9.0, Glomerular Filtration Rate 15.9L, Phosphorus Level 5.1H CBC/BMP Laboratory Tests 07/07/16 06:14 Anion Gap 9, Red Blood Count 3.51 L, Mean Corpuscular Volume 85.4, Mean Corpuscular Hemoglobin 28.4, Mean Corpuscular Hemoglobin Concent 33.3, Red Cell Distribution Width 15.8 H Discharge Medications Scheduled (Tubersol) 5 Unit/0.1 Ml Inj 5 UNIT ID ASDIRECTED (Reported) DUE 07/11/16 Amlodipine Besylate (Amlodipine Besylate) 10 Mg Tab 10 MG PO DAILY (Reported) Aspirin (Aspirin EC) 81 Mg Tab 81 MG PO DAILY (Reported) Atorvastatin Calcium (Atorvastatin Calcium) 80 Mg Tab 80 MG PO QHS (Reported) Clopidogrel Bisulfate (Clopidogrel) 75 Mg Tab 75 MG PO DAILY (Reported) Ferrous Gluconate (Ferrous Gluconate) 324 Mg Tab 324 MG PO DAILY Hydralazine HCl (Hydralazine HCl) 25 Mg Tab 25 MG PO Q6H (Reported) Levetiracetam (Keppra) 250 Mg Tab 500 MG PO BID Multivitamins *[facility] STOCKED* (Thera M Plus *[facility] STOCKED*) 1 Tab Tab 1 TAB PO DAILY (Reported) Pantoprazole Sodium (Pantoprazole Sodium) 40 Mg Tab 40 MG PO DAILY (Reported) Senna (Senna) 8.6 Mg Cap 1 CAP PO DAILY (Reported) Thiamine HCl (Thiamine HCl) 100 Mg Tab 100 MG PO DAILY (Reported) Scheduled PRN Acetaminophen (Acetaminophen) 325 Mg Tab 650 MG PO Q4H PRN PRN PAIN / FEVER ( Reported) Bisacodyl (Dulcolax) 10 Mg Sup 10 MG VT DAILY PRN PRN CONSTIPATION (Reported) Milk Of Magnesia (Milk of Magnesia) 1,200 Mg/15 Ml Brandi 30 ML PO DAILY PRN PRN CONSTIPATION (Reported) Sodium Phosphate/Biphosphate (Enema 7-19 gm/118Ml) 1 Sarai Sarai 1 SARAI VT DAILY PRN PRN CONSTIPATION (Reported) Allergies Coded Allergies: No Known Allergies (Unverified , 06/03/16) RITIKA HOUSER MD Jul 07, 2016 14:10
[2016-07-19] MEDS ORDERED: DARBEPOETIN 300 MCG/0.6 ML *DIALYSIS* SYRINGE (J0882) IV SCH (09:15)
== END 2016-07-07 12:20 | DRG 460 ==
LOC: M ED 15:14 → M ED INP 15:52 → M PCU 17:15 → M MSPAV 06-29 18:50
PROVIDERS: ADMIT Internal Medicine; ATTEND Internal Medicine
PROC: 02HV33Z Insertion of Infusion Device into Superior Vena Cava, Percutaneous Approach (ICD-10-PCS; principal; 2016-06-28)
PROC: 5A1D00Z (ICD-10-PCS; 2016-06-28)
DX: N17.9 Acute kidney failure, unspecified (principal); I33.0 Acute and subacute infective endocarditis; E87.2 Acidosis; I12.0 Hypertensive chronic kidney disease with stage 5 chronic kidney disease or end stage renal disease; I69.354 Hemiplegia and hemiparesis following cerebral infarction affecting left non-dominant side; G40.209 Localization-related (focal) (partial) symptomatic epilepsy and epileptic syndromes with complex partial seizures, not intractable, without status epilepticus; Q21.1 Atrial septal defect; T36.8X5A Adverse effect of other systemic antibiotics, initial encounter; I69.398 Other sequelae of cerebral infarction; K59.00 Constipation, unspecified; F17.210 Nicotine dependence, cigarettes, uncomplicated; D63.1 Anemia in chronic kidney disease; F10.10 Alcohol abuse, uncomplicated; K21.9 Gastro-esophageal reflux disease without esophagitis; E78.5 Hyperlipidemia, unspecified; Z79.82 Long term (current) use of aspirin; Z79.899 Other long term (current) drug therapy; N18.6 End stage renal disease

== ENCOUNTER → 2016-06-24 | Outpatient (REF) ==
[2016-06-24 07:59] LABS: CALCIUM LEVEL 8.6 MG/DL (8.5-10.1); CREATININE FOR GFR 5.33 MG/DL (0.70-1.30); POTASSIUM SERUM 4.6 MEQ/L (3.5-5.1)
== END ==
LOC: SKLAB2 09:39
PROVIDERS: ATTEND Family Medicine
DX: E86.0 Dehydration (principal)

== ENCOUNTER → 2016-08-02 | Outpatient (REF) ==
[~2016-08-02] MED LIST changes: +ASPI81TA13 PO; +DULC10SU2 PR; +ENEMENE3 PR; +FERR32TA PO; +FEVE650S3 PR; +HYDR-4266 PO; +KEPP250T5 PO; +MILKSUS PO; +MULT1TAB20 PO; +SENN8.6C PO; +TUBE5INJ9 ID; +VITMTA PO
[2016-08-02 08:36] LABS: MEAN CORPUSCULAR HEMOGLOBIN 28.3 pg (27.0-33.0); MEAN CORPUSCULAR VOLUME 83.3 fl (80.0-96.0); RED CELL DISTRIBUTION WIDTH 14.5 % (11.5-14.5); WHITE BLOOD COUNT 8.4 K/mm3 (4.0-10.0)
[2016-08-02 08:56] LABS: ALBUMIN 3.8 GM/DL (3.2-5.2); ANION GAP 10 MEQ/L (8-16); BLOOD UREA NITROGEN 21 MG/DL (7-18); CALCIUM LEVEL 8.5 MG/DL (8.5-10.1); CARBON DIOXIDE LEVEL 24 MEQ/L (21-32); CHLORIDE LEVEL 104 MEQ/L (98-107); CREATININE FOR GFR 1.08 MG/DL (0.70-1.30); GLOMERULAR FILTRATION RATE > 60.0 (>56); GLUCOSE, FASTING 104 MG/DL (70-105); PHOSPHORUS LEVEL 3.2 MG/DL (2.5-4.9); POTASSIUM SERUM 3.8 MEQ/L (3.5-5.1); SODIUM LEVEL 138 MEQ/L (136-145)
== END ==
LOC: SKLAB2 08:30
PROVIDERS: ATTEND Family Medicine
DX: N18.9 Chronic kidney disease, unspecified (principal)

== ENCOUNTER → 2016-08-02 | Outpatient (CLI) | payer MEDICAID, OTHER ==
[~2016-08-02] MED LIST changes: +LIDOCAINE 2% MDV 20 ML VIAL As Ordered ONE; +SODIUM BICARBONATE 8.4% INJ 50MEQ 50 ML VIAL As Ordered ONE
--- NOTE | 2016-08-02 16:00 | REPKIM ---
CLINICAL HISTORY: Patient presents with a tunneled right IJ hemodialysis catheter. The referring nephrology service has requested to remove the TDC because it is no longer needed. PROCEDURE PERFORMED: Right IJ Tunneled Dialysis Catheter Removal INTERVENTIONALIST: Dr. Xu Mathis CONSENT: The risks, benefits and alternatives to the procedure were explained to the patients brother and informed phone consent was obtained and witnessed. MEDICATION: Local Lidocaine 2% EBL: 5 mL PROCEDURE/FINDINGS: The patient was brought to the interventional radiology suite and placed in the supine position with head of bed elevated. Time out procedure was performed. The area was prepped and draped in a usual sterile fashion. Local anesthesia was administered subcutaneously to the catheter exit site using 2% Lidocaine. The catheter cuff was bluntly dissected free from the surrounding soft tissues. The catheter was removed, inspected and confirmed to be removed in its entirety. Hemostasis was achieved by manual compression. A sterile dressing was applied. The patient tolerated the procedure well with no immediate complications. No imaging was used. Dr. Mathis was present. IMPRESSION: Tunneled dialysis catheter removal as discussed above. cc: Ting Forbes MD MTDD
== END | disposition home or self-care (01) ==
LOC: M IRPRO 09:41
PROVIDERS: ATTEND Internal Medicine Nephrology
DX: Z45.2 Encounter for adjustment and management of vascular access device (principal)

== ENCOUNTER → 2016-08-03 | Outpatient (REF) ==
[~2016-08-03] MED LIST changes: -LIDOCAINE 2% MDV 20 ML VIAL As Ordered ONE; -SODIUM BICARBONATE 8.4% INJ 50MEQ 50 ML VIAL As Ordered ONE
--- NOTE | 2016-08-04 04:07 | REP ---
Clinical: Pain and swelling. Technique: AP, lateral, bilateral oblique views left hand. Findings: The osseous structures and joint spaces are intact and normal. There is no evidence for acute fracture or dislocation. There is no evidence for subcutaneous emphysema or radiodense foreign body. Soft tissue swelling overlying the fourth distal phalanx cannot be excluded and should be correlated clinically. No associated subcutaneous emphysema, radiodense foreign body, or fracture identified. Impression: Possible swelling overlying the fourth digit. No acute fracture or dislocation. Signed by Vidal Zamorano MD 08/04/2016 03:57 A
--- NOTE | 2016-08-04 04:08 | REP ---
Clinical: Pain and swelling. Technique: AP and lateral views of the left wrist. Findings: Mild age-related degenerative changes involving the first carpal metacarpal joint suggested. No acute fracture dislocation. Remainder examination appears relatively normal for age. Impression: Mild degenerative changes at the first carpal metacarpal joint Signed by Vidal Zamorano MD 08/04/2016 03:59 A
== END ==
LOC: SKLAB2 14:46
PROVIDERS: ATTEND Family Medicine
DX: M79.642 Pain in left hand (principal); M25.532 Pain in left wrist; M79.89 Other specified soft tissue disorders

== ENCOUNTER 2016-08-04 17:43 | Emergency (ER) | payer OTHER ==
[~2016-08-04] VITALS: Ht 172.7 cm; Wt 61.2 kg
[2016-08-04 19:37] LABS: BASO % 0.5 % (0.0-1.0); EOS # 0.1 K/mm3 (0.0-0.50); EOS % 1.8 % (0.0-3.0); LARGE UNSTAINED CELL # 0.1 K/mm3 (0.0-0.4); LARGE UNSTAINED CELL % 1.4 % (0.0-4.0); LYMPH # 1.8 K/mm3 (1.5-4.5); LYMPH % 23.2 % (24.0-44.0); MEAN CORPUSCULAR HEMOGLOBIN 28.2 pg (27.0-33.0); MEAN CORPUSCULAR HGB CONC 33.3 g/dl (32.0-36.5); MEAN CORPUSCULAR VOLUME 84.7 fl (80.0-96.0); MONO # 0.3 K/mm3 (0.0-0.8); MONO % 3.7 % (0.0-5.0); NEUTROPHILS # 5.3 K/mm3 (1.8-7.7); NEUTROPHILS % 69.2 % (36.0-66.0); PLATELET COUNT, AUTOMATED 341 k/mm3 (150-450); RED CELL DISTRIBUTION WIDTH 14.4 % (11.5-14.5); WHITE BLOOD COUNT 7.6 K/mm3 (4.0-10.0)
[2016-08-04 19:56] LABS: ANION GAP 9 MEQ/L (8-16); BLOOD UREA NITROGEN 19 MG/DL (7-18); CALCIUM LEVEL 7.8 MG/DL (8.5-10.1); CARBON DIOXIDE LEVEL 26 MEQ/L (21-32); CHLORIDE LEVEL 102 MEQ/L (98-107); CREATININE FOR GFR 0.92 MG/DL (0.70-1.30); GLOMERULAR FILTRATION RATE > 60.0 (>56); GLUCOSE, FASTING 93 MG/DL (70-105); POTASSIUM SERUM 3.6 MEQ/L (3.5-5.1); SODIUM LEVEL 137 MEQ/L (136-145)
--- NOTE | 2016-08-04 20:00 | REPUSA ---
CLINICAL HISTORY: Trauma TECHNIQUE: Multiple axial CT images were obtained through the brain without IV contrast material. COMMENTS: There is normal configuration of sella turcica. There are no intra or extra-axial collections. There is no mass effect or midline shift. There is no evidence of hematoma formation. No hydrocephalus is p resent. The ventricles are symmetrical. No abnormal calcifications are present. Old right occipital infarct is noted. Old right internal capsule lacunar infarct is seen. There is diffuse age-appropriate cerebellar and cerebral atrophy with proportionally dilated ventricl es and cortical sulci. There are bilateral periventricular and subcortical white matter hypolucencies compatible with chroni c microvascular disease. Otherwise, no significant focal abnormalities are seen either in the posterior fossa or supratentoria l compartment. IMPRESSION: 1. Age-appropriate cerebellar and cerebral atrophy. 2. Chronic microvascular disease. 3. No evidence of acute intracranial pathology. 4. Old right occipital infarct is noted. Old right internal capsule lacunar infarct Thank you for your kind referral of this patient.
--- NOTE | 2016-08-04 20:00 | REPUSA ---
CLINICAL HISTORY: Neck pain. Trauma TECHNIQUE: Multiple axial images were obtained through the cervical spine. Images were also reconstru cted in coronal and sagittal planes. The study was performed without IV contrast. COMMENTS: There is no fracture or spondylolisthesis visualized. The paraspinal soft tissues are unremarkable. T here are no lytic or blastic lesions. Straightening of cervical lordosis is seen, suggesting muscular spasm. There is evidence of multileve l disk disease, demonstrated by osteophytosis and endplate sclerosis. IMPRESSION: 1. No fracture or spondylolisthesis. 2. Straightening of cervical lordosis is seen, suggesting muscular spasm. 3. Multilevel spondylosis. Thank you for your kind referral of this patient.
[2016-08-04 20:08] LABS: INR 1.03
[2016-08-04 21:10] VITALS: BP 176/102
[2016-08-04] MEDS ORDERED: **hydrALAZINE HCL** 25 MG TAB PO ONE (21:15)
--- NOTE | 2016-08-04 22:10 | REPUSA ---
CT of the right hip without contrast Clinical statement: Pain. Trauma. Technique: Multiple axial CT images were obtained with 5 mm cuts through the right hip without admini stration of contrast. Coronal and sagittal reconstructions were also obtained. No comparison is available. Findings: The osseous structures do not demonstrate any fractures or dislocations. The superficial so ft tissues are unremarkable. The joint space is mildly narrowed. Impression: No acute fracture or traumatic injury. Mild left hip osteoarthritis.
[2016-08-04 22:46] VITALS: BP 170/85
--- NOTE | 2016-08-05 01:00 | REP ---
Clinical : Trauma. Technique: Frontal view of the pelvis with neutral and frog lateral views of the left hip. Findings: Symmetric age-related degenerative changes of the bilateral hips noted. The left hip is otherwise unremarkable and without acute fracture or dislocation. Vascular calcifications identified. Impression: Early moderate arthritic degenerative changes. No acute fracture or dislocation to the left hip. Signed by Vidal Zamorano MD 08/05/2016 12:52 A
--- NOTE | 2016-08-05 01:03 | REP ---
Clinical: Trauma. Technique: AP and lateral views of the left femur in conjunction with left hip series. Findings: No acute fracture or dislocation. Age-related degenerative changes noted at the hip and knee joint. Vascular calcifications identified. Surrounding soft tissues unremarkable. Impression: No acute fracture or dislocation. Signed by Vidal Zamorano MD 08/05/2016 12:55 A
== END 2016-08-04 22:54 | disposition home or self-care (01) ==
LOC: M ED 18:57
DX: S70.02XA Contusion of left hip, initial encounter (principal); W05.0XXA Fall from non-moving wheelchair, initial encounter; Y92.122 Bedroom in nursing home as the place of occurrence of the external cause; Y93.89 Activity, other specified; Y99.8 Other external cause status; M16.11 Unilateral primary osteoarthritis, right hip; M47.812 Spondylosis without myelopathy or radiculopathy, cervical region; I50.9 Heart failure, unspecified; I12.9 Hypertensive chronic kidney disease with stage 1 through stage 4 chronic kidney disease, or unspecified chronic kidney disease; N18.9 Chronic kidney disease, unspecified; E78.5 Hyperlipidemia, unspecified

== ENCOUNTER 2016-08-18 14:16 | Observation (INO) | payer MEDICAID, OTHER ==
[~2016-08-18] VITALS: Ht 172.7 cm; Wt 56.3 kg
--- NOTE | 2016-08-18 15:33 | REP ---
See clinical: Cerebrovascular accident. Findings: Age-related atrophy and microvascular ischemic changes are appreciated. Encephalomalacia in the right parietal lobe consistent with old infarction and multiple small chronic lacunar infarcts. The ventricles and sulci are symmetric. Sandhu-white differentiation is maintained. There is no evidence for acute intracranial hemorrhage, mass/mass effect, pathology or infarction. No extra-axial fluid collection. Calvarium is intact. Paranasal sinuses and mastoid air cells are clear. Impression: Age related atrophy and microvascular ischemic changes. Old right parietal infarction and multiple chronic lacunar infarcts. No acute intracranial hemorrhage, infarction, or mass/mass effect. Signed by Vidal Zamorano MD 08/18/2016 03:25 P
[2016-08-18 15:56] LABS: BASO % 0.3 % (0.0-1.0); EOS # 0.2 K/mm3 (0.0-0.50); EOS % 2.2 % (0.0-3.0); LARGE UNSTAINED CELL # 0.1 K/mm3 (0.0-0.4); LYMPH # 1.5 K/mm3 (1.5-4.5); MEAN CORPUSCULAR HEMOGLOBIN 28.5 pg (27.0-33.0); MEAN CORPUSCULAR HGB CONC 34.1 g/dl (32.0-36.5); MEAN CORPUSCULAR VOLUME 83.6 fl (80.0-96.0); MONO # 0.3 K/mm3 (0.0-0.8); MONO % 4.4 % (0.0-5.0); NEUTROPHILS # 5.3 K/mm3 (1.8-7.7); NEUTROPHILS % 72.1 % (36.0-66.0); PLATELET COUNT, AUTOMATED 341 k/mm3 (150-450); RED CELL DISTRIBUTION WIDTH 14.9 % (11.5-14.5); WHITE BLOOD COUNT 7.4 K/mm3 (4.0-10.0)
[2016-08-18 15:59] LABS: INR 1.08
--- NOTE | 2016-08-18 16:10 | REP ---
Portable chest x-ray: Single view: History: CVA. Comparison study: 06/24/2016. Findings: EKG monitoring electrodes overlie the chest. There are granulomatous calcifications in the right hilus and right base as before. The lungs are well inflated and clear. Heart is not enlarged. Impression: No active disease. Signed by Jose F Mayorga MD 08/18/2016 04:52 P
[2016-08-18 16:23] LABS: ANION GAP 7 MEQ/L (8-16); BLOOD UREA NITROGEN 21 MG/DL (7-18); CALCIUM LEVEL 8.3 MG/DL (8.5-10.1); CARBON DIOXIDE LEVEL 26 MEQ/L (21-32); CHLORIDE LEVEL 104 MEQ/L (98-107); CREATININE FOR GFR 1.06 MG/DL (0.70-1.30); GLOMERULAR FILTRATION RATE > 60.0 (>56); GLUCOSE, FASTING 119 MG/DL (70-105); SODIUM LEVEL 137 MEQ/L (136-145)
[2016-08-18] MEDS ORDERED: KEPP500T6 PO (16:50)
[2016-08-18] MEDS ORDERED: FEVE650S8 PR (16:50)
[2016-08-18] MEDS ORDERED: LOSA50TA20 PO (16:50)
[2016-08-18] MEDS ORDERED: FERR325T16 PO (16:50)
[2016-08-18] MEDS ORDERED: LORA-376 PO (16:50)
[2016-08-18] MEDS ORDERED: CITA20TA4 PO (16:50)
[2016-08-18] MEDS ORDERED: ACETAMINOPHEN TAB 650MG DOSE (2X325MG) PO ONE (18:00)
[2016-08-18] MEDS ORDERED: ONDANSETRON 4MG/2ML VIAL (J2405) IV PRN (18:30)
[2016-08-18] MEDS ORDERED: BISACODYL 10 MG SUPP PR PRN (18:30)
[2016-08-18] MEDS ORDERED: MOM 30ML SUSPENSION UDC PO PRN (18:30)
[2016-08-18] MEDS: ACETAMINOPHEN 325 MG TAB PO PRN (20:16)
[2016-08-18] MEDS: **hydrALAZINE HCL** 25 MG TAB PO SCH (20:20)
--- NOTE | 2016-08-18 20:59 | HPE ---
DATE OF ADMISSION: 08/18/2016 PRIMARY CARE PROVIDER: Dr. Valencia CHIEF COMPLAINT: The patient is a resident of [facility] and was sent from there because he complained of unable to see out of his right eye at around 6:00 a.m., though he was able to read the eye chart with both eyes and was sent over for concern of acute stroke. PAST MEDICAL HISTORY: 1. Acute cardioembolic stroke in May 2016 involving the right STEWARD/STEWARDESS SMOKE ROOM and MCA territories. 2. Patent ovale seen by transesophageal echocardiogram in [facility]. 3. Presumptive endocarditis treated with six weeks of antibiotics from May as filamentous structures were seen on the mitral valve in transesophageal echocardiogram (TU). 4. Hypertension. 5. Hyperlipidemia. 6. History of tobacco abuse. 7. Poor cognitive function. Possibly has multi-infarct dementia. 8. Elevated Factor VIII level. 9. Right lung nodule, 9 mm. 10. History of alcohol abuse in the past. 11. Possible seizure. 12. Acute renal failure in June requiring hemodialysis. The acute renal failure was thought to be related to nephrotoxicity caused by antibiotics versus thromboembolic phenomenon to the kidneys. HISTORY OF PRESENT ILLNESS: This is a 55-year-old male who is a resident of [facility] with above past medical history, is wheelchair bound with poor cognitive function and residual left-sided hemiparesis from multiple cardioembolic strokes involving the right hemisphere in May of 2016 was sent to the emergency room because he complained of unable to see through his right eye at around 6:00 a.m. this morning. He continued to have this symptoms, however, was able to read the eye chart with both eyes. There was concern for new stroke so was sent for evaluation. In the emergency department the patient underwent CT scan which showed old right parietal infarction and multiple chronic lacunar infarcts. There was no acute hemorrhage, infarction or mass. The patient's laboratory studies were all within normal limits except for chronic anemia. The patient was diagnosed with possible transient ischemic attack (TIA), questionable amaurosis fugax and was admitted for observation. Dr. Kaufman from neurology was consulted by emergency department and he recommended MRI of the brain. PAST SURGICAL HISTORY: None. HOME MEDICATIONS: - Tylenol 650 mg every 4 hours as needed - Tylenol 650 mg per rectal every 4 hours as needed - amlodipine 10 mg daily - aspirin 81 mg daily - atorvastatin 80 mg by mouth at bedtime - bisacodyl 10 mg per rectal as needed daily - citalopram 20 mg by mouth daily - clopidogrel 75 mg by mouth daily - ferrous gluconate 324 mg by mouth daily - hydralazine 25 mg by mouth every 6 hours - Keppra 500 mg by mouth twice a day - Lorazepam 0.5 mg by mouth every 6 hours as needed - losartan 50 mg by mouth daily - milk of magnesia 30 mL by mouth daily as needed constipation - multivitamin 1 tablet by mouth daily - pantoprazole 40 mg by mouth daily - senna one capsule by mouth daily - Fleet enema, one enema daily as needed constipation - thiamine 100 mg by mouth daily ALLERGIES: No known allergies. REVIEW OF SYSTEMS: The patient has very poor cognitive function. When asked what happened, he said he passed out and when asked where he was, he said he lives with his brother in [place] at one point. At one point, he says he lives in [place]. No further history could be elicited from the patient. PHYSICAL EXAMINATION: VITAL SIGNS: Temperature 98.2, pulse 64, respiratory rate 18, blood pressure 144/78, pulse oximetry 98% on room air. GENERAL: The patient awake, alert, however, not oriented to place or time. Only oriented times one to person. HEENT: Normocephalic, atraumatic. Moist mucous membranes. Anicteric eyes. CHEST: Clear to auscultation. CARDIOVASCULAR: S1, S2, regular. No rub, murmur or gallop. ABDOMEN: Soft, nontender. Bowel sounds present. EXTREMITIES: No edema. NEUROLOGICAL: There is a residual left-sided hemiparesis present. LABORATORY DATA: WBC 7.4, hemoglobin 11, platelets 341. Sodium 137, potassium 4, chloride 104. Bicarbonate 26, BUN 21, creatinine 1. Glucose 119, calcium 8.3. Cardiac enzymes are negative. Coagulation panel is negative. Previous stroke workup for coagulation profile has been normal. ASSESSMENT AND PLAN: This is a 55-year-old male admitted for possible TIA. PLAN: TIA. Specifically possible amaurosis fugax. Possibly cardioembolic, now resolved. Will continue the patient on aspirin and Plavix. Will get MRI as per Dr. Kaufman's recommendation. Will consult with neurology. History of stroke in May, cardioembolic with residual left sided hemiparesis. Will continue with statin, aspirin, clopidogrel. Hypertension. Will continue with amlodipine, hydralazine, losartan. History of seizure like activity. Will continue with Keppra. Multi-infarct dementia with episodes of agitation. Will continue with citalopram, lorazepam. Deep venous thrombosis (DVT) prophylaxis has been ordered. Gastrointestinal (GI) prophylaxis has been ordered. Patent foramen ovale. As diagnosed with transesophageal echocardiogram in [facility]. However, we do not know the details about size or any further plans for that. 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 However, he was empirically treated with six weeks of IV antibiotics from May to July.
[2016-08-18 21:15] VITALS: BP 162/76
[2016-08-18] MEDS ORDERED: SLF 3 ML SYR IV PRN (21:45)
[2016-08-18] MEDS: ATORVASTATIN 20 MG TAB PO SCH (21:46)
[2016-08-18] MEDS: levETIRAcetam 250MG TABLET (KEPPRA) PO SCH (21:46)
[2016-08-19] VITALS: BP 170/81
[2016-08-19] MEDS: SLF 3 ML SYR IV SCH ×4 (00:02→20:23)
[2016-08-19] MEDS: **hydrALAZINE HCL** 25 MG TAB PO SCH ×4 (00:03→17:41)
[2016-08-19 04:20] VITALS: BP 157/83
[2016-08-19 05:08] LABS: BASO % 0.7 % (0.0-1.0); EOS # 0.1 K/mm3 (0.0-0.50); EOS % 1.6 % (0.0-3.0); LARGE UNSTAINED CELL # 0.1 K/mm3 (0.0-0.4); LARGE UNSTAINED CELL % 1.5 % (0.0-4.0); LYMPH # 1.7 K/mm3 (1.5-4.5); LYMPH % 24.1 % (24.0-44.0); MEAN CORPUSCULAR HEMOGLOBIN 28.3 pg (27.0-33.0); MEAN CORPUSCULAR HGB CONC 33.3 g/dl (32.0-36.5); MEAN CORPUSCULAR VOLUME 85.1 fl (80.0-96.0); MONO # 0.3 K/mm3 (0.0-0.8); MONO % 4.1 % (0.0-5.0); NEUTROPHILS # 4.9 K/mm3 (1.8-7.7); NEUTROPHILS % 68.1 % (36.0-66.0); PLATELET COUNT, AUTOMATED 322 k/mm3 (150-450); RED CELL DISTRIBUTION WIDTH 14.8 % (11.5-14.5); WHITE BLOOD COUNT 7.2 K/mm3 (4.0-10.0)
[2016-08-19 05:20] LABS: ANION GAP 8 MEQ/L (8-16); BLOOD UREA NITROGEN 19 MG/DL (7-18); CALCIUM LEVEL 8.4 MG/DL (8.5-10.1); CARBON DIOXIDE LEVEL 26 MEQ/L (21-32); CHLORIDE LEVEL 103 MEQ/L (98-107); CREATININE FOR GFR 0.95 MG/DL (0.70-1.30); GLOMERULAR FILTRATION RATE > 60.0 (>56); GLUCOSE, FASTING 91 MG/DL (70-105); POTASSIUM SERUM 3.8 MEQ/L (3.5-5.1); SODIUM LEVEL 137 MEQ/L (136-145)
[2016-08-19 08:00] VITALS: BP 153/88
[2016-08-19] MEDS: levETIRAcetam 250MG TABLET (KEPPRA) PO SCH ×2 (08:27→20:19)
[2016-08-19] MEDS: ASPIRIN 81 MG ENTERIC TAB PO SCH (08:28)
[2016-08-19] MEDS: THIAMINE 100 MG TAB PO SCH (08:28)
[2016-08-19] MEDS: amLODIPine 10 MG TAB PO SCH (08:28)
[2016-08-19] MEDS: CLOPIDOGREL 75 MG TAB PO SCH (08:28)
[2016-08-19] MEDS: SENNA 8.6 MG TAB (SENOKOT) PO SCH (08:28)
[2016-08-19] MEDS: LOSARTAN 50 MG TAB PO SCH (08:28)
[2016-08-19] MEDS: PANTOPRAZOLE 40MG TAB (PROTONIX) PO SCH (08:28)
[2016-08-19] MEDS: ENOXAPARIN 40 MG/0.4 ML SYRINGE (J1650) SC SCH (08:29)
[2016-08-19] MEDS: CitaloPRAM (CeleXA) 20 MG TAB PO SCH (08:29)
[2016-08-19] MEDS: FERROUS GLUCONATE 324 MG TAB PO SCH (08:29)
--- NOTE | 2016-08-19 11:16 | REP ---
MRA BRAIN WITHOUT CONTRAST: 08/19/2016. Comparison: MRI brain today, CT brain 08/18/2016, 08/04/2016. Technique: 3-D [id number] gradient echo images with MIP reformatting and rotational display of the volume acquisitions about the longitudinal and horizontal axis of the brain. All source images are reviewed. A right parietal occipital infarct noted on the source images. Findings: Motion artifact degrades the study. A dominant left vertebral artery contribution to the basilar artery noted. Because of motion, the basilar is difficult to evaluate. Part is split on the images. No gross stenosis and no basilar tip aneurysm. Origins of the right and left posterior cerebral arteries noted from the basilar tip, but also a origin contribution on that right side larger than the basilar tip contribution to the posterior cerebral. The posterior cerebral artery flow to the posterior fossa is generally symmetric. The left internal carotid from the skull base to the carotid siphon shows minor atherosclerotic plaque at the skull base. Motion artifact limits evaluation of vertical portion near the cavernous sinus but the intracavernous portion was unremarkable. Supraclinoid, A1 and M1 segments grossly intact. The anterior and middle cerebral branches on the left grossly intact. The right internal carotid shows plaque in its horizontal portion at the skull base with the vertical portion to the carotid siphon limited in evaluation due to motion artifact. Intracavernous portion and supraclinoid carotid grossly intact. The A1 and M1 segments are grossly preserved. The A2 segment unremarkable. The M2 and M3 segments are limited in evaluation by motion artifact. Impression: 1. Partial origin of the right posterior cerebral artery with generally symmetric supply to the posterior fossa. 2. Limitations due to motion artifact for the entire examination. No gross aneurysm or vessel cutoff. Signed by Vinicio Holcomb MD 08/19/2016 02:46 P
--- NOTE | 2016-08-19 11:20 | IPNPDOC ---
Subjective Date Seen The patient was seen on 08/19/16. Subjective Chief Complaint/HPI The patient is a 55-year-old male admitted with a reason for visit of TIA. Events since last encounter Admitted after transient loss of vision to right eye. MRI/MRA of brain ordered. neuro consult pending. patient vision has been restored. Denies c/o. Constitutional: Denies: Chills, Fever, Night Sweats Gastrointestinal: Denies: Nausea, Vomiting, Abdominal Pain, Diarrhea, Constipation Genitourinary: Denies: Dysuria, Frequency, Incontinence, Retention Musculoskeletal: Denies: Neck Pain, Back Pain, Joint Pain, Muscle Pain, Spasms Psych: Reports: Mood Normal, Denies: Depression, Memory Issues Objective Physical Examination General Exam: Positive: Alert, No Acute Distress ENT Exam: Positive: Atraumatic, Mucous membr. moist/pink, Pharynx Normal Neck Exam: Positive: Supple, Negative: JVD, thyromegaly Chest Exam: Positive: Clear to auscultation, Normal air movement Heart Exam: Positive: Rate Normal, Regular Rhythm, Normal S1, Normal S2, Negative: Murmurs, Rubs Telemetry: Positive: No significant arrhythmia Abdomen Exam: Positive: Normal bowel sounds, Soft, Negative: Tenderness, Hepatospenomegaly Extremity Exam: Positive: Normal pulses, Negative: Clubbing, Cyanosis, Edema Skin Exam: Positive: Nl turgor and temperature, Negative: Rash, Breakdown Psych Exam: Positive: Mental status NL, Mood NL, Oriented x 3 Assessment /Plan Problems (1) TIA (transient ischemic attack) Problem Specific Plan: Consult Specialist Problem Text: MRI/MRA results pending. neuro consult. (2) CVA (cerebral vascular accident) Status: Chronic Problem Specific Plan: Monitor Clinically Problem Text: 05/2014. (3) HTN (hypertension) Status: Chronic Response to Treatment: Stable Problem Specific Plan: Monitor Clinically (4) Hyperlipemia Status: Chronic Response to Treatment: Stable Problem Specific Plan: Monitor Clinically (5) Cardioembolic stroke Status: Chronic Problem Text: MCA involvement 05/2016. (6) Patent foramen ovale Problem Text: noted on TU at [facility]. Plan/VTE VTE Prophylaxis Ordered?: Yes (Lovenox, plavix, aspirin. ) Plan Attending note: I saw and evaluated the patient, and agree with plan of care as discussed and documented by Carol Alberry. Based on the history given by the patient, I doubt that this was amaurosis fugax. Patient reports that he never had black areas of vision, or complete vision loss in the eye. He only reports blurring of the vision. This would not be consistent with embolization to the retinal artery. Patient does however report problems with dry eyes recently. This could certainly contribute to blurring of vision. He currently reports no vision problems, and his neurologic exam reveals chronic stable left arm weakness, 2+ biceps and patellar reflexes, eye movements with smooth pursuit and without saccades, and sensation fully intact. Will await neuro recommendations, however patient can likely be discharged back to the keep home. Stanley Rosario MD VS, I&O, 24H, [facility] Vital Signs/I&O Vital Signs Date Time Temp Pulse Resp B/P (MAP) Pulse Ox O2 Delivery O2 Flow Rate FiO2 08/19/16 08:28 158/88 08/19/16 08:28 61 08/19/16 08:00 98.1 18 97 Room Air Laboratory Data 24H LABS Laboratory Tests 2 08/18/16 15:44: White Blood Count 7.4, Red Blood Count 3.86L, Hemoglobin 11.0L, Hematocrit 32.2L , Mean Corpuscular Volume 83.6, Mean Corpuscular Hemoglobin 28.5, Mean Corpuscular Hemoglobin Concent 34.1, Red Cell Distribution Width 14.9H, Platelet Count 341, Neutrophils (%) (Auto) 72.1H, Lymphocytes (%) (Auto) 20.0L, Monocytes (%) (Auto) 4.4, Eosinophils (%) (Auto) 2.2, Basophils (%) (Auto) 0.3, Neutrophils # (Auto) 5.3, Lymphocytes # (Auto) 1.5, Monocytes # (Auto) 0.3, Eosinophils # (Auto) 0.2, Basophils # (Auto) 0.0, Large Unclassified Cells % 1.0 , Large Unclassified Cells # 0.1, Prothrombin Time 14.1, Prothromb Time International Ratio 1.08, Activated Partial Thromboplast Time 33.4, Anion Gap 7L , Glomerular Filtration Rate > 60.0, Blood Urea Nitrogen 21H, Creatinine 1.06, Sodium Level 137, Potassium Level 4.0, Chloride Level 104, Carbon Dioxide Level 26, Calcium Level 8.3L, Total Creatine Kinase 69, Creatine Kinase MB 1.5, Creatine Kinase MB Relative Index 2.17, Troponin I < 0.02 08/19/16 04:35: White Blood Count 7.2, Red Blood Count 3.92L, Hemoglobin 11.1L, Hematocrit 33.3L , Mean Corpuscular Volume 85.1, Mean Corpuscular Hemoglobin 28.3, Mean Corpuscular Hemoglobin Concent 33.3, Red Cell Distribution Width 14.8H, Platelet Count 322, Neutrophils (%) (Auto) 68.1H, Lymphocytes (%) (Auto) 24.1, Monocytes (%) (Auto) 4.1, Eosinophils (%) (Auto) 1.6, Basophils (%) (Auto) 0.7, Neutrophils # (Auto) 4.9, Lymphocytes # (Auto) 1.7, Monocytes # (Auto) 0.3, Eosinophils # (Auto) 0.1, Basophils # (Auto) 0.0, Large Unclassified Cells % 1.5 , Large Unclassified Cells # 0.1, Anion Gap 8, Glomerular Filtration Rate > 60.0 , Blood Urea Nitrogen 19H, Creatinine 0.95, Sodium Level 137, Potassium Level 3.8, Chloride Level 103, Carbon Dioxide Level 26, Calcium Level 8.4L CBC/BMP Laboratory Tests 08/18/16 15:44 Red Blood Count 3.86 L, Mean Corpuscular Volume 83.6, Mean Corpuscular Hemoglobin 28.5, Mean Corpuscular Hemoglobin Concent 34.1, Red Cell Distribution Width 14.9 H, Neutrophils (%) (Auto) 72.1 H, Lymphocytes (%) (Auto ) 20.0 L, Monocytes (%) (Auto) 4.4, Eosinophils (%) (Auto) 2.2, Basophils (%) ( Auto) 0.3, Neutrophils # (Auto) 5.3, Lymphocytes # (Auto) 1.5, Monocytes # (Auto ) 0.3, Eosinophils # (Auto) 0.2, Basophils # (Auto) 0.0, Calcium Level 8.3 L, Total Creatine Kinase 69 08/19/16 04:35 Red Blood Count 3.92 L, Mean Corpuscular Volume 85.1, Mean Corpuscular Hemoglobin 28.3, Mean Corpuscular Hemoglobin Concent 33.3, Red Cell Distribution Width 14.8 H, Neutrophils (%) (Auto) 68.1 H, Lymphocytes (%) (Auto ) 24.1, Monocytes (%) (Auto) 4.1, Eosinophils (%) (Auto) 1.6, Basophils (%) ( Auto) 0.7, Neutrophils # (Auto) 4.9, Lymphocytes # (Auto) 1.7, Monocytes # (Auto ) 0.3, Eosinophils # (Auto) 0.1, Basophils # (Auto) 0.0, Calcium Level 8.4 L China Heaton August 19, 2016 11:20 STANLEY ROSARIO MD August 19, 2016 13:17
--- NOTE | 2016-08-19 11:40 | ECGEPIP ---
Stationary ECG Study [facility] - ED Test Date: 2016-08-18 Pat Name: PATRICK MCCORMICK Department: Room: - Gender: M [employer] Di[employer]: rn : 1960 Requested By: CONNIE Madison Order Number: [id number] Reading MD: Laura Carvalho Measurements Intervals [place] Rate: 69 P: 59 IL: 206 QRS: 33 QRSD: 87 T: 52 QT: 404 QTc: 435 Interpretive Statements SINUS RHYTHM LOW VOLTAGE LIMB NSTTW ABNORMALITY SIMILAR 06/24/16 Electronically Signed On 08-19-2016 11:39:45 EDT by Laura Carvalho
--- NOTE | 2016-08-19 11:48 | REP ---
MRI BRAIN WITHOUT CONTRAST: 08/19/2016. Clinical history: TIA symptoms. Recent right parietal occipital infarct since May 23, 2016. Technique: Sagittal T1 with axial T1, FLAIR, diffusion weighted images and ADC mapping sequences. Gradient echo axial images also obtained. Findings: Lateral ventricles are midline, symmetric, mildly dilated and proportionate to the diffuse cerebral atrophy. There are old lacunar infarcts in the right and left basal ganglia and the right thalamus. There are extensive confluent periventricular deep white matter and subcortical T2 and FLAIR hyperintense foci. Encephalomalacia from the right posterior parietal occipital infarct in May is noted. This is unchanged in appearance from the CT yesterday. No new vascular territory infarct. There is a new lacunar infarct suggested by the hyperintense signal on the diffusion-weighted images and dark signal on the ADC mapping sequence. Corpus callosum and periventricular white matter centrally and best seen on images 17 and 18 of the diffusion and ADC mapping sequences. There is no evidence of acute blood. No extra-axial fluid. The brainstem shows hyperintense T2 signal, hypointense on FLAIR, suggesting old ischemic change on the diffusion weighted images. No acute ischemia in the brainstem or cerebellum. There is a tortuous basilar artery. The seventh and eighth cranial nerve complexes are intact. Some minor mucosal thickening in the ethmoids and maxillary sinuses noted without air fluid levels. The mastoids are unremarkable. Orbits and contents intact. The corpus callosum, optic chiasm, pituitary otherwise unremarkable. Impression: 1. There is an acute lacunar infarct in the midline and paramedian left corpus callosum and into periventricular region about the left lateral ventricle best seen on diffusion images and ADC mapping sequence. No other new or acute finding. No acute hemorrhage. 2. Bilateral lacunar infarcts old in the basal ganglia and brainstem infarcts. 3. The zone of the encephalomalacia posterior right parietal occipital lobe from infarct noted in May. Signed by Vinicio Holcomb MD 08/19/2016 02:47 P
[2016-08-19 12:00] VITALS: BP 150/86
[2016-08-19 16:00] VITALS: BP 153/85
[2016-08-19] MEDS: TEARS NATURALE FREE OPHTH DROP VIAL OU SCH ×2 (17:05→20:20)
[2016-08-19 20:00] VITALS: BP 138/78
[2016-08-19] MEDS: ATORVASTATIN 20 MG TAB PO SCH (20:20)
[2016-08-20] VITALS: BP 146/68
[2016-08-20 04:00] VITALS: BP 165/84
[2016-08-20 05:25] LABS: BASO % 0.5 % (0.0-1.0); EOS # 0.1 K/mm3 (0.0-0.50); EOS % 1.7 % (0.0-3.0); LARGE UNSTAINED CELL # 0.1 K/mm3 (0.0-0.4); LARGE UNSTAINED CELL % 1.2 % (0.0-4.0); LYMPH # 1.9 K/mm3 (1.5-4.5); LYMPH % 25.4 % (24.0-44.0); MEAN CORPUSCULAR HGB CONC 33.8 g/dl (32.0-36.5); MEAN CORPUSCULAR VOLUME 82.7 fl (80.0-96.0); MONO # 0.4 K/mm3 (0.0-0.8); MONO % 4.9 % (0.0-5.0); NEUTROPHILS # 4.6 K/mm3 (1.8-7.7); NEUTROPHILS % 66.3 % (36.0-66.0); PLATELET COUNT, AUTOMATED 315 k/mm3 (150-450); RED CELL DISTRIBUTION WIDTH 14.9 % (11.5-14.5)
[2016-08-20 05:38] LABS: ANION GAP 8 MEQ/L (8-16); BLOOD UREA NITROGEN 21 MG/DL (7-18); CALCIUM LEVEL 8.5 MG/DL (8.5-10.1); CARBON DIOXIDE LEVEL 26 MEQ/L (21-32); CHLORIDE LEVEL 104 MEQ/L (98-107); GLOMERULAR FILTRATION RATE > 60.0 (>56); GLUCOSE, FASTING 94 MG/DL (70-105); POTASSIUM SERUM 3.8 MEQ/L (3.5-5.1); SODIUM LEVEL 138 MEQ/L (136-145)
[2016-08-20] MEDS: **hydrALAZINE HCL** 25 MG TAB PO SCH ×4 (06:01→17:13)
[2016-08-20] MEDS: SLF 3 ML SYR IV SCH ×3 (06:02→21:08)
[2016-08-20 08:00] VITALS: BP 179/86
[2016-08-20] MEDS: levETIRAcetam 250MG TABLET (KEPPRA) PO SCH ×2 (08:48→21:06)
[2016-08-20] MEDS: ENOXAPARIN 40 MG/0.4 ML SYRINGE (J1650) SC SCH (08:48)
[2016-08-20] MEDS: PANTOPRAZOLE 40MG TAB (PROTONIX) PO SCH (08:49)
[2016-08-20] MEDS: FERROUS GLUCONATE 324 MG TAB PO SCH (08:49)
[2016-08-20] MEDS: THIAMINE 100 MG TAB PO SCH (08:49)
[2016-08-20] MEDS: SENNA 8.6 MG TAB (SENOKOT) PO SCH (08:49)
[2016-08-20] MEDS: CLOPIDOGREL 75 MG TAB PO SCH (08:49)
[2016-08-20] MEDS: LOSARTAN 50 MG TAB PO SCH ×2 (08:49→21:06)
[2016-08-20] MEDS: ASPIRIN 81 MG ENTERIC TAB PO SCH (08:49)
[2016-08-20] MEDS: TEARS NATURALE FREE OPHTH DROP VIAL OU SCH ×4 (08:49→21:07)
[2016-08-20] MEDS: amLODIPine 10 MG TAB PO SCH (08:49)
[2016-08-20] MEDS: CitaloPRAM (CeleXA) 20 MG TAB PO SCH (08:49)
--- NOTE | 2016-08-20 11:05 | IPNPDOC ---
Subjective Date Seen The patient was seen on 08/20/16. Subjective Chief Complaint/HPI The patient is a 55-year-old male admitted with a reason for visit of TIA. Objective Physical Examination General Exam: Positive: Alert, No Acute Distress ENT Exam: Positive: Atraumatic, Mucous membr. moist/pink, Pharynx Normal Neck Exam: Positive: Supple, Negative: JVD, thyromegaly Chest Exam: Positive: Clear to auscultation, Normal air movement Heart Exam: Positive: Rate Normal, Regular Rhythm, Normal S1, Normal S2, Negative: Murmurs, Rubs Telemetry: Positive: No significant arrhythmia Abdomen Exam: Positive: Normal bowel sounds, Soft, Negative: Tenderness, Hepatospenomegaly Extremity Exam: Positive: Normal pulses, Negative: Clubbing, Cyanosis, Edema Skin Exam: Positive: Nl turgor and temperature, Negative: Rash, Breakdown Neuro Exam: Positive: Strength at 5/5 X4 ext (x baseline LUE/LLE 4/5 c L FD) Psych Exam: Positive: Mental status NL, Mood NL, Oriented x 3 Assessment /Plan Problems (1) CVA (cerebral vascular accident) Status: Chronic Problem Specific Plan: Monitor Clinically Problem Text: 08/20/16 continues on home dose aspirin 81/clopid 75- case d/w Dr. Kaufman-he will see, but favors change to aspirin/VKA and t/c PFO closure, recheck TTE/BCX given h/o septic embolic CVA, ? recurrent embolic CVA-, plan d/w brother Brii , [facility], at bedside who agrees c plan (obtain TU from [facility] re PFO size-not in eCW) 08/19/16 MRI: 1. There is an acute lacunar infarct in the midline and paramedian left corpus callosum and into periventricular region about the left lateral ventricle best seen on diffusion images and ADC mapping sequence. No other new or acute finding. No acute hemorrhage. 2. Bilateral lacunar infarcts old in the basal ganglia and brainstem infarcts. 3. The zone of the encephalomalacia posterior right parietal occipital lobe from infarct noted in 08/18/16 MRA brain NAD (2) HTN (hypertension) Status: Chronic Response to Treatment: Stable Problem Specific Plan: Monitor Clinically Problem Text: labile, SBP 140-170s 08/20 losartan 50 QD to BID (new add this admission), continue HD amlo 10, hydral 25 q6H (3) Hyperlipemia Status: Chronic Response to Treatment: Stable Problem Specific Plan: Monitor Clinically Problem Text: continue atorva 80 (4) Cardioembolic stroke Status: Chronic Problem Text: 06/25/16 TTE Antecol normal c baseline residual LUE/LLE hemiparesis/facial droop 2 05/2016 R par/occ CVA felt 2 septic emboli from MV vegetation s/p 6W abx rx (5) Patent foramen ovale Status: Chronic (6) Seizure disorder Status: Chronic Response to Treatment: Stable Problem Text: No recurrent sz activity felt 2 embolic CVA 07/2016 Ali + Keppra Plan/VTE VTE Prophylaxis Ordered?: Yes (Lovenox, plavix, aspirin. ) VS, I&O, 24H, Fishbone Vital Signs/I&O Vital Signs Date Time Temp Pulse Resp B/P (MAP) Pulse Ox O2 Delivery O2 Flow Rate FiO2 08/20/16 08:49 179/86 08/20/16 08:49 69 08/20/16 08:00 98.4 18 98 Room Air I&O- Last 24 Hours up to 6 AM 08/20/16 06:00 Intake Total 1035 ml Output Total 0 ml Balance 1035 ml Laboratory Data 24H LABS Laboratory Tests 2 08/20/16 04:59: White Blood Count 7.0, Red Blood Count 3.81L, Hemoglobin 10.7L, Hematocrit 31.5L , Mean Corpuscular Volume 82.7, Mean Corpuscular Hemoglobin 28.0, Mean Corpuscular Hemoglobin Concent 33.8, Red Cell Distribution Width 14.9H, Platelet Count 315, Neutrophils (%) (Auto) 66.3H, Lymphocytes (%) (Auto) 25.4, Monocytes (%) (Auto) 4.9, Eosinophils (%) (Auto) 1.7, Basophils (%) (Auto) 0.5, Neutrophils # (Auto) 4.6, Lymphocytes # (Auto) 1.9, Monocytes # (Auto) 0.4, Eosinophils # (Auto) 0.1, Basophils # (Auto) 0.0, Large Unclassified Cells % 1.2 , Large Unclassified Cells # 0.1, Anion Gap 8, Glomerular Filtration Rate > 60.0 , Blood Urea Nitrogen 21H, Creatinine 0.90, Sodium Level 138, Potassium Level 3.8, Chloride Level 104, Carbon Dioxide Level 26, Calcium Level 8.5 CBC/BMP Laboratory Tests 08/20/16 04:59 Red Blood Count 3.81 L, Mean Corpuscular Volume 82.7, Mean Corpuscular Hemoglobin 28.0, Mean Corpuscular Hemoglobin Concent 33.8, Red Cell Distribution Width 14.9 H, Neutrophils (%) (Auto) 66.3 H, Lymphocytes (%) (Auto ) 25.4, Monocytes (%) (Auto) 4.9, Eosinophils (%) (Auto) 1.7, Basophils (%) ( Auto) 0.5, Neutrophils # (Auto) 4.6, Lymphocytes # (Auto) 1.9, Monocytes # (Auto ) 0.4, Eosinophils # (Auto) 0.1, Basophils # (Auto) 0.0, Calcium Level 8.5 Teodoro Burks M.D. August 20, 2016 11:05
[2016-08-20] MEDS: LORazepam 0.5 MG TAB PO PRN ×2 (11:51→17:41)
[2016-08-20 12:00] VITALS: BP 140/72
[2016-08-20 16:00] VITALS: BP 139/79
[2016-08-20 16:49] LABS: INR 1.09
[2016-08-20] MEDS: WARFARIN SOD 5 MG TAB PO SCH (17:13)
[2016-08-20] MEDS: ACETAMINOPHEN 325 MG TAB PO PRN (17:42)
[2016-08-20 20:00] VITALS: BP 145/75
--- NOTE | 2016-08-20 20:36 | REP ---
Clinical: Transient ischemic attack . Technique: Sandhu scale and color Doppler evaluation using linear high frequency transducer Findings: Two-dimensional sandhu scale and color images demonstrate smooth intimal thickening of the common carotid arteries with small amounts of mixed plaque material extending to the carotid bulbs. There is normal laminar flow and no appreciable narrowing. Color Doppler interrogation demonstrates normal arterial wave patterns and velocities with no significant spectral broadening. Normal flow direction is appreciated in the left vertebral artery; right vertebral artery not identified. RIGHT (cm/s) LEFT (cm/s) ICA peak systolic velocity 67.7 67.8 ICA diastolic velocity 21.1 35.1 ECA peak systolic velocity 79.1 211.6 CCA peak systolic velocity 115.2 94.0 ICA/CCA ratio 0.59 0.72 Impression: 1. No hemodynamically significant areas of narrowing or stenosis appreciated involving the internal carotid arteries. Based on set standards narrowing falls within the less than 50% range. 2. Elevated velocity through the left external carotid artery may reflect narrowing in the 50-69% range. Signed by Vidal Zamorano MD 08/20/2016 08:27 P
[2016-08-20] MEDS: ATORVASTATIN 20 MG TAB PO SCH (21:07)
[2016-08-21] VITALS (7 sets, daily range): BP systolic 124–177; BP diastolic 66–81
[2016-08-21] MEDS: **hydrALAZINE HCL** 25 MG TAB PO SCH ×4 (00:29→18:18)
[2016-08-21 05:13] LABS: BASO % 0.3 % (0.0-1.0); EOS # 0.1 K/mm3 (0.0-0.50); EOS % 1.7 % (0.0-3.0); LARGE UNSTAINED CELL # 0.1 K/mm3 (0.0-0.4); LARGE UNSTAINED CELL % 1.8 % (0.0-4.0); LYMPH # 1.8 K/mm3 (1.5-4.5); LYMPH % 26.7 % (24.0-44.0); MEAN CORPUSCULAR HEMOGLOBIN 28.4 pg (27.0-33.0); MEAN CORPUSCULAR HGB CONC 33.2 g/dl (32.0-36.5); MEAN CORPUSCULAR VOLUME 85.6 fl (80.0-96.0); MONO # 0.3 K/mm3 (0.0-0.8); MONO % 4.6 % (0.0-5.0); NEUTROPHILS # 4.4 K/mm3 (1.8-7.7); NEUTROPHILS % 64.9 % (36.0-66.0); PLATELET COUNT, AUTOMATED 314 k/mm3 (150-450); RED CELL DISTRIBUTION WIDTH 14.9 % (11.5-14.5); WHITE BLOOD COUNT 6.7 K/mm3 (4.0-10.0)
[2016-08-21 05:21] LABS: ANION GAP 7 MEQ/L (8-16); BLOOD UREA NITROGEN 23 MG/DL (7-18); CALCIUM LEVEL 8.3 MG/DL (8.5-10.1); CARBON DIOXIDE LEVEL 26 MEQ/L (21-32); CHLORIDE LEVEL 106 MEQ/L (98-107); CREATININE FOR GFR 0.95 MG/DL (0.70-1.30); GLOMERULAR FILTRATION RATE > 60.0 (>56); GLUCOSE, FASTING 89 MG/DL (70-105); INR 1.14; POTASSIUM SERUM 3.9 MEQ/L (3.5-5.1); SODIUM LEVEL 139 MEQ/L (136-145)
[2016-08-21] MEDS: SLF 3 ML SYR IV SCH ×3 (06:21→21:07)
--- NOTE | 2016-08-21 07:21 | ECHO ---
DATE OF PROCEDURE: 08/20/2016 HEIGHT: 68 inches. WEIGHT: 125 pounds. BODY SURFACE AREA: 1.67 meters squared LOCATION: Inpatient PCU room 3215. REFERRING PHYSICIAN: Dr. Teodoro Burks INDICATIONS: CVA - amaurosis fugax. MEASUREMENTS: 2-D Measurements: RV - 2.9 cm LV - 4.6 cm Septum - 1.1 cm Posterior wall - 1.1 cm Aortic root - 3.2 cm LA - 3.1 cm LVEF - 75% Doppler Measurements: AV - 1.2 meters per second LVOT - 1.1 meters per second MV - E 89, A - 110, E/A ratio 0.8 Early mitral deceleration time 211 milliseconds E prime - 6.2, A prime - 8 E/E prime ratio - 14 PV - 0.8 meters per second Pulmonary artery acceleration time 115 milliseconds IVC - 1.0 cm. COMMENTS: Normal sinus rhythm without intraventricular conduction disturbance. Somewhat technically challenging study in light of the patient's body habitus but diagnostically useful information was still obtained. Normal cardiac chamber sizes and wall thickness. On real-time imaging from the parasternal and apical projections wall motion was symmetrical and hyperkinetic.. Normal-appearing mitral valvular apparatus and leaflet excursion with no posterior systolic buckling. Three equal sized aortic cusps of normal thickness and cusp separation. Normal aortic root size. No apparent intracardiac mass or pericardial effusion. Color flow Doppler study taken from the parasternal and apical and subcostal projections showed no apparent valvular insufficiency. We were able to visualize a slight thinning of the mid interventricular septum with somewhat of an aneurysmal to-fro motion of this same portion of the septum but we could not visualize an intra-atrial shunt. Guided continuous wave Doppler of his aortic valve showed a normal peak systolic velocity against LV outflow tract obstruction. Pulsed and continuous wave Doppler of his LV inflow tract taken from the apical four-chamber projection showed normal diastolic filling velocities against mitral stenosis. There was slightly more prominent late diastolic/atrial dependent filling pattern. A degree of LV diastolic dysfunction was further confirmed by a prolonged early mitral deceleration time and tissue Doppler of his mitral annulus. His current estimated mean left atrial pressure was upper limits of normal. Pulsed and continuous wave Doppler of his pulmonary trunk showed a normal peak systolic velocity against RV outflow tract obstruction. His pulmonary artery acceleration time was normal against an elevated pulmonary vascular resistance. We attempted to further estimate his right ventricular systolic pressure using guided continuous wave Doppler of his tricuspid valve but there was no tricuspid insufficiency. His inferior vena cava was of normal size with normal respiratory collapse against an elevated central venous pressure. CONCLUSION: Unable to clearly identify an intracardiac source of embolic material. Normal left ventricular size, wall thickness and wall motion. Normal left atrial size with Doppler evidence of an impairment of LV diastolic function but currently normal estimated mean left atrial pressure. Normal right heart chamber sizes and estimated pulmonary arterial pressure. Thinning of the mid intra-atrial septum with marginal swinging motion of the same segment from one atrium to the next but no visualized interatrial shunting. This appearance of the intra-atrial septum may well be a potential source of systemic embolic events. MTDD
[2016-08-21] MEDS: ASPIRIN 81 MG ENTERIC TAB PO SCH (09:23)
[2016-08-21] MEDS: PANTOPRAZOLE 40MG TAB (PROTONIX) PO SCH (09:23)
[2016-08-21] MEDS: TEARS NATURALE FREE OPHTH DROP VIAL OU SCH (09:23)
[2016-08-21] MEDS: THIAMINE 100 MG TAB PO SCH (09:23)
[2016-08-21] MEDS: SENNA 8.6 MG TAB (SENOKOT) PO SCH (09:23)
[2016-08-21] MEDS: CitaloPRAM (CeleXA) 20 MG TAB PO SCH (09:24)
[2016-08-21] MEDS: amLODIPine 10 MG TAB PO SCH (09:24)
[2016-08-21] MEDS: FERROUS GLUCONATE 324 MG TAB PO SCH (09:24)
[2016-08-21] MEDS: LOSARTAN 50 MG TAB PO SCH ×2 (09:24→21:05)
[2016-08-21] MEDS: levETIRAcetam 250MG TABLET (KEPPRA) PO SCH ×2 (09:25→21:03)
[2016-08-21] MEDS: ENOXAPARIN 40 MG/0.4 ML SYRINGE (J1650) SC SCH (09:25)
--- NOTE | 2016-08-21 11:57 | IPNPDOC ---
Subjective Date Seen The patient was seen on 08/21/16. Subjective Chief Complaint/HPI The patient is a 55-year-old male admitted with a reason for visit of TIA. Events since last encounter continues c baseline OS monocular visual blurriness since 05/2016 CVA Constitutional: Denies: Chills Eyes: Denies: Pain Pulmonary: Denies: Dyspnea Cardiovascular: Denies: Chest Pain Gastrointestinal: Denies: Nausea, Vomiting Objective Physical Examination General Exam: Positive: Alert, No Acute Distress ENT Exam: Positive: Atraumatic, Mucous membr. moist/pink, Pharynx Normal Neck Exam: Positive: Supple, Negative: JVD, thyromegaly Chest Exam: Positive: Clear to auscultation, Normal air movement Heart Exam: Positive: Rate Normal, Regular Rhythm, Normal S1, Normal S2, Negative: Murmurs, Rubs Telemetry: Positive: No significant arrhythmia Abdomen Exam: Positive: Normal bowel sounds, Soft, Negative: Tenderness, Hepatospenomegaly Extremity Exam: Positive: Normal pulses, Negative: Clubbing, Cyanosis, Edema Skin Exam: Positive: Nl turgor and temperature, Negative: Rash, Breakdown Neuro Exam: Negative: Strength at 5/5 X4 ext (x baseline LUE 4+/5, LLE 4/5 weakness c mild facial droop) Psych Exam: Positive: Mental status NL, Mood NL, Oriented x 3 Assessment /Plan Problems (1) CVA (cerebral vascular accident) Status: Chronic Problem Specific Plan: Monitor Clinically Problem Text: No recurrent symptoms 08/21/16 patient elected his brother, Musa Mack (Lennie), to be his HCP- paperwork signed, d/w Musa regarding CLOSURE-I and PC trials showing no benefit of PFO closure in cryptogenic CVA 08/20/16 continues on home dose aspirin 81/clopid 75- case d/w Dr. Kaufman-he will see, but favors change to aspirin/VKA and t/c PFO closure, recheck TTE/BCX given h/o septic embolic CVA, ? recurrent embolic CVA-, plan d/w brother Brii , at bedside who agrees c plan (obtain TU from [facility] re PFO size-not in eCW) 08/21 1.1 08/20 INR 1.1-VKA 5 qhs started 08/19/16 MRI: 1. There is an acute lacunar infarct in the midline and paramedian left corpus callosum and into periventricular region about the left lateral ventricle best seen on diffusion images and ADC mapping sequence. No other new or acute finding. No acute hemorrhage. 2. Bilateral lacunar infarcts old in the basal ganglia and brainstem infarcts. 3. The zone of the encephalomalacia posterior right parietal occipital lobe from infarct noted in May 08 B carotid US c ICA stenosis <50% 08/20/16 TTE no vegetation, obvious PFO 08/2016 BCX - x 2 08/18/16 MRA brain NAD (2) HTN (hypertension) Status: Chronic Response to Treatment: Stable Problem Specific Plan: Monitor Clinically Problem Text: labile, SBP 140-170s, HR low 60s therefore defer chrontropic med 08/21 hydral to 37.5 q6H 08/20 losartan 50 QD to BID (new add this admission), continue HD amlo 10, hydral 25 q6H (3) Hyperlipemia Status: Chronic Response to Treatment: Stable Problem Specific Plan: Monitor Clinically Problem Text: continue atorva 80 (4) Cardioembolic stroke Status: Chronic Problem Text: 06/25/16 TTE Antecol normal c baseline residual LUE/LLE hemiparesis/facial droop 2 05/2016 R par/occ CVA felt 2 septic emboli from MV vegetation s/p 6W abx rx (5) Patent foramen ovale Status: Chronic (6) Seizure disorder Status: Chronic Response to Treatment: Stable Problem Text: No recurrent sz activity felt 2 embolic CVA 07/2016 Ali + Keppra Plan/VTE VTE Prophylaxis Ordered?: Yes (Lovenox, plavix, aspirin. ) Disposition ? transfer for PFO closure VS, I&O, 24H, Fishbone Vital Signs/I&O Vital Signs Date Time Temp Pulse Resp B/P (MAP) Pulse Ox O2 Delivery O2 Flow Rate FiO2 08/21/16 09:24 171/81 08/21/16 09:24 62 08/21/16 08:00 98.7 18 98 Room Air I&O- Last 24 Hours up to 6 AM 08/21/16 06:00 Intake Total 1430 ml Output Total 0 ml Balance 1430 ml Laboratory Data 24H LABS Laboratory Tests 2 08/20/16 16:28: Prothrombin Time 14.2, Prothromb Time International Ratio 1.09 08/21/16 04:35: Prothrombin Time 14.7H, Prothromb Time International Ratio 1.14, White Blood Count 6.7, Red Blood Count 3.62L, Hemoglobin 10.3L, Hematocrit 31.0L, Mean Corpuscular Volume 85.6, Mean Corpuscular Hemoglobin 28.4, Mean Corpuscular Hemoglobin Concent 33.2, Red Cell Distribution Width 14.9H, Platelet Count 314, Neutrophils (%) (Auto) 64.9, Lymphocytes (%) (Auto) 26.7, Monocytes (%) (Auto) 4.6, Eosinophils (%) (Auto) 1.7, Basophils (%) (Auto) 0.3, Neutrophils # (Auto) 4.4, Lymphocytes # (Auto) 1.8, Monocytes # (Auto) 0.3, Eosinophils # (Auto) 0.1 , Basophils # (Auto) 0.0, Large Unclassified Cells % 1.8, Large Unclassified Cells # 0.1, Anion Gap 7L, Glomerular Filtration Rate > 60.0, Blood Urea Nitrogen 23H, Creatinine 0.95, Sodium Level 139, Potassium Level 3.9, Chloride Level 106, Carbon Dioxide Level 26, Calcium Level 8.3L CBC/BMP Laboratory Tests 08/21/16 04:35 Red Blood Count 3.62 L, Mean Corpuscular Volume 85.6, Mean Corpuscular Hemoglobin 28.4, Mean Corpuscular Hemoglobin Concent 33.2, Red Cell Distribution Width 14.9 H, Neutrophils (%) (Auto) 64.9, Lymphocytes (%) (Auto) 26.7, Monocytes (%) (Auto) 4.6, Eosinophils (%) (Auto) 1.7, Basophils (%) (Auto ) 0.3, Neutrophils # (Auto) 4.4, Lymphocytes # (Auto) 1.8, Monocytes # (Auto) 0.3, Eosinophils # (Auto) 0.1, Basophils # (Auto) 0.0, Calcium Level 8.3 L Microbiology Microbiology 08/20/16 Blood Culture, Received Pending 08/20/16 Blood Culture - Preliminary, Resulted No growth after 24 hours . All specim... Teodoro Burks M.D. August 21, 2016 11:57
[2016-08-21] MEDS: POLYVINYL ALCOHOL OPHTH SOLN 15 ML(LIQUITEARS) OU SCH ×3 (13:00→21:07)
[2016-08-21] MEDS: LORazepam 0.5 MG TAB PO PRN (14:55)
--- NOTE | 2016-08-21 17:24 | CR ---
DATE OF CONSULTATION: 08/21/2016 REFERRING PHYSICIAN: Dr. Teodoro Burks REASON FOR CONSULTATION: Stroke. HISTORY OF PRESENT ILLNESS: Jose F Mack is a 56-year-old man who was admitted at [facility] due to worsening of right eye vision. He was sent to emergency department due to concern of stroke. The patient was admitted at [facility] in May 2016, and was found to have right posterior cerebral artery occipital and parietal acute ischemic stroke. Further workup revealed patent foramen ovale (PFO) on transesophageal echocardiogram at [facility]. There was questionable history of endocarditis. He was sent to [facility] for rehabilitation afterwards. He had a generalized tonic-clonic seizure. He also developed renal failure. He has been living at [facility] and is wheelchair bound due to left-sided residual hemiparesis and effects on his cognition from his stroke. His current MRI scan showed new left midline and periventricular corpus callosum acute ischemic stroke and old right parietal and occipital ischemic stroke with small vessel ischemic disease of brain. He also had an episode of amaurosis fugax. PAST MEDICAL HISTORY: 1. Ischemic stroke in May 2016. 2. PFO. 3. Questionable history of endocarditis. 4. Hypertension. 5. Dyslipidemia. 6. Right lung nodule. 7. History of alcohol abuse in past. 8. Seizure. 9. Acute renal failure in June 2016, requiring hemodialysis. HOME MEDICATIONS: - aspirin 81 mg by mouth daily - Plavix 75 mg by mouth daily - hydralazine 25 mg by mouth every six hours - Keppra 500 mg by mouth twice a day - losartan 50 mg by mouth daily - Protonix 40 mg by mouth daily - thiamine 100 mg by mouth daily - Lipitor 80 mg by mouth daily - Celexa 20 mg by mouth daily - Ativan 0.5 mg by mouth every six hours as needed SOCIAL HISTORY: He currently denies smoking, alcohol or illicit drugs. FAMILY HISTORY: Noncontributory. REVIEW OF SYSTEMS: All systems were reviewed and found to be noncontributory except as mentioned history of present illness (HPI). PHYSICAL EXAMINATION: VITAL SIGNS: Blood pressure 171/81, pulse 62, respiratory rate 18, temperature 98.7. HEART: Regular rate and rhythm. LUNGS: Clear to auscultation. EXTREMITIES: No pedal edema. Peripheral pulses are palpable. No gross musculoskeletal abnormalities. EARS, NOSE, THROAT: Examination is within normal limits. NEUROLOGIC: The patient is awake, alert, oriented to place, person and time. Normal speech, comprehension and repetition. Extraocular muscles are intact. No facial weakness. Tongue and uvula are midline. 5/5 strength on right side and 4/5 strength on left side. Left plantar is upgoing. Gait was not tested. There is no dysmetria. ASSESSMENT: 1. Two new small corpus callosum acute ischemic stroke. 2. Right parietal and occipital ischemic stroke in May 2016. 3. Patent foramen ovale. 4. Questionable history of endocarditis. 5. 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 PLAN: 1. Get report of his transesophageal echocardiogram from [facility]. 2. We should start him on subcutaneous low-dose heparin and add Coumadin to bring his INR up in a few days, and then discontinue Plavix and keep him on aspirin 81 mg by mouth daily and Coumadin to maintain INR between 2-3. 3. Continue Keppra 500 mg by mouth twice a day. 4. Follow with our office in two weeks after hospital discharge.
[2016-08-21] MEDS: WARFARIN SOD 5 MG TAB PO SCH (18:17)
[2016-08-21] MEDS: ATORVASTATIN 20 MG TAB PO SCH (21:05)
[2016-08-22] MEDS: **hydrALAZINE HCL** 25 MG TAB PO SCH ×5 (00:05→23:55)
[2016-08-22 00:50] VITALS: BP 130/69
[2016-08-22 05:33] LABS: BASO % 0.6 % (0.0-1.0); EOS # 0.2 K/mm3 (0.0-0.50); EOS % 2.3 % (0.0-3.0); LARGE UNSTAINED CELL # 0.1 K/mm3 (0.0-0.4); LARGE UNSTAINED CELL % 1.1 % (0.0-4.0); LYMPH # 1.7 K/mm3 (1.5-4.5); LYMPH % 23.4 % (24.0-44.0); MEAN CORPUSCULAR HEMOGLOBIN 28.6 pg (27.0-33.0); MEAN CORPUSCULAR HGB CONC 33.7 g/dl (32.0-36.5); MEAN CORPUSCULAR VOLUME 84.8 fl (80.0-96.0); MONO # 0.3 K/mm3 (0.0-0.8); MONO % 4.4 % (0.0-5.0); NEUTROPHILS # 5.1 K/mm3 (1.8-7.7); NEUTROPHILS % 68.3 % (36.0-66.0); PLATELET COUNT, AUTOMATED 295 k/mm3 (150-450); RED CELL DISTRIBUTION WIDTH 14.8 % (11.5-14.5); WHITE BLOOD COUNT 7.4 K/mm3 (4.0-10.0)
[2016-08-22 05:43] LABS: INR 1.66
[2016-08-22 05:50] LABS: ANION GAP 9 MEQ/L (8-16); BLOOD UREA NITROGEN 23 MG/DL (7-18); CARBON DIOXIDE LEVEL 24 MEQ/L (21-32); CHLORIDE LEVEL 105 MEQ/L (98-107); CREATININE FOR GFR 0.99 MG/DL (0.70-1.30); GLOMERULAR FILTRATION RATE > 60.0 (>56); GLUCOSE, FASTING 94 MG/DL (70-105); SODIUM LEVEL 138 MEQ/L (136-145)
[2016-08-22 06:00] VITALS: BP 157/87
[2016-08-22] MEDS: SLF 3 ML SYR IV SCH ×3 (06:05→20:22)
[2016-08-22] MEDS: ASPIRIN 81 MG ENTERIC TAB PO SCH (10:45)
[2016-08-22] MEDS: PANTOPRAZOLE 40MG TAB (PROTONIX) PO SCH (10:45)
[2016-08-22] MEDS: SENNA 8.6 MG TAB (SENOKOT) PO SCH (10:45)
[2016-08-22] MEDS: CitaloPRAM (CeleXA) 20 MG TAB PO SCH (10:45)
[2016-08-22] MEDS: amLODIPine 10 MG TAB PO SCH (10:45)
[2016-08-22] MEDS: LOSARTAN 50 MG TAB PO SCH ×2 (10:45→20:21)
[2016-08-22] MEDS: ENOXAPARIN 40 MG/0.4 ML SYRINGE (J1650) SC SCH (10:45)
[2016-08-22] MEDS: levETIRAcetam 250MG TABLET (KEPPRA) PO SCH ×2 (10:46→20:21)
[2016-08-22] MEDS: FERROUS GLUCONATE 324 MG TAB PO SCH (10:46)
[2016-08-22] MEDS: POLYVINYL ALCOHOL OPHTH SOLN 15 ML(LIQUITEARS) OU SCH ×4 (10:46→20:21)
[2016-08-22] MEDS: LORazepam 0.5 MG TAB PO PRN ×2 (10:46→16:51)
[2016-08-22] MEDS: THIAMINE 100 MG TAB PO SCH (10:46)
[2016-08-22 12:00] VITALS: BP 135/77
[2016-08-22] MEDS: ACETAMINOPHEN 325 MG TAB PO PRN (12:14)
--- NOTE | 2016-08-22 13:57 | ECGEPIP ---
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 c/o chest pain left chest area Electronically Signed On 08-22-2016 13:57:36 EDT by Galo Amanda
[2016-08-22 14:00] VITALS: BP 133/62
--- NOTE | 2016-08-22 16:34 | IPNPDOC ---
Subjective Date Seen The patient was seen on 08/22/16. Subjective Chief Complaint/HPI The patient is a 55-year-old male admitted with a reason for visit of TIA. Events since last encounter Patient has no complaints or concerns today, however he is unclear about the plan of care. He understands that he is in a hospital in [place], is able to recite his name and where he lives, and the month, however he does not remember what put him in the [facility] home initially. He does also did not remember that he had another stroke. He does not recall being placed on Coumadin. He also cannot recall discussing repair of his PFO. He states that he would like to speak with his brother. He denies any vision disturbances today, focal weakness, or difficulty speaking. Earlier in the day, he complained of chest pain, but at follow-up of his chest pain he said the pain had migrated down his leg, and had turned into "an itch." Constitutional: Denies: Chills, Fever, Malaise ENT: Denies: Head Aches Skin: Denies: Rash Pulmonary: Denies: Dyspnea, Cough Cardiovascular: Denies: Chest Pain, Palpitations Gastrointestinal: Denies: Nausea, Vomiting, Abdominal Pain, Diarrhea, Constipation Genitourinary: Denies: Dysuria Neurological: Reports: Weakness (chronic muscle weakness after previous stroke , unchanged), Confusion, Denies: Numbness, Incoordination, Change in speech Psych: Reports: Mood Normal Objective Physical Examination General Exam: Positive: Alert, No Acute Distress ENT Exam: Positive: Atraumatic, Mucous membr. moist/pink, Pharynx Normal Neck Exam: Positive: Supple, Negative: JVD, thyromegaly Chest Exam: Positive: Clear to auscultation, Normal air movement Heart Exam: Positive: Rate Normal, Regular Rhythm, Normal S1, Normal S2, Negative: Murmurs, Rubs Telemetry: Positive: No significant arrhythmia Abdomen Exam: Positive: Normal bowel sounds, Soft, Negative: Tenderness, Hepatospenomegaly Extremity Exam: Positive: Normal pulses, Negative: Clubbing, Cyanosis, Edema Skin Exam: Positive: Nl turgor and temperature, Negative: Rash, Breakdown Neuro Exam: Positive: Strength at 5/5 X4 ext (x baseline LUE 4+/5, LLE 4/5 weakness; poor short-term memory) Psych Exam: Positive: Mental status NL, Mood NL, Oriented x 3 Assessment /Plan Problems (1) CVA (cerebral vascular accident) Status: Chronic Problem Specific Plan: Monitor Clinically Problem Text: 08/22/16: No current sx, but having some confusion. Unsure if this is pts baseline. MRI showed an acute lacunar infarct in the midline and paramedian left corpus callosum and into periventricular region about the left lateral ventricle that acute hemorrhage. Encephalomalacia noted in the posterior right parietal occipital lobe from infarct noted in May, in addition to bilateral lacunar infarcts old in the basal ganglia and brainstem infarctsPatient elected his brother, Musa Mack (Lennie), to be his HCP and paperwork has been signed. Dr. Burks spoke with Musa regarding CLOSURE-I and PC trials showing no benefit of PFO closure in cryptogenic CVA. Patient seems inclined to continue with medical management, however seems confused about what is happening recently. Coumadin was she a day, and is near goal. Blood cultures are negative, making septic endocarditis unlikely. Carotid US c ICA stenosis <50%. 08/20/16 TTE no vegetation, and an obvious PFO. - INR 1.66, coumadin 5 mg daily - cont ASA - discharge planning (2) HTN (hypertension) Status: Chronic Response to Treatment: Stable Problem Specific Plan: Monitor Clinically Problem Text: BPs 130s-170s with multiple lacunar infarcts on MRI, both new and old, so may be undertreated for BP. Currently on max dose of losartan and amlodipine, in addition to hydralazine every 6 hours. Not currently on diuretic. - Add chlorthalidone 50 mg daily (3) Hyperlipemia Status: Chronic Response to Treatment: Stable Problem Specific Plan: Monitor Clinically Problem Text: Patient is on high-dose statin therapy. 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 Patient was treated with 6 weeks of antibiotics. Current TTE shows no vegetations. (5) Patent foramen ovale Status: Chronic (6) Seizure disorder Status: Chronic Response to Treatment: Stable Problem Text: No recurrent sz activity. Thought to be secondary to embolic CVA. Per recommendations from Dr. Kaufman patient was started on Keppra 07/2016 Plan/VTE VTE Prophylaxis Ordered?: Yes (Lovenox, plavix, aspirin. ) Disposition Plan to discharge to [facility] 07/24/2016, pending therapeutic INR or on Lovenox bridge VS, I&O, 24H, Fishbone Vital Signs/I&O Vital Signs Date Time Temp Pulse Resp B/P (MAP) Pulse Ox O2 Delivery O2 Flow Rate FiO2 08/22/16 14:00 97.8 70 18 133/62 (85) 99 Room Air I&O- Last 24 Hours up to 6 AM 08/22/16 05:59 Intake Total 840 ml Output Total 0 ml Balance 840 ml Laboratory Data 24H LABS Laboratory Tests 2 08/22/16 05:16: White Blood Count 7.4, Red Blood Count 3.65L, Hemoglobin 10.4L, Hematocrit 30.9L , Mean Corpuscular Volume 84.8, Mean Corpuscular Hemoglobin 28.6, Mean Corpuscular Hemoglobin Concent 33.7, Red Cell Distribution Width 14.8H, Platelet Count 295, Neutrophils (%) (Auto) 68.3H, Lymphocytes (%) (Auto) 23.4L, Monocytes (%) (Auto) 4.4, Eosinophils (%) (Auto) 2.3, Basophils (%) (Auto) 0.6, Neutrophils # (Auto) 5.1, Lymphocytes # (Auto) 1.7, Monocytes # (Auto) 0.3, Eosinophils # (Auto) 0.2, Basophils # (Auto) 0.0, Large Unclassified Cells % 1.1 , Large Unclassified Cells # 0.1, Prothrombin Time 19.7H, Prothromb Time International Ratio 1.66, Anion Gap 9, Glomerular Filtration Rate > 60.0, Blood Urea Nitrogen 23H, Creatinine 0.99, Sodium Level 138, Potassium Level 4.0, Chloride Level 105, Carbon Dioxide Level 24, Calcium Level 8.0L CBC/BMP Laboratory Tests 08/22/16 05:16 Red Blood Count 3.65 L, Mean Corpuscular Volume 84.8, Mean Corpuscular Hemoglobin 28.6, Mean Corpuscular Hemoglobin Concent 33.7, Red Cell Distribution Width 14.8 H, Neutrophils (%) (Auto) 68.3 H, Lymphocytes (%) (Auto ) 23.4 L, Monocytes (%) (Auto) 4.4, Eosinophils (%) (Auto) 2.3, Basophils (%) ( Auto) 0.6, Neutrophils # (Auto) 5.1, Lymphocytes # (Auto) 1.7, Monocytes # (Auto ) 0.3, Eosinophils # (Auto) 0.2, Basophils # (Auto) 0.0, Calcium Level 8.0 L Microbiology Microbiology 08/20/16 Blood Culture - Preliminary, Resulted No growth after 24 hours . All specim... 08/20/16 Blood Culture - Preliminary, Resulted No Growth after 48 hours. All Specime... STANLEY ROSARIO MD August 22, 2016 16:34
[2016-08-22] MEDS: WARFARIN SOD 5 MG TAB PO SCH (16:51)
[2016-08-22] MEDS: ATORVASTATIN 20 MG TAB PO SCH (20:21)
[2016-08-22 22:00] VITALS: BP 139/75
[2016-08-23] MEDS: SLF 3 ML SYR IV SCH (05:39)
[2016-08-23] MEDS: **hydrALAZINE HCL** 25 MG TAB PO SCH ×2 (05:39→13:10)
[2016-08-23 06:00] VITALS: BP 143/78
[2016-08-23 06:18] LABS: BASO % 0.8 % (0.0-1.0); EOS # 0.1 K/mm3 (0.0-0.50); EOS % 1.7 % (0.0-3.0); LARGE UNSTAINED CELL # 0.1 K/mm3 (0.0-0.4); LARGE UNSTAINED CELL % 2.1 % (0.0-4.0); LYMPH # 1.7 K/mm3 (1.5-4.5); LYMPH % 27.3 % (24.0-44.0); MEAN CORPUSCULAR HEMOGLOBIN 28.2 pg (27.0-33.0); MEAN CORPUSCULAR HGB CONC 33.7 g/dl (32.0-36.5); MEAN CORPUSCULAR VOLUME 83.8 fl (80.0-96.0); MONO # 0.2 K/mm3 (0.0-0.8); MONO % 4.3 % (0.0-5.0); NEUTROPHILS # 3.6 K/mm3 (1.8-7.7); NEUTROPHILS % 63.9 % (36.0-66.0); PLATELET COUNT, AUTOMATED 294 k/mm3 (150-450); WHITE BLOOD COUNT 5.6 K/mm3 (4.0-10.0)
[2016-08-23 06:25] LABS: INR 2.71
[2016-08-23 06:33] LABS: ANION GAP 5 MEQ/L (8-16); BLOOD UREA NITROGEN 20 MG/DL (7-18); CALCIUM LEVEL 8.5 MG/DL (8.5-10.1); CARBON DIOXIDE LEVEL 27 MEQ/L (21-32); CHLORIDE LEVEL 105 MEQ/L (98-107); CREATININE FOR GFR 0.95 MG/DL (0.70-1.30); GLOMERULAR FILTRATION RATE > 60.0 (>56); GLUCOSE, FASTING 91 MG/DL (70-105); POTASSIUM SERUM 3.9 MEQ/L (3.5-5.1); SODIUM LEVEL 137 MEQ/L (136-145)
[2016-08-23] MEDS ORDERED: CHLORTHALIDONE 25 MG TAB PO SCH (09:00)
[2016-08-23] MEDS: ENOXAPARIN 40 MG/0.4 ML SYRINGE (J1650) SC SCH (09:00)
[2016-08-23] MEDS: THIAMINE 100 MG TAB PO SCH (10:03)
[2016-08-23] MEDS: amLODIPine 10 MG TAB PO SCH (10:03)
[2016-08-23] MEDS: CitaloPRAM (CeleXA) 20 MG TAB PO SCH (10:03)
[2016-08-23] MEDS: FERROUS GLUCONATE 324 MG TAB PO SCH (10:04)
[2016-08-23] MEDS: SENNA 8.6 MG TAB (SENOKOT) PO SCH (10:04)
[2016-08-23] MEDS: PANTOPRAZOLE 40MG TAB (PROTONIX) PO SCH (10:04)
[2016-08-23] MEDS: ASPIRIN 81 MG ENTERIC TAB PO SCH (10:04)
[2016-08-23] MEDS: LOSARTAN 50 MG TAB PO SCH (10:04)
[2016-08-23] MEDS: levETIRAcetam 250MG TABLET (KEPPRA) PO SCH (10:04)
[2016-08-23] MEDS: POLYVINYL ALCOHOL OPHTH SOLN 15 ML(LIQUITEARS) OU SCH ×2 (10:05→13:11)
[2016-08-23] MEDS ORDERED: COUM1TAB17 PO (10:33)
[2016-08-23] MEDS ORDERED: LOSA50TA20 PO (10:33)
[2016-08-23 13:10] VITALS: BP 121/74
--- NOTE | 2016-08-23 19:51 | DSES ---
DATE OF ADMISSION: 08/18/2016 DATE OF DISCHARGE: 08/23/2016 BRIEF HISTORY AND PHYSICAL: The patient is a 55-year-old patient from [facility] who was sent to the hospital for evaluation due to inability to see out of his right eye that occurred around 6:00 a.m. Past medical history is significant for a cardioembolic stroke in May 2016 involving right posterior cerebral artery (COURSE DEVELOPER) and middle cerebral artery (MCA)) territory, patent foramen ovale seen by transesophageal echocardiogram at [facility], presumptive endocarditis treated with six weeks of antibiotics from May. 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 Sodium 137, potassium 4, BUN 21, creatinine 1, glucose 119. HOSPITAL COURSE: 1. The patient was admitted for a transient ischemic attack (TIA) specifically possible amaurosis fugax. He remained on aspirin and Plavix, underwent Magnetic Resonance Imaging (MRI) and Magnetic Resonance Angiography (MRA) of the brain. The MRA was limited but did not show any aneurysm. The MRI showed acute lacunar infarct in the midline and paramedian left corpus callosum into the periventricular region about the lateral ventricle, best seen in diffuse images. No other acute findings. He had bilateral lacunar infarcts that are old in the basal ganglia and brainstem infarcts, the zone of encephalomalacia posterior right parietal occipital lobe from infarcted noted in May. Carotid ultrasounds showed no hemodynamically significant stenosis. The internal carotids with less than 50% narrowing, left external carotid showed 50% to 69% narrowing. Echocardiogram was unable to clearly identify an intracardiac source of embolic material, normal left ventricular size, wall thickness and wall motion, normal left atrial size with impairment of diastolic function, but currently normal estimated left atrial pressures, normal right heart chamber sizes and pulmonary artery pressures. There is thinning of the mid intra-atrial septum with marginal swinging motion of the same segment from one atrium to the next with no visualized intra-atrial shunting; this appearance of that intra-atrial septum may well be a potential source of systemic embolic events. Dr. Kuafman saw the patient in consultation and recommended that he be transitioned to Coumadin, discontinue the Plavix and keep him on aspirin to maintain an INR between 2 and 3. His INR bumped up from 1.66 to 2.71 on the date of discharge. At this point, his Lovenox, low-dose subcutaneous dose, was discontinued and he will be maintained on aspirin and Coumadin alone. The Plavix has already been discontinued and he is stable [facility]. His mental status is vague. He definitely is not oriented. We are not certain if this is at his baseline. 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 Speech is clear and coherent at the time of discharge. 2. Patent foramen ovale, see above. 3. Hypertension. Blood pressures were running on the high side. Losartan dose was increased to 100 mg twice a day in an effort to better control his blood pressure. Blood pressures are running in the 140s over 70s most of the time. 4. Hyperlipidemia. He remains on atorvastatin. 5. History of seizures. No recurrent seizure activity. He is on Keppra that was started by Dr. Kaufman in July 2016 DISPOSITION: He is stable for transfer back to and [facility]. Diet is mechanical soft, 2 grams sodium. Activity with assist. MEDICATIONS: His losartan was increased to 50 mg twice a day. He is now on Coumadin 5 mg daily. Will need PT/INRs daily. OTHER MEDICATIONS: - acetaminophen 325 mg every 4 hours as needed for pain or fever - amlodipine 10 mg daily - aspirin 81 mg daily - atorvastatin 80 mg daily - bisacodyl 10 mg per rectum as needed for constipation - citalopram 20 mg daily - iron sulfate 325 mg daily - hydralazine 25 mg every 6 hours - Keppra 500 mg twice a day - lorazepam 0.5 mg as needed for restlessness or agitation - milk of magnesia 30 mL daily as needed for constipation - multivitamin daily - pantoprazole 40 mg daily - senna one tablet daily - Fleet's enema daily as needed - Thiamine 100 mg daily - His Plavix was discontinued. DISCHARGE DIAGNOSES: 1. Acute cerebrovascular accident (CVA), thromboembolic likely from patent foramen ovale. 2. Hypertension. 3. Hyperlipidemia. 4. Previous cardioembolic stroke. 5. Patent foramen ovale. 6. Seizure disorder. MTDD
== END 2016-08-23 13:30 ==
LOC: M ED 15:05 → M ED INP 18:18 → M PCU 21:00 → M MSPAV 08-22 00:48
PROVIDERS: ADMIT Internal Medicine Nephrology; ATTEND Family Medicine
DX: I63.8 Other cerebral infarction (principal); I10 Essential (primary) hypertension; E78.5 Hyperlipidemia, unspecified; I69.354 Hemiplegia and hemiparesis following cerebral infarction affecting left non-dominant side; Q21.1 Atrial septal defect; G40.909 Epilepsy, unspecified, not intractable, without status epilepticus; R41.89 Other symptoms and signs involving cognitive functions and awareness; R91.8 Other nonspecific abnormal finding of lung field; G93.89 Other specified disorders of brain; D64.9 Anemia, unspecified; Z87.891 Personal history of nicotine dependence; Z79.899 Other long term (current) drug therapy; Z79.82 Long term (current) use of aspirin; Z79.01 Long term (current) use of anticoagulants; Z87.898 Personal history of other specified conditions

== ENCOUNTER → 2016-08-24 | Outpatient (REF) ==
[~2016-08-24] MED LIST changes: +CITA20TA4 PO; +COUM1TAB17 PO; +FERR325T16 PO; +FEVE650S8 PR; +KEPP500T6 PO; +LORA-376 PO; +LOSA50TA20 PO
[2016-08-24 10:19] LABS: INR 3.38
== END ==
LOC: SKLAB2 11:32
PROVIDERS: ATTEND Family Medicine
DX: I63.9 Cerebral infarction, unspecified (principal)

== ENCOUNTER → 2016-08-25 | Outpatient (REF) ==
[2016-08-25 09:42] LABS: INR 3.73
== END ==
LOC: SKLAB2 07:00
PROVIDERS: ATTEND Family Medicine
DX: I63.9 Cerebral infarction, unspecified (principal)

== ENCOUNTER → 2016-08-26 | Outpatient (REF) ==
[2016-08-26 07:22] LABS: INR 3.23
== END ==
LOC: SKLAB2 07:00
PROVIDERS: ATTEND Family Medicine
DX: I63.9 Cerebral infarction, unspecified (principal)

== ENCOUNTER → 2016-08-27 | Outpatient (REF) | payer OTHER ==
[2016-08-27 07:06] LABS: INR 2.76
== END ==
LOC: SKLAB2 07:00
PROVIDERS: ATTEND Family Medicine
DX: I48.91 Unspecified atrial fibrillation (principal)

== ENCOUNTER → 2016-08-28 | Outpatient (REF) | payer OTHER ==
[2016-08-28 08:41] LABS: INR 2.87
== END ==
LOC: M LAB 07:20 → SKLAB2 07:20
PROVIDERS: ATTEND Family Medicine
DX: Z79.01 Long term (current) use of anticoagulants (principal)

== ENCOUNTER → 2016-08-30 | Outpatient (REF) ==
[2016-08-30 07:53] LABS: INR 3.13
== END ==
LOC: SKLAB2 07:00
PROVIDERS: ATTEND Family Medicine
DX: I63.9 Cerebral infarction, unspecified (principal)

== ENCOUNTER → 2016-08-30 | Outpatient (REF) | payer OTHER | LOC: SKLAB2 07:00 | PROVIDERS: ATTEND Family Medicine | DX: I63.9 Cerebral infarction, unspecified (principal) ==

== ENCOUNTER → 2016-09-01 | Outpatient (REF) ==
--- NOTE | 2016-09-01 20:59 | ECGEPIP ---
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 Electronically Signed On 09-01-2016 20:59:23 EDT by Jeyson Norton
== END ==
LOC: SKLAB2 13:29
PROVIDERS: ATTEND Family Medicine
DX: I48.91 Unspecified atrial fibrillation (principal)

== ENCOUNTER → 2016-09-01 | Outpatient (REF) ==
[2016-09-01 08:46] LABS: INR 3.14
== END ==
LOC: SKLAB2 08:00
PROVIDERS: ATTEND Family Medicine
DX: Z79.899 Other long term (current) drug therapy (principal); I48.91 Unspecified atrial fibrillation

== ENCOUNTER → 2016-09-05 | Outpatient (REF) ==
[2016-09-05 08:30] LABS: INR 3.45
== END ==
LOC: SKLAB2 07:00
PROVIDERS: ATTEND Family Medicine
DX: Z79.01 Long term (current) use of anticoagulants (principal)

== ENCOUNTER → 2016-09-08 | Outpatient (REF) ==
[2016-09-08 10:00] LABS: INR 3.23
== END ==
LOC: SKLAB2 09:00
PROVIDERS: ATTEND Family Medicine
DX: I48.91 Unspecified atrial fibrillation (principal)

== ENCOUNTER → 2016-09-12 | Outpatient (REF) ==
[2016-09-12 08:35] LABS: INR 2.65
== END ==
LOC: SKLAB2 07:00
PROVIDERS: ATTEND Family Medicine
DX: Z51.81 Encounter for therapeutic drug level monitoring (principal); Z79.01 Long term (current) use of anticoagulants

== ENCOUNTER → 2016-09-19 | Outpatient (REF) ==
[2016-09-19 09:25] LABS: INR 2.29
== END ==
LOC: SKLAB2 08:00
PROVIDERS: ATTEND Family Medicine
DX: Z79.01 Long term (current) use of anticoagulants (principal)

== ENCOUNTER → 2016-09-21 | Outpatient (REF) | payer OTHER ==
[2016-09-21 09:51] LABS: BASO % 0.3 % (0.0-1.0); EOS # 0.1 K/mm3 (0.0-0.50); LARGE UNSTAINED CELL # 0.1 K/mm3 (0.0-0.4); LARGE UNSTAINED CELL % 1.2 % (0.0-4.0); LYMPH # 1.7 K/mm3 (1.5-4.5); LYMPH % 18.6 % (24.0-44.0); MEAN CORPUSCULAR HEMOGLOBIN 28.5 pg (27.0-33.0); MEAN CORPUSCULAR HGB CONC 34.9 g/dl (32.0-36.5); MEAN CORPUSCULAR VOLUME 81.5 fl (80.0-96.0); MONO # 0.5 K/mm3 (0.0-0.8); MONO % 5.9 % (0.0-5.0); NEUTROPHILS # 6.2 K/mm3 (1.8-7.7); PLATELET COUNT, AUTOMATED 415 k/mm3 (150-450); RED CELL DISTRIBUTION WIDTH 16.4 % (11.5-14.5); WHITE BLOOD COUNT 8.4 K/mm3 (4.0-10.0)
[2016-09-21 10:17] LABS: ALBUMIN 3.8 GM/DL (3.2-5.2); ALBUMIN/GLOBULIN RATIO 1.19 (1.00-1.93); BILIRUBIN,TOTAL 0.3 MG/DL (0.2-1.0); CALCIUM LEVEL 8.9 MG/DL (8.5-10.1); CREATININE FOR GFR 1.45 MG/DL (0.70-1.30); GLOMERULAR FILTRATION RATE 53.8 (>56); POTASSIUM SERUM 2.9 MEQ/L (3.5-5.1)
== END ==
LOC: SKLAB2 07:57
PROVIDERS: ATTEND Family Medicine
DX: I10 Essential (primary) hypertension (principal); E78.5 Hyperlipidemia, unspecified

== ENCOUNTER → 2016-09-23 | Outpatient (REF) | payer OTHER ==
[2016-09-23 10:56] LABS: MEAN CORPUSCULAR HEMOGLOBIN 28.4 pg (27.0-33.0); MEAN CORPUSCULAR HGB CONC 34.6 g/dl (32.0-36.5); MEAN CORPUSCULAR VOLUME 81.9 fl (80.0-96.0); RED CELL DISTRIBUTION WIDTH 16.3 % (11.5-14.5); WHITE BLOOD COUNT 11.6 K/mm3 (4.0-10.0)
[2016-09-23 11:03] LABS: INR 1.69
[2016-09-23 11:12] LABS: ANION GAP 8 MEQ/L (8-16); BLOOD UREA NITROGEN 32 MG/DL (7-18); CALCIUM LEVEL 8.8 MG/DL (8.5-10.1); CARBON DIOXIDE LEVEL 27 MEQ/L (21-32); CHLORIDE LEVEL 97 MEQ/L (98-107); CREATININE FOR GFR 1.16 MG/DL (0.70-1.30); GLOMERULAR FILTRATION RATE > 60.0 (>56); GLUCOSE, FASTING 124 MG/DL (70-105); POTASSIUM SERUM 3.3 MEQ/L (3.5-5.1); SODIUM LEVEL 132 MEQ/L (136-145)
== END ==
LOC: SKLAB2 10:00
PROVIDERS: ATTEND Family Medicine
DX: Z79.01 Long term (current) use of anticoagulants (principal); E87.6 Hypokalemia

== ENCOUNTER → 2016-09-26 | Outpatient (REF) | payer OTHER ==
[2016-09-26 08:29] LABS: INR 1.17
[2016-09-26 08:50] LABS: BASO % 0.3 % (0.0-1.0); EOS # 0.1 K/mm3 (0.0-0.50); EOS % 1.1 % (0.0-3.0); LARGE UNSTAINED CELL # 0.1 K/mm3 (0.0-0.4); LYMPH # 1.5 K/mm3 (1.5-4.5); LYMPH % 14.1 % (24.0-44.0); MEAN CORPUSCULAR HEMOGLOBIN 28.2 pg (27.0-33.0); MEAN CORPUSCULAR HGB CONC 33.8 g/dl (32.0-36.5); MEAN CORPUSCULAR VOLUME 83.3 fl (80.0-96.0); MONO # 0.5 K/mm3 (0.0-0.8); MONO % 5.2 % (0.0-5.0); NEUTROPHILS # 7.9 K/mm3 (1.8-7.7); NEUTROPHILS % 78.3 % (36.0-66.0); PLATELET COUNT, AUTOMATED 518 k/mm3 (150-450); RED CELL DISTRIBUTION WIDTH 16.2 % (11.5-14.5); WHITE BLOOD COUNT 10.1 K/mm3 (4.0-10.0)
== END ==
LOC: SKLAB2 07:00
PROVIDERS: ATTEND Family Medicine
DX: I63.9 Cerebral infarction, unspecified (principal)

== ENCOUNTER 2016-09-30 03:02 | Emergency (ER) | payer OTHER ==
[~2016-09-30 03:02] MED LIST changes: -ACET-654 PO; +ACET1TAB17 PO; -ASPI81TA13 PO; +ASPI81TA24 PO; -ATOR1TAB18 PO; +ATOR80TA59 PO; +ENEMENE16 PR; -ENEMENE3 PR; +HYDR-3910 PO; -HYDR-4266 PO; +KEPP1TAB PO; -KEPP500T6 PO; -LORA-376 PO; +LORA0.5T11 PO; -THIA100T PO; +THIA100T6 PO; +TRAZ50TA11 PO; -TRAZ50TA4 PO; +TUBE5INJ ID; -TUBE5INJ9 ID
[2016-09-30 03:13] VITALS: BP 186/98
--- NOTE | 2016-09-30 08:24 | REP ---
Clinical: Trauma. Technique: AP view of the pelvis. Findings: No acute fracture dislocation identified. Age-related changes are appreciated. Impression: No acute fracture dislocation. Signed by Vidal Zamorano MD 09/30/2016 08:16 A
== END 2016-09-30 05:34 | disposition home or self-care (01) ==
LOC: EDBD 03:02 → M ED 03:02
DX: R29.6 Repeated falls (principal); I10 Essential (primary) hypertension; K21.9 Gastro-esophageal reflux disease without esophagitis; F17.200 Nicotine dependence, unspecified, uncomplicated; Z86.73 Personal history of transient ischemic attack (TIA), and cerebral infarction without residual deficits; Z79.899 Other long term (current) drug therapy; Z79.01 Long term (current) use of anticoagulants; Z79.82 Long term (current) use of aspirin

== ENCOUNTER → 2016-10-31 | Outpatient (REF) | payer OTHER ==
[~2016-10-31] MED LIST changes: +CELE10TA PO; +FAMO1TAB25 PO; +POTA1TAB14 PO
[2016-10-31 07:49] LABS: BASO % 0.4 % (0.0-1.0); EOS # 0.1 K/mm3 (0.0-0.50); EOS % 1.6 % (0.0-3.0); LARGE UNSTAINED CELL # 0.1 K/mm3 (0.0-0.4); LARGE UNSTAINED CELL % 1.6 % (0.0-4.0); LYMPH # 1.6 K/mm3 (1.5-4.5); LYMPH % 23.8 % (24.0-44.0); MEAN CORPUSCULAR HEMOGLOBIN 28.7 pg (27.0-33.0); MEAN CORPUSCULAR HGB CONC 34.4 g/dl (32.0-36.5); MEAN CORPUSCULAR VOLUME 83.5 fl (80.0-96.0); MONO # 0.4 K/mm3 (0.0-0.8); MONO % 5.9 % (0.0-5.0); NEUTROPHILS # 4.2 K/mm3 (1.8-7.7); NEUTROPHILS % 66.6 % (36.0-66.0); PLATELET COUNT, AUTOMATED 417 k/mm3 (150-450); RED CELL DISTRIBUTION WIDTH 16.3 % (11.5-14.5); WHITE BLOOD COUNT 6.3 K/mm3 (4.0-10.0)
[2016-10-31 08:09] LABS: ALBUMIN 3.5 GM/DL (3.2-5.2); ANION GAP 9 MEQ/L (8-16); BLOOD UREA NITROGEN 22 MG/DL (7-18); CARBON DIOXIDE LEVEL 28 MEQ/L (21-32); CHLORIDE LEVEL 95 MEQ/L (98-107); CREATININE FOR GFR 0.78 MG/DL (0.70-1.30); GLOMERULAR FILTRATION RATE > 60.0 (>56); GLUCOSE, FASTING 91 MG/DL (70-105); PHOSPHORUS LEVEL 3.5 MG/DL (2.5-4.9); POTASSIUM SERUM 3.6 MEQ/L (3.5-5.1); SODIUM LEVEL 132 MEQ/L (136-145)
== END ==
LOC: SKLAB2 07:00
PROVIDERS: ATTEND Family Medicine
DX: N18.9 Chronic kidney disease, unspecified (principal)

== ENCOUNTER → 2016-11-08 | Outpatient (REF) | payer OTHER ==
[2016-11-08 15:48] LABS: PERCENT SATURATION 14.6 % (19.7-50.0)
== END ==
LOC: SKLAB2 12:58
PROVIDERS: ATTEND Family Medicine
DX: D64.9 Anemia, unspecified (principal)

== ENCOUNTER → 2016-11-09 | Outpatient (REF) | payer OTHER | LOC: SKLAB2 04:38 | PROVIDERS: ATTEND Family Medicine | DX: D64.9 Anemia, unspecified (principal) ==

== ENCOUNTER → 2016-11-09 | Outpatient (REF) | payer OTHER | LOC: SKLAB2 14:25 | PROVIDERS: ATTEND Family Medicine | DX: R19.5 Other fecal abnormalities (principal) ==

== ENCOUNTER → 2016-11-10 | Outpatient (REF) | payer OTHER | LOC: SKLAB2 13:36 | PROVIDERS: ATTEND Family Medicine | DX: D64.9 Anemia, unspecified (principal) ==

== ENCOUNTER → 2016-11-12 | Outpatient (REF) | payer OTHER | LOC: SKLAB2 23:19 | PROVIDERS: ATTEND Family Medicine | DX: D64.9 Anemia, unspecified (principal) ==

== ENCOUNTER → 2016-11-14 | Outpatient (REF) | payer OTHER ==
[2016-11-14 10:23] LABS: MEAN CORPUSCULAR HEMOGLOBIN 28.7 pg (27.0-33.0); MEAN CORPUSCULAR HGB CONC 33.3 g/dl (32.0-36.5); RED CELL DISTRIBUTION WIDTH 15.6 % (11.5-14.5); WHITE BLOOD COUNT 8.5 K/mm3 (4.0-10.0)
[2016-11-14 10:45] LABS: ALBUMIN 3.7 GM/DL (3.2-5.2); ANION GAP 12 MEQ/L (8-16); BLOOD UREA NITROGEN 30 MG/DL (7-18); CALCIUM LEVEL 9.2 MG/DL (8.5-10.1); CARBON DIOXIDE LEVEL 23 MEQ/L (21-32); CHLORIDE LEVEL 100 MEQ/L (98-107); CREATININE FOR GFR 1.12 MG/DL (0.70-1.30); GLOMERULAR FILTRATION RATE > 60.0 (>56); GLUCOSE, FASTING 109 MG/DL (70-105); PHOSPHORUS LEVEL 3.6 MG/DL (2.5-4.9); SODIUM LEVEL 135 MEQ/L (136-145)
== END ==
LOC: SKLAB2 07:00
PROVIDERS: ATTEND Family Medicine
DX: D64.9 Anemia, unspecified (principal); N18.9 Chronic kidney disease, unspecified

== ENCOUNTER → 2016-12-12 | Outpatient (REF) | payer OTHER ==
[2016-12-12 08:49] LABS: MEAN CORPUSCULAR HEMOGLOBIN 28.4 pg (27.0-33.0); MEAN CORPUSCULAR HGB CONC 33.2 g/dl (32.0-36.5); MEAN CORPUSCULAR VOLUME 85.6 fl (80.0-96.0); RED CELL DISTRIBUTION WIDTH 14.6 % (11.5-14.5)
[2016-12-12 09:05] LABS: ALBUMIN 3.7 GM/DL (3.2-5.2); ANION GAP 10 MEQ/L (8-16); BLOOD UREA NITROGEN 25 MG/DL (7-18); CALCIUM LEVEL 9.4 MG/DL (8.5-10.1); CARBON DIOXIDE LEVEL 27 MEQ/L (21-32); CHLORIDE LEVEL 99 MEQ/L (98-107); CREATININE FOR GFR 0.83 MG/DL (0.70-1.30); GLOMERULAR FILTRATION RATE > 60.0 (>56); GLUCOSE, FASTING 85 MG/DL (70-105); PHOSPHORUS LEVEL 3.6 MG/DL (2.5-4.9); POTASSIUM SERUM 3.7 MEQ/L (3.5-5.1); SODIUM LEVEL 136 MEQ/L (136-145)
== END ==
LOC: SKLAB2 07:30
PROVIDERS: ATTEND Family Medicine
DX: D64.9 Anemia, unspecified (principal); N18.9 Chronic kidney disease, unspecified

== ENCOUNTER → 2017-01-05 | Outpatient (REF) | payer OTHER, MEDICAID | LOC: SKLAB2 22:09 | PROVIDERS: ATTEND Family Medicine | DX: D64.9 Anemia, unspecified (principal) ==

== ENCOUNTER → 2017-01-06 | Outpatient (REF) | payer OTHER, MEDICAID | LOC: SKLAB2 03:11 → M LAB 03:11 | PROVIDERS: ATTEND Family Medicine | DX: D64.9 Anemia, unspecified (principal) ==

== ENCOUNTER → 2017-01-09 | Outpatient (REF) | payer OTHER, MEDICAID ==
[2017-01-09 08:41] LABS: BASO # 0.1 10^3/uL (0.0-0.2); BASO % 0.7 % (0.0-1.0); EOS # 0.1 10^3/uL (0.0-0.50); EOS % 0.9 % (0.0-3.0); IMMATURE GRANULOCYTE % 0.5 % (0-0); LYMPH # 1.9 10^3/uL (1.5-4.5); LYMPH % 24.3 % (24.0-44.0); MEAN CORPUSCULAR HEMOGLOBIN 28.6 pg (27.0-33.0); MEAN CORPUSCULAR HGB CONC 34.5 g/dl (32.0-36.5); MEAN CORPUSCULAR VOLUME 82.9 fl (80.0-96.0); MONO # 0.5 10^3/uL (0.0-0.8); MONO % 6.6 % (0.0-5.0); NEUTROPHILS # 5.1 10^3/uL (1.8-7.7); PLATELET COUNT, AUTOMATED 350 10^3/uL (150-450); RED CELL DISTRIBUTION WIDTH 14.3 % (11.5-14.5); WHITE BLOOD COUNT 7.6 10^3/uL (4.0-10.0)
[2017-01-09 08:45] LABS: ADD MANUAL DIFFER NO; DIFF SLIDE NUMBER 38
[2017-01-09 09:42] LABS: ALBUMIN 3.9 GM/DL (3.2-5.2); ALBUMIN/GLOBULIN RATIO 1.08 (1.00-1.93); ALKALINE PHOSPHATASE 75 U/L (45-117); ALT/SGPT 34 U/L (12-78); ANION GAP 9 MEQ/L (8-16); AST/SGOT 14 U/L (15-37); BILIRUBIN,TOTAL 0.3 MG/DL (0.2-1.0); BLOOD UREA NITROGEN 23 MG/DL (7-18); CALCIUM LEVEL 9.4 MG/DL (8.5-10.1); CARBON DIOXIDE LEVEL 26 MEQ/L (21-32); CHLORIDE LEVEL 99 MEQ/L (98-107); CREATININE FOR GFR 0.75 MG/DL (0.70-1.30); FERRITIN 38 NG/ML (26-388); GLOMERULAR FILTRATION RATE > 60.0 (>56); GLUCOSE, FASTING 81 MG/DL (70-105); PERCENT SATURATION 12.4 % (19.7-50.0); PHOSPHORUS LEVEL 3.5 MG/DL (2.5-4.9); POTASSIUM SERUM 3.8 MEQ/L (3.5-5.1); SODIUM LEVEL 134 MEQ/L (136-145); TOTAL IRON BINDING CAPACITY 315 UG/DL (250-450); TOTAL PROTEIN 7.5 GM/DL (6.4-8.2)
== END ==
LOC: SKLAB2 00:52
PROVIDERS: ATTEND Family Medicine
DX: D64.9 Anemia, unspecified (principal); N18.9 Chronic kidney disease, unspecified

== ENCOUNTER 2017-01-19 10:30 | Day surgery (SDC) | payer OTHER ==
[~2017-01-19] VITALS: Ht 170.2 cm; Wt 57.2 kg
[~2017-01-19 10:30] MED LIST changes: -CELE10TA PO; -FAMO1TAB25 PO; -POTA1TAB14 PO
[2017-01-19] MEDS ORDERED: NS 500 ML IV SCH (11:15)
[2017-01-19] MEDS ORDERED: FAMO1TAB25 PO (11:22)
[2017-01-19] MEDS ORDERED: CELE10TA PO (11:22)
[2017-01-19] MEDS ORDERED: POTA1TAB14 PO (11:32)
[2017-01-19] MEDS ORDERED: LIDOCAINE 2% INJ 100 MG/5 ML SDV (FOR ANES.) As Ordered ONE (11:39)
[2017-01-19] MEDS ORDERED: PROPOFOL 200 MG/20 ML VIAL As Ordered ONE (11:39)
[2017-01-19] MEDS ORDERED: fentaNYL 100 MCG/2 ML INJECTION (J3010) As Ordered ONE (11:41)
--- NOTE | 2017-01-19 12:04 | ROOR ---
Patient Name: Jose F Mack Procedure Date: 01/19/2017 11:39 AM Date of : 1960 Age: 56 Room: [facility] Gender: Male Note Status: Finalized Procedure: Upper GI endoscopy Indications: Iron deficiency anemia Providers: Jeyson HOLDEN MD Referring MD: Daniel Valencia MD Requesting Provider: Medicines: Monitored Anesthesia Care Complications: No immediate complications. Procedure: Pre-Anesthesia Assessment: - The heart rate, respiratory rate, oxygen saturations, blood pressure, adequacy of pulmonary ventilation, and response to care were monitored throughout the procedure. The Endoscope was introduced through the mouth, and advanced to the second part of duodenum. The upper GI endoscopy was accomplished without difficulty. The patient tolerated the procedure well. Findings: Minimal inflammation characterized by erythema was found in the gastric antrum. Biopsies were taken with a cold forceps for Helicobacter pylori testing. The exam of the stomach was otherwise normal. The examined esophagus was normal. The examined duodenum was normal. Impression: - Mild Gastritis. Biopsied. - Normal esophagus. - Normal examined duodenum. Recommendation: - Telephone endoscopist for pathology results in 2 weeks. Your testing today revealed no source for anemia. You need further evaluations. I would recommend the following: - Perform a small bowel follow through at the next available appointment. - Perform a colonoscopy or CT colography, or Barium enema at the next available appointment. - Return to referring physician as previously scheduled. Jeyson Holden MD Jeyson HOLDEN MD 01/19/2017 12:03:40 PM This report has been signed electronically. Number of Addenda: 0 Note Initiated On: 01/19/2017 11:39 AM Estimated Blood Loss: Estimated blood loss: none.
[2017-01-19 12:35] VITALS: BP 148/76
== END 2017-01-19 13:04 | disposition home or self-care (01) ==
LOC: M OPP 10:30 → EDSTATUS 13:20
PROVIDERS: ATTEND Internal Medicine Gastroenterology
DX: D50.9 Iron deficiency anemia, unspecified (principal); R19.5 Other fecal abnormalities; K29.70 Gastritis, unspecified, without bleeding; I10 Essential (primary) hypertension; E78.5 Hyperlipidemia, unspecified; R12 Heartburn; R26.0 Ataxic gait; I63.9 Cerebral infarction, unspecified; Z99.3 Dependence on wheelchair; Z86.73 Personal history of transient ischemic attack (TIA), and cerebral infarction without residual deficits; R13.10 Dysphagia, unspecified; G40.909 Epilepsy, unspecified, not intractable, without status epilepticus; F41.9 Anxiety disorder, unspecified; F32.9 Major depressive disorder, single episode, unspecified; Z87.891 Personal history of nicotine dependence; Z79.82 Long term (current) use of aspirin; Z79.899 Other long term (current) drug therapy
CPT/HCPCS: 43239; 88305; J3010

== ENCOUNTER → 2017-02-13 | Outpatient (REF) | payer OTHER ==
[~2017-02-13] MED LIST changes: +CELE10TA PO; +FAMO1TAB25 PO; +POTA1TAB14 PO
[2017-02-13 09:29] LABS: MEAN CORPUSCULAR HEMOGLOBIN 27.5 pg (27.0-33.0); MEAN CORPUSCULAR HGB CONC 32.3 g/dl (32.0-36.5); MEAN CORPUSCULAR VOLUME 85.1 fl (80.0-96.0); PLATELET COUNT, AUTOMATED 333 10^3/uL (150-450); RED CELL DISTRIBUTION WIDTH 15.2 % (11.5-14.5); WHITE BLOOD COUNT 7.5 10^3/uL (4.0-10.0)
[2017-02-13 10:16] LABS: ALBUMIN 3.8 GM/DL (3.2-5.2); ANION GAP 8 MEQ/L (8-16); BLOOD UREA NITROGEN 32 MG/DL (7-18); CALCIUM LEVEL 9.3 MG/DL (8.5-10.1); CARBON DIOXIDE LEVEL 27 MEQ/L (21-32); CHLORIDE LEVEL 104 MEQ/L (98-107); CREATININE FOR GFR 1.04 MG/DL (0.70-1.30); GLOMERULAR FILTRATION RATE > 60.0 (>56); GLUCOSE, FASTING 148 MG/DL (70-105); PHOSPHORUS LEVEL 3.4 MG/DL (2.5-4.9); SODIUM LEVEL 139 MEQ/L (136-145)
== END ==
LOC: SKLAB2 07:30
PROVIDERS: ATTEND Family Medicine
DX: N18.9 Chronic kidney disease, unspecified (principal); D63.1 Anemia in chronic kidney disease

== ENCOUNTER → 2017-03-06 | Outpatient (REF) | payer OTHER ==
[2017-03-06 09:13] LABS: BASO # 0.1 10^3/uL (0.0-0.2); BASO % 0.6 % (0.0-1.0); EOS # 0.1 10^3/uL (0.0-0.50); EOS % 1.5 % (0.0-3.0); LYMPH # 1.8 10^3/uL (1.5-4.5); LYMPH % 20.3 % (24.0-44.0); MEAN CORPUSCULAR HGB CONC 32.9 g/dl (32.0-36.5); MEAN CORPUSCULAR VOLUME 85.2 fl (80.0-96.0); MONO # 0.4 10^3/uL (0.0-0.8); MONO % 4.6 % (0.0-5.0); NEUTROPHILS # 6.3 10^3/uL (1.8-7.7); PLATELET COUNT, AUTOMATED 346 10^3/uL (150-450); RED CELL DISTRIBUTION WIDTH 15.4 % (11.5-14.5); WHITE BLOOD COUNT 8.7 10^3/uL (4.0-10.0)
[2017-03-06 09:37] LABS: ALBUMIN 3.7 GM/DL (3.2-5.2); ANION GAP 7 MEQ/L (8-16); BLOOD UREA NITROGEN 32 MG/DL (7-18); CALCIUM LEVEL 8.8 MG/DL (8.5-10.1); CARBON DIOXIDE LEVEL 29 MEQ/L (21-32); CHLORIDE LEVEL 103 MEQ/L (98-107); CREATININE FOR GFR 1.12 MG/DL (0.70-1.30); FERRITIN 28 NG/ML (26-388); GLOMERULAR FILTRATION RATE > 60.0 (>56); GLUCOSE, FASTING 138 MG/DL (70-105); PERCENT SATURATION 21.8 % (19.7-50.0); PHOSPHORUS LEVEL 3.1 MG/DL (2.5-4.9); POTASSIUM SERUM 3.7 MEQ/L (3.5-5.1); SODIUM LEVEL 139 MEQ/L (136-145); TOTAL IRON BINDING CAPACITY 289 UG/DL (250-450)
== END ==
LOC: SKLAB2 08:00
PROVIDERS: ATTEND Family Medicine
DX: N18.9 Chronic kidney disease, unspecified (principal)

== ENCOUNTER → 2017-03-13 | Outpatient (REF) | payer OTHER ==
[2017-03-13 08:46] LABS: MEAN CORPUSCULAR HEMOGLOBIN 28.3 pg (27.0-33.0); MEAN CORPUSCULAR HGB CONC 32.7 g/dl (32.0-36.5); MEAN CORPUSCULAR VOLUME 86.3 fl (80.0-96.0); PLATELET COUNT, AUTOMATED 321 10^3/uL (150-450); RED CELL DISTRIBUTION WIDTH 15.4 % (11.5-14.5); WHITE BLOOD COUNT 9.1 10^3/uL (4.0-10.0)
[2017-03-13 09:11] LABS: ALBUMIN 3.9 GM/DL (3.2-5.2); ANION GAP 9 MEQ/L (8-16); BLOOD UREA NITROGEN 32 MG/DL (7-18); CARBON DIOXIDE LEVEL 24 MEQ/L (21-32); CHLORIDE LEVEL 107 MEQ/L (98-107); GLOMERULAR FILTRATION RATE > 60.0 (>56); GLUCOSE, FASTING 87 MG/DL (70-105); PHOSPHORUS LEVEL 3.7 MG/DL (2.5-4.9); POTASSIUM SERUM 4.3 MEQ/L (3.5-5.1); SODIUM LEVEL 140 MEQ/L (136-145)
== END ==
LOC: SKLAB2 07:30
PROVIDERS: ATTEND Family Medicine
DX: D64.9 Anemia, unspecified (principal); N18.9 Chronic kidney disease, unspecified

== ENCOUNTER → 2017-04-04 | Outpatient (REF) | payer OTHER | LOC: SKLAB2 13:42 | DX: M25.572 Pain in left ankle and joints of left foot (principal); M79.672 Pain in left foot; M61.9 Calcification and ossification of muscle, unspecified ==

== ENCOUNTER → 2017-04-06 | Outpatient (REF) | payer OTHER ==
[2017-04-06 08:51] LABS: BASO # 0.1 10^3/uL (0.0-0.2); BASO % 0.7 % (0.0-1.0); EOS # 0.1 10^3/uL (0.0-0.50); EOS % 1.3 % (0.0-3.0); HEMOGLOBIN 10.6 g/dl (14.0-18.0); IMMATURE GRANULOCYTE # 0.1 10^3/uL (0-0); IMMATURE GRANULOCYTE % 0.9 % (0-0); LYMPH # 2.1 10^3/uL (1.5-4.5); LYMPH % 22.1 % (24.0-44.0); MEAN CORPUSCULAR HEMOGLOBIN 28.4 pg (27.0-33.0); MEAN CORPUSCULAR HGB CONC 33.1 g/dl (32.0-36.5); MEAN CORPUSCULAR VOLUME 85.8 fl (80.0-96.0); MONO # 0.7 10^3/uL (0.0-0.8); MONO % 7.3 % (0.0-5.0); NEUTROPHILS # 6.4 10^3/uL (1.8-7.7); NEUTROPHILS % 67.7 % (36.0-66.0); PLATELET COUNT, AUTOMATED 321 10^3/uL (150-450); RED BLOOD COUNT 3.73 10^6/uL (4.30-6.10); WHITE BLOOD COUNT 9.4 10^3/uL (4.0-10.0)
[2017-04-06 09:19] LABS: ALBUMIN/GLOBULIN RATIO 1.05 (1.00-1.93); ALKALINE PHOSPHATASE 72 U/L (45-117); ALT/SGPT 25 U/L (12-78); ANION GAP 7 MEQ/L (8-16); AST/SGOT 13 U/L (7-37); BILIRUBIN,TOTAL 0.3 MG/DL (0.2-1.0); BLOOD UREA NITROGEN 29 MG/DL (7-18); CALCIUM LEVEL 9.2 MG/DL (8.5-10.1); CARBON DIOXIDE LEVEL 28 MEQ/L (21-32); CHLORIDE LEVEL 103 MEQ/L (98-107); CREATININE FOR GFR 1.06 MG/DL (0.70-1.30); GLOMERULAR FILTRATION RATE > 60.0 (>56); GLUCOSE, FASTING 95 MG/DL (70-105); POTASSIUM SERUM 3.9 MEQ/L (3.5-5.1); SODIUM LEVEL 138 MEQ/L (136-145); TOTAL PROTEIN 7.8 GM/DL (6.4-8.2); URIC ACID 5.8 MG/DL (3.5-7.2)
[2017-04-06 09:45] LABS: ERYTHROCYTE SEDIMENTATION RATE 35 mm/hr (0-20)
== END ==
LOC: SKLAB2 07:17
DX: N18.9 Chronic kidney disease, unspecified (principal)
CPT/HCPCS: 36415

== ENCOUNTER → 2017-04-27 | Outpatient (REF) | payer OTHER ==
[2017-04-27 11:03] LABS: HEMATOCRIT 34.2 % (42.0-52.0); HEMOGLOBIN 11.4 g/dl (14.0-18.0); MEAN CORPUSCULAR HEMOGLOBIN 28.6 pg (27.0-33.0); MEAN CORPUSCULAR HGB CONC 33.3 g/dl (32.0-36.5); MEAN CORPUSCULAR VOLUME 85.7 fl (80.0-96.0); PLATELET COUNT, AUTOMATED 335 10^3/uL (150-450); RED BLOOD COUNT 3.99 10^6/uL (4.30-6.10); RED CELL DISTRIBUTION WIDTH 14.6 % (11.5-14.5); WHITE BLOOD COUNT 9.7 10^3/uL (4.0-10.0)
[2017-04-27 11:27] LABS: CK-MB VALUE MASS 1.6 NG/ML (0.0-3.6); CPK CREATINE PHOSPHOKINASE 73 U/L (39-308); MB/CK RELATIVE INDEX 2.19 (< OR =4); TROPONIN I < 0.02 NG/ML (< 0.10)
[2017-04-27 21:56] LABS: ALBUMIN 4.3 GM/DL (3.2-5.2); ALKALINE PHOSPHATASE 90 U/L (45-117); ALT/SGPT 43 U/L (12-78); ANION GAP 7 MEQ/L (8-16); AST/SGOT 19 U/L (7-37); BILIRUBIN,TOTAL 0.3 MG/DL (0.2-1.0); BLOOD UREA NITROGEN 30 MG/DL (7-18); CALCIUM LEVEL 9.2 MG/DL (8.5-10.1); CARBON DIOXIDE LEVEL 27 MEQ/L (21-32); CHLORIDE LEVEL 102 MEQ/L (98-107); CREATININE FOR GFR 1.07 MG/DL (0.70-1.30); GLOMERULAR FILTRATION RATE > 60.0 (>56); GLUCOSE, FASTING 115 MG/DL (70-100); POTASSIUM SERUM 4.2 MEQ/L (3.5-5.1); SODIUM LEVEL 136 MEQ/L (136-145); TOTAL PROTEIN 8.2 GM/DL (6.4-8.2)
[2017-04-30 15:12] LABS: LEVETIRACETAM (KEPPRA) 19.4 ug/mL (10.0-40.0)
== END ==
LOC: SKLAB2 09:32
DX: R56.9 Unspecified convulsions (principal)
CPT/HCPCS: 82553

== ENCOUNTER → 2017-05-15 | Outpatient (REF) | payer OTHER ==
[2017-05-15 09:18] LABS: BASO # 0.1 10^3/uL (0.0-0.2); BASO % 0.5 % (0.0-1.0); EOS # 0.1 10^3/uL (0.0-0.50); HEMATOCRIT 32.8 % (42.0-52.0); IMMATURE GRANULOCYTE % 0.5 % (0-3.0); LYMPH # 1.7 10^3/uL (1.5-4.5); LYMPH % 18.1 % (24.0-44.0); MEAN CORPUSCULAR HEMOGLOBIN 28.4 pg (27.0-33.0); MEAN CORPUSCULAR HGB CONC 33.5 g/dl (32.0-36.5); MEAN CORPUSCULAR VOLUME 84.8 fl (80.0-96.0); MONO # 0.6 10^3/uL (0.0-0.8); MONO % 6.5 % (0.0-5.0); NEUTROPHILS # 6.8 10^3/uL (1.8-7.7); NEUTROPHILS % 73.4 % (36.0-66.0); PLATELET COUNT, AUTOMATED 341 10^3/uL (150-450); RED BLOOD COUNT 3.87 10^6/uL (4.30-6.10); RED CELL DISTRIBUTION WIDTH 14.3 % (11.5-14.5); WHITE BLOOD COUNT 9.3 10^3/uL (4.0-10.0)
[2017-05-15 10:06] LABS: ALBUMIN 4.4 GM/DL (3.2-5.2); ALBUMIN/GLOBULIN RATIO 1.26 (1.00-1.93); ALKALINE PHOSPHATASE 82 U/L (45-117); ALT/SGPT 33 U/L (12-78); ANION GAP 10 MEQ/L (8-16); AST/SGOT 14 U/L (7-37); BILIRUBIN,TOTAL 0.4 MG/DL (0.2-1.0); BLOOD UREA NITROGEN 29 MG/DL (7-18); CALCIUM LEVEL 9.3 MG/DL (8.5-10.1); CARBON DIOXIDE LEVEL 25 MEQ/L (21-32); CHLORIDE LEVEL 102 MEQ/L (98-107); CREATININE FOR GFR 0.99 MG/DL (0.70-1.30); GLOMERULAR FILTRATION RATE > 60.0 (>56); GLUCOSE, FASTING 111 MG/DL (70-100); POTASSIUM SERUM 3.3 MEQ/L (3.5-5.1); SODIUM LEVEL 137 MEQ/L (136-145); TOTAL PROTEIN 7.9 GM/DL (6.4-8.2)
== END ==
LOC: SKLAB2 08:00
DX: N18.9 Chronic kidney disease, unspecified (principal)

== ENCOUNTER → 2017-05-22 | Outpatient (REF) | payer OTHER ==
[2017-05-22 09:04] LABS: ANION GAP 9 MEQ/L (8-16); BLOOD UREA NITROGEN 40 MG/DL (7-18); CALCIUM LEVEL 8.8 MG/DL (8.5-10.1); CARBON DIOXIDE LEVEL 25 MEQ/L (21-32); CHLORIDE LEVEL 107 MEQ/L (98-107); CREATININE FOR GFR 1.31 MG/DL (0.70-1.30); GLOMERULAR FILTRATION RATE > 60.0 (>56); GLUCOSE, FASTING 95 MG/DL (70-100); POTASSIUM SERUM 3.7 MEQ/L (3.5-5.1); SODIUM LEVEL 141 MEQ/L (136-145)
== END ==
LOC: SKLAB2 07:00
DX: I10 Essential (primary) hypertension (principal)
CPT/HCPCS: 36415

== ENCOUNTER → 2017-05-29 | Outpatient (REF) | payer OTHER ==
[2017-05-29 08:31] LABS: ANION GAP 7 MEQ/L (8-16); BLOOD UREA NITROGEN 29 MG/DL (7-18); CALCIUM LEVEL 8.3 MG/DL (8.5-10.1); CARBON DIOXIDE LEVEL 27 MEQ/L (21-32); CHLORIDE LEVEL 106 MEQ/L (98-107); CREATININE FOR GFR 1.07 MG/DL (0.70-1.30); GLOMERULAR FILTRATION RATE > 60.0 (>56); GLUCOSE, FASTING 86 MG/DL (70-100); POTASSIUM SERUM 4.1 MEQ/L (3.5-5.1); SODIUM LEVEL 140 MEQ/L (136-145)
== END ==
LOC: SKLAB2 07:30
DX: N18.4 Chronic kidney disease, stage 4 (severe) (principal)
CPT/HCPCS: 36415

== ENCOUNTER → 2017-05-31 | Outpatient (REF) | payer OTHER ==
[2017-05-31 11:46] LABS: HEMATOCRIT 30.1 % (42.0-52.0); MEAN CORPUSCULAR HEMOGLOBIN 28.7 pg (27.0-33.0); MEAN CORPUSCULAR HGB CONC 33.2 g/dl (32.0-36.5); MEAN CORPUSCULAR VOLUME 86.2 fl (80.0-96.0); PLATELET COUNT, AUTOMATED 359 10^3/uL (150-450); RED BLOOD COUNT 3.49 10^6/uL (4.30-6.10); RED CELL DISTRIBUTION WIDTH 14.3 % (11.5-14.5)
[2017-05-31 12:10] LABS: ANION GAP 6 MEQ/L (8-16); BLOOD UREA NITROGEN 29 MG/DL (7-18); CALCIUM LEVEL 8.9 MG/DL (8.5-10.1); CARBON DIOXIDE LEVEL 30 MEQ/L (21-32); CHLORIDE LEVEL 102 MEQ/L (98-107); CPK CREATINE PHOSPHOKINASE 54 U/L (39-308); CREATININE FOR GFR 1.07 MG/DL (0.70-1.30); GLOMERULAR FILTRATION RATE > 60.0 (>56); GLUCOSE, FASTING 125 MG/DL (70-100); POTASSIUM SERUM 3.7 MEQ/L (3.5-5.1); SODIUM LEVEL 138 MEQ/L (136-145); TROPONIN I < 0.02 NG/ML (< 0.10)
[2017-05-31 12:11] LABS: CK-MB VALUE MASS 1.1 NG/ML (0.0-3.6); MB/CK RELATIVE INDEX 2.03 (< OR =4)
== END ==
LOC: SKLAB2 10:52
DX: R07.89 Other chest pain (principal)
CPT/HCPCS: 82553

== ENCOUNTER → 2017-06-12 | Outpatient (REF) | payer MEDICAID, OTHER ==
[2017-06-12 08:32] LABS: BASO # 0.1 10^3/uL (0.0-0.2); BASO % 0.6 % (0.0-1.0); EOS # 0.1 10^3/uL (0.0-0.50); HEMATOCRIT 32.2 % (42.0-52.0); HEMOGLOBIN 10.7 g/dl (14.0-18.0); IMMATURE GRANULOCYTE % 0.3 % (0-3.0); LYMPH # 1.9 10^3/uL (1.5-4.5); LYMPH % 21.3 % (24.0-44.0); MEAN CORPUSCULAR HEMOGLOBIN 28.8 pg (27.0-33.0); MEAN CORPUSCULAR HGB CONC 33.2 g/dl (32.0-36.5); MEAN CORPUSCULAR VOLUME 86.8 fl (80.0-96.0); MONO # 0.6 10^3/uL (0.0-0.8); NEUTROPHILS # 6.3 10^3/uL (1.8-7.7); NEUTROPHILS % 69.8 % (36.0-66.0); PLATELET COUNT, AUTOMATED 377 10^3/uL (150-450); RED BLOOD COUNT 3.71 10^6/uL (4.30-6.10); RED CELL DISTRIBUTION WIDTH 14.6 % (11.5-14.5); WHITE BLOOD COUNT 9.1 10^3/uL (4.0-10.0)
[2017-06-12 08:55] LABS: ALBUMIN 4.4 GM/DL (3.2-5.2); ALBUMIN/GLOBULIN RATIO 1.29 (1.00-1.93); ALKALINE PHOSPHATASE 79 U/L (45-117); ALT/SGPT 27 U/L (12-78); ANION GAP 8 MEQ/L (8-16); AST/SGOT 14 U/L (7-37); BILIRUBIN,TOTAL 0.4 MG/DL (0.2-1.0); BLOOD UREA NITROGEN 24 MG/DL (7-18); CALCIUM LEVEL 9.1 MG/DL (8.5-10.1); CARBON DIOXIDE LEVEL 27 MEQ/L (21-32); CHLORIDE LEVEL 103 MEQ/L (98-107); CREATININE FOR GFR 1.12 MG/DL (0.70-1.30); GLOMERULAR FILTRATION RATE > 60.0 (>56); GLUCOSE, FASTING 118 MG/DL (70-100); POTASSIUM SERUM 3.8 MEQ/L (3.5-5.1); SODIUM LEVEL 138 MEQ/L (136-145); TOTAL PROTEIN 7.8 GM/DL (6.4-8.2)
== END ==
LOC: SKLAB2 07:30
DX: D64.9 Anemia, unspecified (principal)
CPT/HCPCS: 36415; 80053

== ENCOUNTER → 2017-08-14 | Outpatient (REF) | payer MEDICAID ==
[2017-08-14 08:13] LABS: BASO # 0.1 10^3/uL (0.0-0.2); BASO % 0.7 % (0.0-1.0); EOS # 0.1 10^3/uL (0.0-0.50); EOS % 1.6 % (0.0-3.0); HEMATOCRIT 31.9 % (42.0-52.0); HEMOGLOBIN 10.7 g/dl (13.5-17.5); IMMATURE GRANULOCYTE % 0.4 % (0-3.0); LYMPH # 1.7 10^3/uL (1.5-4.5); LYMPH % 22.6 % (24.0-44.0); MEAN CORPUSCULAR HEMOGLOBIN 28.7 pg (27.0-33.0); MEAN CORPUSCULAR HGB CONC 33.5 g/dl (32.0-36.5); MEAN CORPUSCULAR VOLUME 85.5 fl (80.0-96.0); MONO # 0.5 10^3/uL (0.0-0.8); MONO % 5.9 % (0.0-5.0); NEUTROPHILS # 5.2 10^3/uL (1.8-7.7); NEUTROPHILS % 68.8 % (36.0-66.0); PLATELET COUNT, AUTOMATED 309 10^3/uL (150-450); RED BLOOD COUNT 3.73 10^6/uL (4.30-6.10); RED CELL DISTRIBUTION WIDTH 14.1 % (11.5-14.5); WHITE BLOOD COUNT 7.6 10^3/uL (4.0-10.0)
[2017-08-14 08:39] LABS: ALBUMIN 3.8 GM/DL (3.2-5.2); ALBUMIN/GLOBULIN RATIO 1.15 (1.00-1.93); ALKALINE PHOSPHATASE 74 U/L (45-117); ALT/SGPT 28 U/L (12-78); ANION GAP 7 MEQ/L (8-16); AST/SGOT 15 U/L (7-37); BILIRUBIN,TOTAL 0.3 MG/DL (0.2-1.0); BLOOD UREA NITROGEN 25 MG/DL (7-18); CALCIUM LEVEL 8.8 MG/DL (8.5-10.1); CARBON DIOXIDE LEVEL 25 MEQ/L (21-32); CHLORIDE LEVEL 108 MEQ/L (98-107); CREATININE FOR GFR 1.09 MG/DL (0.70-1.30); GLOMERULAR FILTRATION RATE > 60.0 (>56); GLUCOSE, FASTING 91 MG/DL (70-100); POTASSIUM SERUM 3.7 MEQ/L (3.5-5.1); SODIUM LEVEL 140 MEQ/L (136-145); TOTAL PROTEIN 7.1 GM/DL (6.4-8.2)
== END ==
LOC: SKLAB2 07:00
DX: D64.9 Anemia, unspecified (principal)
CPT/HCPCS: 80053

== ENCOUNTER → 2017-09-11 | Outpatient (REF) | payer MEDICAID ==
[2017-09-11 08:55] LABS: BASO # 0.1 10^3/uL (0.0-0.2); BASO % 0.7 % (0.0-1.0); EOS # 0.2 10^3/uL (0.0-0.50); EOS % 1.8 % (0.0-3.0); HEMATOCRIT 34.6 % (42.0-52.0); HEMOGLOBIN 11.5 g/dl (13.5-17.5); IMMATURE GRANULOCYTE % 0.6 % (0-3.0); LYMPH # 1.9 10^3/uL (1.5-4.5); LYMPH % 22.7 % (24.0-44.0); MEAN CORPUSCULAR HEMOGLOBIN 28.8 pg (27.0-33.0); MEAN CORPUSCULAR HGB CONC 33.2 g/dl (32.0-36.5); MEAN CORPUSCULAR VOLUME 86.7 fl (80.0-96.0); MONO # 0.5 10^3/uL (0.0-0.8); MONO % 6.5 % (0.0-5.0); NEUTROPHILS # 5.7 10^3/uL (1.8-7.7); NEUTROPHILS % 67.7 % (36.0-66.0); PLATELET COUNT, AUTOMATED 313 10^3/uL (150-450); RED BLOOD COUNT 3.99 10^6/uL (4.30-6.10); WHITE BLOOD COUNT 8.4 10^3/uL (4.0-10.0)
[2017-09-11 09:23] LABS: ALBUMIN 4.1 GM/DL (3.2-5.2); ALBUMIN/GLOBULIN RATIO 1.21 (1.00-1.93); ALKALINE PHOSPHATASE 76 U/L (45-117); ALT/SGPT 30 U/L (12-78); ANION GAP 9 MEQ/L (8-16); AST/SGOT 15 U/L (7-37); BILIRUBIN,TOTAL 0.4 MG/DL (0.2-1.0); BLOOD UREA NITROGEN 31 MG/DL (7-18); CALCIUM LEVEL 8.8 MG/DL (8.5-10.1); CARBON DIOXIDE LEVEL 26 MEQ/L (21-32); CHLORIDE LEVEL 104 MEQ/L (98-107); CREATININE FOR GFR 1.07 MG/DL (0.70-1.30); GLOMERULAR FILTRATION RATE > 60.0 (>56); GLUCOSE, FASTING 82 MG/DL (70-100); POTASSIUM SERUM 3.6 MEQ/L (3.5-5.1); SODIUM LEVEL 139 MEQ/L (136-145); TOTAL PROTEIN 7.5 GM/DL (6.4-8.2)
== END ==
LOC: SKLAB2 07:30
DX: D64.9 Anemia, unspecified (principal)
CPT/HCPCS: 80053

== ENCOUNTER → 2017-10-09 | Outpatient (REF) | payer MEDICAID ==
[2017-10-09 08:50] LABS: BASO # 0.1 10^3/uL (0.0-0.2); BASO % 0.8 % (0.0-1.0); EOS # 0.1 10^3/uL (0.0-0.50); EOS % 1.4 % (0.0-3.0); HEMATOCRIT 33.9 % (42.0-52.0); HEMOGLOBIN 11.3 g/dl (13.5-17.5); IMMATURE GRANULOCYTE % 0.8 % (0-3.0); LYMPH # 1.6 10^3/uL (1.5-4.5); LYMPH % 18.4 % (24.0-44.0); MEAN CORPUSCULAR HGB CONC 33.3 g/dl (32.0-36.5); MEAN CORPUSCULAR VOLUME 86.9 fl (80.0-96.0); MONO # 0.6 10^3/uL (0.0-0.8); MONO % 6.8 % (0.0-5.0); NEUTROPHILS # 6.3 10^3/uL (1.8-7.7); NEUTROPHILS % 71.8 % (36.0-66.0); PLATELET COUNT, AUTOMATED 334 10^3/uL (150-450); WHITE BLOOD COUNT 8.7 10^3/uL (4.0-10.0)
[2017-10-09 09:12] LABS: ALBUMIN 3.9 GM/DL (3.2-5.2); ALBUMIN/GLOBULIN RATIO 1.11 (1.00-1.93); ALKALINE PHOSPHATASE 81 U/L (45-117); ALT/SGPT 28 U/L (12-78); ANION GAP 7 MEQ/L (8-16); AST/SGOT 10 U/L (7-37); BILIRUBIN,TOTAL 0.3 MG/DL (0.2-1.0); BLOOD UREA NITROGEN 29 MG/DL (7-18); CALCIUM LEVEL 8.9 MG/DL (8.5-10.1); CARBON DIOXIDE LEVEL 28 MEQ/L (21-32); CHLORIDE LEVEL 104 MEQ/L (98-107); CREATININE FOR GFR 1.12 MG/DL (0.70-1.30); GLOMERULAR FILTRATION RATE > 60.0 (>56); GLUCOSE, FASTING 87 MG/DL (70-100); SODIUM LEVEL 139 MEQ/L (136-145); TOTAL PROTEIN 7.4 GM/DL (6.4-8.2)
== END ==
LOC: SKLAB2 07:30
DX: D64.9 Anemia, unspecified (principal)
CPT/HCPCS: 80053

== ENCOUNTER → 2017-10-30 | Outpatient (REF) | payer MEDICAID ==
[2017-10-30 11:41] LABS: ANION GAP 8 MEQ/L (8-16); BLOOD UREA NITROGEN 34 MG/DL (7-18); CALCIUM LEVEL 9.2 MG/DL (8.5-10.1); CARBON DIOXIDE LEVEL 28 MEQ/L (21-32); CHLORIDE LEVEL 105 MEQ/L (98-107); CREATININE FOR GFR 1.29 MG/DL (0.70-1.30); GLOMERULAR FILTRATION RATE > 60.0 (>56); GLUCOSE, FASTING 116 MG/DL (70-100); POTASSIUM SERUM 3.9 MEQ/L (3.5-5.1); SODIUM LEVEL 141 MEQ/L (136-145)
== END ==
LOC: SKLAB2 10:31
DX: R63.8 Other symptoms and signs concerning food and fluid intake (principal)
CPT/HCPCS: 36415

== ENCOUNTER → 2017-11-13 | Outpatient (REF) | payer MEDICAID ==
[2017-11-13 08:04] LABS: BASO % 0.5 % (0.0-1.0); EOS # 0.1 10^3/uL (0.0-0.50); EOS % 1.4 % (0.0-3.0); HEMATOCRIT 33.5 % (42.0-52.0); HEMOGLOBIN 11.1 g/dl (13.5-17.5); IMMATURE GRANULOCYTE % 0.5 % (0-3.0); LYMPH # 1.9 10^3/uL (1.5-4.5); LYMPH % 23.2 % (24.0-44.0); MEAN CORPUSCULAR HEMOGLOBIN 29.3 pg (27.0-33.0); MEAN CORPUSCULAR HGB CONC 33.1 g/dl (32.0-36.5); MEAN CORPUSCULAR VOLUME 88.4 fl (80.0-96.0); MONO # 0.5 10^3/uL (0.0-0.8); MONO % 5.5 % (0.0-5.0); NEUTROPHILS # 5.7 10^3/uL (1.8-7.7); NEUTROPHILS % 68.9 % (36.0-66.0); PLATELET COUNT, AUTOMATED 291 10^3/uL (150-450); RED BLOOD COUNT 3.79 10^6/uL (4.30-6.10); RED CELL DISTRIBUTION WIDTH 14.3 % (11.5-14.5); WHITE BLOOD COUNT 8.3 10^3/uL (4.0-10.0)
[2017-11-13 08:36] LABS: ALBUMIN 3.8 GM/DL (3.2-5.2); ALBUMIN/GLOBULIN RATIO 0.95 (1.00-1.93); ALKALINE PHOSPHATASE 78 U/L (45-117); ALT/SGPT 28 U/L (12-78); ANION GAP 7 MEQ/L (8-16); AST/SGOT 12 U/L (7-37); BILIRUBIN,TOTAL 0.3 MG/DL (0.2-1.0); BLOOD UREA NITROGEN 33 MG/DL (7-18); CARBON DIOXIDE LEVEL 27 MEQ/L (21-32); CHLORIDE LEVEL 107 MEQ/L (98-107); GLOMERULAR FILTRATION RATE > 60.0 (>56); GLUCOSE, FASTING 106 MG/DL (70-100); POTASSIUM SERUM 3.6 MEQ/L (3.5-5.1); SODIUM LEVEL 141 MEQ/L (136-145); TOTAL PROTEIN 7.8 GM/DL (6.4-8.2)
== END ==
LOC: SKLAB2 08:00
DX: D64.9 Anemia, unspecified (principal)
CPT/HCPCS: 80053

== ENCOUNTER → 2018-01-08 | Outpatient (REF) | payer MEDICAID ==
[2018-01-08 11:04] LABS: BASO # 0.1 10^3/uL (0.0-0.2); BASO % 0.6 % (0.0-1.0); EOS # 0.1 10^3/uL (0.0-0.50); EOS % 1.7 % (0.0-3.0); HEMATOCRIT 33.6 % (42.0-52.0); HEMOGLOBIN 10.8 g/dl (13.5-17.5); IMMATURE GRANULOCYTE % 0.7 % (0-3.0); LYMPH # 1.5 10^3/uL (1.5-4.5); LYMPH % 18.7 % (24.0-44.0); MEAN CORPUSCULAR HEMOGLOBIN 28.7 pg (27.0-33.0); MEAN CORPUSCULAR HGB CONC 32.1 g/dl (32.0-36.5); MEAN CORPUSCULAR VOLUME 89.4 fl (80.0-96.0); MONO # 0.6 10^3/uL (0.0-0.8); MONO % 7.1 % (0.0-5.0); NEUTROPHILS # 5.7 10^3/uL (1.8-7.7); NEUTROPHILS % 71.2 % (36.0-66.0); PLATELET COUNT, AUTOMATED 333 10^3/uL (150-450); RED BLOOD COUNT 3.76 10^6/uL (4.30-6.10); WHITE BLOOD COUNT 8.1 10^3/uL (4.0-10.0)
[2018-01-08 11:31] LABS: ALBUMIN 3.7 GM/DL (3.2-5.2); ALKALINE PHOSPHATASE 91 U/L (45-117); ALT/SGPT 23 U/L (12-78); ANION GAP 8 MEQ/L (8-16); AST/SGOT 9 U/L (7-37); BILIRUBIN,TOTAL 0.2 MG/DL (0.2-1.0); BLOOD UREA NITROGEN 28 MG/DL (7-18); CALCIUM LEVEL 8.7 MG/DL (8.5-10.1); CARBON DIOXIDE LEVEL 26 MEQ/L (21-32); CHLORIDE LEVEL 108 MEQ/L (98-107); CREATININE FOR GFR 1.19 MG/DL (0.70-1.30); GLOMERULAR FILTRATION RATE > 60.0 (>56); GLUCOSE, FASTING 144 MG/DL (70-100); SODIUM LEVEL 142 MEQ/L (136-145); TOTAL PROTEIN 7.4 GM/DL (6.4-8.2)
== END ==
LOC: SKLAB2 08:00
DX: D64.9 Anemia, unspecified (principal)
CPT/HCPCS: 80053

== ENCOUNTER → 2018-02-12 | Outpatient (REF) | payer MEDICAID ==
[2018-02-12 08:41] LABS: BASO # 0.1 10^3/uL (0.0-0.2); BASO % 0.6 % (0.0-1.0); EOS # 0.1 10^3/uL (0.0-0.50); EOS % 1.5 % (0.0-3.0); HEMATOCRIT 32.1 % (42.0-52.0); HEMOGLOBIN 10.5 g/dl (13.5-17.5); IMMATURE GRANULOCYTE % 0.8 % (0-3.0); LYMPH # 1.5 10^3/uL (1.5-4.5); LYMPH % 19.5 % (24.0-44.0); MEAN CORPUSCULAR HEMOGLOBIN 28.7 pg (27.0-33.0); MEAN CORPUSCULAR HGB CONC 32.7 g/dl (32.0-36.5); MEAN CORPUSCULAR VOLUME 87.7 fl (80.0-96.0); MONO # 0.6 10^3/uL (0.0-0.8); NEUTROPHILS # 5.5 10^3/uL (1.8-7.7); NEUTROPHILS % 70.6 % (36.0-66.0); PLATELET COUNT, AUTOMATED 282 10^3/uL (150-450); RED BLOOD COUNT 3.66 10^6/uL (4.30-6.10); RED CELL DISTRIBUTION WIDTH 13.7 % (11.5-14.5); WHITE BLOOD COUNT 7.8 10^3/uL (4.0-10.0)
[2018-02-12 10:21] LABS: ALBUMIN 3.4 GM/DL (3.2-5.2); ALBUMIN/GLOBULIN RATIO 0.97 (1.00-1.93); ALKALINE PHOSPHATASE 87 U/L (45-117); ALT/SGPT 22 U/L (12-78); ANION GAP 10 MEQ/L (8-16); AST/SGOT 13 U/L (7-37); BILIRUBIN,TOTAL 0.3 MG/DL (0.2-1.0); BLOOD UREA NITROGEN 38 MG/DL (7-18); CARBON DIOXIDE LEVEL 23 MEQ/L (21-32); CHLORIDE LEVEL 109 MEQ/L (98-107); CREATININE FOR GFR 1.22 MG/DL (0.70-1.30); GLOMERULAR FILTRATION RATE > 60.0 (>56); GLUCOSE, FASTING 82 MG/DL (70-100); SODIUM LEVEL 142 MEQ/L (136-145); TOTAL PROTEIN 6.9 GM/DL (6.4-8.2)
== END ==
LOC: SKLAB2 07:00
DX: D64.9 Anemia, unspecified (principal)
CPT/HCPCS: 80053

== ENCOUNTER → 2018-03-12 | Outpatient (REF) | payer MEDICAID ==
[2018-03-12 08:24] LABS: BASO # 0.1 10^3/uL (0.0-0.2); BASO % 0.6 % (0.0-1.0); EOS # 0.1 10^3/uL (0.0-0.50); EOS % 1.4 % (0.0-3.0); HEMOGLOBIN 10.8 g/dl (13.5-17.5); IMMATURE GRANULOCYTE % 0.7 % (0-3.0); LYMPH # 1.8 10^3/uL (1.5-4.5); LYMPH % 18.9 % (24.0-44.0); MEAN CORPUSCULAR HEMOGLOBIN 28.3 pg (27.0-33.0); MEAN CORPUSCULAR HGB CONC 32.7 g/dl (32.0-36.5); MEAN CORPUSCULAR VOLUME 86.4 fl (80.0-96.0); MONO # 0.8 10^3/uL (0.0-0.8); MONO % 8.3 % (0.0-5.0); NEUTROPHILS # 6.7 10^3/uL (1.8-7.7); NEUTROPHILS % 70.1 % (36.0-66.0); PLATELET COUNT, AUTOMATED 330 10^3/uL (150-450); RED BLOOD COUNT 3.82 10^6/uL (4.30-6.10); RED CELL DISTRIBUTION WIDTH 13.7 % (11.5-14.5); WHITE BLOOD COUNT 9.5 10^3/uL (4.0-10.0)
[2018-03-12 08:54] LABS: ALBUMIN 3.9 GM/DL (3.2-5.2); ALBUMIN/GLOBULIN RATIO 1.08 (1.00-1.93); ALKALINE PHOSPHATASE 104 U/L (45-117); ALT/SGPT 20 U/L (12-78); ANION GAP 9 MEQ/L (8-16); AST/SGOT 12 U/L (7-37); BILIRUBIN,TOTAL 0.2 MG/DL (0.2-1.0); BLOOD UREA NITROGEN 31 MG/DL (7-18); CALCIUM LEVEL 9.2 MG/DL (8.5-10.1); CARBON DIOXIDE LEVEL 25 MEQ/L (21-32); CHLORIDE LEVEL 105 MEQ/L (98-107); CREATININE FOR GFR 1.16 MG/DL (0.70-1.30); GLOMERULAR FILTRATION RATE > 60.0 (>56); GLUCOSE, FASTING 86 MG/DL (70-100); POTASSIUM SERUM 3.8 MEQ/L (3.5-5.1); SODIUM LEVEL 139 MEQ/L (136-145); TOTAL PROTEIN 7.5 GM/DL (6.4-8.2)
== END ==
LOC: SKLAB2 08:00
DX: D64.9 Anemia, unspecified (principal)
CPT/HCPCS: 80053

== ENCOUNTER → 2018-03-29 | Outpatient (REF) | payer MEDICAID ==
[~2018-03-29] MED LIST changes: -ACET1TAB17 PO; +ACET1TAB55 PO; -AMLO10TA2 PO; +AMLO10TA4 PO; -LOSA50TA20 PO; +LOSA50TA73 PO; +MILK12002 PO; -MILKSUS PO; -PANT40TA2 PO; +PANT40TA3 PO; -THIA100T6 PO; +THIA100T7 PO; +TRAZ-160 PO; -TRAZ50TA11 PO
--- NOTE | 2018-03-29 13:52 | REP ---
Clinical: Lower back pain. Technique: AP, lateral, bilateral oblique and coned-down views of the lumbosacral spine. Findings: Alignment is maintained. There is no evidence for acute fracture / compression injury or subluxation. Moderate multilevel degenerative changes include osteophytosis, endplate sclerosis, hypertrophic facet changes and minimal disc space narrowing. Impression: Moderate multilevel degenerative changes. If the patient remains symptomatic consider MRI for further investigation. Electronically Signed by Vidal Zamorano MD 03/29/2018 01:44 P
== END ==
LOC: SKLAB2 12:37
PROVIDERS: ATTEND Family Medicine
DX: M51.9 Unspecified thoracic, thoracolumbar and lumbosacral intervertebral disc disorder (principal)

== ENCOUNTER → 2018-04-16 | Outpatient (REF) | payer MEDICAID ==
[~2018-04-16] MED LIST changes: -AMLO10TA4 PO; +AMLO10TA5 PO; -ENEMENE16 PR; +ENEMENE4 PR; -LOSA50TA73 PO; +LOSA50TA88 PO; +MILK120011 PO; -MILK12002 PO
[2018-04-16 08:14] LABS: BASO % 0.5 % (0.0-1.0); EOS # 0.2 10^3/uL (0.0-0.50); EOS % 1.9 % (0.0-3.0); HEMATOCRIT 29.4 % (42.0-52.0); HEMOGLOBIN 9.4 g/dl (13.5-17.5); LYMPH # 1.4 10^3/uL (1.5-4.5); MEAN CORPUSCULAR HEMOGLOBIN 27.7 pg (27.0-33.0); MEAN CORPUSCULAR VOLUME 86.7 fl (80.0-96.0); MONO # 0.7 10^3/uL (0.0-0.8); MONO % 8.3 % (0.0-5.0); NEUTROPHILS # 5.8 10^3/uL (1.8-7.7); NEUTROPHILS % 71.8 % (36.0-66.0); PLATELET COUNT, AUTOMATED 313 10^3/uL (150-450); RED BLOOD COUNT 3.39 10^6/uL (4.30-6.10); WHITE BLOOD COUNT 8.1 10^3/uL (4.0-10.0)
[2018-04-16 08:41] LABS: ALBUMIN 3.6 GM/DL (3.2-5.2); BILIRUBIN,TOTAL 0.2 MG/DL (0.2-1.0); CREATININE FOR GFR 1.36 MG/DL (0.70-1.30); GLOMERULAR FILTRATION RATE 57.5 (>56); POTASSIUM SERUM 3.9 MEQ/L (3.5-5.1)
== END ==
LOC: SKLAB2 07:00
PROVIDERS: ATTEND Family Medicine
DX: D64.9 Anemia, unspecified (principal)

== ENCOUNTER → 2018-04-16 | Outpatient (REF) | payer MEDICAID ==
[2018-04-16 15:49] LABS: APPEARANCE, URINE CLEAR (CLEAR); BACTERIA, URINE AUTO NEGATIVE (NEGATIVE); BILIRUBIN, URINE AUTO NEGATIVE (NEGATIVE); BLOOD, URINE BLOOD NEGATIVE (NEGATIVE); COLOR, URINE YELLOW (YELLOW); GLUCOSE, URINE (UA) AUTO NEGATIVE (NEGATIVE); KETONE, URINE AUTO NEGATIVE (NEGATIVE); LEUKOCYTE ESTERASE, URINE AUTO NEGATIVE (NEGATIVE); NITRITE, URINE AUTO NEGATIVE (NEGATIVE); PROTEIN, URINE AUTO NEGATIVE (NEGATIVE); RBC, URINE AUTO 3 /HPF (0-3); SPECIFIC GRAVITY URINE AUTO 1.024 (1.002-1.035); SQUAMOUS EPITHELIAL CELL UR AU 0 /HPF (0-6); UROBILINOGEN, URINE AUTO 0.2 mg/dL (0.0-2.0); WBC, URINE AUTO 1 /HPF (0-3)
== END ==
LOC: SKLAB2 14:20
PROVIDERS: ATTEND Family Medicine
DX: R10.9 Unspecified abdominal pain (principal); M54.9 Dorsalgia, unspecified

== ENCOUNTER → 2018-04-19 | Outpatient (REF) | payer MEDICAID ==
[2018-04-19 08:55] LABS: BLOOD UREA NITROGEN 38 MG/DL (7-18); C REACTIVE PROTEIN QUANTITATIV 2.67 MG/DL (0.00-0.30); CALCIUM LEVEL 8.5 MG/DL (8.5-10.1); CARBON DIOXIDE LEVEL 24 MEQ/L (21-32); CHLORIDE LEVEL 106 MEQ/L (98-107); CREATININE FOR GFR 1.22 MG/DL (0.70-1.30); GLOMERULAR FILTRATION RATE > 60.0 (>56); GLUCOSE, FASTING 84 MG/DL (70-100); SODIUM LEVEL 138 MEQ/L (136-145)
== END ==
LOC: SKLAB2 07:00
PROVIDERS: ATTEND Family Medicine
DX: D64.9 Anemia, unspecified (principal)

== ENCOUNTER → 2018-04-23 | Outpatient (REF) | payer MEDICAID ==
[2018-04-23 07:42] LABS: HEMATOCRIT 30.1 % (42.0-52.0); HEMOGLOBIN 9.7 g/dl (13.5-17.5); MEAN CORPUSCULAR HEMOGLOBIN 27.7 pg (27.0-33.0); MEAN CORPUSCULAR HGB CONC 32.2 g/dl (32.0-36.5); PLATELET COUNT, AUTOMATED 343 10^3/uL (150-450)
== END ==
LOC: SKLAB2 07:00
PROVIDERS: ATTEND Family Medicine
DX: D64.9 Anemia, unspecified (principal)

== ENCOUNTER → 2018-04-26 | Outpatient (REF) | payer MEDICAID | LOC: SKLAB2 18:45 | PROVIDERS: ATTEND Family Medicine | DX: D50.9 Iron deficiency anemia, unspecified (principal) ==

== ENCOUNTER → 2018-04-27 | Outpatient (REF) | payer MEDICAID | LOC: SKLAB2 14:00 | PROVIDERS: ATTEND Family Medicine | DX: D50.9 Iron deficiency anemia, unspecified (principal) ==

== ENCOUNTER → 2018-04-30 | Outpatient (REF) | payer MEDICAID ==
[2018-04-30 16:13] LABS: CALCIUM LEVEL 9.1 MG/DL (8.5-10.1); CREATININE FOR GFR 1.49 MG/DL (0.70-1.30); GLOMERULAR FILTRATION RATE 51.8 (>56)
== END ==
LOC: SKLAB2 15:09
PROVIDERS: ATTEND Family Medicine
DX: N18.9 Chronic kidney disease, unspecified (principal)

== ENCOUNTER → 2018-04-30 | Outpatient (REF) | payer MEDICAID ==
[2018-04-30 19:33] LABS: APPEARANCE, URINE HAZY (CLEAR); BACTERIA, URINE AUTO 1+ (NEGATIVE); BILIRUBIN, URINE AUTO NEGATIVE (NEGATIVE); BLOOD, URINE BLOOD NEGATIVE (NEGATIVE); COLOR, URINE YELLOW (YELLOW); GLUCOSE, URINE (UA) AUTO NEGATIVE (NEGATIVE); KETONE, URINE AUTO NEGATIVE (NEGATIVE); LEUKOCYTE ESTERASE, URINE AUTO TRACE (NEGATIVE); MUCUS, URINE SMALL (NEGATIVE); NITRITE, URINE AUTO NEGATIVE (NEGATIVE); PROTEIN, URINE AUTO 1+ mg/dL (NEGATIVE); RBC, URINE AUTO 2 /HPF (0-3); SPECIFIC GRAVITY URINE AUTO 1.025 (1.002-1.035); SQUAMOUS EPITHELIAL CELL UR AU 0 /HPF (0-6); UROBILINOGEN, URINE AUTO 0.2 mg/dL (0.0-2.0); WBC, URINE AUTO 8 /HPF (0-3)
== END ==
LOC: SKLAB2 16:04
PROVIDERS: ATTEND Family Medicine
DX: E86.0 Dehydration (principal)

== ENCOUNTER → 2018-05-03 | Outpatient (REF) | payer MEDICAID ==
[2018-05-03 10:55] LABS: BLOOD UREA NITROGEN 28 MG/DL (7-18); CALCIUM LEVEL 8.6 MG/DL (8.5-10.1); CARBON DIOXIDE LEVEL 25 MEQ/L (21-32); CHLORIDE LEVEL 105 MEQ/L (98-107); CREATININE FOR GFR 1.22 MG/DL (0.70-1.30); GLOMERULAR FILTRATION RATE > 60.0 (>56); GLUCOSE, FASTING 129 MG/DL (70-100); POTASSIUM SERUM 3.7 MEQ/L (3.5-5.1); SODIUM LEVEL 138 MEQ/L (136-145)
== END ==
LOC: SKLAB2 10:24
PROVIDERS: ATTEND Family Medicine
DX: D64.9 Anemia, unspecified (principal)

== ENCOUNTER → 2018-05-14 | Outpatient (REF) | payer MEDICAID ==
[2018-05-14 08:02] LABS: BASO % 0.4 % (0.0-1.0); EOS # 0.1 10^3/uL (0.0-0.50); EOS % 0.6 % (0.0-3.0); HEMATOCRIT 28.3 % (42.0-52.0); HEMOGLOBIN 9.1 g/dl (13.5-17.5); LYMPH # 1.1 10^3/uL (1.5-4.5); LYMPH % 11.1 % (24.0-44.0); MEAN CORPUSCULAR HEMOGLOBIN 26.7 pg (27.0-33.0); MEAN CORPUSCULAR HGB CONC 32.2 g/dl (32.0-36.5); MONO # 0.7 10^3/uL (0.0-0.8); MONO % 6.8 % (0.0-5.0); NEUTROPHILS % 80.7 % (36.0-66.0); PLATELET COUNT, AUTOMATED 385 10^3/uL (150-450); RED BLOOD COUNT 3.41 10^6/uL (4.30-6.10); WHITE BLOOD COUNT 9.9 10^3/uL (4.0-10.0)
[2018-05-14 08:33] LABS: ALBUMIN 3.4 GM/DL (3.2-5.2); ALT/SGPT 13 U/L (12-78); BILIRUBIN,TOTAL 0.3 MG/DL (0.2-1.0); BLOOD UREA NITROGEN 23 MG/DL (7-18); CALCIUM LEVEL 8.9 MG/DL (8.5-10.1); CARBON DIOXIDE LEVEL 24 MEQ/L (21-32); CHLORIDE LEVEL 106 MEQ/L (98-107); CREATININE FOR GFR 1.12 MG/DL (0.70-1.30); GLOMERULAR FILTRATION RATE > 60.0 (>56); GLUCOSE, FASTING 87 MG/DL (70-100); SODIUM LEVEL 138 MEQ/L (136-145); TOTAL PROTEIN 7.1 GM/DL (6.4-8.2)
== END ==
LOC: SKLAB2 07:00
PROVIDERS: ATTEND Family Medicine
DX: D64.9 Anemia, unspecified (principal)

== ENCOUNTER → 2018-05-17 | Outpatient (CLI) | payer MEDICAID ==
--- NOTE | 2018-05-17 11:23 | REP ---
MRI LUMBAR SPINE WITHOUT CONTRAST: HISTORY: Back pain. Decreased signal intensity on T2-weighted images is present in the T12-L1 through L5-S1 intervertebral discs. The discs are decreased in height. These findings are consistent with disc degeneration. A diffuse disc bulge is present at the L1-2 level. There is an increase in the amount of epidural fat. There is minimal compression of the thecal sac. There is hypertrophy of the posterior articulating facets. The L1 nerves exit the neural foramina without compression. A diffuse disc bulge is present at the L2-3 level. There is an increase in the amount of epidural fat. There is moderate compression of the thecal sac. There is hypertrophy of the posterior articulating facets. The L2 nerves exit the neural foramina without compression. A diffuse disc bulge is present at the L3-4 level. There is an increase in the amount of epidural fat. There is mild compression of the thecal sac. There is hypertrophy of the ligamenta flava and posterior articulating facets. The L3 nerves exit the neural foramina without compression. A diffuse disc bulge is present at the L4-5 level. There is an increase in the amount of epidural fat. There is hypertrophy of the ligamenta flava and posterior articulating facets. These findings produce mild central canal stenosis. The L4 nerves exit the neural foramina without compression. A diffuse disc bulge is present at the L5-S1 level. There is an increase in the amount of epidural fat. There is mild compression of the thecal sac. There is hypertrophy of the posterior articulating facets. The L5 nerves exit the neural foramina without compression. The conus medullaris is normal in appearance terminating at the level of the L1-2 intervertebral disc. Increased signal intensity on T2-weighted images is present in the endplates of the L1-3 vertebral bodies This represents degenerative change. IMPRESSION: 1. Diffuse disc bulge and epidural lipomatosis at the L1-2 level with minimal thecal sac compression. 2. Diffuse disc bulge and epidural lipomatosis at the L2-3 level with moderate thecal sac compression. 3. Diffuse disc bulge and epidural lipomatosis at the L3-4 level with mild thecal sac compression. 4. Mild central canal stenosis at the L4-5 level secondary to disc bulge, ligamentous and facet hypertrophy, and epidural lipomatosis. 5. Diffuse disc bulge of the L5-S1 level. There is epidural lipomatosis with mild thecal sac compression. Electronically Signed by Sachin Serra MD 05/17/2018 11:26 A
== END ==
LOC: M RAD 09:35
PROVIDERS: ATTEND Family Medicine
DX: M51.26 Other intervertebral disc displacement, lumbar region (principal); M51.27 Other intervertebral disc displacement, lumbosacral region; D17.79 Benign lipomatous neoplasm of other sites; M51.06 Intervertebral disc disorders with myelopathy, lumbar region; M48.061 Spinal stenosis, lumbar region without neurogenic claudication

== ENCOUNTER → 2018-05-24 | Outpatient (REF) | payer MEDICAID ==
[2018-05-24 14:06] LABS: HEMATOCRIT 31.5 % (42.0-52.0); MEAN CORPUSCULAR HEMOGLOBIN 26.9 pg (27.0-33.0); MEAN CORPUSCULAR HGB CONC 31.7 g/dl (32.0-36.5); MEAN CORPUSCULAR VOLUME 84.7 fl (80.0-96.0); PLATELET COUNT, AUTOMATED 409 10^3/uL (150-450); RED BLOOD COUNT 3.72 10^6/uL (4.30-6.10); WHITE BLOOD COUNT 10.3 10^3/uL (4.0-10.0)
[2018-05-24 14:44] LABS: ALBUMIN 3.5 GM/DL (3.2-5.2); ALT/SGPT 15 U/L (12-78); BILIRUBIN,TOTAL 0.2 MG/DL (0.2-1.0); BLOOD UREA NITROGEN 31 MG/DL (7-18); CALCIUM LEVEL 8.8 MG/DL (8.5-10.1); CARBON DIOXIDE LEVEL 24 MEQ/L (21-32); CHLORIDE LEVEL 106 MEQ/L (98-107); GLOMERULAR FILTRATION RATE > 60.0 (>56); GLUCOSE, FASTING 109 MG/DL (70-100); POTASSIUM SERUM 3.7 MEQ/L (3.5-5.1); SODIUM LEVEL 139 MEQ/L (136-145); TOTAL PROTEIN 8.1 GM/DL (6.4-8.2)
== END ==
LOC: SKLAB2 13:20
PROVIDERS: ATTEND Family Medicine
DX: F50.9 Eating disorder, unspecified (principal)

== ENCOUNTER → 2018-06-11 | Outpatient (REF) | payer MEDICAID ==
[2018-06-11 08:57] LABS: BASO # 0.1 10^3/uL (0.0-0.2); BASO % 0.7 % (0.0-1.0); EOS # 0.1 10^3/uL (0.0-0.50); EOS % 1.3 % (0.0-3.0); HEMATOCRIT 30.8 % (42.0-52.0); HEMOGLOBIN 9.7 g/dl (13.5-17.5); LYMPH # 1.8 10^3/uL (1.5-4.5); LYMPH % 17.1 % (24.0-44.0); MEAN CORPUSCULAR HEMOGLOBIN 26.1 pg (27.0-33.0); MEAN CORPUSCULAR HGB CONC 31.5 g/dl (32.0-36.5); MEAN CORPUSCULAR VOLUME 82.8 fl (80.0-96.0); MONO # 0.8 10^3/uL (0.0-0.8); NEUTROPHILS # 7.8 10^3/uL (1.8-7.7); NEUTROPHILS % 72.8 % (36.0-66.0); PLATELET COUNT, AUTOMATED 443 10^3/uL (150-450); RED BLOOD COUNT 3.72 10^6/uL (4.30-6.10); WHITE BLOOD COUNT 10.7 10^3/uL (4.0-10.0)
[2018-06-11 09:25] LABS: ALBUMIN 3.2 GM/DL (3.2-5.2); ALT/SGPT 17 U/L (12-78); BILIRUBIN,TOTAL 0.2 MG/DL (0.2-1.0); BLOOD UREA NITROGEN 24 MG/DL (7-18); CALCIUM LEVEL 8.9 MG/DL (8.5-10.1); CARBON DIOXIDE LEVEL 23 MEQ/L (21-32); CHLORIDE LEVEL 108 MEQ/L (98-107); CREATININE FOR GFR 1.12 MG/DL (0.70-1.30); GLOMERULAR FILTRATION RATE > 60.0 (>56); GLUCOSE, FASTING 118 MG/DL (70-100); POTASSIUM SERUM 4.3 MEQ/L (3.5-5.1); SODIUM LEVEL 140 MEQ/L (136-145); TOTAL PROTEIN 7.2 GM/DL (6.4-8.2)
== END ==
LOC: SKLAB2 07:30
PROVIDERS: ATTEND Family Medicine
DX: D64.9 Anemia, unspecified (principal)

== ENCOUNTER → 2018-07-09 | Outpatient (REF) | payer MEDICAID ==
[~2018-07-09] MED LIST changes: -ASPI81CH PO; +ASPI81CH49 PO; -CEFE2INJ IV; +CEFE2INJ5 IV; -CITA20TA4 PO; +CITA20TA6 PO
[2018-07-09 07:41] LABS: BASO # 0.1 10^3/uL (0.0-0.2); BASO % 0.4 % (0.0-1.0); EOS # 0.2 10^3/uL (0.0-0.50); EOS % 1.6 % (0.0-3.0); HEMATOCRIT 26.9 % (42.0-52.0); HEMOGLOBIN 8.5 g/dl (13.5-17.5); LYMPH # 1.3 10^3/uL (1.5-4.5); LYMPH % 11.7 % (24.0-44.0); MEAN CORPUSCULAR HEMOGLOBIN 25.6 pg (27.0-33.0); MEAN CORPUSCULAR HGB CONC 31.6 g/dl (32.0-36.5); MONO # 0.7 10^3/uL (0.0-0.8); NEUTROPHILS # 9.1 10^3/uL (1.8-7.7); NEUTROPHILS % 79.4 % (36.0-66.0); PLATELET COUNT, AUTOMATED 441 10^3/uL (150-450); RED BLOOD COUNT 3.32 10^6/uL (4.30-6.10); WHITE BLOOD COUNT 11.5 10^3/uL (4.0-10.0)
[2018-07-09 08:02] LABS: ALBUMIN 2.8 GM/DL (3.2-5.2); ALT/SGPT 15 U/L (12-78); BILIRUBIN,TOTAL 0.2 MG/DL (0.2-1.0); BLOOD UREA NITROGEN 25 MG/DL (7-18); CALCIUM LEVEL 8.7 MG/DL (8.5-10.1); CARBON DIOXIDE LEVEL 25 MEQ/L (21-32); CHLORIDE LEVEL 108 MEQ/L (98-107); CHOLESTEROL LEVEL 91 MG/DL (<200); CHOLESTEROL RISK RATIO 2.676 (<5); CREATININE FOR GFR 0.94 MG/DL (0.70-1.30); GLOMERULAR FILTRATION RATE > 60.0 (>56); GLUCOSE, FASTING 102 MG/DL (70-100); HDL CHOLESTEROL 34 MG/DL (>40); LDL CHOLESTEROL 30 MG/DL (<100); NON-HDL-C 57 MG/DL; SODIUM LEVEL 141 MEQ/L (136-145); TOTAL PROTEIN 6.9 GM/DL (6.4-8.2); TRIGLYCERIDES LEVEL 133 MG/DL (<150)
== END ==
LOC: SKLAB2 07:30
PROVIDERS: ATTEND Family Medicine
DX: D64.9 Anemia, unspecified (principal)

== ENCOUNTER → 2018-07-23 | Outpatient (REF) | payer MEDICAID ==
--- NOTE | 2018-07-23 15:24 | REP ---
CHEST X-RAY: PORTABLE SINGLE VIEW. HISTORY: Cough and congestion. COMPARISON CHEST X-RAY: May 31, 2017 FINDINGS: There are multiple healed rib fractures bilaterally, right greater than left. There is new pleural thickening and blunting of the right lateral pleural angle on today's chest x-ray. Fissural thickening versus platelike atelectasis right midlung zone. There are granulomatous lymph node calcifications in the right hilus which are unchanged. There is fullness in the right mediastinum on today's chest x-ray, uncertain significance. IMPRESSION: Small right pleural effusion. Pleural thickening and right mediastinal fullness, question adenopathy. Platelike atelectasis versus fissural thickening right mid lung zone. Electronically Signed by Jose F Mayorga MD 07/23/2018 04:13 P
== END ==
LOC: SKLAB2 14:21
PROVIDERS: ATTEND Family Medicine
DX: R05 Cough (principal); R09.02 Hypoxemia; R09.81 Nasal congestion

== ENCOUNTER → 2018-07-29 | Outpatient (REF) | payer MEDICAID ==
[~2018-07-29] MED LIST changes: +ACET-907 PO; +ACET65SU PR; +ALBU83IN INH; +AMLO5TAB6 PO; +ARTI99.0 OU; +ASPI81CH44 PO; +ATOR40TA75 PO; +BENZ200C70 PO; +ENSU1LIQ36 PO; +FERR5MLUD PO; +GABA-843 PO; +IPRA0.00 INH; +KETO2CR TOP; +LEVO500T3 PO; +MOM30SS PO; +MYLASSUD PO; +NORC1TAB7 PO; +PLAV1TAB2 PO; +REME15TA PO; +SENN18TA PO
== END ==
LOC: SKLAB2 07-28 23:30
PROVIDERS: ATTEND Family Medicine
DX: R50.9 Fever, unspecified (principal)

== ENCOUNTER 2018-07-30 12:22 | Inpatient (IN) | payer MEDICAID ==
[~2018-07-30] VITALS: Ht 172.7 cm; Wt 61.4 kg
[~2018-07-30 12:22] MED LIST changes: -ACET-907 PO; -ACET65SU PR; -ALBU83IN INH; -AMLO5TAB6 PO; -ARTI99.0 OU; -ASPI81CH44 PO; -ATOR40TA75 PO; -BENZ200C70 PO; -ENSU1LIQ36 PO; -FERR5MLUD PO; -GABA-843 PO; -IPRA0.00 INH; -KETO2CR TOP; -LEVO500T3 PO; -MOM30SS PO; -MYLASSUD PO; -NORC1TAB7 PO; -PLAV1TAB2 PO; -REME15TA PO; -SENN18TA PO
[2018-07-30 12:59] LABS: BASO % 0.3 % (0.0-1.0); EOS # 0.1 10^3/uL (0.0-0.50); EOS % 0.8 % (0.0-3.0); HEMOGLOBIN 7.4 g/dl (13.5-17.5); LYMPH # 1.4 10^3/uL (1.5-4.5); LYMPH % 11.8 % (24.0-44.0); MEAN CORPUSCULAR HEMOGLOBIN 24.3 pg (27.0-33.0); MEAN CORPUSCULAR HGB CONC 30.8 g/dl (32.0-36.5); MEAN CORPUSCULAR VOLUME 78.9 fl (80.0-96.0); MONO # 0.9 10^3/uL (0.0-0.8); MONO % 8.1 % (0.0-5.0); NEUTROPHILS # 9.1 10^3/uL (1.8-7.7); NEUTROPHILS % 78.4 % (36.0-66.0); PLATELET COUNT, AUTOMATED 464 10^3/uL (150-450); RED BLOOD COUNT 3.04 10^6/uL (4.30-6.10); WHITE BLOOD COUNT 11.6 10^3/uL (4.0-10.0)
[2018-07-30 13:07] LABS: APPEARANCE, URINE CLEAR (CLEAR); BACTERIA, URINE AUTO NEGATIVE (NEGATIVE); BILIRUBIN, URINE AUTO NEGATIVE (NEGATIVE); BLOOD, URINE BLOOD NEGATIVE (NEGATIVE); COLOR, URINE YELLOW (YELLOW); GLUCOSE, URINE (UA) AUTO NEGATIVE (NEGATIVE); KETONE, URINE AUTO NEGATIVE (NEGATIVE); LEUKOCYTE ESTERASE, URINE AUTO NEGATIVE (NEGATIVE); NITRITE, URINE AUTO NEGATIVE (NEGATIVE); PROTEIN, URINE AUTO NEGATIVE (NEGATIVE); RBC, URINE AUTO 2 /HPF (0-3); SPECIFIC GRAVITY URINE AUTO 1.023 (1.002-1.035); SQUAMOUS EPITHELIAL CELL UR AU 0 /HPF (0-6); UROBILINOGEN, URINE AUTO 0.2 mg/dL (0.0-2.0); WBC, URINE AUTO 0 /HPF (0-3)
[2018-07-30 13:30] LABS: ALBUMIN 2.5 GM/DL (3.2-5.2); ALT/SGPT 29 U/L (12-78); BILIRUBIN,DIRECT < 0.1 MG/DL (0.0-0.2); BILIRUBIN,TOTAL 0.2 MG/DL (0.2-1.0); BLOOD UREA NITROGEN 47 MG/DL (7-18); CALCIUM LEVEL 8.3 MG/DL (8.5-10.1); CARBON DIOXIDE LEVEL 27 MEQ/L (21-32); CHLORIDE LEVEL 109 MEQ/L (98-107); CPK CREATINE PHOSPHOKINASE 485 U/L (39-308); CREATININE FOR GFR 1.94 MG/DL (0.70-1.30); GLOMERULAR FILTRATION RATE 38.2 (>56); GLUCOSE, FASTING 108 MG/DL (70-100); MB/CK RELATIVE INDEX 0.21 (< OR =4); POTASSIUM SERUM 4.7 MEQ/L (3.5-5.1); SODIUM LEVEL 142 MEQ/L (136-145); THYROID STIMULATING HORMONE 0.014 uIU/ML (0.358-3.740); TROPONIN I < 0.02 NG/ML (< 0.10)
[2018-07-30 13:45] LABS: INR 1.46; PARTIAL THROMBOPLASTIN TIME 41.6 SECONDS (25.4-37.6)
[2018-07-30 13:45] LABS: INFLUENZA A AMPLIFICATION NEGATIVE (NEGATIVE); INFLUENZA B AMPLIFICATION NEGATIVE (NEGATIVE)
--- NOTE | 2018-07-30 13:47 | REP ---
CT Head without contrast HISTORY: Altered mental status COMPARISON: 08/18/2016 Areas of decreased each attenuation consistent with vasogenic edema are present in the frontal parietal and temporal lobes. There is mass effect with partial effacement of the overlying cortical sulci and partial effacement of the body of the right lateral ventricle with very minimal midline shift to the left. An area of decreased attenuation is present in the right occipital lobe and posterior right parietal and temporal lobes. There is dilatation of the overlying cortical sulci. This represents an old infarction. Areas of decreased attenuation are present in the basal ganglia and right thalamus. These represent old lacunar infarctions. There is no intraparenchymal hemorrhage. The ventricular system and cortical sulci are dilated consistent with minimal volume loss. There is no extra cerebral collection. The visualized sinuses are IMPRESSION: 1. There are areas of vasogenic edema in the cerebral hemispheres consistent with metastases. There is mass effect with partial effacement of the right lateral ventricle with minimal midline shift to the left. 2. Old right occipital and posterior temporal parietal lobe infarction. 3. Old bilateral basal ganglia and right thalamic lacunar infarctions. 4. Minimal volume loss. Electronically Signed by Sachin Serra MD 07/30/2018 01:39 P
[2018-07-30] MEDS ORDERED: NS 1,000 ML IV ONE (14:30)
[2018-07-30] MEDS ORDERED: REME15TA PO (14:38)
[2018-07-30] MEDS ORDERED: FERR5MLUD PO (14:38)
[2018-07-30] MEDS ORDERED: PLAV1TAB2 PO (14:38)
[2018-07-30] MEDS ORDERED: LOSA50TA88 PO (14:38)
[2018-07-30] MEDS ORDERED: ALBU83IN INH (14:38)
[2018-07-30] MEDS ORDERED: NORC1TAB7 PO ×2 (14:38)
[2018-07-30] MEDS ORDERED: GABA-843 PO (14:38)
[2018-07-30] MEDS ORDERED: HYDR25TA PO (14:38)
[2018-07-30] MEDS ORDERED: LEVO500T3 PO (14:38)
[2018-07-30] MEDS ORDERED: MYLASSUD PO (14:38)
[2018-07-30] MEDS ORDERED: ATOR40TA75 PO (14:38)
[2018-07-30] MEDS ORDERED: AMLO5TAB6 PO (14:38)
[2018-07-30] MEDS ORDERED: BENZ200C70 PO (14:38)
[2018-07-30] MEDS ORDERED: ASPI81CH44 PO (14:38)
[2018-07-30] MEDS ORDERED: ACET65SU PR (14:38)
[2018-07-30] MEDS ORDERED: IPRA0.00 INH (14:38)
[2018-07-30] MEDS ORDERED: MOM30SS PO (14:38)
[2018-07-30] MEDS ORDERED: ENSU1LIQ36 PO (14:38)
[2018-07-30] MEDS ORDERED: SENN18TA PO (14:38)
[2018-07-30] MEDS ORDERED: KETO2CR TOP (14:43)
[2018-07-30] MEDS ORDERED: ACET-907 PO (14:43)
[2018-07-30] MEDS ORDERED: ARTI99.0 OU (14:48)
--- NOTE | 2018-07-30 15:10 | ECGEPIP ---
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
[2018-07-30] MEDS ORDERED: MAALOX 30 ML SUSP *UDC PO PRN (15:30)
[2018-07-30] MEDS ORDERED: BISACODYL 10 MG SUPP PR PRN (15:30)
[2018-07-30] MEDS ORDERED: MOM 30ML SUSPENSION UDC PO PRN (15:30)
[2018-07-30] MEDS ORDERED: IPRATROPIUM 0.5MG/ALBUTEROL 2.5MG INH SOL UD 3ML (DUONEB)(J7620) NEB PRN (15:30)
[2018-07-30] MEDS ORDERED: ACETAMINOPHEN 650 MG SUPP PR PRN (15:30)
[2018-07-30] MEDS ORDERED: POLYVINYL ALCOHOL OPHTH SOLN 15 ML(LIQUITEARS) OU PRN (15:30)
[2018-07-30 15:50] LABS: FERRITIN 276 NG/ML (26-388); IRON (FE) 10 UG/DL (65-175); PERCENT SATURATION 5.6 % (19.7-50.0); TOTAL IRON BINDING CAPACITY 177 UG/DL (250-450)
--- NOTE | 2018-07-30 15:57 | REP ---
REASON: Pyrexia. COMPARISON: 07/23/2018. The technique utilized in obtaining the radiograph has magnified the cardiac silhouette and accentuated the interstitial markings. AP and lateral views were obtained. There is evidence of a left lower lobe patchy opacity which has probably developed since the last exam. It is seen nearly exclusively on the left lateral view as the prior exam was a frontal portable view only. There are no other significant changes from the prior exam. IMPRESSION: Left lower lobe pneumonia suspected as described above. Electronically Signed by Luke Farias DO 07/30/2018 04:54 P
[2018-07-30 15:59] LABS: VITAMIN B12 LEVEL 1307 PG/ML
--- NOTE | 2018-07-30 15:59 | HPE ---
DATE OF ADMISSION: 07/30/2018 PRIMARY CARE PROVIDER: Dr. Valencia, [facility] CHIEF COMPLAINT: Febrile illness, question pneumonia. HISTORY: Jose F Mack is a 57-year-old resident of [facility], who was admitted with fever. He has had fever for several days. Looks like he had a workup yesterday. Blood cultures are negative. Chest x-ray showed a possible infiltrate. He was treated Levaquin. Today the fever has been up to 103. He was brought to the emergency room. He is in acute renal failure, hypotensive, and has a CT scan of the brain suggesting multiple areas of metastasis. 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 Workup showed a patent foramen ovale by transesophageal echocardiogram done at [facility] ([facility]. He also had presumptive endocarditis May 2016. Was treated with 6 weeks of antibiotics. 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 History of alcohol abuse in the past as well as possible seizures. Had acute renal failure May 2016 requiring hemodialysis. Etiology was either thromboembolic event to the kidneys versus acute interstitial nephritis from antibiotics. Unfortunately, no antibiotics listed under his allergy list. He had a transient ischemic attack (TIA) August 2016 and was admitted for that. Was discharged on aspirin and warfarin. He is currently on aspirin and Plavix. He has a history of anemia. He is on supplemental iron. He had an upper endoscopy done by Dr. Holden January 2017 that showed mild gastritis. He had stool for occult blood that was negative times three April 2018. He had blood cultures drawn on 07/29/2018 that are negative at 24 hours. MEDICATIONS: Per medication reconciliation, he is on - acetaminophen - albuterol - DuoNeb as needed - amlodipine 5 mg daily - hydralazine 37.5 mg every 6 hours, - Wickett 5/325 scheduled twice a day every 4 hours as needed for pain - ketoconazole cream - Levaquin 500 mg daily - losartan 50 mg twice a day - aspirin 81 mg daily - atorvastatin 40 mg daily - Dulcolax suppository - Plavix 75 mg daily - ferrous sulfate 325 mg twice a day - gabapentin 300 mg three times a day - Keppra 500 mg twice a day - milk of magnesia - Remeron 15 mg daily - Protonix 40 mg daily - artifical tears - senna laxative daily ALLERGIES: None listed. SOCIAL HISTORY: Resident of [facility]. No alcohol. No tobacco. Per emergency room, the patient is DO NOT RESUSCITATE/DO NOT INTUBATE. REVIEW OF SYSTEMS: Not obtainable. Patient is essentially nonverbal. Did indicate he is not having any shortness of breath or neck stiffness. PHYSICAL EXAMINATION: Temperature was 103.3 at [facility]; it is 99 here. Blood pressure (BP) 194/58, pulse 99, oxygen saturation 97% on room air. GENERAL APPEARANCE: He was lying in bed. Looks chronically ill. Pupils equal and reactive to light. Tympanic membranes (TMs) normal. Pharynx shows dentition is in poor repair. NECK: Supple. No carotid bruits. LUNGS: Scattered rhonchi. HEART: Regular rate and rhythm. A 1/6 systolic ejection murmur. ABDOMEN: Soft and nontender. No masses. Liver and spleen not enlarged. EXTREMITIES: No clubbing, cyanosis, or edema. He has left hemiparesis. His lower extremities he holds in a flexed position. I am not sure if they are contracted or if he is just not cooperating with exam. LABORATORY DATA: Sodium 142, potassium 4.7, BUN 47, creatinine 1.9 (baseline creatinine 1.0), glucose 108, lactic acid normal. TSH low at 0.14. White count 11.6, hemoglobin 7.4 (hemoglobin on July 09 at 8.5), platelets 460. IMPRESSION: 1. Febrile illness, presumed pneumonia. Patient will be admitted to a medical/surgical bed. He is DO NOT RESUSCITATE/DO NOT INTUBATE, so I will not place him on a monitored bed. Will start him on Zosyn and vancomycin. Intravenous (IV) fluids with saline have been ordered. Nebulized bronchodilator as needed. Empiric steroid therapy for severe pneumonia with Solu-Medrol 40 mg IV daily times 5 days. Blood cultures have been ordered. 2. History of endocarditis. Patient with a heart murmur and febrile illness. Repeat echocardiogram has been ordered. Blood cultures have been ordered. Blood cultures yesterday are negative. 3. History of hypertension. Blood pressure medications are on hold in the face of his hypotension. IV saline has been ordered. 4. Acute kidney injury. Should respond to hydration. In the past he has had interstitial nephritis. I am not sure what the antibiotic was. Not specified. Will need to watch his renal function closely on Zosyn and vancomycin. 5. Question brain metastases. MRI has been ordered. 6. History of a right lung nodule. CT scan of the chest has been ordered. 7. Hyperlipidemia. Continue atorvastatin 80 mg daily. 8. History of repeated strokes. Can use aspirin and Plavix. Stools negative for occult blood. 9. Anemia. Iron studies have been ordered. Looks like has been on supplemental iron at home. He had an upper endoscopy, as noted above. 10. Code status. Per emergency room (ER), patient is DO NOT RESUSCITATE/DO NOT INTUBATE. He has a medical order for life-sustaining treatment (MOLST) form from 09/27/2016. Has DO NOT RESUSCITATE/DO NOT INTUBATE status. No feeding tube. Trial of IV fluids. Says do not send to hospital, but I think we are past that at this point, and to use antibiotics as necessary.
[2018-07-30 16:00] LABS: FOLATE > 24.0 NG/ML
[2018-07-30] MEDS ORDERED: PIPERACILLIN/TAZOBACTAM SOD 3.375 GM in D5W MINI-BAG PLUS 50 ML IV ONE (16:00)
[2018-07-30 16:10] VITALS: BP 126/75
[2018-07-30] MEDS: NS 1,000 ML IV SCH (16:23)
[2018-07-30] MEDS: GABAPENTIN 300 MG CAP PO SCH ×2 (16:23→21:19)
[2018-07-30] MEDS: methylPREDNISolone INJ 125 MG/2 ML VIAL (J2930) IV SCH (16:24)
--- NOTE | 2018-07-30 17:14 | REP ---
REASON: Followup. The lack of intravenous contrast decreases the sensitivity of the exam. Comparison chest CT: None. Respiratory motion artifact obscures the detail on all images. There is mediastinal adenopathy. There is no gross hilar adenopathy. There is a slight right pleural effusion. There is no pericardial effusion. The imaged upper abdomen shows possible tiny gravel like choleliths in the dependant portion of the gallbladder. There are renovascular calcifications bilaterally. Evaluation of the lung love shows patchy bibasilar opacities left greater than right but with a small right pleural effusion. In the right lower lobe there is a 1.1 cm sized nodule with the margins of which are obscured by respiratory motion artifact. Scattered pulmonary parenchymal calcifications are present consistent with granulomatous changes. IMPRESSION:1. Mediastinal adenopathy. 2. Small right pleural effusion with a nodule in the right lower lobe as described above. According to the revised Fleischner's Society Criteria, the nodule represents a category 4A lesion for which [address] is recommended with consideration made for PET CT at this time. I will reiterate that there are no prior chest CT's for comparison. 3. Patch bibasilar opacities left greater than right suspicious for basilar pneumonia. Correlate clinically. 4. Other findings as described above. There does appear to be gravel like cholelithiasis which could be confirmed with ultrasonography. Electronically Signed by Luke Farias DO 07/30/2018 06:05 P
[2018-07-30] MEDS ORDERED: VANCOMYCIN HCL 750 MG, VIAL MATE ADAPTER 1 EACH in D5W 250 ML IV ONE (18:00)
--- NOTE | 2018-07-30 20:05 | PHACANCOPD ---
PHARMACY VANCOMYCIN DOSING Pt Demographics Demographics Patient Age:57 , Weight:61.360 , Gender: male Adjusted Body Weight Events Past 24 Hours Events Past 24 Hours: YES: Other Vancomycin Vancomycin indication: HAP Vancomycin Target Ranges: 15-20 mcg/ml Vancomycin Load Y/N: Yes Load Dose Date Time Vancomycin Load Dose: 1250MG Date: 07/30/18 Time: 1940 Vancomycin Dose Date: 07/30/18. Current Vancomycin Dose: 1G IV VANCO Q24H STARTING AT 0900 BASED ON LAST [facility] ADMISSION Intermittent Dosing?: No Labs Labs Laboratory Tests 07/30/18 12:40 Red Blood Count 3.04 L, Mean Corpuscular Volume 78.9 L, Mean Corpuscular Hemoglobin 24.3 L, Mean Corpuscular Hemoglobin Concent 30.8 L, Red Cell Distribution Width 14.5, Neutrophils (%) (Auto) 78.4 H, Lymphocytes (%) (Auto) 11.8 L, Monocytes (%) (Auto) 8.1 H, Eosinophils (%) (Auto) 0.8, Basophils (%) (Auto) 0.3, Neutrophils # (Auto) 9.1 H, Lymphocytes # (Auto) 1.4 L, Monocytes # (Auto) 0.9 H, Eosinophils # (Auto) 0.1, Basophils # (Auto) 0.0 Micro Microbiology 07/30/18 Blood Culture, Received Pending 07/30/18 Blood Culture, Received Pending 07/30/18 Urine Culture, Received Pending Creatinine Clearance Date:07/30/18. Creatinine Clearance: CALCULATED 38.9 Pending Labs BC PENDING, UC PENDING, WILL REQUEST MRSA SCREEN IN AM Assessment and Plan Maintaining Current Dose?: Yes Reason for dose change: No Dose Change Pharmacist Note Pharmacist Note Date: 07/30/18. Pharmacist note: Patient does have history of IV vancomycin here at [facility]. Based on last admission and current CrCl of 38.9 I scheduled a loading dose of 1250mg IV vancomycin at 194 followed by maintenance dose of 1g IV Vanco starting at 0900. Scheduled trough before the 3rd dose. Blood culture and urine culture are pending. I will follow up with provider in am to request MRSA screen. Will continue to monitor and adjust dosage as needed. SHAMA KUMAR PHARMACY Jul 30, 2018 20:05
[2018-07-30 20:48] VITALS: BP 103/57
[2018-07-30] MEDS ORDERED: VANCOMYCIN HCL 500 MG in D5W MINI-BAG PLUS 100 ML IV ONE (21:00)
[2018-07-30] MEDS ORDERED: FERROUS SULFATE 300MG/5ML UDC LIQUID PO SCH (21:00)
[2018-07-30] MEDS: ENOXAPARIN 30 MG/0.3 ML SYR (J1650) SC SCH (21:18)
[2018-07-30] MEDS: ATORVASTATIN 20 MG TAB PO SCH (21:19)
[2018-07-30] MEDS: ACETAMINOPHEN 325 MG TAB PO PRN (21:19)
[2018-07-30] MEDS: levETIRAcetam 250MG TABLET (KEPPRA) PO SCH (21:19)
[2018-07-30] MEDS: FERROUS SULFATE 300MG/5ML UDC LIQUID PO SCH (22:22)
[2018-07-30] MEDS: PIPERACILLIN/TAZOBACTAM SOD 3.375 GM in D5W MINI-BAG PLUS 50 ML IV SCH (22:23)
[2018-07-31 02:07] VITALS: BP 106/59
[2018-07-31] MEDS: PIPERACILLIN/TAZOBACTAM SOD 3.375 GM in D5W MINI-BAG PLUS 50 ML IV SCH ×4 (04:03→22:26)
[2018-07-31] MEDS: NS 1,000 ML IV SCH ×3 (06:17→22:52)
[2018-07-31 06:18] VITALS: BP 141/69
[2018-07-31 08:00] VITALS: BP 132/78
--- NOTE | 2018-07-31 09:27 | REP ---
MR BRAIN WITHOUT CONTRAST: HISTORY: Metastasis. COMPARISON: MR 08/19/[address] 07/30/2018. Increased signal intensity on T2 weighted images is present in the cerebral hemispheres and left cerebellum. This represent vasogenic edema. There is mass effect with partial effacement of the overlying cortical sulci of the right frontal lobe and body of the right lateral ventricle with minimal midline shift to the left. An area of increased signal intensity on T2 weighted images is present in the right occipital, posterior right temporal and posterior right parietal lobes. There is dilatation of the overlying cortical sulci. This presents an old infarction. Chronic hemorrhagic component is present. Several punctate areas of increased signal intensity on diffusion weighted images are present in the parietal and right frontal lobes. These are decreased in signal intensity on ADC images and are consistent with acute infarctions. There is no acute intraparenchymal hemorrhage. The ventricular system and cortical sulci are dilated consistent with minimal volume loss. There is no extracerebral collection. The sinuses are clear. IMPRESSION:1. There is vasogenic edema in the cerebral hemispheres and left cerebellum. There is mass effect with minimal midline shift to the left. Contrast enhanced MR is recommended for further evaluation. 2. Old bilateral basal ganglia and thalamic lacunar infarctions. 3. There are several punctate acute infarctions in the parietal lobes and right frontal lobe. 4. Minimal volume loss. Electronically Signed by Sachin Serra MD 07/31/2018 09:38 A
[2018-07-31] MEDS: methylPREDNISolone INJ 125 MG/2 ML VIAL (J2930) IV SCH (09:29)
[2018-07-31] MEDS: VANCOMYCIN HCL 1,000 MG, VIAL MATE ADAPTER 1 EACH in D5W 250 ML IV SCH (09:30)
[2018-07-31] MEDS: PANTOPRAZOLE 40MG TAB (PROTONIX) PO SCH (09:30)
[2018-07-31] MEDS: CLOPIDOGREL 75 MG TAB PO SCH (09:31)
[2018-07-31] MEDS: GABAPENTIN 300 MG CAP PO SCH ×3 (09:31→21:22)
[2018-07-31] MEDS: SENNA 8.6 MG TAB (SENOKOT) PO SCH (09:31)
[2018-07-31] MEDS: FERROUS SULFATE 300MG/5ML UDC LIQUID PO SCH ×2 (09:31→21:21)
[2018-07-31] MEDS: levETIRAcetam 250MG TABLET (KEPPRA) PO SCH ×2 (09:31→21:22)
[2018-07-31] MEDS: MIRTAZAPINE 15 MG TAB PO SCH (09:31)
[2018-07-31] MEDS: ASPIRIN 81 MG ENTERIC TAB PO SCH (09:31)
[2018-07-31 11:34] LABS: BASO % 0.2 % (0.0-1.0); EOS % 0.1 % (0.0-3.0); HEMATOCRIT 25.2 % (42.0-52.0); HEMOGLOBIN 7.7 g/dl (13.5-17.5); LYMPH # 0.8 10^3/uL (1.5-4.5); LYMPH % 7.8 % (24.0-44.0); MEAN CORPUSCULAR HEMOGLOBIN 24.3 pg (27.0-33.0); MEAN CORPUSCULAR HGB CONC 30.6 g/dl (32.0-36.5); MEAN CORPUSCULAR VOLUME 79.5 fl (80.0-96.0); MONO # 0.4 10^3/uL (0.0-0.8); MONO % 3.7 % (0.0-5.0); NEUTROPHILS % 87.3 % (36.0-66.0); PLATELET COUNT, AUTOMATED 471 10^3/uL (150-450); RED BLOOD COUNT 3.17 10^6/uL (4.30-6.10); WHITE BLOOD COUNT 10.3 10^3/uL (4.0-10.0)
[2018-07-31 12:00] VITALS: BP 154/83
[2018-07-31 12:05] LABS: BLOOD UREA NITROGEN 32 MG/DL (7-18); CALCIUM LEVEL 8.8 MG/DL (8.5-10.1); CARBON DIOXIDE LEVEL 24 MEQ/L (21-32); CHLORIDE LEVEL 110 MEQ/L (98-107); CREATININE FOR GFR 1.12 MG/DL (0.70-1.30); GLOMERULAR FILTRATION RATE > 60.0 (>56); GLUCOSE, FASTING 137 MG/DL (70-100); POTASSIUM SERUM 4.1 MEQ/L (3.5-5.1); SODIUM LEVEL 141 MEQ/L (136-145)
--- NOTE | 2018-07-31 12:38 | IPNPDOC ---
Subjective Date Seen The patient was seen on 07/31/18. Subjective Chief Complaint/HPI Patient non-verbal at time of visit. His brother and HEELER from [facility] were at bedside. He has hx of stroke. He can communicate verbally, however, has not been doing so since becoming ill. 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 moist/pink Neck Exam: Positive: Supple; Negative: JVD Chest Exam: Positive: Rhonchi (Noted throughout ); Negative: Wheezing Heart Exam: Positive: Rate Normal Abdomen Exam: Positive: Normal bowel sounds, Soft; Negative: Tenderness Extremity Exam: Negative: Edema Skin Exam: Positive: Nl turgor and temperature Neuro Exam: Positive: Other (hx of stroke with left sided hemiparesis) Psych Exam: Positive: Mood NL A-FIB/CHADSVASC A-FIB History Current/History of A-Fib/PAF?: No Assessment /Plan Assessment 07/31: CDT -- further MRI ordered per recommendations of radiology. Patient was alert but noncooperative upon exam today, as I had woken him from a ap. No apparent distress. Problems (1) Pneumonia Status: Acute Response to Treatment: Stable Problem Text: 07/31/18: Patient currently on Zoysn and Vancomycin, prednisone and nebulizers. Afebrile today. BC pending. WBC 10.[address]: IMPRESSION:1. Mediastinal adenopathy. 2. Small right pleural effusion with a nodule in the right lower lobe as described above. According to the revised Fleischner's Society Criteria, the nodule represents a category 4A lesion for which [address] is recommended with consideration made for PET CT at this time. I will reiterate that there are no prior chest CT's for comparison. 3. Patch bibasilar opacities left greater than right suspicious for basilar pneumonia. Correlate clinically. 4. Other findings as described above. There does appear to be gravel like cholelithiasis which could be confirmed with ultrasonography. (2) Acute kidney injury Status: Acute Response to Treatment: Improving Problem Text: 07/31/18: Renal function has returned to baseline. He was aggressively hydrated. IV rate reduced to 100ml/hr. Per family and caregiver patient is not eating or drinking. We will continue to monitor (3) Anemia Status: Acute Response to Treatment: Stable Problem Text: 07/31/18: Patient with hx of anemia and has been on iron supplements outpatient. He had an upper endoscopy done by Dr. Holden January 2017 that showed mild gastritis. Iron studies: Fe 10, TIBC 177, Transferrin 5.6%. Worsening anemia could be related to acute infection. We will continue current ferrous sulfate dose. I will discuss further eval and tx with attending (4) Febrile illness, acute Status: Acute Response to Treatment: Stable Problem Text: 07/31/18: Most likely related to his pneumonia. However, patient with hx of endocarditis and ECHO has been ordered. Tx for pneumonia as discussed above. BC and urine cx pending (5) History of CVA (cerebrovascular accident) Status: Chronic Response to Treatment: Stable Problem Text: 07/31/18: Currently on Plavix and ASA (6) History of endocarditis Status: Chronic Problem Text: 07/31/18: D/U fever, ECHO was ordered (7) HTN (hypertension) Status: Chronic Response to Treatment: Stable Problem Text: 07/31/18: Antihypertensives on hold Plan/VTE VTE Prophylaxis Ordered?: Yes (Lovenox) VS, I&O, 24H, Fishbone Vital Signs/I&O Vital Signs Date Time Temp Pulse Resp B/P (MAP) Pulse Ox O2 Delivery O2 Flow Rate FiO2 07/31/18 06:18 98.7 97 18 141/69 (93) 95 07/30/18 16:00 Room Air I&O- Last 24 Hours up to 6 AM 07/31/18 06:00 Intake Total 1805 ml Output Total 300 ml Balance 1505 ml Laboratory Data 24H LABS Laboratory Tests 2 07/30/18 12:40: Immature Granulocyte % (Auto) 0.6, White Blood Count 11.6H, Red Blood Count 3.04L, Hemoglobin 7.4L, Hematocrit 24.0L, Mean Corpuscular Volume 78.9L, Mean Corpuscular Hemoglobin 24.3L, Mean Corpuscular Hemoglobin Concent 30.8L, Red Cell Distribution Width 14.5, Platelet Count 464H, Neutrophils (%) (Auto) 78.4H, Lymphocytes (%) (Auto) 11.8L, Monocytes (%) (Auto) 8.1H, Eosinophils (%) (Auto) 0.8, Basophils (%) (Auto) 0.3, Neutrophils # (Auto) 9.1H, Lymphocytes # (Auto) 1.4L, Monocytes # (Auto) 0.9H, Eosinophils # (Auto) 0.1, Basophils # (Auto) 0.0, Reticulocyte # (auto) 28.2, Nucleated Red Blood Cells % (auto) 0.0, Percent Reticulocyte Count 0.9, Reticulocyte Hemoglobin Equivalent 20.3L, Prothrombin Time 18.0H, Prothromb Time International Ratio 1.46, Activated Partial Thromboplast Time 41.6H, Anion Gap 6L, Glomerular Filtration Rate 38.2L, Lactic Acid Level 1.4, Calcium Level 8.3L, Iron Level 10L, Total Iron Binding Capacity 177L, Transferrin % Saturation 5.6L, Ferritin 276, Aspartate Amino Transf (AST/SGOT) 25, Alanine Aminotransferase (ALT/SGPT) 29, Alkaline Phosphatase 85, Total Bilirubin 0.2, Direct Bilirubin < 0.1, Total Creatine Kinase 485H, Creatine Kinase MB 1.0, Creatine Kinase MB Relative Index 0.21, Troponin I < 0.02, Total Protein 7.0, Albumin 2.5L, Albumin/Globulin Ratio 0.56L, Vitamin B12 Level 1307, Folate > 24.0, Thyroid Stimulating Hormone (TSH) 0.014L 07/30/18 12:48: Urine Appearance CLEAR, Urine Color YELLOW, Urine pH 5.0, Urine Specific [place] 1.023, Urine Protein NEGATIVE, Urine Glucose (UA) NEGATIVE, Urine Ketones NEGATIVE, Urine Urobilinogen 0.2, Urine Bilirubin NEGATIVE, Urine Leukocyte Esterase NEGATIVE, Urine Blood NEGATIVE, Urine Nitrite NEGATIVE, Urine WBC (Auto) 0, Urine RBC (Auto) 2, Urine Hyaline Casts (Auto) 5, Urine Bacteria (Auto) NEGATIVE, Urine Squamous Epithelial Cells 0, Urine Sperm (Auto) , Influenza Type A (RT-PCR) NEGATIVE, Influenza Type B (RT-PCR) NEGATIVE 07/31/18 11:22: Immature Granulocyte % (Auto) 0.9, White Blood Count 10.3H, Red Blood Count 3.17L, Hemoglobin 7.7L, Hematocrit 25.2L, Mean Corpuscular Volume 79.5L, Mean Corpuscular Hemoglobin 24.3L, Mean Corpuscular Hemoglobin Concent 30.6L, Red Cell Distribution Width 14.2, Platelet Count 471H, Neutrophils (%) (Auto) 87.3H, Lymphocytes (%) (Auto) 7.8L, Monocytes (%) (Auto) 3.7, Eosinophils (%) (Auto) 0.1, Basophils (%) (Auto) 0.2, Neutrophils # (Auto) 9.0H, Lymphocytes # (Auto) 0.8L, Monocytes # (Auto) 0.4, Eosinophils # (Auto) 0.0, Basophils # (Auto) 0.0, Nucleated Red Blood Cells % (auto) 0.0, Anion Gap 7L, Glomerular Filtration Rate > 60.0, Calcium Level 8.8, Blood Urea Nitrogen 32H, Creatinine 1.12, Sodium Level 141, Potassium Level 4.1, Chloride Level 110H, Carbon Dioxide Level 24 CBC/BMP Laboratory Tests 07/30/18 12:40 Red Blood Count 3.04 L, Mean Corpuscular Volume 78.9 L, Mean Corpuscular Hemoglobin 24.3 L, Mean Corpuscular Hemoglobin Concent 30.8 L, Red Cell Distribution Width 14.5, Neutrophils (%) (Auto) 78.4 H, Lymphocytes (%) (Auto) 11.8 L, Monocytes (%) (Auto) 8.1 H, Eosinophils (%) (Auto) 0.8, Basophils (%) (Auto) 0.3, Neutrophils # (Auto) 9.1 H, Lymphocytes # (Auto) 1.4 L, Monocytes # (Auto) 0.9 H, Eosinophils # (Auto) 0.1, Basophils # (Auto) 0.0 07/31/18 11:22 Red Blood Count 3.17 L, Mean Corpuscular Volume 79.5 L, Mean Corpuscular Hemoglobin 24.3 L, Mean Corpuscular Hemoglobin Concent 30.6 L, Red Cell Distribution Width 14.2, Neutrophils (%) (Auto) 87.3 H, Lymphocytes (%) (Auto) 7.8 L, Monocytes (%) (Auto) 3.7, Eosinophils (%) (Auto) 0.1, Basophils (%) (Auto) 0.2, Neutrophils # (Auto) 9.0 H, Lymphocytes # (Auto) 0.8 L, Monocytes # (Auto) 0.4, Eosinophils # (Auto) 0.0, Basophils # (Auto) 0.0, Calcium Level 8.8 Microbiology Microbiology 07/30/18 Blood Culture, Received Pending 07/30/18 Blood Culture, Received Pending 07/30/18 Urine Culture, Received Pending [facility] Jul 31, 2018 12:38 MARIELA PEDRO DO August 02, 2018 00:24
[2018-07-31] MEDS: IPRATROPIUM 0.5MG/ALBUTEROL 2.5MG INH SOL UD 3ML (DUONEB)(J7620) NEB SCH ×2 (14:00→20:48)
[2018-07-31 14:30] VITALS: BP 154/80
[2018-07-31] MEDS ORDERED: PROHANCE 279.3MG/ML 5ML VIAL (A9576) As Ordered ONE (18:43)
[2018-07-31] MEDS ORDERED: PROHANCE 279.3MG/ML 15ML VIAL (A9576) As Ordered ONE (18:44)
[2018-07-31] MEDS: ATORVASTATIN 20 MG TAB PO SCH (21:21)
[2018-07-31] MEDS: ACETAMINOPHEN 325 MG TAB PO PRN (21:22)
[2018-07-31] MEDS: ENOXAPARIN 30 MG/0.3 ML SYR (J1650) SC SCH (21:22)
[2018-07-31 22:00] VITALS: BP 146/79
[2018-08-01 02:00] VITALS: BP 145/80
[2018-08-01] MEDS: IPRATROPIUM 0.5MG/ALBUTEROL 2.5MG INH SOL UD 3ML (DUONEB)(J7620) NEB SCH ×4 (02:00→20:00)
[2018-08-01] MEDS: PIPERACILLIN/TAZOBACTAM SOD 3.375 GM in D5W MINI-BAG PLUS 50 ML IV SCH ×4 (04:58→22:30)
[2018-08-01 06:00] VITALS: BP 139/62
[2018-08-01 08:29] LABS: BASO % 0.2 % (0.0-1.0); EOS # 0.1 10^3/uL (0.0-0.50); EOS % 0.5 % (0.0-3.0); HEMATOCRIT 27.2 % (42.0-52.0); HEMOGLOBIN 8.4 g/dl (13.5-17.5); LYMPH # 1.9 10^3/uL (1.5-4.5); LYMPH % 15.8 % (24.0-44.0); MEAN CORPUSCULAR HEMOGLOBIN 24.3 pg (27.0-33.0); MEAN CORPUSCULAR HGB CONC 30.9 g/dl (32.0-36.5); MEAN CORPUSCULAR VOLUME 78.6 fl (80.0-96.0); MONO # 0.8 10^3/uL (0.0-0.8); MONO % 6.3 % (0.0-5.0); NEUTROPHILS % 76.2 % (36.0-66.0); PLATELET COUNT, AUTOMATED 528 10^3/uL (150-450); RED BLOOD COUNT 3.46 10^6/uL (4.30-6.10); WHITE BLOOD COUNT 11.9 10^3/uL (4.0-10.0)
[2018-08-01 08:47] LABS: BLOOD UREA NITROGEN 24 MG/DL (7-18); CALCIUM LEVEL 8.6 MG/DL (8.5-10.1); CARBON DIOXIDE LEVEL 25 MEQ/L (21-32); CHLORIDE LEVEL 112 MEQ/L (98-107); CREATININE FOR GFR 0.91 MG/DL (0.70-1.30); GLOMERULAR FILTRATION RATE > 60.0 (>56); GLUCOSE, FASTING 90 MG/DL (70-100); POTASSIUM SERUM 3.5 MEQ/L (3.5-5.1); SODIUM LEVEL 143 MEQ/L (136-145); VANCOMYCIN LEVEL TROUGH 10.9 UG/ML (10.0-20.0)
[2018-08-01] MEDS: FERROUS SULFATE 300MG/5ML UDC LIQUID PO SCH ×3 (09:15→20:51)
[2018-08-01] MEDS: VANCOMYCIN HCL 1,000 MG, VIAL MATE ADAPTER 1 EACH in D5W 250 ML IV SCH (09:16)
[2018-08-01] MEDS: PANTOPRAZOLE 40MG TAB (PROTONIX) PO SCH (09:16)
[2018-08-01] MEDS: SENNA 8.6 MG TAB (SENOKOT) PO SCH (09:16)
[2018-08-01] MEDS: methylPREDNISolone INJ 125 MG/2 ML VIAL (J2930) IV SCH (09:16)
[2018-08-01] MEDS: CLOPIDOGREL 75 MG TAB PO SCH (09:17)
[2018-08-01] MEDS: levETIRAcetam 250MG TABLET (KEPPRA) PO SCH ×3 (09:17→20:50)
[2018-08-01] MEDS: GABAPENTIN 300 MG CAP PO SCH ×4 (09:17→20:51)
[2018-08-01] MEDS: ASPIRIN 81 MG ENTERIC TAB PO SCH (09:17)
[2018-08-01] MEDS: NS 1,000 ML IV SCH ×2 (09:17→17:41)
[2018-08-01] MEDS: MIRTAZAPINE 15 MG TAB PO SCH (09:17)
[2018-08-01 10:00] VITALS: BP 139/88
--- NOTE | 2018-08-01 10:05 | REP ---
MR BRAIN WIT CONTRAST: HISTORY: Cerebral edema. COMPARISON: MR 07/30/2018 Multiple nodular enhancing metastatic lesions are present in the frontal , parietal and temporal lobe and left cerebellum. The largest enhancing lesion 1.3 cm in width is present in the right frontal lobe. Vasogenic edema is present surrounding the metastatic lesions. There is mass effect in the right frontal lobe. with partial effacement overlying cortical sulci and body of the right lateral ventricle. There is no midline shift. An area of decreased signal intensity is present in the right occipital, posterior parietal and temporal lobes. This represents an old infarction. Areas of decreased signal intensity are present in the basal ganglia and right thalamus and ian. These represent old lacunar infarctions. There is no acute hemorrhage. The ventricular system and cortical sulci are dilated consistent with minimal volume loss. The visualized sinuses are clear. IMPRESSION:There are multiple enhancing metastatic lesions in the cerebral hemispheres and left cerebellum. There is associated vasogenic edema. Ivonne is mass effect with partial effacement of the body of the right lateral ventricle secondary to metastatic lesion in the right frontal lobe. There is no midline shift. Electronically Signed by Sachin Serra MD 08/01/2018 10:08 A
[2018-08-01] MEDS ORDERED: VANCOMYCIN HCL 500 MG in D5W MINI-BAG PLUS 100 ML IV ONE (11:00)
[2018-08-01 14:00] VITALS: BP 132/74
--- NOTE | 2018-08-01 14:59 | PHACANCOPD ---
PHARMACY VANCOMYCIN DOSING Pt Demographics Demographics Patient Age:57 , Weight:61.360 , Gender: male Adjusted Body Weight Events Past 24 Hours Events Past 24 Hours: YES: Other Vancomycin Vancomycin indication: HAP Vancomycin Target Ranges: 15-20 mcg/ml Vancomycin Load Y/N: Yes Load Dose Date Time Vancomycin Load Dose: 1250MG Date: 07/30/18 Time: 1940 Vancomycin Dose Date: 07/30/18. Current Vancomycin Dose: 1G IV VANCO Q24H STARTING AT 0900 BASED ON LAST [facility] ADMISSION Intermittent Dosing?: No Labs Labs Laboratory Tests 08/01/18 07:52 Red Blood Count 3.46 L, Mean Corpuscular Volume 78.6 L, Mean Corpuscular Hemoglobin 24.3 L, Mean Corpuscular Hemoglobin Concent 30.9 L, Red Cell Distribution Width 14.2, Neutrophils (%) (Auto) 76.2 H, Lymphocytes (%) (Auto) 15.8 L, Monocytes (%) (Auto) 6.3 H, Eosinophils (%) (Auto) 0.5, Basophils (%) (Auto) 0.2, Neutrophils # (Auto) 9.0 H, Lymphocytes # (Auto) 1.9, Monocytes # (Auto) 0.8, Eosinophils # (Auto) 0.1, Basophils # (Auto) 0.0, Calcium Level 8.6 Micro Microbiology 07/30/18 Blood Culture - Preliminary, Resulted No Growth after 48 hours. All Specime... 07/30/18 Blood Culture - Preliminary, Resulted No Growth after 48 hours. All Specime... 07/31/18 MRSA Screen, Received Pending 07/30/18 Urine Culture - Final, Complete Creatinine Clearance Date:07/30/18. Creatinine Clearance: CALCULATED 38.9 Pending Labs BC PENDING, UC PENDING, WILL REQUEST MRSA SCREEN IN AM Assessment and Plan Maintaining Current Dose?: No Reason for dose change: Trough too low Pharmacist Note Pharmacist Note Date: 07/30/18. Pharmacist note: Patient does have history of IV vancomycin here at [facility]. Based on last admission and current CrCl of 38.9 I scheduled a loading dose of 1250mg IV vancomycin at 1940 followed by maintenance dose of 1g IV Vanco starting at 0900. Scheduled trough before the 3rd dose. Blood culture and urine culture are pending. I will follow up with provider in am to request MRSA screen. Will continue to monitor and adjust dosage as needed. DATE: 08/01/2018: Trough came back subtherapeutic at 10.9 @ 0752. Patient's renal function had improved since vancomycin initiated. Patient received 1000mg dose @0900 and I then scheduled an additional 500mg to be given IV at 1100. Dose was then increased to 750mg IV VANCO q12h to start @2100. I scheduled trough for tomorrow 08/02/18 @0800. Will continue to monitor patient and adjust dose as necessary. SHAMA KUMAR PHARMACY August 01, 2018 14:59
[2018-08-01] MEDS: GASTROGRAFIN SOLUTION 30ML PO SCH ×3 (17:38→18:00)
[2018-08-01] MEDS: dexameTHASONE 4 MG/ML 1ML VIAL (J1100) IV SCH (17:41)
[2018-08-01] MEDS ORDERED: ISOVUE-370 76% 100ML VIAL (Q9967) As Ordered ONE (18:16)
[2018-08-01] MEDS: VANCOMYCIN HCL 750 MG, VIAL MATE ADAPTER 1 EACH in D5W 250 ML IV SCH (20:43)
[2018-08-01] MEDS: ATORVASTATIN 20 MG TAB PO SCH ×2 (20:44→20:51)
[2018-08-01] MEDS: ENOXAPARIN 30 MG/0.3 ML SYR (J1650) SC SCH ×2 (20:45→20:51)
--- NOTE | 2018-08-01 21:25 | CR ---
DATE OF CONSULTATION: 08/01/2018 REFERRING PHYSICIAN: Purvi Alberto MD REASON FOR CONSULTATION: Altered mental status. HISTORY OF PRESENT ILLNESS: Jose F Mack is a 57-year-old man who lives at [facility] and was admitted at [facility] with fever. He had fever for several days. His chest x-ray showed possible infiltrate and blood cultures were negative. He was treated with Levaquin. His fever went up to 103. He was brought to the emergency department. He was in renal failure, hypotensive and CT scan of head showed multiple brain metastasis. The patient has a history of poor cognition, is wheelchair bound and lives at [facility]. He has no residual left-sided hemiparesis from his cardioembolic strokes and he also developed right-sided weakness for which he was hospitalized in May 2016. He was diagnosed with patent foramen ovale (PFO) by transesophageal echocardiogram (TU) and he also had presumptive endocarditis for which he was treated with 6 weeks of antibiotics. The patient was on aspirin and Coumadin, which was later changed to aspirin and Plavix. The patient is unable to provide any meaningful history. The patient is confused. I called his brother on his cell phone but was unable to get in touch with him. His MRI scan of brain with and without contrast showed multiple brain metastasis with the multilobar bilateral vasogenic edema. The patient denies any headaches, neck or back pain. He denies falls or loss of consciousness. PAST MEDICAL HISTORY: Multiple strokes. History of acute renal failure requiring hemodialysis in 2017. Patent foramen ovale. Seizures. CURRENT MEDICATIONS - Hydralazine 37.5 mg by mouth every 6 hours - albuterol inhaler - Tylenol - [place] 5/325 mg by mouth every 4 hours as needed - Levaquin 5 mg by mouth daily - ketoconazole - losartan 50 mg by mouth twice a day - aspirin 81 mg by mouth daily - atorvastatin 40 mg by mouth daily - Plavix 75 mg by mouth daily - ferrous sulfate 325 mg by mouth twice a day - gabapentin 300 mg by mouth three times a day - Keppra 500 mg by mouth twice a day - Remeron 15 mg by mouth at bedtime - Protonix 40 mg by mouth daily SOCIAL HISTORY The patient lives at [facility]. There are no reports of alcohol, smoking or illicit drugs. He has status of DO NOT RESUSCITATE (DNR), DO NOT INTUBATE (DNI). FAMILY HISTORY: Could not be obtained. REVIEW OF SYSTEMS: All systems were reviewed with the patient and were found to be noncontributory except as mentioned in history of present illness. PHYSICAL EXAMINATION Temperature 100.3, pulse 107, respiratory rate 18, blood pressure 132/74, 97% saturation on room air. Heart: Regular rate and rhythm. Lungs: Clear to auscultation. Abdomen: Soft, nontender, nondistended. No pedal edema. No musculoskeletal abnormalities. No rash. No signs of meningeal irritation. The patient is awake, alert, oriented to self only. He is unable to tell me name of place, month, date, year, day or week, name of facility. Extraocular muscles are intact. No facial weakness. Tongue and uvula are midline. 4+/5 strength in left arm and leg and right-sided strength is 5/5. Deep tendon reflexes 3+ throughout. Sensory and cerebellar examination could not be performed. Gait could not be tested. ASSESSMENT 1. 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 2. History of multiple bilateral strokes. 3. History of generalized tonic-clonic seizures with increased risk due to current metastatic brain tumors with severe bilateral vasogenic edema. PLAN 1. CT scan of chest, abdomen and pelvis to look for primary source of metastatic brain tumors. 2. His overall prognosis is guarded. His brother may be leaning towards comfort measures. 3. Decadron 8 mg IV every 6 hours for now. 4. Increase Keppra to 1000 mg IV or twice a day. 5. I was unable to get in touch with his brother despite calling him on his cell phone. I will try to meet him tomorrow. 6. Continue aspirin 81 mg by mouth daily and Plavix 75 mg by mouth daily.
[2018-08-02] VITALS (7 sets, daily range): BP systolic 144–166; BP diastolic 80–89
--- NOTE | 2018-08-02 00:20 | IPNPDOC ---
Subjective Date Seen The patient was seen on 08/01/18. Subjective Chief Complaint/HPI Pneumonia and apparent brain metastases Events since last encounter I spoke with the patient's brother, who makes his medical decisions, twice today. Discussed imaging, consistent with brain metastases of unknown primary. Brother noted some ongoing stomach discomfort, so CT abd/pelvis was ordered. Consulted neurology, and they recommended switching steroid to Decadron, and increasing his Keppra. Brother is leaning towards comfort measures, but wants a firm diagnosis first. Patient was more interactive, and had a superficial conversation; however was significantly disoriented, and thought that it was 1960. (He was not born until 1960.) Constitutional: Reports: Fever; Denies: Chills Eyes: Denies: Vision change Pulmonary: Reports: Cough; Denies: Dyspnea Cardiovascular: Denies: Chest Pain Gastrointestinal: Denies: Nausea, Vomiting, Diarrhea, Constipation Psych: Reports: Mood Normal, Memory Issues, Other Psych (disoriented) Objective Physical Examination General Exam: Positive: Alert, Cooperative, No Acute Distress ENT Exam: Positive: Mucous membr. moist/pink Neck Exam: Positive: Supple; Negative: JVD Chest Exam: Positive: Rhonchi (more prominent R side); Negative: Wheezing Heart Exam: Positive: Rate Normal Abdomen Exam: Positive: Normal bowel sounds, Soft; Negative: Tenderness Extremity Exam: Negative: Edema Skin Exam: Positive: Nl turgor and temperature Neuro Exam: Positive: Other (hx of stroke with left sided hemiparesis) Psych Exam: Positive: Mood NL; Negative: Memory Intact, Oriented x 3 A-FIB/CHADSVASC A-FIB History Current/History of A-Fib/PAF?: No Current Oral Anticoagulant The: No Assessment /Plan Problems (1) Pneumonia Status: Acute Response to Treatment: Stable Problem Text: 08/01 -- Changed from Solumedrol to Decadron. Abx continued. Rhonchi sounded slightly better today. Oxygenating well. 07/31/18: Patient currently on Zoysn and Vancomycin, prednisone and nebulizers. Afebrile today. BC pending. WBC 10.[address]: IMPRESSION:1. Mediastinal adenopathy. 2. Small right pleural effusion with a nodule in the right lower lobe as described above. According to the revised Fleischner's Society Criteria, the nodule represents a category 4A lesion for which [address] is recommended with consideration made for PET CT at this time. I will reiterate that there are no prior chest CT's for comparison. 3. Patch bibasilar opacities left greater than right suspicious for basilar pneumonia. Correlate clinically. 4. Other findings as described above. There does appear to be gravel like cholelithiasis which could be confirmed with ultrasonography. (2) Metastasis to brain of unknown origin Problem Text: 08/01 -- Not biopsy proven, but imaging is very persuasive for brain mets with surrounding edema. Switched to Decadron in lieu of Solumedrol. Neurology consulted. (3) Acute kidney injury Status: Acute Response to Treatment: Improving Problem Text: 07/31/18: Renal function has returned to baseline. He was aggressively hydrated. IV rate reduced to 100ml/hr. Per family and caregiver patient is not eating or drinking. We will continue to monitor (4) Anemia Status: Acute Response to Treatment: Stable Problem Text: 07/31/18: Patient with hx of anemia and has been on iron supplements outpatient. He had an upper endoscopy done by Dr. Holden January 2017 that showed mild gastritis. Iron studies: Fe 10, TIBC 177, Transferrin 5.6%. Worsening anemia could be related to acute infection. We will continue current ferrous sulfate dose. I will discuss further eval and tx with attending (5) Febrile illness, acute Status: Acute Response to Treatment: Stable Problem Text: 07/31/18: Most likely related to his pneumonia. However, patient with hx of endocarditis and ECHO has been ordered. Tx for pneumonia as discussed above. BC and urine cx pending (6) History of CVA (cerebrovascular accident) Status: Chronic Response to Treatment: Stable Problem Text: 07/31/18: Currently on Plavix and ASA (7) History of endocarditis Status: Chronic Problem Text: 07/31/18: D/U fever, ECHO was ordered (8) HTN (hypertension) Status: Chronic Response to Treatment: Stable Problem Text: 07/31/18: Antihypertensives on hold Plan/VTE VTE Prophylaxis Ordered?: Yes (Lovenox) VS, I&O, 24H, Fishbone Vital Signs/I&O Vital Signs Date Time Temp Pulse Resp B/P (MAP) Pulse Ox O2 Delivery O2 Flow Rate FiO2 08/01/18 14:00 100.3 107 18 132/74 (93) 97 07/30/18 16:00 Room Air I&O- Last 24 Hours up to 6 AM 08/02/18 06:00 Intake Total 2009 ml Output Total 0 ml Balance 2010 ml Laboratory Data 24H LABS Laboratory Tests 2 08/01/18 07:52: Immature Granulocyte % (Auto) 1.0, White Blood Count 11.9H, Red Blood Count 3.46L, Hemoglobin 8.4L, Hematocrit 27.2L, Mean Corpuscular Volume 78.6L, Mean Corpuscular Hemoglobin 24.3L, Mean Corpuscular Hemoglobin Concent 30.9L, Red Cell Distribution Width 14.2, Platelet Count 528H, Neutrophils (%) (Auto) 76.2H, Lymphocytes (%) (Auto) 15.8L, Monocytes (%) (Auto) 6.3H, Eosinophils (%) (Auto) 0.5, Basophils (%) (Auto) 0.2, Neutrophils # (Auto) 9.0H, Lymphocytes # (Auto) 1.9, Monocytes # (Auto) 0.8, Eosinophils # (Auto) 0.1, Basophils # (Auto) 0.0, Nucleated Red Blood Cells % (auto) 0.0, Anion Gap 6L, Glomerular Filtration Rate > 60.0, Blood Urea Nitrogen 24H, Creatinine 0.91, Sodium Level 143, Potassium Level 3.5, Chloride Level 112H, Carbon Dioxide Level 25, Calcium Level 8.6, Vancomycin Level Trough 10.9 CBC/BMP Laboratory Tests 08/01/18 07:52 Red Blood Count 3.46 L, Mean Corpuscular Volume 78.6 L, Mean Corpuscular Hemoglobin 24.3 L, Mean Corpuscular Hemoglobin Concent 30.9 L, Red Cell Distribution Width 14.2, Neutrophils (%) (Auto) 76.2 H, Lymphocytes (%) (Auto) 15.8 L, Monocytes (%) (Auto) 6.3 H, Eosinophils (%) (Auto) 0.5, Basophils (%) (Auto) 0.2, Neutrophils # (Auto) 9.0 H, Lymphocytes # (Auto) 1.9, Monocytes # (Auto) 0.8, Eosinophils # (Auto) 0.1, Basophils # (Auto) 0.0, Calcium Level 8.6 Microbiology Microbiology 07/30/18 Blood Culture - Preliminary, Resulted No Growth after 48 hours. All Specime... 07/30/18 Blood Culture - Preliminary, Resulted No Growth after 48 hours. All Specime... 07/31/18 MRSA Screen, Received Pending 07/30/18 Urine Culture - Final, Complete MARIELA PEDRO DO August 02, 2018 00:20
[2018-08-02] MEDS: dexameTHASONE 4 MG/ML 1ML VIAL (J1100) IV SCH ×5 (00:23→23:30)
[2018-08-02] MEDS: IPRATROPIUM 0.5MG/ALBUTEROL 2.5MG INH SOL UD 3ML (DUONEB)(J7620) NEB SCH ×4 (02:00→20:24)
[2018-08-02] MEDS: NS 1,000 ML IV SCH ×2 (02:46→15:58)
[2018-08-02] MEDS: PIPERACILLIN/TAZOBACTAM SOD 3.375 GM in D5W MINI-BAG PLUS 50 ML IV SCH ×4 (03:47→22:15)
--- NOTE | 2018-08-02 06:36 | ECHO ---
DATE OF STUDY: 08/01/2018 REFERRING PHYSICIAN: Dr. Wesley Chauhan INDICATION: Fever. HEIGHT: 68 inches. WEIGHT: 61 kg. 2-D MEASUREMENTS: LVOT: 2.1 cm Aortic root: 3.0 cm Left atrium: 2.8 cm Ventricular septum: 0.90 cm Posterior wall: 0.82 cm Left ventricle diastole: 4.9 cm Inferior vena cava: 1.3 cm DOPPLER MEASUREMENTS: Aortic valve velocity: 134 cm/sec LVOT velocity: 105 cm/sec LVOT VTI: 18.6 cm Trace mitral regurgitation Mitral E velocity: 113 cm/sec Mitral A velocity: 64.3 cm/sec Mitral deceleration time: 155 ms Pulmonary artery systolic pressure 31 mmHg MITRAL ANNULAR TISSUE DOPPLER: E prime septal: 13.2 cm/sec E prime lateral: 12.4 cm/sec DESCRIPTION: The rhythm was sinus tachycardia. Image quality was fair. This was a 2-D, M-mode, color flow Doppler and pulse wave Doppler examination and included mitral annular tissue Doppler. CONCLUSIONS: 1. Hyperdynamic LV systolic function. LVEF 75% by visual estimate. No regional wall motion abnormalities. Normal LV diastolic function. 2. Tiny pericardial effusion. 3. Mild aortic valve sclerosis of a 3-cuspid aortic valve. No aortic regurgitation. 4. Trace mitral annular calcification. 5. No vegetations seen.
[2018-08-02 08:02] LABS: BASO % 0.2 % (0.0-1.0); HEMOGLOBIN 8.1 g/dl (13.5-17.5); LYMPH # 0.7 10^3/uL (1.5-4.5); LYMPH % 6.7 % (24.0-44.0); MEAN CORPUSCULAR HEMOGLOBIN 24.2 pg (27.0-33.0); MEAN CORPUSCULAR HGB CONC 31.2 g/dl (32.0-36.5); MEAN CORPUSCULAR VOLUME 77.6 fl (80.0-96.0); MONO # 0.2 10^3/uL (0.0-0.8); MONO % 2.3 % (0.0-5.0); NEUTROPHILS % 89.1 % (36.0-66.0); PLATELET COUNT, AUTOMATED 493 10^3/uL (150-450); RED BLOOD COUNT 3.35 10^6/uL (4.30-6.10); WHITE BLOOD COUNT 10.1 10^3/uL (4.0-10.0)
[2018-08-02 08:24] LABS: BLOOD UREA NITROGEN 17 MG/DL (7-18); CALCIUM LEVEL 8.4 MG/DL (8.5-10.1); CARBON DIOXIDE LEVEL 22 MEQ/L (21-32); CHLORIDE LEVEL 111 MEQ/L (98-107); CREATININE FOR GFR 0.84 MG/DL (0.70-1.30); GLOMERULAR FILTRATION RATE > 60.0 (>56); GLUCOSE, FASTING 123 MG/DL (70-100); POTASSIUM SERUM 3.7 MEQ/L (3.5-5.1); SODIUM LEVEL 142 MEQ/L (136-145); VANCOMYCIN LEVEL TROUGH 17.3 UG/ML (10.0-20.0)
--- NOTE | 2018-08-02 08:33 | PHACANCOPD ---
PHARMACY VANCOMYCIN DOSING Pt Demographics Demographics Patient Age:57 , Weight:61.360 , Gender: male Adjusted Body Weight Vancomycin Vancomycin indication: HAP Vancomycin Target Ranges: 15-20 mcg/ml Vancomycin Load Y/N: Yes Load Dose Date Time Vancomycin Load Dose: 1250MG Date: 07/30/18 Time: 194 Vancomycin Dose Date: 07/30/18. Current Vancomycin Dose: 1G IV VANCO Q24H STARTING AT 0900 BASED ON LAST [facility] ADMISSION Intermittent Dosing?: No Labs Micro Microbiology 07/30/18 Blood Culture - Preliminary, Resulted No Growth after 48 hours. All Specime... 07/30/18 Blood Culture - Preliminary, Resulted No Growth after 48 hours. All Specime... 07/31/18 MRSA Screen, Received Pending 07/30/18 Urine Culture - Final, Complete Creatinine Clearance Date:07/30/18. Creatinine Clearance: CALCULATED 38.9 Pending Labs BC PENDING, UC PENDING, WILL REQUEST MRSA SCREEN IN AM Assessment and Plan Maintaining Current Dose?: Yes Reason for dose change: No Dose Change Pharmacist Note Pharmacist Note 08/02/18: Day #4 IV vancomycin. Trough level today resulted at 17.3mcg/ml. Scr remains stable at 0.84 today from 0.91 yesterday. We will continue the patient on her current regimen of 750mg IV Q12H. We will continue to monitor renal function and schedule a follow-up trough level accordingly. Date: 07/30/18. Pharmacist note: Patient does have history of IV vancomycin here at [facility]. Based on last admission and current CrCl of 38.9 I scheduled a loading dose of 1250mg IV vancomycin at 194 followed by maintenance dose of 1g IV Vanco starting at 0900. Scheduled trough before the 3rd dose. Blood culture and urine culture are pending. I will follow up with provider in am to request MRSA screen. Will continue to monitor and adjust dosage as needed. DATE: 08/01/2018: Trough came back subtherapeutic at 10.9 @ 0752. Patient's renal function had improved since vancomycin initiated. Patient received 1000mg dose @0900 and I then scheduled an additional 500mg to be given IV at 1100. Dose was then increased to 750mg IV VANCO q12h to start @2100. I scheduled trough for tomorrow 08/02/18 @0800. Will continue to monitor patient and adjust dose as necessary. [facility] August 02, 2018 08:33
[2018-08-02] MEDS: SENNA 8.6 MG TAB (SENOKOT) PO SCH ×2 (09:00→10:14)
[2018-08-02] MEDS: PANTOPRAZOLE 40MG TAB (PROTONIX) PO SCH ×2 (09:00→10:14)
--- NOTE | 2018-08-02 09:41 | REP ---
CT ABDOMEN AND PELVIS WITH IV CONTRAST: TECHNIQUE: Axial contrast enhanced images from the lung bases to the pubic symphysis using 100 mL Isovue 370 intravenous contrast material with multiplanar reformations. In the visualized lung bases, there is once again, a small right pleural effusion and a tiny left pleural effusion as seen on CT of the chest 07/30/2018. Nodular opacity is partially visualized in the right lower lobe. There is a calcified granuloma in the right middle lobe. There are calcified granulomas in the right middle lobe. There is mild right lower lobe atelectasis. There is no mass seen in the liver. The gallbladder demonstrates no gross abnormality. Multiple calcified granulomas are seen in the spleen. The adrenal glands demonstrate areas of thickening without any discrete mass. Pancreas demonstrates no mass. The kidneys demonstrate no mass or hydronephrosis. There are moderate atherosclerotic calcifications of the abdominal aorta with mild diffuse narrowing. There is severe narrowing of the right common iliac and external iliac arteries and there is occlusion of the proximal right superficial femoral artery. There is severe narrowing of the left external iliac artery. There is occlusion of the proximal left superficial femoral artery. Scattered subcentimeter mesenteric lymph nodes are seen. I do not see evidence of significant lymphadenopathy. There is no free air or free fluid. I see no bowel wall thickening. There is no evidence of appendicitis. Large amount of fecal material is seen in the rectum suspicious for fecal impaction. Urinary bladder is mildly distended and grossly unremarkable. Air in the soft tissues of the left anterior abdominal wall was likely due to medication injection. Lytic destruction and sclerotic change is seen in the T10 vertebral body consistent with neoplastic disease and likely metastasis. IMPRESSION: Small effusions, particularly on the right unchanged since 07/30/2018. Right lower lobe nodular density is partially visualized. Mild adrenal gland thickening. No visceral organ mass seen. No significant adenopathy. There is occlusion of the proximal superficial femoral arteries bilaterally. There are findings suggesting fecal impaction. There is lytic destruction and sclerotic change of T10 vertebral body compatible with a metastatic lesion. Electronically Signed by Jac Sandhu MD 08/03/2018 12:06 P
[2018-08-02] MEDS: FERROUS SULFATE 300MG/5ML UDC LIQUID PO SCH ×2 (10:13→21:00)
[2018-08-02] MEDS: ASPIRIN 81 MG ENTERIC TAB PO SCH (10:14)
[2018-08-02] MEDS: MIRTAZAPINE 15 MG TAB PO SCH (10:14)
[2018-08-02] MEDS: CLOPIDOGREL 75 MG TAB PO SCH (10:14)
[2018-08-02] MEDS: GABAPENTIN 300 MG CAP PO SCH ×3 (10:14→21:00)
[2018-08-02] MEDS: levETIRAcetam 250MG TABLET (KEPPRA) PO SCH ×2 (10:14→21:00)
[2018-08-02] MEDS: VANCOMYCIN HCL 750 MG, VIAL MATE ADAPTER 1 EACH in D5W 250 ML IV SCH ×2 (10:15→21:00)
--- NOTE | 2018-08-02 12:55 | IPNPDOC ---
Subjective Date Seen The patient was seen on 08/02/18. Subjective Chief Complaint/HPI Patient non-verbal General: Reports: ROS Unobtainable Objective Physical Examination General Exam: Positive: Alert, Cooperative, No Acute Distress ENT Exam: Positive: Mucous membr. moist/pink Neck Exam: Positive: Supple; Negative: JVD Chest Exam: Positive: Rhonchi (Noted throughout ); Negative: Wheezing Heart Exam: Positive: Rate Normal Abdomen Exam: Positive: Normal bowel sounds, Soft; Negative: Tenderness Extremity Exam: Negative: Edema Skin Exam: Positive: Nl turgor and temperature Neuro Exam: Positive: Other (hx of stroke with left sided hemiparesis) Psych Exam: Positive: Mood NL A-FIB/CHADSVASC A-FIB History Current/History of A-Fib/PAF?: No Assessment /Plan Assessment 08/02: Patient denied anything except some GI discomfort today; did not verbablize today but shook his head and pointed. Nursing notes that he was more alert and interactive earlier in the day. CT abdomen and pelvis shows vertebral lytic lesion. -- CDT Problems (1) Pneumonia Status: Acute Response to Treatment: Stable Problem Text: 08/02/18: D4 of Zoysn and Vancomycin. T-ma 100.1, WBC down to 10.1. BC negative x 48 hours 08/01 -- Changed from Solumedrol to Decadron. Abx continued. Rhonchi sounded slightly better today. Oxygenating well. 07/31/18: Patient currently on Zoysn and Vancomycin, prednisone and nebulizers. Afebrile today. BC pending. WBC 10.[address]: IMPRESSION:1. Mediastinal adenopathy. 2. Small right pleural effusion with a nodule in the right lower lobe as described above. According to the revised Fleischner's Society Criteria, the nodule represents a category 4A lesion for which [address] is recommended with consideration made for PET CT at this time. I will reiterate that there are no prior chest CT's for comparison. 3. Patch bibasilar opacities left greater than right suspicious for basilar pneumonia. Correlate clinically. 4. Other findings as described above. There does appear to be gravel like cholelithiasis which could be confirmed with ultrasonography. (2) Metastasis to brain of unknown origin Status: Acute Problem Text: 08/02/18: Neurology consulted. CT abdomen and pelvis performed. Brother was not available to speak with at time of visit. IMPRESSION: Small effusions, particularly on the right unchanged since 07/30/2018. Right lower lobe nodular density is partially visualized. Mild adrenal gland thickening. No visceral organ mass seen. No significant adenopathy. There is occlusion of the proximal superficial femoral arteries bilaterally. There are findings suggesting fecal impaction. There is lytic destruction and sclerotic change of T10 vertebral body compatible with a metastatic lesion. 08/01 -- Not biopsy proven, but imaging is very persuasive for brain mets with surrounding edema. Switched to Decadron in lieu of Solumedrol. Neurology consulted. (3) Anemia Status: Acute Response to Treatment: Stable Problem Text: 08/02/18: Stable, Hgb 8.1 07/31/18: Patient with hx of anemia and has been on iron supplements outpatient. He had an upper endoscopy done by Dr. Holden January 2017 that showed mild gastritis. Iron studies: Fe 10, TIBC 177, Transferrin 5.6%. Worsening anemia could be related to acute infection. We will continue current ferrous sulfate dose. I will discuss further eval and tx with attending (4) Febrile illness, acute Status: Acute Response to Treatment: Stable Problem Text: 07/31/18: Most likely related to his pneumonia. However, patient with hx of endocarditis and ECHO has been ordered. Tx for pneumonia as discussed above. BC and urine cx pending (5) History of CVA (cerebrovascular accident) Status: Chronic Response to Treatment: Stable Problem Text: 07/31/18: Currently on Plavix and ASA (6) History of endocarditis Status: Chronic Problem Text: 08/02/18: ECHO CONCLUSIONS: 1. Hyperdynamic LV systolic function. LVEF 75% by visual estimate. No regional wall motion abnormalities. Normal LV diastolic function. 2. Tiny pericardial effusion. 3. Mild aortic valve sclerosis of a 3-cuspid aortic valve. No aortic regurgitation. 4. Trace mitral annular calcification. 5. No vegetations seen. 07/31/18: D/U fever, ECHO was ordered (7) HTN (hypertension) Status: Chronic Response to Treatment: Stable Problem Text: 07/31/18: Antihypertensives on hold (8) Acute kidney injury Status: Resolved Response to Treatment: Improving Problem Text: 07/31/18: Renal function has returned to baseline. He was aggr essively hydrated. IV rate reduced to 100ml/hr. Per family and caregiver patient is not eating or drinking. We will continue to monitor Plan/VTE VTE Prophylaxis Ordered?: Yes (Lovenox) VS, I&O, 24H, [place]avierbone Vital Signs/I&O Vital Signs Date Time Temp Pulse Resp B/P (MAP) Pulse Ox O2 Delivery O2 Flow Rate FiO2 08/02/18 08:45 97.2 115 18 166/89 (114) 97 07/30/18 16:00 Room Air l I&O- Last 24 Hours up to 6 AM 08/02/18 06:00 Intake Total 2050 ml Output Total 0 ml Balance 2050 ml Laboratory Data 24H LABS Laboratory Tests 2 08/02/18 07:45: Immature Granulocyte % (Auto) 1.7, White Blood Count 10.1H, Red Blood Count 3.35L, Hemoglobin 8.1L, Hematocrit 26.0L, Mean Corpuscular Volume 77.6L, Mean Corpuscular Hemoglobin 24.2L, Mean Corpuscular Hemoglobin Concent 31.2L, Red Cell Distribution Width 14.0, Platelet Count 493H, Neutrophils (%) (Auto) 89.1H, Lymphocytes (%) (Auto) 6.7L, Monocytes (%) (Auto) 2.3, Eosinophils (%) (Auto) 0.0, Basophils (%) (Auto) 0.2, Neutrophils # (Auto) 9.0H, Lymphocytes # (Auto) 0.7L, Monocytes # (Auto) 0.2, Eosinophils # (Auto) 0.0, Basophils # (Auto) 0.0, Nucleated Red Blood Cells % (auto) 0.0, Anion Gap 9, Glomerular Filtration Rate > 60.0, Blood Urea Nitrogen 17, Creatinine 0.84, Sodium Level 142, Potassium Level 3.7, Chloride Level 111H, Carbon Dioxide Level 22, Calcium Level 8.4L, Vancomycin Level Trough 17.3 CBC/BMP Laboratory Tests 08/02/18 07:45 Red Blood Count 3.35 L, Mean Corpuscular Volume 77.6 L, Mean Corpuscular Hemo globin 24.2 L, Mean Corpuscular Hemoglobin Concent 31.2 L, Red Cell Distribution Width 14.0, Neutrophils (%) (Auto) 89.1 H, Lymphocytes (%) (Auto) 6.7 L, Monocytes (%) (Auto) 2.3, Eosinophils (%) (Auto) 0.0, Basophils (%) (Auto) 0.2, Neutrophils # (Auto) 9.0 H, Lymphocytes # (Auto) 0.7 L, Monocytes # (Auto) 0.2, Eosinophils # (Auto) 0.0, Basophils # (Auto) 0.0, Calcium Level 8.4 L Microbiology Microbiology 07/30/18 Blood Culture - Preliminary, Resulted No Growth after 48 hours. All Specime... 07/30/18 Blood Culture - Preliminary, Resulted No Growth after 48 hours. All Specime... 07/31/18 MRSA Screen - Final, Complete 07/30/18 Urine Culture - Final, Complete JOHNATHAN JANE August 02, 2018 12:54 MARIELA PEDRO DO August 02, 2018 23:51
[2018-08-02] MEDS: ATORVASTATIN 20 MG TAB PO SCH (21:00)
[2018-08-02] MEDS: ENOXAPARIN 30 MG/0.3 ML SYR (J1650) SC SCH (21:00)
[2018-08-03] MEDS: IPRATROPIUM 0.5MG/ALBUTEROL 2.5MG INH SOL UD 3ML (DUONEB)(J7620) NEB SCH ×3 (01:00→20:00)
[2018-08-03] MEDS: NS 1,000 ML IV SCH ×2 (01:00→12:19)
[2018-08-03] MEDS: PIPERACILLIN/TAZOBACTAM SOD 3.375 GM in D5W MINI-BAG PLUS 50 ML IV SCH ×4 (04:22→22:37)
[2018-08-03] MEDS: dexameTHASONE 4 MG/ML 1ML VIAL (J1100) IV SCH ×3 (05:13→17:40)
[2018-08-03 05:47] LABS: BASO % 0.2 % (0.0-1.0); HEMATOCRIT 26.1 % (42.0-52.0); HEMOGLOBIN 8.1 g/dl (13.5-17.5); LYMPH # 0.9 10^3/uL (1.5-4.5); LYMPH % 7.7 % (24.0-44.0); MEAN CORPUSCULAR HEMOGLOBIN 24.1 pg (27.0-33.0); MEAN CORPUSCULAR VOLUME 77.7 fl (80.0-96.0); MONO # 0.5 10^3/uL (0.0-0.8); MONO % 3.8 % (0.0-5.0); NEUTROPHILS # 10.3 10^3/uL (1.8-7.7); PLATELET COUNT, AUTOMATED 492 10^3/uL (150-450); RED BLOOD COUNT 3.36 10^6/uL (4.30-6.10)
[2018-08-03 06:00] VITALS: BP 179/88
[2018-08-03 06:06] LABS: BLOOD UREA NITROGEN 19 MG/DL (7-18); CALCIUM LEVEL 8.1 MG/DL (8.5-10.1); CARBON DIOXIDE LEVEL 22 MEQ/L (21-32); CHLORIDE LEVEL 114 MEQ/L (98-107); CREATININE FOR GFR 0.81 MG/DL (0.70-1.30); GLOMERULAR FILTRATION RATE > 60.0 (>56); GLUCOSE, FASTING 128 MG/DL (70-100); POTASSIUM SERUM 3.5 MEQ/L (3.5-5.1); SODIUM LEVEL 143 MEQ/L (136-145)
[2018-08-03] MEDS: VANCOMYCIN HCL 750 MG, VIAL MATE ADAPTER 1 EACH in D5W 250 ML IV SCH (08:38)
[2018-08-03] MEDS: FERROUS SULFATE 300MG/5ML UDC LIQUID PO SCH ×3 (08:39→20:44)
[2018-08-03] MEDS: PANTOPRAZOLE 40MG TAB (PROTONIX) PO SCH ×2 (08:39→08:57)
[2018-08-03] MEDS: MIRTAZAPINE 15 MG TAB PO SCH ×2 (08:39→08:57)
[2018-08-03] MEDS: levETIRAcetam 250MG TABLET (KEPPRA) PO SCH ×3 (08:39→20:44)
[2018-08-03] MEDS: GABAPENTIN 300 MG CAP PO SCH ×4 (08:39→20:44)
[2018-08-03] MEDS: ASPIRIN 81 MG ENTERIC TAB PO SCH (08:39)
[2018-08-03] MEDS: SENNA 8.6 MG TAB (SENOKOT) PO SCH ×2 (08:39→08:57)
[2018-08-03] MEDS: CLOPIDOGREL 75 MG TAB PO SCH ×2 (08:39→08:57)
[2018-08-03 10:00] VITALS: BP 165/81
--- NOTE | 2018-08-03 11:30 | IPNPDOC ---
Subjective Date Seen The patient was seen on 08/03/18. Subjective Chief Complaint/HPI Nursing states he is not eating or drinking much and is refusing to take some PO meds General: Reports: ROS Unobtainable Objective Physical Examination General Exam: Positive: Alert, No Acute Distress ENT Exam: Positive: Mucous membr. moist/pink Neck Exam: Positive: Supple; Negative: JVD Chest Exam: Positive: Rhonchi (Noted throughout ); Negative: Rales, Wheezing Heart Exam: Positive: Rate Normal Abdomen Exam: Positive: Normal bowel sounds, Soft; Negative: Tenderness Extremity Exam: Negative: Edema Skin Exam: Positive: Nl turgor and temperature Neuro Exam: Positive: Other (hx of stroke with left sided hemiparesis) Psych Exam: Positive: Mood NL, Other (Alert, nods head to questions ) A-FIB/CHADSVASC A-FIB History Current/History of A-Fib/PAF?: No Assessment /Plan Assessment 08/03: Patient was eating dinner when I saw him, had not eaten much for breakfast or lunch. I started Percocet as he was complaining of discomfort in his back. Afebrile. Spoke with brother about plans to transfer back to [facility] on Monday, when they are accepting patients back. -- CDT Problems (1) Pneumonia Status: Acute Response to Treatment: Stable Problem Text: 08/03/18: MRSA screen negative. We will stop Vancomycin and continue with Zoysn (D5). A-febrile. WBC 12.0 08/02/18: D4 of Zoysn and Vancomycin. T-ma 100.1, WBC down to 10.1. BC negative x 48 hours 08/01 -- Changed from Solumedrol to Decadron. Abx continued. Rhonchi sounded slightly better today. Oxygenating well. 07/31/18: Patient currently on Zoysn and Vancomycin, prednisone and nebulizers. Afebrile today. BC pending. WBC 10.[address]: IMPRESSION:1. Mediastinal adenopathy. 2. Small right pleural effusion with a nodule in the right lower lobe as described above. According to the revised Fleischner's Society Criteria, the nodule represents a category 4A lesion for which [address] is recommended with consideration made for PET CT at this time. I will reiterate that there are no prior chest CT's for comparison. 3. Patch bibasilar opacities left greater than right suspicious for basilar pneumonia. Correlate clinically. 4. Other findings as described above. There does appear to be gravel like cholelithiasis which could be confirmed with ultrasonography. (2) Anemia Status: Acute Response to Treatment: Stable Problem Text: 08/03/18: Hgb remains stable 8.1 08/02/18: Stable, Hgb 8.1 07/31/18: Patient with hx of anemia and has been on iron supplements outpatient. He had an upper endoscopy done by Dr. Holden January 2017 that showed mild gastritis. Iron studies: Fe 10, TIBC 177, Transferrin 5.6%. Worsening anemia could be related to acute infection. We will continue current ferrous sulfate dose. 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 CT abdomen and pelvis performed. Brother was not available to speak with at time of visit. IMPRESSION: Small effusions, particularly on the right unchanged since 07/30/2018. Right lower lobe nodular density is partially visualized. Mild adrenal gland thickening. No visceral organ mass seen. No significant adenopathy. There is occlusion of the proximal superficial femoral arteries bilaterally. There are findings suggesting fecal impaction. There is lytic destruction and sclerotic change of T10 vertebral body compatible with a metastatic lesion. 08/01 -- Not biopsy proven, but imaging is very persuasive for brain mets with surrounding edema. Switched to Decadron in lieu of Solumedrol. Neurology consulted. (4) HTN (hypertension) Status: Chronic Response to Treatment: Stable Problem Text: 08/03/18: Pressures are starting to creep up a bit. Antihypertensives have been on hold (amlodipine 5 mg daily, hydralazine 37.5 mg every 6 hours, losartan 50 mg twice a day). Renal function has returned to normal. We may want to restart his Amlodipine 5 mg daily. I will discuss this with attending 07/31/18: Antihypertensives on hold (5) Febrile illness, acute Status: Acute Response to Treatment: Stable Problem Text: 07/31/18: Most likely related to his pneumonia. However, patient with hx of endocarditis and ECHO has been ordered. Tx for pneumonia as discussed above. BC and urine cx pending (6) Acute kidney injury Status: Resolved Response to Treatment: Improving Problem Text: 07/31/18: Renal function has returned to baseline. He was aggressively hydrated. IV rate reduced to 100ml/hr. Per family and caregiver patient is not eating or drinking. We will continue to monitor (7) History of endocarditis Status: Chronic Problem Text: 08/02/18: ECHO CONCLUSIONS: 1. Hyperdynamic LV systolic function. LVEF 75% by visual estimate. No regiona l wall motion abnormalities. Normal LV diastolic function. 2. Tiny pericardial effusion. 3. Mild aortic valve sclerosis of a 3-cuspid aortic valve. No aortic regurgitation. 4. Trace mitral annular calcification. 5. No vegetations seen. 07/31/18: D/U fever, ECHO was ordered (8) History of CVA (cerebrovascular accident) Status: Chronic Response to Treatment: Stable Problem Text: 07/31/18: Currently on Plavix and ASA Plan/VTE VTE Prophylaxis Ordered?: Yes (Lovenox) VS, I&O, 24H, Fishbone Vital Signs/I&O Vital Signs Date Time Temp Pulse Resp B/P (MAP) Pulse Ox O2 Delivery O2 Flow Rate FiO2 08/03/18 10:00 98.8 91 18 165/81 (109) 96 07/30/18 16:00 Room Air I&O- Last 24 Hours up to 6 AM 08/03/18 06:00 Intake Total 1310 ml Balance 1310 ml Laboratory Data 24H LABS Laboratory Tests 2 08/03/18 05:08: Immature Granulocyte % (Auto) 2.3, White Blood Count 12.0H, Red Blood Count 3.36L, Hemoglobin 8.1L, Hematocrit 26.1L, Mean Corpuscular Volume 77.7L, Mean Corpuscular Hemoglobin 24.1L, Mean Corpuscular Hemoglobin Concent 31.0L, Red Cell Distribution Width 14.3, Platelet Count 492H, Neutrophils (%) (Auto) 86.0H, Lymphocytes (%) (Auto) 7.7L, Monocytes (%) (Auto) 3.8, Eosinophils (%) (Auto) 0. 0, Basophils (%) (Auto) 0.2, Neutrophils # (Auto) 10.3H, Lymphocytes # (Auto) 0.9L, Monocytes # (Auto) 0.5, Eosinophils # (Auto) 0.0, Basophils # (Auto) 0.0, Nucleated Red Blood Cells % (auto) 0.0, Anion Gap 7L, Glomerular Filtration Rate > 60.0, Blood Urea Nitrogen 19H, Creatinine 0.81, Sodium Level 143, Potassium Level 3.5, Chloride Level 114H, Carbon Dioxide Level 22, Calcium Level 8.1L CBC/BMP Laboratory Tests 08/03/18 05:08 Red Blood Count 3.36 L, Mean Corpuscular Volume 77.7 L, Mean Corpuscular Hemoglobin 24.1 L, Mean Corpuscular Hemoglobin Concent 31.0 L, Red Cell D istribution Width 14.3, Neutrophils (%) (Auto) 86.0 H, Lymphocytes (%) (Auto) 7.7 L, Monocytes (%) (Auto) 3.8, Eosinophils (%) (Auto) 0.0, Basophils (%) (Auto) 0.2, Neutrophils # (Auto) 10.3 H, Lymphocytes # (Auto) 0.9 L, Monocytes # (Auto) 0.5, Eosinophils # (Auto) 0.0, Basophils # (Auto) 0.0, Calcium Level 8.1 L Microbiology Microbiology 07/30/18 Blood Culture - Preliminary, Resulted No Growth after 72 hours. All specime... 07/30/18 Blood Culture - Preliminary, Resulted No Growth after 72 hours. All specime... 07/31/18 MRSA Screen - Final, Complete 07/30/18 Urine Culture - Final, Complete JOHNATHAN JANE August 03, 2018 11:30 MARIELA PEDRO DO August 03, 2018 23:32
[2018-08-03 14:00] VITALS: BP 174/81
[2018-08-03] MEDS ORDERED: PINK BISMUTH SUSP 524MG/30ML ORAL SYRINGE PO PRN (15:45)
[2018-08-03] MEDS: amLODIPine 5 MG TAB PO SCH (16:33)
[2018-08-03] MEDS: PERCOCET 5MG/325MG TAB PO PRN ×2 (16:33→22:37)
[2018-08-03] MEDS ORDERED: ACETAMINOPHEN TAB 650MG DOSE (2X325MG) PO PRN (17:48)
[2018-08-03 18:00] VITALS: BP 144/71
[2018-08-03] MEDS: LACTOBACILLUS ACIDOPHILUS CAP (BACID) PO SCH (18:00)
[2018-08-03] MEDS: ATORVASTATIN 20 MG TAB PO SCH (20:44)
[2018-08-03] MEDS: ENOXAPARIN 30 MG/0.3 ML SYR (J1650) SC SCH (20:45)
[2018-08-03 22:00] VITALS: BP 148/72
[2018-08-04] VITALS (7 sets, daily range): BP systolic 143–184; BP diastolic 69–86
[2018-08-04] MEDS: dexameTHASONE 4 MG/ML 1ML VIAL (J1100) IV SCH ×4 (00:08→17:54)
[2018-08-04] MEDS: IPRATROPIUM 0.5MG/ALBUTEROL 2.5MG INH SOL UD 3ML (DUONEB)(J7620) NEB SCH ×4 (01:07→20:00)
[2018-08-04] MEDS: NS 1,000 ML IV SCH ×3 (01:30→16:30)
[2018-08-04] MEDS: PIPERACILLIN/TAZOBACTAM SOD 3.375 GM in D5W MINI-BAG PLUS 50 ML IV SCH ×4 (03:33→22:00)
[2018-08-04] MEDS: PERCOCET 5MG/325MG TAB PO PRN ×3 (06:12→20:22)
[2018-08-04 06:37] LABS: BASO % 0.1 % (0.0-1.0); HEMATOCRIT 25.3 % (42.0-52.0); HEMOGLOBIN 7.7 g/dl (13.5-17.5); MEAN CORPUSCULAR HEMOGLOBIN 23.7 pg (27.0-33.0); MEAN CORPUSCULAR HGB CONC 30.4 g/dl (32.0-36.5); MEAN CORPUSCULAR VOLUME 77.8 fl (80.0-96.0); MONO # 0.6 10^3/uL (0.0-0.8); MONO % 3.7 % (0.0-5.0); NEUTROPHILS # 12.9 10^3/uL (1.8-7.7); NEUTROPHILS % 87.2 % (36.0-66.0); PLATELET COUNT, AUTOMATED 503 10^3/uL (150-450); RED BLOOD COUNT 3.25 10^6/uL (4.30-6.10); WHITE BLOOD COUNT 14.8 10^3/uL (4.0-10.0)
[2018-08-04 06:55] LABS: BLOOD UREA NITROGEN 22 MG/DL (7-18); CALCIUM LEVEL 7.9 MG/DL (8.5-10.1); CARBON DIOXIDE LEVEL 24 MEQ/L (21-32); CHLORIDE LEVEL 113 MEQ/L (98-107); CREATININE FOR GFR 0.78 MG/DL (0.70-1.30); GLOMERULAR FILTRATION RATE > 60.0 (>56); GLUCOSE, FASTING 117 MG/DL (70-100); POTASSIUM SERUM 3.5 MEQ/L (3.5-5.1); SODIUM LEVEL 142 MEQ/L (136-145)
[2018-08-04] MEDS: amLODIPine 5 MG TAB PO SCH (08:56)
[2018-08-04] MEDS: FERROUS SULFATE 300MG/5ML UDC LIQUID PO SCH ×2 (08:56→20:20)
[2018-08-04] MEDS: levETIRAcetam 250MG TABLET (KEPPRA) PO SCH ×2 (08:56→20:21)
[2018-08-04] MEDS: LACTOBACILLUS ACIDOPHILUS CAP (BACID) PO SCH ×2 (08:56→17:54)
[2018-08-04] MEDS: PANTOPRAZOLE 40MG TAB (PROTONIX) PO SCH (08:57)
[2018-08-04] MEDS: ASPIRIN 81 MG ENTERIC TAB PO SCH (08:57)
[2018-08-04] MEDS: GABAPENTIN 300 MG CAP PO SCH ×3 (08:57→20:21)
[2018-08-04] MEDS: SENNA 8.6 MG TAB (SENOKOT) PO SCH (08:57)
[2018-08-04] MEDS: CLOPIDOGREL 75 MG TAB PO SCH (08:57)
[2018-08-04] MEDS: MIRTAZAPINE 15 MG TAB PO SCH (08:57)
[2018-08-04] MEDS: LOSARTAN 50 MG TAB PO SCH (09:00)
[2018-08-04] MEDS: LIDOCAINE 5% (LIDODERM) PATCH TD SCH (16:14)
--- NOTE | 2018-08-04 18:34 | IPNPDOC ---
Subjective Date Seen The patient was seen on 08/04/18. Subjective Chief Complaint/HPI pneumonia and confusion Events since last encounter He is more awake and conversational today. He has some thoracic back disco mfort, and just received Percocet for it before I got to the room. Constitutional: Denies: Chills, Fever Pulmonary: Denies: Dyspnea, Cough Cardiovascular: Denies: Chest Pain, Palpitations Gastrointestinal: Denies: Nausea, Vomiting, Abdominal Pain Musculoskeletal: Reports: Back Pain Objective Physical Examination General Exam: Positive: Alert, No Acute Distress ENT Exam: Positive: Mucous membr. moist/pink Neck Exam: Positive: Supple; Negative: JVD Chest Exam: Positive: Rhonchi (improving); Negative: Rales, Wheezing Heart Exam: Positive: Rate Normal Abdomen Exam: Positive: Normal bowel sounds, Soft; Negative: Tenderness Extremity Exam: Negative: Edema Skin Exam: Positive: Nl turgor and temperature Neuro Exam: Positive: Other (hx of stroke with left sided hemiparesis) Psych Exam: Positive: Mood NL, Other (Alert, nods head to questions ) A-FIB/CHADSVASC A-FIB History Current/History of A-Fib/PAF?: No Assessment /Plan Problems (1) Pneumonia Status: Acute Response to Treatment: Stable Problem Text: 08/04: He remains afebrile. Zosyn continued. As he is hit-or-miss taking oral medication, and he can not return to the [facility] until Monday, likely will just finish his course of IV abx. 08/03/18: MRSA screen negative. We will stop Vancomycin and continue with Zoysn (D5). A-febrile. WBC 12.0 08/02/18: D4 of Zoysn and Vancomycin. T-ma 100.1, WBC down to 10.1. BC negative x 48 hours 08/01 -- Changed from Solumedrol to Decadron. Abx continued. Rhonchi sounded slightly better today. Oxygenating well. 07/31/18: Patient currently on Zoysn and Vancomycin, prednisone and nebulizers. Afebrile today. BC pending. WBC 10.[address]: IMPRESSION:1. Mediastinal adenopathy. 2. Small right pleural effusion with a nodule in the right lower lobe as described above. According to the revised Fleischner's Society Criteria, the nodule represents a category 4A lesion for which [address] is recommended with consideration made for PET CT at this time. I will reiterate that there are no prior chest CT's for comparison. 3. Patch bibasilar opacities left greater than right suspicious for basilar pneumonia. Correlate clinically. 4. Other findings as described above. There does appear to be gravel like cholelithiasis which could be confirmed with ultrasonography. (2) Anemia Status: Acute Response to Treatment: Stable Problem Text: 08/03/18: Hgb remains stable 8.1 08/02/18: Stable, Hgb 8.1 07/31/18: Patient with hx of anemia and has been on iron supplements outpatient. He had an upper endoscopy done by Dr. Holden January 2017 that showed mild gastritis. Iron studies: Fe 10, TIBC 177, Transferrin 5.6%. Worsening anemia could be related to acute infection. We will continue current ferrous sulfate dose. 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 CT abdomen and pelvis performed. Brother was not available to speak with at time of visit. IMPRESSION: Small effusions, particularly on the right unchanged since 07/30/2018. Right lower lobe nodular density is partially visualized. Mild adrenal gland thickening. No visceral organ mass seen. No significant adenopathy. There is occlusion of the proximal superficial femoral arteries bilaterally. There are findings suggesting fecal impaction. There is lytic destruction and sclerotic change of T10 vertebral body compatible with a metastatic lesion. 08/01 -- Not biopsy proven, but imaging is very persuasive for brain mets with surrounding edema. Switched to Decadron in lieu of Solumedrol. Neurology consulted. (4) HTN (hypertension) Status: Chronic Response to Treatment: Stable Problem Text: 08/04: Amlodipine was restarted Remain hypertensive. I restarted 50 mg of losartan, may need to dose it BID as he previously was receiving in the [facility]. 08/03/18: Pressures are starting to creep up a bit. Antihypertensives have been on hold (amlodipine 5 mg daily, hydralazine 37.5 mg every 6 hours, losartan 50 mg twice a day). Renal function has returned to normal. We may want to restart his Amlodipine 5 mg daily. I will discuss this with attending 07/31/18: Antihypertensives on hold (5) Febrile illness, acute Status: Resolved Response to Treatment: Stable, Improving Problem Text: 08/04: Likely secondary to PNA, has resolved with antibiotics. Echo performed and fine. 07/31/18: Most likely related to his pneumonia. However, patient with hx of endocarditis and ECHO has been ordered. Tx for pneumonia as discussed above. BC and urine cx pending (6) Acute kidney injury Status: Resolved Response to Treatment: Improving Problem Text: 07/31/18: Renal function has returned to baseline. He was aggressively hydrated. IV rate reduced to 100ml/hr. Per family and caregiver patient is not eating or drinking. We will continue to monitor (7) History of endocarditis Status: Chronic Problem Text: 08/02/18: ECHO CONCLUSIONS: 1. Hyperdynamic LV systolic function. LVEF 75% by visual estimate. No regional wall motion abnormalities. Normal LV diastolic function. 2. Tiny pericardial effusion. 3. Mild aortic valve sclerosis of a 3-cuspid aortic valve. No aortic regurgitation. 4. Trace mitral annular calcification. 5. No vegetations seen. 07/31/18: D/U fever, ECHO was ordered (8) History of CVA (cerebrovascular accident) Status: Chronic Response to Treatment: Stable Problem Text: 07/31/18: Currently on Plavix and ASA Plan/VTE VTE Prophylaxis Ordered?: Yes (Lovenox) VS, I&O, 24H, Fishbone Vital Signs/I&O Vital Signs Date Time Temp Pulse Resp B/P (MAP) Pulse Ox O2 Delivery O2 Flow Rate FiO2 08/04/18 18:16 99.0 79 18 176/82 (113) 95 07/30/18 16:00 Room Air I&O- Last 24 Hours up to 6 AM 08/04/18 06:00 Intake Total 380 ml Balance 380 ml Laboratory Data 24H LABS Laboratory Tests 2 08/04/18 06:10: Immature Granulocyte % (Auto) 2.0, White Blood Count 14.8H, Red Blood Count 3.25L, Hemoglobin 7.7L, Hematocrit 25.3L, Mean Corpuscular Volume 77.8L, Mean Corpuscular Hemoglobin 23.7L, Mean Corpuscular Hemoglobin Concent 30.4L, Red Cell Distribution Width 14.4, Platelet Count 503H, Neutrophils (%) (Auto) 87.2H, Lymphocytes (%) (Auto) 7.0L, Monocytes (%) (Auto) 3.7, Eosinophils (%) (Auto) 0.0, Basophils (%) (Auto) 0.1, Neutrophils # (Auto) 12.9H, Lymphocytes # (Auto) 1.0L, Monocytes # (Auto) 0.6, Eosinophils # (Auto) 0.0, Basophils # (Auto) 0.0, Nucleated Red Blood Cells % (auto) 0.1H, Anion Gap 5L, Glomerular Filtration Rate > 60.0, Blood Urea Nitrogen 22H, Creatinine 0.78, Sodium Level 142, Potassium Level 3.5, Chloride Level 113H, Carbon Dioxide Level 24, Calcium Level 7.9L CBC/BMP Laboratory Tests 08/04/18 06:10 Red Blood Count 3.25 L, Mean Corpuscular Volume 77.8 L, Mean Corpuscular Hemoglobin 23.7 L, Mean Corpuscular Hemoglobin Concent 30.4 L, Red Cell Distribution Width 14.4, Neutrophils (%) (Auto) 87.2 H, Lymphocytes (%) (Auto) 7.0 L, Monocytes (%) (Auto) 3.7, Eosinophils (%) (Auto) 0.0, Basophils (%) (Auto) 0.1, Neutrophils # (Auto) 12.9 H, Lymphocytes # (Auto) 1.0 L, Monocytes # (Auto) 0.6, Eosinophils # (Auto) 0.0, Basophils # (Auto) 0.0, Calcium Level 7.9 L Microbiology Microbiology 07/30/18 Blood Culture - Final, Complete NO GROWTH AFTER 5 DAYS 07/30/18 Blood Culture - Final, Complete NO GROWTH AFTER 5 DAYS 07/31/18 MRSA Screen - Final, Complete 07/30/18 Urine Culture - Final, Complete MARIELA PEDRO DO August 04, 2018 18:34
[2018-08-04] MEDS: ATORVASTATIN 20 MG TAB PO SCH (20:21)
[2018-08-04] MEDS: ENOXAPARIN 30 MG/0.3 ML SYR (J1650) SC SCH (20:22)
[2018-08-04] MEDS: **NOTE PATIENT COMMENT** MISC XX SCH (21:00)
[2018-08-05] MEDS: NS 1,000 ML IV SCH ×2 (01:30→12:25)
[2018-08-05] MEDS: IPRATROPIUM 0.5MG/ALBUTEROL 2.5MG INH SOL UD 3ML (DUONEB)(J7620) NEB SCH ×4 (01:43→20:13)
[2018-08-05 02:00] VITALS: BP 148/71
[2018-08-05] MEDS: PIPERACILLIN/TAZOBACTAM SOD 3.375 GM in D5W MINI-BAG PLUS 50 ML IV SCH ×2 (04:58→10:00)
[2018-08-05] MEDS: dexameTHASONE 4 MG/ML 1ML VIAL (J1100) IV SCH ×4 (05:57→18:00)
[2018-08-05 06:00] VITALS: BP 166/87
[2018-08-05 06:26] LABS: BASO % 0.1 % (0.0-1.0); HEMATOCRIT 25.5 % (42.0-52.0); HEMOGLOBIN 7.8 g/dl (13.5-17.5); LYMPH # 0.9 10^3/uL (1.5-4.5); MEAN CORPUSCULAR HGB CONC 30.6 g/dl (32.0-36.5); MEAN CORPUSCULAR VOLUME 78.5 fl (80.0-96.0); MONO # 0.7 10^3/uL (0.0-0.8); MONO % 4.5 % (0.0-5.0); NEUTROPHILS # 13.3 10^3/uL (1.8-7.7); NEUTROPHILS % 86.3 % (36.0-66.0); PLATELET COUNT, AUTOMATED 540 10^3/uL (150-450); RED BLOOD COUNT 3.25 10^6/uL (4.30-6.10); WHITE BLOOD COUNT 15.4 10^3/uL (4.0-10.0)
[2018-08-05 06:41] LABS: BLOOD UREA NITROGEN 21 MG/DL (7-18); CALCIUM LEVEL 7.9 MG/DL (8.5-10.1); CARBON DIOXIDE LEVEL 24 MEQ/L (21-32); CHLORIDE LEVEL 113 MEQ/L (98-107); CREATININE FOR GFR 0.79 MG/DL (0.70-1.30); GLOMERULAR FILTRATION RATE > 60.0 (>56); GLUCOSE, FASTING 110 MG/DL (70-100); POTASSIUM SERUM 3.4 MEQ/L (3.5-5.1); SODIUM LEVEL 142 MEQ/L (136-145)
[2018-08-05] MEDS: LIDOCAINE 5% (LIDODERM) PATCH TD SCH (08:19)
[2018-08-05] MEDS: FERROUS SULFATE 300MG/5ML UDC LIQUID PO SCH ×2 (08:19→22:05)
[2018-08-05] MEDS: PANTOPRAZOLE 40MG TAB (PROTONIX) PO SCH (08:20)
[2018-08-05] MEDS: LOSARTAN 50 MG TAB PO SCH (08:20)
[2018-08-05] MEDS: GABAPENTIN 300 MG CAP PO SCH ×3 (08:20→22:05)
[2018-08-05] MEDS: levETIRAcetam 250MG TABLET (KEPPRA) PO SCH ×2 (08:20→22:05)
[2018-08-05] MEDS: LACTOBACILLUS ACIDOPHILUS CAP (BACID) PO SCH ×2 (08:20→18:19)
[2018-08-05] MEDS: MIRTAZAPINE 15 MG TAB PO SCH (08:21)
[2018-08-05] MEDS: SENNA 8.6 MG TAB (SENOKOT) PO SCH (08:21)
[2018-08-05] MEDS: CLOPIDOGREL 75 MG TAB PO SCH (08:21)
[2018-08-05] MEDS: amLODIPine 5 MG TAB PO SCH (08:21)
[2018-08-05] MEDS: ASPIRIN 81 MG ENTERIC TAB PO SCH (08:22)
[2018-08-05] MEDS: PERCOCET 5MG/325MG TAB PO PRN (08:22)
[2018-08-05 10:00] VITALS: BP 160/75
[2018-08-05] MEDS ORDERED: POTASSIUM CHLORIDE 10 MEQ SR TABLET PO ONE (14:00)
[2018-08-05 16:00] VITALS: BP 141/68
[2018-08-05] MEDS: **NOTE PATIENT COMMENT** MISC XX SCH (21:00)
[2018-08-05 22:00] VITALS: BP 161/80
[2018-08-05] MEDS: ATORVASTATIN 20 MG TAB PO SCH (22:05)
[2018-08-05] MEDS: AUGMENTIN 875 MG TAB PO SCH (22:05)
[2018-08-05] MEDS: ENOXAPARIN 30 MG/0.3 ML SYR (J1650) SC SCH (22:05)
--- NOTE | 2018-08-06 | IPNPDOC ---
Subjective Date Seen The patient was seen on 08/05/18. Subjective Chief Complaint/HPI Patient desired IV to be removed. Somewhat irritable, but alert. Not interested in answering questions today. General: Reports: ROS Unobtainable Objective Physical Examination General Exam: Positive: Alert, No Acute Distress ENT Exam: Positive: Mucous membr. moist/pink Neck Exam: Positive: Supple; Negative: JVD Chest Exam: Positive: Rhonchi (improving); Negative: Rales, Wheezing Heart Exam: Positive: Rate Normal Abdomen Exam: Positive: Normal bowel sounds, Soft; Negative: Tenderness Extremity Exam: Negative: Edema Skin Exam: Positive: Nl turgor and temperature Neuro Exam: Positive: Other (hx of stroke with left sided hemiparesis) Psych Exam: Positive: Mood NL (irritable), Other (Alert, offers few responses today) A-FIB/CHADSVASC A-FIB History Current/History of A-Fib/PAF?: No Assessment /Plan Problems (1) Pneumonia Status: Acute Response to Treatment: Stable Problem Text: 08/05: Nursing feels comfortable that they can give him his abx, and he would really like the IV out. Converted to PO abx. 08/04: He remains afebrile. Zosyn continued. As he is hit-or-miss taking oral medication, and he can not return to the [place] [facility] until Monday, likely will just finish his course of IV abx. 08/03/18: MRSA screen negative. We will stop Vancomycin and continue with Zoysn (D5). A-febrile. WBC 12.0 08/02/18: D4 of Zoysn and Vancomycin. T-ma 100.1, WBC down to 10.1. BC negative x 48 hours 08/01 -- Changed from Solumedrol to Decadron. Abx continued. Rhonchi sounded slightly better today. Oxygenating well. 07/31/18: Patient currently on Zoysn and Vancomycin, prednisone and nebulizers. Afebrile today. BC pending. WBC 10.[address]: IMPRESSION:1. Mediastinal adenopathy. 2. Small right pleural effusion with a nodule in the right lower lobe as described above. According to the revised Fleischner's Society Criteria, the nodule represents a category 4A lesion for which [address] is recommended with consideration made for PET CT at this time. I will reiterate that there are no prior chest CT's for comparison. 3. Patch bibasilar opacities left greater than right suspicious for basilar pneumonia. Correlate clinically. 4. Other findings as described above. There does appear to be gravel like cholelithiasis which could be confirmed with ultrasonography. 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 Brother would like to know what the primary site is, will discuss PET/CT with Dr. Valencia as an outpatient. He has stated multiple times during this hospitalization that he doesn't want to treat the malignancy. There is a pulmonary nodule that pulm has confirmed could be bronchable, though I am not certain that would be in line with [employer] status. He is receiving PO Decadron now, and his Keppra has been increased during this hospitalization. 08/02/18: Neurology consulted. CT abdomen and pelvis performed. Brother was not available to speak with at time of visit. IMPRESSION: Small effusions, particularly on the right unchanged since 07/30/2018. Right lower lobe nodular density is partially visualized. Mild adrenal gland thickening. No visceral organ mass seen. No significant adenopathy. There is occlusion of the proximal superficial femoral arteries bilaterally. There are findings suggesting fecal impaction. There is lytic destruction and sclerotic change of T10 vertebral body compatible with a metastatic lesion. 08/01 -- Not biopsy proven, but imaging is very persuasive for brain mets with surrounding edema. Switched to Decadron in lieu of Solumedrol. Neurology consulted. (3) Anemia Status: Acute Response to Treatment: Stable Problem Text: 08/03/18: Hgb remains stable 8.1 08/02/18: Stable, Hgb 8.1 07/31/18: Patient with hx of anemia and has been on iron supplements outpatient. He had an upper endoscopy done by Dr. Holden January 2017 that showed mild gastritis. Iron studies: Fe 10, TIBC 177, Transferrin 5.6%. Worsening anemia could be related to acute infection. We will continue current ferrous sulfate dose. I will discuss further eval and tx with attending (4) HTN (hypertension) Status: Chronic Response to Treatment: Stable Problem Text: 08/05: increased losartan to 100 mg for tomorrow. 08/04: Amlodipine was restarted Remain hypertensive. I restarted 50 mg of losartan, may need to dose it BID as he previously was receiving in the [place] [facility]. 08/03/18: Pressures are starting to creep up a bit. Antihypertensives have been on hold (amlodipine 5 mg daily, hydralazine 37.5 mg every 6 hours, losartan 50 mg twice a day). Renal function has returned to normal. We may want to restart his Amlodipine 5 mg daily. I will discuss this with attending 07/31/18: Antihypertensives on hold (5) Febrile illness, acute Status: Resolved Response to Treatment: Stable, Improving Problem Text: 08/04: Likely secondary to PNA, has resolved with antibiotics. Echo performed and fine. 07/31/18: Most likely related to his pneumonia. However, patient with hx of endocarditis and ECHO has been ordered. Tx for pneumonia as discussed above. BC and urine cx pending (6) Acute kidney injury Status: Resolved Response to Treatment: Improving Problem Text: 07/31/18: Renal function has returned to baseline. He was aggressively hydrated. IV rate reduced to 100ml/hr. Per family and caregiver patient is not eating or drinking. We will continue to monitor (7) History of endocarditis Status: Chronic Problem Text: 08/02/18: ECHO CONCLUSIONS: 1. Hyperdynamic LV systolic function. LVEF 75% by visual estimate. No regional wall motion abnormalities. Normal LV diastolic function. 2. Tiny pericardial effusion. 3. Mild aortic valve sclerosis of a 3-cuspid aortic valve. No aortic regurgitation. 4. Trace mitral annular calcification. 5. No vegetations seen. 07/31/18: D/U fever, ECHO was ordered (8) History of CVA (cerebrovascular accident) Status: Chronic Response to Treatment: Stable Problem Text: 07/31/18: Currently on Plavix and ASA Plan/VTE VTE Prophylaxis Ordered?: Yes (Lovenox) VS, I&O, 24H, Fishbone Vital Signs/I&O Vital Signs Date Time Temp Pulse Resp B/P (MAP) Pulse Ox O2 Delivery O2 Flow Rate FiO2 08/05/18 16:00 98.0 67 16 141/68 (92) 95 07/30/18 16:00 Room Air I&O- Last 24 Hours up to 6 AM 08/05/18 06:00 Intake Total 260 ml Balance 260 ml Laboratory Data 24H LABS Laboratory Tests 2 08/05/18 05:45: Immature Granulocyte % (Auto) 3.1H, White Blood Count 15.4H, Red Blood Count 3.25L, Hemoglobin 7.8L, Hematocrit 25.5L, Mean Corpuscular Volume 78.5L, Mean Corpuscular Hemoglobin 24.0L, Mean Corpuscular Hemoglobin Concent 30.6L, Red Cell Distribution Width 14.7H, Platelet Count 540H, Neutrophils (%) (Auto) 86.3H, Lymphocytes (%) (Auto) 6.0L, Monocytes (%) (Auto) 4.5, Eosinophils (%) (Auto) 0.0, Basophils (%) (Auto) 0.1, Neutrophils # (Auto) 13.3H, Lymphocytes # (Auto) 0.9L, Monocytes # (Auto) 0.7, Eosinophils # (Auto) 0.0, Basophils # (Auto) 0.0, Nucleated Red Blood Cells % (auto) 0.2H, Anion Gap 5L, Glomerular Filtration Rate > 60.0, Blood Urea Nitrogen 21H, Creatinine 0.79, Sodium Level 142, Potassium Level 3.4L, Chloride Level 113H, Carbon Dioxide Level 24, Calcium Level 7.9L CBC/BMP Laboratory Tests 08/05/18 05:45 Red Blood Count 3.25 L, Mean Corpuscular Volume 78.5 L, Mean Corpuscular Hemoglobin 24.0 L, Mean Corpuscular Hemoglobin Concent 30.6 L, Red Cell Distribution Width 14.7 H, Neutrophils (%) (Auto) 86.3 H, Lymphocytes (%) (Auto) 6.0 L, Monocytes (%) (Auto) 4.5, Eosinophils (%) (Auto) 0.0, Basophils (%) (Auto) 0.1, Neutrophils # (Auto) 13.3 H, Lymphocytes # (Auto) 0.9 L, Monocytes # (Auto) 0.7, Eosinophils # (Auto) 0.0, Basophils # (Auto) 0.0, Calcium Level 7.9 L Microbiology Microbiology 07/30/18 Blood Culture - Final, Complete NO GROWTH AFTER 5 DAYS 07/30/18 Blood Culture - Final, Complete NO GROWTH AFTER 5 DAYS 07/31/18 MRSA Screen - Final, Complete 07/30/18 Urine Culture - Final, Complete MARIELA PEDRO DO August 06, 2018 00:00
[2018-08-06] MEDS: IPRATROPIUM 0.5MG/ALBUTEROL 2.5MG INH SOL UD 3ML (DUONEB)(J7620) NEB SCH ×2 (01:06→08:41)
[2018-08-06 02:00] VITALS: BP 152/76
[2018-08-06 06:00] VITALS: BP 143/74
[2018-08-06] MEDS ORDERED: LOSARTAN 50 MG TAB PO SCH (09:00)
[2018-08-06] MEDS: LIDOCAINE 5% (LIDODERM) PATCH TD SCH (09:11)
[2018-08-06] MEDS: AUGMENTIN 875 MG TAB PO SCH (09:13)
[2018-08-06] MEDS: CLOPIDOGREL 75 MG TAB PO SCH (09:13)
[2018-08-06] MEDS: PANTOPRAZOLE 40MG TAB (PROTONIX) PO SCH (09:13)
[2018-08-06] MEDS: FERROUS SULFATE 300MG/5ML UDC LIQUID PO SCH (09:13)
[2018-08-06 09:14] VITALS: BP 143/74
[2018-08-06] MEDS: PERCOCET 5MG/325MG TAB PO PRN (09:14)
[2018-08-06] MEDS: ASPIRIN 81 MG ENTERIC TAB PO SCH (09:14)
[2018-08-06] MEDS: amLODIPine 5 MG TAB PO SCH (09:14)
[2018-08-06] MEDS: MIRTAZAPINE 15 MG TAB PO SCH (09:15)
[2018-08-06] MEDS: LACTOBACILLUS ACIDOPHILUS CAP (BACID) PO SCH (09:15)
[2018-08-06] MEDS: SENNA 8.6 MG TAB (SENOKOT) PO SCH (09:15)
[2018-08-06] MEDS: levETIRAcetam 250MG TABLET (KEPPRA) PO SCH (09:15)
[2018-08-06] MEDS: GABAPENTIN 300 MG CAP PO SCH (09:15)
[2018-08-06] MEDS ORDERED: LIDO5TD TD (09:17)
[2018-08-06] MEDS ORDERED: DEXA2TA PO (09:17)
[2018-08-06] MEDS ORDERED: KEPP250T5 PO (09:17)
[2018-08-06] MEDS ORDERED: AMOX875T2 PO (09:17)
[2018-08-06] MEDS ORDERED: IPRA0.00 NEB (09:17)
[2018-08-06] MEDS ORDERED: COZA50TA PO (09:17)
[2018-08-06] MEDS ORDERED: AMLO5TAB6 PO (09:17)
[2018-08-06 10:00] VITALS: BP 161/82
--- NOTE | 2018-08-06 10:43 | DSES ---
DATE OF ADMISSION: 07/30/2018 DATE OF DISCHARGE: 08/06/2018 PRIMARY CARE PROVIDER: Dr. Daniel Valencia ATTENDING TODAY: Dr. Teodoro Burks HISTORY: This is a 57-year-old male patient, who is resident at [facility], who presented to [facility] with febrile illness, questionable pneumonia. 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 With a known history of endocarditis patient was evaluated and felt to have pneumonia. He was admitted to the hospital on Zosyn and vancomycin. During his hospitalization, he was medically stable. He was found to have questionable brain mets on imaging on admission and therefore an MRI of the brain was ordered, as well as a right lung nodule and followup CT scan was ordered for that. MRI of the brain, which was done on 07/30/2018, confirmed that there is vasogenic edema in the cerebellar hemispheres and left cerebellum there was mass effect with minimal midline shift to the left. Old bilateral basal ganglia and thalamic lacunar infarcts, several punctate acute infarctions in the parietal lobes and right frontal lobe. Followup MRI with contrast was suggestive of multiple enhancing metastatic lesions in the cerebral hemispheres and left cerebellum associated with vasogenic edema mass effect with partial effacement of the body of the right lateral ventricle secondary to metastatic lesion in the right frontal lobe. No midline shift was noted. CT scan of the abdomen and pelvis was also performed, which was significant for small effusions particularly of the right although unchanged compared with admission. Right lower lobe nodular density was partially visualized. Mild adrenal thickening. Lytic destruction and sclerotic change to vertebral body T10 compatible with metastatic lesion. The patient's respiratory status has improved. He has been afebrile. His white count did gradually come down slightly, although the patient was placed on Decadron after MRI for cerebral edema and therefore, this is suspected to adversely be influencing his white blood cell count with a slight elevation in his leukocytosis. During his hospitalization, his brother Musa has been involved in his care. He has spoken to both Dr. Hernández and myself this morning. I confirmed the findings with the patient's brother, who seemed quite aware of what was going on. He feels as though he does not want any further any treatment for his brother. In fact, he reports that he was comfort measures prior to his transfer to the hospital. He feels as though his quality of life is impacted and will be further so by the treatment of treating the cancerous lesions. He feels as though this is not what his brother would have wanted. He requested the patient be transferred back to [facility] as soon as possible as he feels as though he is more comfortable there as the staff are more familiar with him. At this point, he agrees he wants no further evaluation and wishes to make the patient only comfortable moving forward. Discharge diagnoses include: 1. Pneumonia. 2. 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 3. T10 metastatic lytic lesion. 4. Pulmonary nodule. 5. Anemia. 6. Hypertension. 7. Febrile illness. 8. Acute kidney injury. 9. History of endocarditis. 10. History of CVA. His discharge medications include: - amlodipine 5 mg daily - Augmentin 875/125 one tablet twice a day - dexamethasone 8 mg four times daily - DuoNeb every 6 hours - Keppra 1000 mg by mouth twice a day - lidocaine one patch topically daily to the low back - losartan 100 mg by mouth daily - acetaminophen 650 mg by mouth or per rectum twice a day as needed for pain or fever - albuterol sulfate 2.5 mg inhaled every 2 hours as needed for shortness of breath - Mag-Al suspension 30 mL by mouth four times daily as needed for constipation - aspirin 81 mg by mouth daily - atorvastatin 40 mg daily - benzonatate 200 mg by mouth every 8 hours as needed for cough - Dulcolax 10 mg per rectum daily as needed for constipation - Plavix 75 mg by mouth daily - ferrous sulfate 325 mg by mouth twice a day - gabapentin 300 mg by mouth three times a day - hydralazine 37.5 mg every 6 hours - hydrocodone/acetaminophen one tablet twice a day and every 4 hours as needed for pain - ketoconazole 2% topically twice a day - Ensure lactose reduced 180 mL by mouth twice a day - Milk of Magnesia 30 mL by mouth daily as needed for constipation - Remeron 15 mg by mouth daily - Protonix 40 mg by mouth daily - Artificial Tears one drop each eye four times daily as needed for dry eyes - Senna two tablets by mouth daily - Fleet enema one enema daily as needed, constipation Discharge plan will be to followup with Dr. Valencia. His activity as tolerated. His diet is regular with Ensure. He is COMFORT MEASURES ONLY. edited: 08/07/2018 1000 tkf MTDD
[2018-08-06 11:17] LABS: BASO % 0.1 % (0.0-1.0); EOS % 0.1 % (0.0-3.0); HEMATOCRIT 25.4 % (42.0-52.0); HEMOGLOBIN 7.8 g/dl (13.5-17.5); LYMPH # 1.4 10^3/uL (1.5-4.5); LYMPH % 8.1 % (24.0-44.0); MEAN CORPUSCULAR HEMOGLOBIN 24.1 pg (27.0-33.0); MEAN CORPUSCULAR HGB CONC 30.7 g/dl (32.0-36.5); MEAN CORPUSCULAR VOLUME 78.6 fl (80.0-96.0); MONO # 1.1 10^3/uL (0.0-0.8); MONO % 6.7 % (0.0-5.0); NEUTROPHILS # 14.1 10^3/uL (1.8-7.7); NEUTROPHILS % 82.2 % (36.0-66.0); PLATELET COUNT, AUTOMATED 523 10^3/uL (150-450); RED BLOOD COUNT 3.23 10^6/uL (4.30-6.10); WHITE BLOOD COUNT 17.1 10^3/uL (4.0-10.0)
[2018-08-06 11:43] LABS: BLOOD UREA NITROGEN 27 MG/DL (7-18); CALCIUM LEVEL 7.9 MG/DL (8.5-10.1); CARBON DIOXIDE LEVEL 23 MEQ/L (21-32); CHLORIDE LEVEL 114 MEQ/L (98-107); CREATININE FOR GFR 0.75 MG/DL (0.70-1.30); GLOMERULAR FILTRATION RATE > 60.0 (>56); GLUCOSE, FASTING 113 MG/DL (70-100); POTASSIUM SERUM 3.3 MEQ/L (3.5-5.1); SODIUM LEVEL 142 MEQ/L (136-145)
== END 2018-08-06 11:50 | DRG 41 ==
LOC: M ED 12:22 → M ED INP 15:16 → M MS5PR 07-31 13:20
PROVIDERS: ADMIT Family Medicine; ATTEND Family Medicine
DX: C79.31 Secondary malignant neoplasm of brain (principal); G93.6 Cerebral edema; J18.9 Pneumonia, unspecified organism; N17.9 Acute kidney failure, unspecified; I69.354 Hemiplegia and hemiparesis following cerebral infarction affecting left non-dominant side; Q21.1 Atrial septal defect; G40.409 Other generalized epilepsy and epileptic syndromes, not intractable, without status epilepticus; Z66 Do not resuscitate; D64.9 Anemia, unspecified; Z79.891 Long term (current) use of opiate analgesic; Z79.82 Long term (current) use of aspirin; R91.1 Solitary pulmonary nodule; Z79.02 Long term (current) use of antithrombotics/antiplatelets; Z79.899 Other long term (current) drug therapy; Z99.3 Dependence on wheelchair; I10 Essential (primary) hypertension; C79.51 Secondary malignant neoplasm of bone

== ENCOUNTER → 2018-08-13 | Outpatient (REF) | payer MEDICAID ==
[~2018-08-13] MED LIST changes: +ACET-907 PO; +ACET65SU PR; +ALBU83IN INH; +AMLO5TAB6 PO; +AMOX875T2 PO; +ARTI99.0 OU; +ASPI81CH44 PO; +ATOR40TA75 PO; +BENZ200C70 PO; +COZA50TA PO; +DEXA2TA PO; +ENSU1LIQ36 PO; +FERR5MLUD PO; +GABA-843 PO; +IPRA0.00 INH; +IPRA0.00 NEB; +KETO2CR TOP; +LEVO500T3 PO; +LIDO5TD TD; +MOM30SS PO; +MYLASSUD PO; +NORC1TAB7 PO; +PLAV1TAB2 PO; +REME15TA PO; +SENN18TA PO
[2018-08-13 07:47] LABS: BASO % 0.1 % (0.0-1.0); HEMATOCRIT 25.9 % (42.0-52.0); MEAN CORPUSCULAR HEMOGLOBIN 24.4 pg (27.0-33.0); MEAN CORPUSCULAR HGB CONC 30.9 g/dl (32.0-36.5); MONO # 0.7 10^3/uL (0.0-0.8); MONO % 5.9 % (0.0-5.0); NEUTROPHILS # 9.9 10^3/uL (1.8-7.7); NEUTROPHILS % 82.4 % (36.0-66.0); PLATELET COUNT, AUTOMATED 475 10^3/uL (150-450); RED BLOOD COUNT 3.28 10^6/uL (4.30-6.10); WHITE BLOOD COUNT 12.1 10^3/uL (4.0-10.0)
[2018-08-13 08:18] LABS: ALBUMIN 2.4 GM/DL (3.2-5.2); ALT/SGPT 51 U/L (12-78); BILIRUBIN,TOTAL 0.3 MG/DL (0.2-1.0); BLOOD UREA NITROGEN 43 MG/DL (7-18); CALCIUM LEVEL 7.6 MG/DL (8.5-10.1); CARBON DIOXIDE LEVEL 23 MEQ/L (21-32); CHLORIDE LEVEL 109 MEQ/L (98-107); CREATININE FOR GFR 0.86 MG/DL (0.70-1.30); GLOMERULAR FILTRATION RATE > 60.0 (>56); GLUCOSE, FASTING 95 MG/DL (70-100); POTASSIUM SERUM 4.7 MEQ/L (3.5-5.1); SODIUM LEVEL 140 MEQ/L (136-145); TOTAL PROTEIN 5.3 GM/DL (6.4-8.2)
== END ==
LOC: SKLAB2 07:00
PROVIDERS: ATTEND Family Medicine
DX: D64.9 Anemia, unspecified (principal)

== ENCOUNTER → 2018-08-20 | Outpatient (REF) | payer MEDICAID ==
[2018-08-20 13:21] LABS: HEMATOCRIT 24.6 % (42.0-52.0); HEMOGLOBIN 7.6 g/dl (13.5-17.5); MEAN CORPUSCULAR HEMOGLOBIN 25.3 pg (27.0-33.0); MEAN CORPUSCULAR HGB CONC 30.9 g/dl (32.0-36.5); PLATELET COUNT, AUTOMATED 312 10^3/uL (150-450); WHITE BLOOD COUNT 10.3 10^3/uL (4.0-10.0)
--- NOTE | 2018-08-20 15:27 | REP ---
Chest one-view HISTORY: Congestion Comparison: 07/30/2018 Patchy density is present in the lower lobes consistent with bibasilar infiltrates. There is blunting of the left costophrenic angle due to a small pleural effusion. The heart is normal in size. The pulmonary vasculature is normal in appearance. Impression: 1. Bibasilar infiltrates. 2. Small left pleural effusion Electronically Signed by Sachin Serra MD 08/20/2018 03:18 P
[2018-08-20 17:33] LABS: APPEARANCE, URINE CLEAR (CLEAR); BACTERIA, URINE AUTO NEGATIVE (NEGATIVE); BILIRUBIN, URINE AUTO NEGATIVE (NEGATIVE); BLOOD, URINE BLOOD NEGATIVE (NEGATIVE); COLOR, URINE YELLOW (YELLOW); GLUCOSE, URINE (UA) AUTO NEGATIVE (NEGATIVE); KETONE, URINE AUTO NEGATIVE (NEGATIVE); LEUKOCYTE ESTERASE, URINE AUTO NEGATIVE (NEGATIVE); NITRITE, URINE AUTO NEGATIVE (NEGATIVE); PROTEIN, URINE AUTO NEGATIVE (NEGATIVE); RBC, URINE AUTO 3 /HPF (0-3); SPECIFIC GRAVITY URINE AUTO 1.019 (1.002-1.035); SQUAMOUS EPITHELIAL CELL UR AU 0 /HPF (0-6); WBC, URINE AUTO 0 /HPF (0-3)
== END ==
LOC: SKLAB2 11:30
PROVIDERS: ATTEND Family Medicine
DX: R50.9 Fever, unspecified (principal)